=== PATIENT | male | born 1945 | race Caucasian/White ===

== ENCOUNTER 2018-04-17 11:28 | Emergency (ER) | payer OTHER, SELFPAY ==
[2018-04-17] VITALS (62 sets, daily range): BP systolic 112–191; BP diastolic 68–130; PULSE 59–84; RESP 7–25; TEMP 36.6; O2SAT 95–98
--- NOTE | 2018-04-17 11:45 | DI.RAD_ITS ---
SYMPTOMS/DIAGNOSIS: ANTERIOR CHEST PAIN AND SHORTNESS OF BREATH CHEST X-RAY, FRONTAL AND LATERAL VIEWS: Comparison is 05/24/17. The heart size and pulmonary vasculature are within normal limits. The lungs appear hyperinflated consistent with underlying COPD. There is a small infiltrate seen in the right costophrenic angle, not present on a prior examination. The lungs are otherwise clear. No effusions or pneumothoraces are present. Degenerative changes are seen in the spine. IMPRESSION: Right basilar infiltrate. This may represent atelectasis or pneumonia.
--- NOTE | 2018-04-17 11:48 | ED.GENADUL_ITS ---
Discharge Plan Disposition Patient Disposition: HOME Condition: Improving Discharge Details Chief Complaint: Chest Pain Clinical Impression: Pneumonia involving right lung Reason For Visit: CHEST PAINS Primary Care Provider: Tyler Brown ED Provider: Aguila Wei Home Meds and New Rx's Prescriptions: New cefdinir 300 mg capsule 300 mg PO Q12H 10 Days Qty: 20 RF: 0 Continued multivitamin [Daily Multi-Vitamin] 1 EACH tablet 2 ea PO DAILY RF: 0 cholecalciferol (vitamin D3) [Vitamin D3] 1,000 UNIT capsule 1,000 unit PO DAILY Qty: 100 RF: 6 loratadine 10 MG tablet 10 mg PO DAILY PRNQty: 30 RF: 1 atorvastatin 80 MG tablet 1 tab PO HS Qty: 90 RF: 3 pantoprazole [Protonix] 20 MG tablet,delayed release (DR/EC) 20 mg PO BID Qty: 90 RF: 3 loperamide 2 MG tablet 2 mg PO PRN MDD 6 mg PRNQty: 20 RF: 1 ferrous sulfate 325 MG tablet 325 mg PO BID 90 Days Qty: 180 RF: 3 aspirin [Aspir-81] 81 MG tablet,delayed release (DR/EC) 81 mg PO DAILY RF: 0 Discharge Instructions Instructions: Pneumonia (ED) Additional Instructions: Please follow-up with Dr. Brown in clinic. We will ask our care managers to make you a follow-up appointment. Take antibiotics as prescribed, next dose tomorrow morning. Home to rest today. 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 Denies lower extremity pain or swelling. He arrives moderately hypertensive, otherwise unremarkable vital signs and a reassuring exam. Diagnosis includes occult pneumonia, ACS, congestive heart failure, pleurisy. Patient had IV access established, referred for laboratory testing, chest x-ray, EKG. Patient's troponin is negative, BNP less than 1000, white blood cell count 4 with hematocrit of 37. Chemistries otherwise reassuring. Chest x-ray reveals right basilar infiltrate. Patient was given a shelter monitor for 4 hours. Repeat troponin obtained and negative. I do feel would benefit from outpatient follow-up and consideration of stress test if symptoms persist, but given today's findings will treat with a course of antibiotics beginning tomorrow for basilar pneumonia. Discussed with the patient plan for outpatient management as well as return and follow-up precautions Lab Data Lab results reviewed: Yes I reviewed the patient's lab results. Laboratory Results - last 24 hr 04/17/18 04/17/18 04/17/18 11:35 11:35 11:35 WBC 4.88 RBC 4.82 Hgb 11.7 L Hct 37.0 L MCV 76.8 L MCH 24.3 L MCHC 31.6 L RDW 16.3 H Plt Count 178 MPV 8.5 Immature Gran % 0.4 Neutrophils % 77.1 Lymphocytes % 11.3 Monocytes % 8.8 Eosinophils % 2.0 Basophils % 0.4 Absolute Neutrophils 3.76 Absolute Lymphocytes 0.55 L Absolute Monocytes 0.43 Absolute Eosinophils 0.10 Absolute Basophils 0.02 APTT 28.5 Sodium 140 Potassium 4.5 Chloride 104 Carbon Dioxide 24.3 Anion Gap 11.7 H BUN 17 Creatinine 1.29 Estimated GFR/1.73 m2 54.75 Glucose 79 Calcium 9.2 Magnesium 1.8 Total Bilirubin 1.1 H AST 26 ALT 29 Alkaline Phosphatase 102 Troponin I < 0.02 NT-Pro-B Natriuret Pep 854 H Total Protein 7.2 Albumin 3.8 ECG Data Attestation: I personally reviewed and interpreted this ECG (s) as follows: Interpretation: Normal sinus rhythm, rate of 69, the QRS is narrow, there is no ST segment elevation, no history of isolated T wave inversions in aVL lead V2, lead V1 HPI General Mode of arrival: ambulatory . Date/Time Provider Initiated Documentation: 04/17/18 11:32 . Limitations to Documentation: no limitations . Information obtained by: patient . History of Present Illness 72 year old M presents to the emergency department with the chief complaint of CP and SOB with exertion over 3 days time., described as moderate, Quality is described as dull and other (pressure), and is localized to the chest. Patient reports no radiation. Patient started experiencing this minute(s) and it has been intermittent and now resolved. Rest improves symptom(s), Movement worsens symptoms . Patient did receive the following treatments prior to arrival, none Related Data Home Medications Medication Instructions Recorded Confirmed multivitamin [Daily Multi-Vitamin] 2 ea PO DAILY 07/09/12 05/24/17 cholecalciferol (vitamin D3) 1,000 unit PO DAILY #100 tab-cap 01/25/16 [Vitamin D3] loratadine 10 mg PO DAILY PRN #30 tab-cap 09/02/16 atorvastatin 1 tab PO HS #90 tab 04/04/17 pantoprazole [Protonix] 20 mg PO BID #90 tabcr 04/04/17 aspirin [Aspir-81] 81 mg PO DAILY 05/24/17 05/24/17 loperamide 2 mg PO PRN PRN #20 tab MDD 6 mg 10/31/17 ferrous sulfate 325 mg PO BID 90 Days #180 tab-cap 12/04/17 cefdinir 300 mg PO Q12H 10 Days #20 cap 04/17/18 Previous Rx's Medication Instructions Recorded atorvastatin 1 tab PO HS #90 tab 04/04/17 pantoprazole [Protonix] 20 mg PO BID #90 tabcr 04/04/17 ferrous sulfate 325 mg PO BID 90 Days #180 tab-cap 12/04/17 cefdinir 300 mg PO Q12H 10 Days #20 cap 04/17/18 Allergies Allergy/AdvReac Type Severity Reaction Status Date / Time No Known Drug Allergies Allergy Verified 03/27/18 14:35 General Stated Complaint: SOB BRUCE: 2 Review of Systems Review of Systems 8 systems reviewed and otherwise negative FORMERLY [facility], [facility] Surgical History Carotid endarterectomy (04/19/16) Colonoscopy - IV Sedation (03/10/14) EGD - IV Sedation (12/22/15) Extraction of cataract (09/25/14) partial esophagotomy (04/28/00) Family History Mother Congestive heart failure (CHF) Father Myocardial infarction Sister Myocardial infarction Sister Age: 84 No problems noted. Brother Esophageal cancer Social History Smoking/Tobacco Use Status: Former Tobacco Use Exam Narrative Exam Narrative: GEN: awake, alert, oriented 3. Pleasant, well groomed, interact angel. HEAD: Normocephalic, atraumatic ENT: Mucous membranes moist, oropharynx unremarkable, External ear exam unremarkable EYES: PERRL, EOMI NECK: Full ROM, no SARAH, no menigismus CHEST/RESP: Nontender, clear to auscultation bilateral, no wheeze/rhonchi/rales CARDIOVASCULAR: RRR, no murmur, rub liliya. 2+ Rad pulse bilateral ABDOMEN: Soft, nontender, no mass. +Bowel sounds EXT: Full ROM, no edema, no rash Neuro: Grossly normal neurologic exam, conversant, interactive. Psych: Speech fluent, thoughts congruent, affect normal Course Vital Signs Temperature 36.6 C 04/17/18 11:33 Pulse 76 04/17/18 11:33 Respiratory Rate 15 04/17/18 11:33 Blood Pressure 191/78 H 04/17/18 11:33 Temperature 36.6 C 04/17/18 11:33 Temperature Source Temporal Artery Scan 04/17/18 11:33 Pulse 76 04/17/18 11:33 Respiratory Rate 15 04/17/18 11:36 Respiratory Effort 04/17/18 11:36 Respiratory Depth Normal 04/17/18 11:36 Respiratory Pattern Normal 04/17/18 11:36 Blood Pressure 191/78 H 04/17/18 11:33 Blood Pressure Position Supine 04/17/18 11:33 Oxygen Delivery Method Room Air 04/17/18 11:33 Oxygen Flow Rate 0 04/17/18 11:33 Pain Level 2 04/17/18 11:33
[2018-04-17 11:55] LABS: Abs Immature Grans 0.02 k/cumm (0.0-0.09); Absolute Basophil Count 0.02 k/cumm (0.0-0.2); Absolute Lymphocyte Count 0.55 k/cumm (1.2-3.4); Absolute Monocyte Count 0.43 k/cumm (0.11-0.7); Absolute Neutrophil Count 3.76 k/cumm (1.2-6.7); Basophils % 0.4; HGB 11.7 g/dL (13.5-17.5); Immature Grans % 0.4; Lymphocytes % 11.3; Mean Corp. HGB Concentration 31.6 g/dL (32.0-36.0); Mean Corpuscular Hemoglobin 24.3 pg (27.0-33.0); Mean Corpuscular Volume 76.8 fL (80-95); Mean Platelet Volume 8.5 fL (8.0-11.0); Monocytes % 8.8; Neutrophils % 77.1; Platelet Count 178 x1000/uL (130-400); RBC 4.82 m/cumm (4.50-6.00); RBC Distribution Width 16.3 % (11.8-14.1); White Blood Cell Count 4.88 k/cumm (4.4-10.8)
[2018-04-17] MEDS: Normal Saline 1,000 ML 125 ML IV (11:55)
[2018-04-17] MEDS: Normal Saline Flush 10 ML SYR IVP (11:56)
[2018-04-17 12:21] LABS: PTT Activated 28.5 sec (21.0-31.4)
[2018-04-17 12:29] LABS: ALT 29 U/L (12-78); AST 26 U/L (15-37); Albumin 3.8 g/dL (3.4-5.0); Alkaline Phosphatase 102 U/L (46-116); Anion Gap 11.7 mmol/L (3-11); BUN 17 mg/dL (7-18); Bilirubin, Total 1.1 mg/dL (0.2-1.0); CO2 24.3 mmol/L (21.0-32.0); CREATININE 1.29 mg/dL (0.70-1.30); Calcium 9.2 mg/dL (8.5-10.1); Chloride 104 mmol/L (98-107); Estimated GFR 54.75 (mL/min/1.73m2); Glucose 79 mg/dL (70-100); Magnesium 1.8 mg/dL (1.8-2.4); NT-proBNP 854 pg/mL; Potassium 4.5 mmol/L (3.5-5.1); Sodium 140 mmol/L (136-145); Total Protein 7.2 g/dL (6.4-8.2); Troponin I < 0.02 ng/mL (0.00-0.06)
[2018-04-17 15:51] LABS: Troponin I 0.02 ng/mL (0.00-0.06)
--- NOTE | 2018-04-18 09:47 | CMPROGNOTE_ITS ---
Care Management Progress Note 04/18-Dr. Wei requested assistance with a PCP f/u in one week for pneumonia. Dr. Brown PCP. Referral faxed to [facility] this am.
== END 2018-04-17 16:22 | disposition home or self-care (01) ==
PROVIDERS: Emergency Provider Emergency Medicine; PCP Family Medicine
DX: J18.9 Pneumonia, unspecified organism (principal)
CPT/HCPCS: 36415; 80053; 93005; 96361; 96365; 96366; 99285; 71046; 83735; 83880; 84484; 85025; 85730; 93010; 99284; J0696

== ENCOUNTER 2018-05-09 05:11 | Outpatient (CLI) | payer OTHER, SELFPAY ==
--- NOTE | 2018-05-09 06:43 | MERGEMPI_ITS ---
*[facility]* *[facility]* [address] [place] [address] Myocardial Perfusion Imaging - SPECT Werner protocol Date of study: 05/09/2018 *PATIENT PRESENTATION* Height: 175.3cm (69in) Blood Pressure: Weight: 62.7kg (138lb) BSA: 1.74m^2 Referring physician: Frank Lopez Ordering physician: Tyler Brown Impressions: Stress-induced perfusion defect with drop in ejection fraction. Summary: 1. Myocardial perfusion imaging: There is a large sized, partially reversible defect involving the mid anterior and apical anterior, mid inferolateral, mid anterolateral, apical lateral, and apical wall(s). This suggests large myocardial infarction and ischemia in the distribution of left anterior descending and left circumflex coronary artery. Overall ischemia: moderate. 2. The calculated left ventricular ejection fraction after stress: 29%. LV global systolic function is severely reduced. Diffuse left ventricular regional motion abnormalities. There is akinesis involving the apical wall(s) of the left ventricle. There is severe hypokinesis involving the mid anterolateral wall(s) of the left ventricle. 3. Stress ECG conclusions: The stress ECG is positive. 4. Stress: The target heart rate was achieved. The heart rate response to stress is normal. There is a normal resting blood pressure with an appropriate response to stress. The patient experienced no chest pain during stress. Exercise capacity is above normal for age. 5. Baseline ECG: Nonspecific ST and T wave changes. There was an oldanteroseptal myocardial infarction. 6. Treadmill exercise testing was performed using the Werner protocol. The patient exercised for 7 min 20 sec, to protocol stage 3, to a maximal work rate of 9mets. Exercise was terminated due to achievement of target heart rate. Recommendations: Cardiac catheterization should be performed in order to evaluate coronary artery disease. This procedure has been arranged, discussed with the referring physician, and discussed with the patient. Indication: R07.9, Appropriate Use Criteria: A (Appropriate). History: REASON FOR TESTING: PATIENT WAS SEEN IN THE ER ON 04/17/18 FOR PNEUMONIA AND INTERMITTENT EPISODES OF SUBSTERNAL CHEST PRESSURE RATED 5/10. TROPONINS IN ER WERE NEGATIVE. HE REPORTS RECENT CHEST ACHING WITH INCREASED SOB AND SHOULDER ACHING WITH SHOVELING SNOW. HE STATES HE TIRES QUICKLY WITH ACTIVY. HE DENIES CHEST PAIN/PRESSURE UPON ARRIVAL TODAY. SIGNIFICANT PAST MEDICAL HISTORY: TIA, CAROTID DISEASE WITN ENDARTERECTOMY ON 04/26, ATHEROSCLEROSIS OF [place] CORONARY ARTERY OF [place] HEART WITHOUT ANGINA PECTORIS, PARTIAL ESOPHAGOTOMY. SMOKING STATUS: QUIT 1988. SMOKED FOR 29 YEARS 1PPD. EXERCISE ROUTINE:DAILY ADL'S. Risk factors: Family history of coronary artery disease. Dyslipidemia. Cholesterol: 166mg/dl. HDL: 81mg/dl. LDL: 83mg/dl. Triglycerides: 41mg/dl. ALLERGIES: NO KNOWN ALLERGIES. MEDICATIONS: MULTIVITAMIN DAILY, VITAMIN D 1000 UNITS DAILY, LORATADINE 10 MG DAILY, ATORVASTATIN 80 MG HS, PROTONIX 20 MG BID, FERROUS SULFATE 325 MG BID, ASPIRIN 81 MG DAILY. Imaging Technique: Protocol: Werner protocol. Acquisition: Gated SPECT; 1 day - rest/stress. The patient was imaged in the supine position. Attenuation correction used. Isotope administration: - Rest. Tc[99m]-sestamibi. Dose: 10.1mCi. Injection time: 08:45 AM. Injection to stress time: 00:45. - Stress. Tc[99m]-sestamibi. Dose: 30.2mCi. Injection time: 10:30 AM. 1-2 min before end of exercise Baseline ECG: SINUS BRADYCARDIA. HR 57 BPM. INVERTED T-WAVES IN LEADS & V2. Normal sinus rhythm. Nonspecific ST and T wave changes. There was an oldanteroseptal myocardial infarction. Stress protocol: + +---+ + !Stage !HR !BP (mmHg) ! + +---+ + !Baseline supine !57 !128/72 (91) ! + +---+ + !Baseline standing !66 !120/60 (80) ! + +---+ + !Stage I; 1.7mph, 10degrees; 3 min !114!124/64 (84) ! + +---+ + !Stage II; 2.5mph, 12degrees; 3 min!136!130/60 (83) ! + +---+ + !Recovery; 1 min !126!152/78 (103)! + +---+ + !Recovery; 3 min !75 !170/80 (110)! + +---+ + !Recovery; 6 min !77 !150/80 (103)! + +---+ + !Recovery; 12 min !66 !140/78 (99) ! + +---+ + * Stress results: STRESS TEST ENDED IN 7 MINUTES 20 SECONDS DUE TO FATIGUE. NORMAL HEART RATE AND BLOOD PRESSURE RESPONSE TO EXERCISE. MAX HEART RATE: 143 96 % OF TARGET HEART RATE ACHEIVED. MET'S: 9.12. PVC'S DURING EXERCISE AND INCREASING IN PROMINENCE UP UNTILL 6 MINUTES RECOVERY PERIOD T WAVE INVERSION IN AVL, V1 AND V2 AT BASELINE AND THROUGHOUT EXERCISE TEST. ST SEGMENT DEPRESSIONS IN INFERIOR LEADS NOTED DURING STAGE II OF EXERCISE, PERSISITING AND BECOMING DOWNWARD SLOPING IN APPEARANCE INTO [address] SEGMENT ELEVATIONS IN LEADS V1 & V2 NOTED DURING PEAK EXERCISE THROUGH 6 MINUTES RECOVERY PERIOD. NO ANGINA FUNCTIONAL CAPACITY FOR EXERCISE IS ABOVE AVERAGE. Maximal heart rate during stress was 143bpm (97% of maximal predicted heart rate). The maximal predicted heart rate was 148bpm. The target heart rate was achieved. The heart rate response to stress is normal. There is a normal resting blood pressure with an appropriate response to stress. The rate-pressure product for the peak heart rate and blood pressure was 36643se Hg/min. The patient experienced no chest pain during stress. Exercise capacity is above normal for age. Stress ECG: The stress ECG is positive. Stress ECG change: horizontal depression. Severity: 1.0-1.5mm. In lead groups: II, III, and aVF. Melvin treadmill score: 0. This score predicts a moderate risk of cardiac events. Myocardial perfusion: Imaging information: gated. The image quality was good. Left ventricular size is normal. There is a large sized, partially reversible defect involving the mid anterior and apical anterior, mid inferolateral, mid anterolateral, apical lateral, and apical wall(s). This suggests large myocardial infarction and ischemia in the distribution of left anterior descending and left circumflex coronary artery. Overall ischemia: moderate. Ventricular Function (Wall Motion): The calculated left ventricular ejection fraction after stress: 29%. LV global systolic function is severely reduced. Diffuse left ventricular regional motion abnormalities. There is akinesis involving the apical wall(s) of the left ventricle. There is severe hypokinesis involving the mid anterolateral wall(s) of the left ventricle. Study data: Frank Lopez MD supervised and was readily available during the procedure. This study was interpreted by [facility]. Study status: Routine. Consent: The risks, benefits, and alternatives to the procedure were explained to the patient and informed consent was obtained. Procedure: Initial setup. A baseline ECG was recorded. Surface ECG leads and manual cuff blood pressure measurements were monitored. Heart sounds: Normal. Lung sounds: Normal. Treadmill exercise testing was performed using the Werner protocol. The patient exercised for 7 min 20 sec, to protocol stage 3, to a maximal work rate of 9mets. Exercise was terminated due to achievement of target heart rate. Study completion: All catheters inserted during the procedure were removed. The patient tolerated the procedure well and was discharged from the lab. Discharge: The patient left the laboratory in stable condition. Birthdate: Patient birthdate: 1945. Sex: Gender: male. Study date: Study date: 05/09/2018. Study time: 06:43 AM. Signature Documentation: - The imaging portion of this study was interpreted by Nuclear Caustic Pump Operator Frank Lopez MD. - The Stress ECG portion of this study was interpreted by Frank Lopez MD. Electronically signed by Frank Lopez 05/09/2018 15:18
== END 2018-05-09 05:31 ==
PROVIDERS: PCP Family Medicine; Visit Provider Family Medicine
DX: R06.02 Shortness of breath; R93.1 Abnormal findings on diagnostic imaging of heart and coronary circulation; E78.5 Hyperlipidemia, unspecified; G45.9 Transient cerebral ischemic attack, unspecified; I25.10 Atherosclerotic heart disease of native coronary artery without angina pectoris; Z87.891 Personal history of nicotine dependence; I20.9 Angina pectoris, unspecified
CPT/HCPCS: 78452; 93016; 93018; 99205; 99215; 93017

== ENCOUNTER → 2018-06-27 13:45 | Outpatient (BNVA) | payer OTHER, SELFPAY | PROVIDERS: PCP Family Medicine; Visit Provider Student in an Organized Health Care Education/Training Program | DX: I25.10 Atherosclerotic heart disease of native coronary artery without angina pectoris (principal); Z95.818 Presence of other cardiac implants and grafts; I20.8 Other forms of angina pectoris | CPT/HCPCS: 99214; 99213 ==

== ENCOUNTER 2018-09-07 11:54 | Outpatient (RCR) | payer OTHER, SELFPAY | END 2018-09-07 23:59 | disposition home or self-care (01) | LOC: CR 11:54 | PROVIDERS: PCP Family Medicine; Visit Provider Family Medicine | DX: Z95.1 Presence of aortocoronary bypass graft (principal); Z51.89 Encounter for other specified aftercare | CPT/HCPCS: S9472 ==

== ENCOUNTER 2018-09-24 07:00 | Outpatient (RCR) | payer OTHER, SELFPAY | END 2018-10-07 23:59 | disposition home or self-care (01) | LOC: CR 07:00 | PROVIDERS: PCP Family Medicine; Visit Provider Family Medicine | DX: Z95.1 Presence of aortocoronary bypass graft (principal); Z51.89 Encounter for other specified aftercare | CPT/HCPCS: S9472 ==

== ENCOUNTER 2018-11-06 08:15 | Outpatient (CLI) | payer MEDICARE, SELFPAY ==
[2018-11-06 11:02] LABS: Abs Immature Grans 0.01 k/cumm (0.0-0.09); Absolute Basophil Count 0.01 k/cumm (0.0-0.2); Absolute Eosinophil Count 0.19 k/cumm (0.0-0.7); Absolute Lymphocyte Count 0.53 k/cumm (1.2-3.4); Absolute Monocyte Count 0.42 k/cumm (0.11-0.7); Basophils % 0.3; Eosinophils % 4.9; HCT 31.1 % (40.0-50.0); HGB 10.1 g/dL (13.5-17.5); Immature Grans % 0.3; Lymphocytes % 13.6; Mean Corp. HGB Concentration 32.5 g/dL (32.0-36.0); Mean Corpuscular Hemoglobin 23.9 pg (27.0-33.0); Mean Corpuscular Volume 73.7 fL (80-95); Mean Platelet Volume 9.1 fL (8.0-11.0); Monocytes % 10.7; Neutrophils % 70.2; Platelet Count 178 x1000/uL (130-400); RBC 4.22 m/cumm (4.50-6.00); RBC Distribution Width 18.2 % (11.8-14.1); White Blood Cell Count 3.91 k/cumm (4.4-10.8)
[2018-11-06 11:07] LABS: Absolute Neutrophil Count 2.74 k/cumm (1.2-6.7)
[2018-11-06 11:24] LABS: Anisocytosis 1+; Diff Comment RBC Morph Reviewed; Hypochromasia 1+; Microcytosis 2+; Poikilocytes 1+
[2018-11-06 11:45] LABS: ALT 35 U/L (12-78); AST 23 U/L (15-37); Albumin 3.5 g/dL (3.4-5.0); Alkaline Phosphatase 101 U/L (46-116); Bilirubin, Total 0.9 mg/dL (0.2-1.0); Calculated LDL 79 mg/dL; Cholesterol 167 mg/dL (50-200); HDL Cholesterol 76 mg/dL (40-60); Magnesium 1.9 mg/dL (1.8-2.4); Total Protein 6.4 g/dL (6.4-8.2); Triglyceride 62 mg/dL (30-150)
== END 2018-11-06 08:35 ==
PROVIDERS: PCP Family Medicine; Visit Provider Student in an Organized Health Care Education/Training Program
DX: I25.810 Atherosclerosis of coronary artery bypass graft(s) without angina pectoris (principal); E78.5 Hyperlipidemia, unspecified
CPT/HCPCS: 36415; 80061; 80076; 83721; 83735; 85025

== ENCOUNTER → 2019-01-11 09:50 | Outpatient (BNVA) | payer MEDICARE, SELFPAY | PROVIDERS: PCP Family Medicine; Referring Provider Family Medicine; Visit Provider Internal Medicine Cardiovascular Disease | DX: I25.810 Atherosclerosis of coronary artery bypass graft(s) without angina pectoris (principal); I77.9 Disorder of arteries and arterioles, unspecified; E78.00 Pure hypercholesterolemia, unspecified | CPT/HCPCS: 99204; 99215 ==

== ENCOUNTER 2019-01-30 00:29 | Outpatient (CLI) | payer MEDICARE, SELFPAY ==
--- NOTE | 2019-01-30 07:23 | DI.US_ITS ---
APPROVED REPORT Conclusion Left Ventricle : The left ventricle is normal size. The left ventricular ejection fraction is within the normal range. There is normal LV segmental wall motion. LVEF is 50-55%. The left ventricular jimenez tolic function is normal. Right Ventricle : Right ventricle is dilated. Right ventricle is mildly hypokinetic. Atria : Left atrium is dilated. Right atrium is dilated. Aortic Valve : The Aortic valve is sclerotic and probably tricuspid. Mild aortic stenosis. Trace aor tic regurgitation. Mitral Valve : The mitral valve is moderately thickened. AVML has focal thickening. No evidence of m itral valve stenosis. Moderate mitral regurgitation which is posteriorly directed. EROA=0.24 cm??? Tricuspid Valve : The tricuspid valve leaflets are thickened , but open well. Mild to moderate tricus pid regurgitation. RVSP equals 35 mmHg Pericardium : There is no pericardial effusion. Great Vessels : The IVC is dilated but collapses >50% with inspiration. Compared to echocardiogram from [facility] in May 2018: There is now moderate regurgita tion of the mitral valve EXAM: Comprehensive 2D, Doppler, and color-flow Echocardiogram Patient Location: Out-Patient Loss Prevention Auditor: SAMANTHA Cazares (AE) Rhythm: Bradycardia with frequent ectopy Indications: s/p CABG CAD i25.810 Left Ventricle The left ventricle is normal size. The left ventricular ejection fraction is within the normal range. There is normal left ventricular wall thickness. There is normal LV segmental wall motion. The left ventricular diastolic function is normal. LVEF is 50-55%. Right Ventricle Right ventricle is dilated. Right ventricle is mildly hypokinetic. Atria Left atrium is dilated. Right atrium is dilated. Aortic Valve The Aortic valve is sclerotic and probably tricuspid. Mild aortic stenosis. Trace aortic regurgitatio n. Mitral Valve The mitral valve is moderately thickened. AVML has focal thickening. No evidence of mitral valve sten osis. Moderate mitral regurgitation which is posteriorly directed. EROA=0.24 cm??? Tricuspid Valve The tricuspid valve leaflets are thickened , but open well. Mild to moderate tricuspid regurgitation. RVSP equals 35 mmHg Pulmonic Valve Pulmonic valve is not well visualized. Mild pulmonic regurgitation. Great Vessels The aortic root is normal in size. The IVC is dilated but collapses >50% with inspiration. Pericardium There is no pericardial effusion. 2D Dimensions IVSd 0.97 cm M: 0.6-1.2 LV EDV A2C 86.20 mL PWd 0.95 cm M: 0.6 - 1.2 LV EDV A4C 69.20 mL LVDd 4.65 cm M: 4.2 - 5.9 LA Volume Index A2C 40.36 mL/m2 LVDs 3.38 cm M: 2.5 - 4.0 LA Volume Index A4C 46.77 mL/m2 Aortic Root 3.08 cm M: 3.1 - 3.7 LA Volume Index Biplane 44.41 mL/m2 RA Area A4C 21.59 cm2 LA Area A4C 24.34 cm2 LVOT 2.00 cm (M/F) 1.5-2.5 LA Area A2C 22.12 cm2 Ascending Aorta 3.27 cm M: 2.6 - 3.4 EF AP4 56.36 % LVEF (Teich) 53.34 % EF AP2 54.41 % LVEF (Mckay's) 58.26 % M: 52 - 72 EF BP 58.26 % LV Volume 68.70 mL M: 62 - 150 IVC 2.1 cm LV Volume Index 39.25 mL/m2 M: 34 - 74 FS 27.43 % LV Diastology E/A Ratio 1.0 MED E' 0.08 (>0.07 m/s) LV E/e MED 10.03 (<14) LAT E' 0.09 (>0.1 m/s) LV E/e LAT 8.83 (<14) Pulm Vein s 0.63 m/s PV S/D Ratio 1.26 Pulm Vein d 0.50 m/s Pulm Vein a 0.35 m/s A-A Duration 179.57 msec Aortic Valve LVOT Area 3.15 cm2 LVOT Peak [place]. 0.86 m/s LVOT Mean [place]. 0.67 m/s ERLIN Vmax 0.00 m/s LVOT Peak Gr. 2.98 mmHg ERLIN Vmax Index 0.85 cm2/m2 LVOT Mean Gr. 1.93 mmHg ERLIN Mean [place]. 0.00 m/s LVOT VTI 0.22 m ERLIN Mean [place]. Index 0.91 cm2/m2 AoV Peak [place]. 1.83 (0.5-1.3 m/s) AoV Mean [place]. 1.33 m/s AO Peak GR. 13.44 mmHg AO Mean GR. 7.66 (<5 mmHg) AO VTI 0.46 (0.18-0.25 m) ERLIN (VTI) 1.48 (2.5-4.5 cm2) ERLIN (VTI) Index 0.86 cm/m2 Mitral Valve MV E Max [place]. 0.76 (0.4-1.3 m/s) MV A Velocity 0.73 (0.4-1.3 m/s) E/A Ratio 1.04 MV Decel. Time 244.55 (160-240 msec) ERO A 0.24 cm2 MV Regurg Volume 54.00 mL MV PHT 70.92 msec MV RF 44.00 % MVA PHT 3.10 cm2 PISA Radius 0.56 cm Pulmonary Valve PV Peak Velocity 0.80 (0.5-1.5 m/s) Tricuspid Valve TR P. Velocity 2.57 m/s TV Regurg Vmax 2.57 m/s TR P. Gradient 26.52 mmHg
== END 2019-01-30 00:49 ==
PROVIDERS: PCP Family Medicine; Visit Provider Internal Medicine Cardiovascular Disease
DX: I25.810 Atherosclerosis of coronary artery bypass graft(s) without angina pectoris (principal); R00.1 Bradycardia, unspecified; I35.2 Nonrheumatic aortic (valve) stenosis with insufficiency; I10 Essential (primary) hypertension
CPT/HCPCS: 93306

== ENCOUNTER 2019-03-06 12:35 | Outpatient (CLI) | payer MEDICARE, SELFPAY ==
--- NOTE | 2019-03-06 15:08 | DI.MRI_ITS ---
EXAM: MR ANGIO BRAIN WO CLINICAL HISTORY: TRANSIENT VISUAL LOSS, NEEDS [place] OF [place] CHECK, AMAUROSIS FUGAX, G45.3. TECHNIQUE: Multiplanar multisequence MRI was performed. MR angiography was performed according to [facility] usual protocol. COMPARISON: MRI - BRAIN WO CONTRAST from 03/08/2016 FINDINGS: The right posterior cerebral artery is supplied from the posterior communicating artery. Posterior cerebral, middle cerebral, and anterior cerebral arteries are unremarkable in appearance bilaterally with no evidence of aneurysm, stenosis or dissection. Basilar artery and internal carotid arteries appear normal with no evidence of aneurysm, stenosis or dissection. IMPRESSION: Negative MR angiography, [place] of [place] region.
== END 2019-03-06 12:55 ==
PROVIDERS: PCP Family Medicine; Visit Provider Family Medicine
DX: G45.3 Amaurosis fugax (principal); H53.129 Transient visual loss, unspecified eye
CPT/HCPCS: 70544

== ENCOUNTER 2019-03-08 01:50 | Outpatient (CLI) | payer MEDICARE, SELFPAY ==
--- NOTE | 2019-03-08 11:02 | DI.US_ITS ---
EXAM: US CAROTID CLINICAL HISTORY: TRANSIENT VISION LOSS, CHECK FOR PLAQUES, AMAUROSIS FUGAX-G45.3 TECHNIQUE: Ultrasound performed using standard protocol. COMPARISON: US ECHOCARDIOGRAM from 01/30/2019 FINDINGS: Duplex evaluation of the carotid circulation was performed according to the usual protocol. There is reportedly a history of left carotid endarterectomy. There is prominent dense calcified plaque in carotid bifurcation ICA and ECA on the right. Flow [place] and proximal internal carotid artery on the right are 339 cm/second systolic consistent with c ritical stenosis. High velocity flow at 258 cm/second also noted in proximal right ECA. On the left, flow velocities in the carotid bulb are 187 cm/second systolic. Proximal internal carot id artery shows maximal flow velocity 129 cm/second systolic. There is bilateral antegrade vertebral flow observed. IMPRESSION: 1. Suspected critical stenosis proximal right ICA, maximal flow to a velocity 339 cm/second. 2. Flow velocity elevation left carotid bulb, 187 cm/second, 50-69 percent luminal diameter stenosis.
== END 2019-03-08 02:10 ==
PROVIDERS: PCP Family Medicine; Visit Provider Family Medicine
DX: G45.3 Amaurosis fugax (principal); H53.129 Transient visual loss, unspecified eye; I65.23 Occlusion and stenosis of bilateral carotid arteries
CPT/HCPCS: 36415; 80048; 85652; 85025; 86140; 93880

== ENCOUNTER 2019-03-08 07:55 | Outpatient (CLI) | payer MEDICARE, SELFPAY ==
[2019-03-08 11:20] LABS: HCT 33.3 % (40.0-50.0); HGB 10.9 g/dL (13.5-17.5); Mean Corp. HGB Concentration 32.7 g/dL (32.0-36.0); Mean Corpuscular Hemoglobin 25.1 pg (27.0-33.0); Mean Corpuscular Volume 76.6 fL (80-95); Mean Platelet Volume 8.3 fL (8.0-11.0); Platelet Count 184 x1000/uL (130-400); RBC 4.35 m/cumm (4.50-6.00); RBC Distribution Width 20.4 % (11.8-14.1); White Blood Cell Count 4.12 k/cumm (4.4-10.8)
[2019-03-08 11:21] LABS: Absolute Basophil Count 0.01 k/cumm (0.0-0.2); Absolute Eosinophil Count 0.27 k/cumm (0.0-0.7); Absolute Lymphocyte Count 0.38 k/cumm (1.2-3.4); Absolute Monocyte Count 0.39 k/cumm (0.11-0.7); Absolute Neutrophil Count 3.01 k/cumm (1.2-6.7); Basophils % 0.2; Eosinophils % 6.6; Immature Grans % 1.5; Lymphocytes % 9.2; Monocytes % 9.5
[2019-03-08 11:25] LABS: Anisocytosis 2+; Diff Comment RBC Morph Reviewed; Hypochromasia 3+; Microcytosis 3+
[2019-03-08 11:26] LABS: Poikilocytes 2+
[2019-03-08 11:55] LABS: ESR 26 mm/hr (1-20)
[2019-03-08 12:06] LABS: Anion Gap 6.8 mmol/L (3-11); BUN 18 mg/dL (7-18); C-Reactive Protein 0.86 mg/dL (0.0-0.3); CO2 27.2 mmol/L (21.0-32.0); CREATININE 1.19 mg/dL (0.70-1.30); Calcium 8.7 mg/dL (8.5-10.1); Chloride 108 mmol/L (98-107); Estimated GFR 59.92 (mL/min/1.73m2); Glucose 92 mg/dL (74-106); Potassium 4.9 mmol/L (3.5-5.1); Sodium 142 mmol/L (136-145)
== END 2019-03-08 08:15 ==
PROVIDERS: PCP Family Medicine; Visit Provider Family Medicine
DX: G45.3 Amaurosis fugax (principal)
CPT/HCPCS: 36415; 80048; 85652; 85025; 86140

== ENCOUNTER → 2019-10-21 09:42 | Outpatient (BNVA) | payer OTHER, SELFPAY | PROVIDERS: PCP Family Medicine; Referring Provider Family Medicine; Visit Provider Internal Medicine Cardiovascular Disease | DX: I25.10 Atherosclerotic heart disease of native coronary artery without angina pectoris (principal) | CPT/HCPCS: 99213 ==

== ENCOUNTER 2020-01-16 18:05 | Emergency (ER) | payer OTHER, SELFPAY ==
[2020-01-16 18:20] VITALS: BP 124/62; PULSE 93; RESP 16; TEMP 36.7; O2SAT 97
--- NOTE | 2020-01-16 18:47 | ED.GENADUL_ITS ---
Discharge Plan Disposition Patient Disposition: HOME Condition: Improving Discharge Details Clinical Impression: Rhinitis Primary Care Provider: Tyler Brown ED Provider: Aguila Wei Home Meds and New Rx's Prescriptions: New loratadine 10 mg tablet 10 mg PO DAILY Qty: 14 RF: 0 Continued lisinopril 2.5 mg tablet 2.5 mg PO DAILY Qty: 90 RF: 3 metoprolol tartrate 25 mg tablet 25 mg PO BID RF: 0 multivitamin [Daily Multi-Vitamin] 1 EACH tablet 2 ea PO DAILY RF: 0 nitroglycerin [Nitrostat] 0.4 mg tablet, sublingual 0.4 mg SL Q5-15M PRN (Reason: chest pain) Qty: 10 RF: 3 atorvastatin 80 mg tablet 80 mg PO HS Qty: 30 RF: 11 pantoprazole [Protonix] 20 mg tablet,delayed release (DR/EC) 20 mg PO BID Qty: 180 RF: 3 aspirin [Aspir-81] 81 MG tablet,delayed release (DR/EC) 81 mg PO DAILY RF: 0 Discharge Instructions Instructions: Postnasal Drip (DC) Additional Instructions: Flonase 2 times per day for 2 weeks. In the morning please begin a trial of loratadine once daily for 2 weeks. If not improved in 1 week's time, please follow-up with Dr. Asencio for recheck. Return to the ER if you develop fever, worsening cough, or any other acute concerns. Medical Decision Making 74-year-old male presents from home with weeks of intermittent episodes of postnasal drip with cough and production of clear sputum. Somewhat worse after lying in bed all night. He is not developed a fever and he has not had shortne ss of breath. He was seen in clinic where it was thought to be an allergic rhinitis. He states today presents for repeat evaluation but has not noticed any significant interval change since being seen in clinic. He is well-appearing with unremarkable vital signs and normal oxygenation. His exam is essentially within normal limits. Most likely seasonal allergies. Does not seem consistent with fluid overload or acute infectious process. Out of an abundance of caution patient was referred for a COVID-19 test. He is also referred for x-ray. Chest x-ray reveals streaky medial left lower lobe opacity that is similar to prior, favoring chronic subsegmental atelectasis and scarring. No other acute cardiopulmonary finding. Patient is not wheezing, he has not demonstrated no reported signs consistent with bronchitis or pneumonia. I do feel this is seasonal allergies, we will trial Flonase and Claritin. He may follow-up with primary care for recheck. HPI General Mode of arrival: ambulatory . Date/Time Provider Initiated Documentation: 01/16/20 18:14 . Limitations to Documentation: no limitations . Information obtained by: patient . History of Present Illness 74 year old M presents to the emergency department with the chief complaint of Clear sputum and cough intermittently for weeks, described as mild, Quality is described as dull, and is localized to the mouth and chest. Patient reports no radiation. Patient started experiencing this week(s) and it has been intermittent. No relieving factors improve symptom(s), No exacerbating factors reported . Patient notes cough; denies fever/chills, shortness of breath and weakness. Patient did receive the following treatments prior to arrival, none Related Data Home Medications Medication Instructions Recorded Confirmed multivitamin [Daily Multi-Vitamin] 2 ea PO DAILY 07/09/12 01/16/20 aspirin [Aspir-81] 81 mg PO DAILY 05/24/17 01/16/20 nitroglycerin 0.4 mg sublingual 0.4 mg SL Q5-15M PRN #10 tab 05/09/18 01/16/20 tablet metoprolol tartrate 25 mg tablet 25 mg PO BID tab 06/27/18 01/16/20 lisinopril 2.5 mg tablet 2.5 mg PO DAILY #90 tab 01/11/19 01/16/20 atorvastatin 80 mg tablet 80 mg PO HS #30 tab 09/16/19 01/16/20 pantoprazole 20 mg tablet,delayed 20 mg PO BID #180 tab 09/16/19 01/16/20 release loratadine 10 mg PO DAILY #14 tab 01/16/20 Previous Rx's Medication Instructions Recorded nitroglycerin 0.4 mg sublingual 0.4 mg SL Q5-15M PRN #10 tab 05/09/18 tablet lisinopril 2.5 mg tablet 2.5 mg PO DAILY #90 tab 01/11/19 atorvastatin 80 mg tablet 80 mg PO HS #30 tab 09/16/19 pantoprazole 20 mg tablet,delayed 20 mg PO BID #180 tab 09/16/19 release loratadine 10 mg PO DAILY #14 tab 01/16/20 Allergies Allergy/AdvReac Type Severity Reaction Status Date / Time No Known Drug Allergies Allergy Verified 01/16/20 18:24 General Stated Complaint: RespSymp BRUCE: 3 Review of Systems Narrative: No palpitations, no shortness of breath, no fever. He has had intermittent cough with production of clear sputum over weeks time, does seem to be worse after lying flat at night. He has not had abdominal pain, no vomiting. No travel or known sick contacts. 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 (Dr Null [facility] Vascular) Depressive disorder (06/30/11) Elevated prostate specific antigen (PSA) (06/30/11) h/o bx 2009; Dr Tripp 08/2010: consider up to 11 normal for him Gastric ulcer (01/04/16) Gastritis on path: MACARIO test neg; ? add sucralfate; STOP aspirin Iron deficiency anemia (04/17/12) 2005, 2008, 3013; LAST GI W/U 2008 NEG X ADENOMA, TICS, EGD NEG [facility] 04/2013; chronic microcytosis 1999 Personal history of TIA (transient ischemic attack) (02/06/15) R paresthesias; TIA vs Migraine, Drs. Palmer/ Latoya: vasc eval, medical therapy, statin/Plavix; finally L carotid endarterectomy 04/19/16 [facility]; F/U 11/2016 Pure hypercholesterolemia (06/30/11) goal LDL<70 due to CAD (no ischemia but presumed cause of abnl MPI 08/2011) Retinal detachment (03/10/14) R managed by Dr Iraheta at [facility] Urinary retention (04/29/16) Vasomotor rhinitis Surgical History Carotid endarterectomy (04/19/16) Left, [facility], Dr. Null for asymptomatic carotid stenosis Colonoscopy - IV Sedation (03/10/14) [facility] [place]; also EGD EGD - IV Sedation (12/22/15) Extraction of cataract (09/25/14) right eye with lens implant Dr. Truong H/O cardiac catheterization (05/22/18) [facility] Dr Harvey partial esophagotomy (04/28/00) Dr Ibanez; [place] Esophagogastrectomy and feeding jejunostomy S/P CABG x 3 (~06/04/18) S/P carotid endarterectomy Family History Mother , old age at age 92. Congestive heart failure (CHF) age of onset unknown Father , [place], pneumonia at age 78. Myocardial infarction Sister , [place] at age 56. Myocardial infarction Sister Age: 85 No problems noted. Brother , cancer at age 67. Esophageal cancer Social History (Updated 10/28/19 @ 11:38 by Jerri Velasquez LPN) Smoking/Tobacco Use Status: Former Tobacco Use Alcohol Intake: former Year quit: 1987 Drug use: Never Household members: spouse and other Housing: house Number of Children: 4 number of grandchildren: 8 Communication Needs: Hard of Hearing current occupation: Drives for [employer] What is your relationship status?: Panel score (0-1 are the most socially isolated patients): 1 What type of physical activity do you participate in: none Seatbelt use: always Drive intox or ride w/intox chassis driver: No Working smoke detector in home: Yes Fire extinguisher in home: Yes Carbon monox detector in home: Yes Do you feel safe at home: Yes Do you feel safe in your relationship?: Yes Exam Narrative Exam Narrative: GEN: awake, alert, oriented 3. Pleasant, well groomed, interactive. HEAD: Normocephalic, atraumatic ENT: Mucous membranes moist, oropharynx edentulous but otherwise unremarkable, External ear exam unremarkable EYES: PERRL, EOMI NECK: Full ROM, no SARAH, no menigismus CHEST/RESP: Nontender, clear to auscultation bilateral, no wheeze/rhonchi/rales CARDIOVASCULAR: RRR, no murmur, rub liliya. 2+ Rad pulse bilateral ABDOMEN: Soft, nontender, no mass. +Bowel sounds EXT: Full ROM, no edema, no rash Neuro: Grossly normal neurologic exam, conversant, interactive. Psych: Speech fluent, thoughts congruent, affect normal Course Vital Signs Vital signs: Vital Signs Temperature 36.7 C 01/16/20 18:20 Pulse 93 H 01/16/20 18:20 Respiratory Rate 16 01/16/20 18:20 Blood Pressure 124/62 01/16/20 18:20 Pulse Oximetry 97 01/16/20 18:20 Temperature 36.7 C 01/16/20 18:20 Temperature Source Oral 01/16/20 18:20 Pulse 93 H 01/16/20 18:20 Respiratory Rate 16 01/16/20 18:20 Respiratory Effort 01/16/20 18:26 Respiratory Depth Normal 01/16/20 18:26 Blood Pressure 124/62 01/16/20 18:20 Blood Pressure Position Sitting 01/16/20 18:20 Pulse Oximetry 97 01/16/20 18:20 Oxygen Delivery Method Room Air 01/16/20 18:20 Oxygen Flow Rate 0 01/16/20 18:20 Pain Level 0 01/16/20 18:20 Lab/Test Results Lab/Test Results: Laboratory Tests Range/Units 01/16/20 18:25 COVID-19 PCR Cancelled Nasopharyn COVID-19 PCR Cancelled Ref Test Perform Site Cancelled
--- NOTE | 2020-01-16 18:48 | DI.RAD_ITS ---
EXAM: XR PORTABLE CHEST AP CLINICAL HISTORY: cough, clear sputum TECHNIQUE: COMPARISON: CR XR CHEST 2V PA LATERAL from 04/17/2018 FINDINGS: Heart is not enlarged. There are multiple sternal sutures and mediastinal vascular clips consistent with prior CABG surgery. There are changes of COPD and pulmonary scarring. Streaky left basilar rad iodensities probably unchanged from prior study, doubt acute process. No gross pleural effusion on t his frontal film. IMPRESSION: No evidence of acute process. RADIATION DOSE DELIVERED: Total DLP
[2020-01-16 19:37] VITALS: BP 124/62; PULSE 90; RESP 16; TEMP 36.7; O2SAT 97
[2020-01-16] MEDS: Fluticasone NASAL SPRAY 16 GM BTL NS (19:39)
[2020-01-20 09:31] LABS: Patient Race White; SARS-CoV-2 RNA Undetected (Undetected); SARS-CoV-2 Specimen Source Nasopharynx
--- NOTE | 2020-01-20 15:22 | NUR.NOTE ---
Nursing Note: Attempted to call cell phone and home phone. No answer at either. VM left on home phone, non specific to call back [facility]- number provided. Will attempt again tomorrow if no call back.
--- NOTE | 2020-01-20 16:11 | NUR.NOTE ---
Nursing Note: Pt called back at 1611, negative COVID results given over the phone after identity verified.
--- NOTE | 2020-01-23 16:03 | DI.VRAD_ITS ---
PROCEDURE INFORMATION: Exam: XR Chest, 1 View Exam date and time: 01/16/2020 6:49 PM Age: 74 years old Clinical indication: Cough; Prior surgery; Additional info: Cough, clear sputum TECHNIQUE: Imaging protocol: XR of the chest Views: 1 view. COMPARISON: CR XR CHEST 2V PA LATERAL 04/17/2018 11:59 AM FINDINGS: Lungs: Lungs are symmetrically hyperinflated with coarsening of the perihilar and bibasilar airspace opacities. There is diffuse emphysematous change. There is streaky retrocardiac opacity within the medial left lower lobe, similar to comparison. Otherwise no focal consolidation or pulmonary edema. Pleural space: No pleural effusion. No pneumothorax. Heart/Mediastinum: Cardiomediastinal contours within normal limits. Vasculature: Vascular calcifications of the aortic arch. Bones/joints: Median sternotomy wires are in place. No acute osseous finding. IMPRESSION: 1. Streaky medial left lower lobe retrocardiac opacity is similar to prior, favor chronic subsegmental atelectasis and scarring. Otherwise no acute cardiopulmonary finding. 2. Radiographic sequela suggestive for COPD. Correlate clinically. Dictated and Authenticated by: Isidro Sanchez MD. Ordering:BENITA Sheehan MD
== END 2020-01-16 19:36 | disposition home or self-care (01) ==
PROVIDERS: Emergency Provider Emergency Medicine; PCP Family Medicine
DX: J31.0 Chronic rhinitis (principal); R05 Cough; Z03.818 Encounter for observation for suspected exposure to other biological agents ruled out
CPT/HCPCS: 99283; U0003; 71045

== ENCOUNTER 2020-03-19 05:10 | Outpatient (CLI) | payer OTHER, SELFPAY ==
[2020-03-19 14:05] LABS: Abs Immature Grans 0.02 10^3/uL (0.0-0.06); Absolute Basophil Count 0.02 10^3/uL (0.0-0.2); Absolute Eosinophil Count 0.15 10^3/uL (0.0-0.7); Absolute Lymphocyte Count 0.45 10^3/uL (1.2-3.4); Absolute Monocyte Count 0.26 10^3/uL (0.1-0.8); Absolute Neutrophil Count 3.93 10^3/uL (1.2-6.7); Basophils % 0.4; Eosinophils % 3.1; HCT 32.8 % (40.0-50.0); HGB 9.4 g/dL (13.5-17.5); Immature Grans % 0.4; Lymphocytes % 9.3; MCH 20.1 pg (27.0-33.0); MCHC 28.7 % (32.0-36.0); MCV 70.2 fL (80-95); MPV 8.5 fL (8.0-11.0); Monocytes % 5.4; Neutrophils % 81.4; Nucleated RBC 0 %; Platelet Count 255 10^3/uL (130-400); RBC 4.67 10^6/uL (4.36-5.78); RDW 19.1 % (11.8-14.1); RDW-SD 47.7 fL; WBC 4.83 10^3/uL (4.4-10.8)
[2020-03-19 15:31] LABS: ALT 16 U/L (16-63); AST 14 U/L (15-37); Albumin 3.4 g/dL (3.4-5.0); Alkaline Phosphatase 87 U/L (46-116); Anion Gap 10.8 mmol/L (3-11); BUN 21 mg/dL (7-18); Bilirubin, Total 0.5 mg/dL (0.2-1.0); CO2 23.2 mmol/L (21.0-32.0); CREATININE 1.41 mg/dL (0.70-1.30); Calcium 8.2 mg/dL (8.5-10.1); Chloride 105 mmol/L (98-107); Estimated GFR 49.13 (mL/min/1.73m2); Glucose 191 mg/dL (74-106); Potassium 4.8 mmol/L (3.5-5.1); Sodium 139 mmol/L (136-145); TSH (W/Ref FT4) 0.78 uIU/mL (0.36-3.74); Total Protein 6.7 g/dL (6.4-8.2)
[2020-03-20 11:34] LABS: IgA 244 mg/dL (85-499)
[2020-03-20 21:18] LABS: Tissue Transglutaminase Ab IgA <1.2 U/mL
== END 2020-03-19 05:30 ==
PROVIDERS: PCP Family Medicine; Visit Provider Physician Assistant Medical
DX: R19.4 Change in bowel habit (principal)
CPT/HCPCS: 36415; 80053; 82784; 83516; 84443; 85025

== ENCOUNTER 2020-03-20 17:59 | Outpatient (REF) | payer OTHER, SELFPAY ==
[2020-03-24 17:16] LABS: Calprotectin 42.5 mcg/g
== END 2020-03-20 18:19 ==
LOC: LBN 17:59
PROVIDERS: PCP Family Medicine; Visit Provider Physician Assistant Medical
DX: R19.4 Change in bowel habit (principal)
CPT/HCPCS: 83993

== ENCOUNTER → 2020-05-01 09:50 | Outpatient (BNVA) | payer OTHER, SELFPAY | PROVIDERS: PCP Family Medicine; Visit Provider Internal Medicine Cardiovascular Disease | DX: I25.810 Atherosclerosis of coronary artery bypass graft(s) without angina pectoris (principal); I35.0 Nonrheumatic aortic (valve) stenosis | CPT/HCPCS: 99213 ==

== ENCOUNTER 2020-05-05 18:15 | Emergency (ER) | payer OTHER, SELFPAY ==
[2020-05-05 18:23] VITALS: BP 167/83; PULSE 113; RESP 18; TEMP 37.3; O2SAT 96
--- NOTE | 2020-05-05 18:45 | DI.RAD_ITS ---
EXAM: XR PORTABLE CHEST AP CLINICAL HISTORY: shortness of breath TECHNIQUE: 2D digital imaging was performed. COMPARISON: CR CHEST 2 VIEWS PA,LAT from 05/24/2017 CR,XR XR PORTABLE CHEST AP from 01/16/2020 FINDINGS: The patient is again noted be status post CABG. Lungs are mildly hyperinflated. There are mild fibr otic changes. No superimposed infiltrate, effusion or pulmonary edema is seen. There is no evidence of pneumothorax. IMPRESSION: Chronic pulmonary changes. No acute findings. DATA REPOSITORY: RADIATION DOSE DELIVERED:
[2020-05-05] MEDS: Acetaminophen 500 MG TAB 1000 MG PO (19:16)
--- NOTE | 2020-05-05 19:41 | W.ED.GENAD ---
Discharge Plan Disposition Patient Disposition: HOME Discharge Details Clinical Impression: Fever Primary Care Provider: Tyler Brown ED Provider: Alicia Gannon Home Meds and New Rx's Prescriptions: No Action lisinopril 2.5 mg tablet 2.5 mg PO DAILY Qty: 90 RF: 3 guar gum Packet 1 tbsp PO DAILY RF: 0 ferrous sulfate 325 mg (65 mg iron) tablet 325 mg PO DAILY Qty: 90 RF: 0 metoprolol tartrate 25 mg tablet 25 mg PO BID RF: 0 nitroglycerin [Nitrostat] 0.4 mg tablet, sublingual 0.4 mg SL Q5-15M PRN (Reason: chest pain) Qty: 10 RF: 3 atorvastatin 80 mg tablet 80 mg PO HS Qty: 30 RF: 11 pantoprazole [Protonix] 20 mg tablet,delayed release (DR/EC) 20 mg PO BID Qty: 180 RF: 3 multivitamin [Daily Multi-Vitamin] Tablet 1 tab PO DAILY RF: 0 aspirin [Aspir-81] 81 MG tablet,delayed release (DR/EC) 81 mg PO DAILY RF: 0 loratadine 10 mg tablet 10 mg PO DAILY Qty: 14 RF: 0 Discharge Instructions Instructions: Fever in Adults (ED) Additional Instructions: isolate until covid test returns, wash hands frequently, stay in home, wear a mask tylenol for fever control 650 mg every 6 h for fever and chills stay hydrated return with shortness of breath, weakness, or with any new or worsening complaints Stand Alone Forms: PENDING COVID-19 TESTING, Work Release Discharge Data Discharge Date/Time-TO BE ENTERED AT DEPARTURE: 05/05/20 20:56 Medical Decision Making Hemoglobin 9.8, -33.9, labs consistent with iron deficiency anemia No leukocytosis, initially heart rate 113, decreased 90, temp of 100.7, nontoxic in appearance, symptomatic nuclear stress Tylenol No weakness Suspect viral etiology of symptoms Chest x-ray negative, urine and labs do not show significant acute abnormality 24-hour recheck recommended Covid testing pending, isolation discussed Work note applied No evidence of pneumonia on chest x-ray Denies chest pain or shortness of breath therefore no EKG was ordered Given low threshold to return with new or worsening complaints Differential Diagnosis Differential Diagnosis: Pneumonia, urinary tract infection, COVID-19, influenza Lab Data Lab results reviewed: Yes I reviewed the patient's lab results. HPI This 74-year-old male presents with fever and chills. Patient states symptoms started approximately 4 hours prior to arrival. He actually worked all day and slept fine. He denies cough, chest pain, shortness of breath, dizziness. He denies known sick contact and lives with an elderly adult and his partner. He denies any urinary symptoms. Has not taken any antipyretics prior to arrival. He denies nausea, vomiting, or diarrhea. General Date/Time Provider Initiated Documentation: 05/05/20 18:49. Related Data Home Medications Medication Instructions Recorded Confirmed aspirin [Aspir-81] 81 mg PO DAILY 05/24/17 05/05/20 nitroglycerin 0.4 mg sublingual 0.4 mg SL Q5-15M PRN #10 tab 05/09/18 05/05/20 tablet metoprolol tartrate 25 mg tablet 25 mg PO BID tab 06/27/18 05/05/20 lisinopril 2.5 mg tablet 2.5 mg PO DAILY #90 tab 01/11/19 05/05/20 atorvastatin 80 mg tablet 80 mg PO HS #30 tab 09/16/19 05/05/20 pantoprazole 20 mg tablet,delayed 20 mg PO BID #180 tab 09/16/19 05/05/20 release loratadine 10 mg PO DAILY #14 tab 01/16/20 05/05/20 ferrous sulfate 325 mg (65 mg 325 mg PO DAILY #90 tab 04/27/20 05/05/20 iron) tablet guar gum 1 tbsp PO DAILY 04/27/20 05/05/20 multivitamin 1 tab PO DAILY tab 04/27/20 05/05/20 Previous Rx's Medication Instructions Recorded nitroglycerin 0.4 mg sublingual 0.4 mg SL Q5-15M PRN #10 tab 05/09/18 tablet lisinopril 2.5 mg tablet 2.5 mg PO DAILY #90 tab 01/11/19 atorvastatin 80 mg tablet 80 mg PO HS #30 tab 09/16/19 pantoprazole 20 mg tablet,delayed 20 mg PO BID #180 tab 09/16/19 release loratadine 10 mg PO DAILY #14 tab 01/16/20 ferrous sulfate 325 mg (65 mg 325 mg PO DAILY #90 tab 04/27/20 iron) tablet Allergies Allergy/AdvReac Type Severity Reaction Status Date / Time No Known Drug Allergies Allergy Verified 04/27/20 11:08 General Stated Complaint: Fever BRUCE: 4 Review of Systems Narrative: Review of systems negative x7 aside from where indicated in HPI All systems reviewed & are unremarkable except as noted in HPI and below [facility] Medical History (Updated 05/05/20 @ 20:48 by DENISE Doe) Aortic stenosis Arm pain, right (03/20/15) Atherosclerosis of [place] coronary artery of [place] heart without angina pectoris (04/10/06) silent ant [place] by MPI 2006; ECHO 06/2007: EF 63%, NO WMA; MPI 08/2011 NEG ISCHEMIA, EF 50%; ANTSEPT HYPOKIN; ASA & beta hood started 2006; aspirin stopped 01/2016 due to gastric ulcer 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 (Dr Null [facility] Vascular) Chronic diarrhea Depressive disorder (06/30/11) Elevated prostate specific antigen (PSA) (06/30/11) h/o bx 2009; Dr Tripp 08/2010: consider up to 11 normal for him Gastric ulcer (01/04/16) Gastritis on path: MACARIO test neg; ? add sucralfate; STOP aspirin Iron deficiency anemia (04/17/12) 2005, 2008, 3013; LAST GI W/U 2008 NEG X ADENOMA, TICS, EGD NEG [facility] 04/2013; chronic microcytosis 1999 Personal history of TIA (transient ischemic attack) (02/06/15) R paresthesias; TIA vs Migraine, Drs. Palmer/ Latoya: vasc eval, medical therapy, statin/Plavix; finally L carotid endarterectomy 04/19/16 [facility]; F/U 11/2016 Pure hypercholesterolemia (06/30/11) goal LDL<70 due to CAD (no ischemia but presumed cause of abnl MPI 08/2011) Retinal detachment (03/10/14) R managed by Dr Iraheta at [facility] Urinary retention (04/29/16) Vasomotor rhinitis Surgical History Carotid endarterectomy (04/19/16) Left, [facility], Dr. Null for asymptomatic carotid stenosis Colonoscopy - IV Sedation (03/10/14[place] [facility] [place] EGD - IV Sedation (12/22/15) Extraction of cataract (09/25/14) right eye with lens implant Dr. Truong H/O cardiac catheterization (05/22/18) [facility] Dr Harvey partial esophagotomy (04/28/00) Dr Ibanez; [facility] Esophagogastrectomy and feeding jejunostomy S/P CABG x 3 (~06/04/18) S/P carotid endarterectomy Family History Mother , old age at age 92. Congestive heart failure (CHF) age of onset unknown Father , [place], pneumonia at age 78. Myocardial infarction Sister , [place] at age 56. Myocardial infarction Sister Age: 86 No problems noted. Brother , cancer at age 67. Esophageal cancer Social History (Updated 10/28/19 @ 11:38 by Jerri Velasquez LPN) Smoking/Tobacco Use Status: Former Tobacco Use Smoking risk assessment performed?: Yes Alcohol Intake: former Year quit: 1987 Drug use: Never Substance use type: does not use Household members: spouse and other Housing: house Number of Children: 4 number of grandchildren: 8 Communication Needs: Hard of Hearing current occupation: Drives for [employer] Current gender identity: male What is your relationship status?: Panel score (0-1 are the most socially isolated patients): 1 What type of physical activity do you participate in: none Seatbelt use: always Drive intox or ride w/intox driver starting gate: No Working smoke detector in home: Yes Fire extinguisher in home: Yes Carbon monox detector in home: Yes Do you feel safe at home: Yes Do you feel safe in your relationship?: Yes Additional Social history: clear lungs noted, no loss of taste or smell, pt denies ear pain or sore throat Exam Const General: cooperative and healthy appearing Orientation: oriented x3 Eyes Pupils: PERRL Neck Other: No meningismus Chest Chest: normal inspection of the chest Resp Effort & Inspection: normal respiratory effort Cardio Rate: regular rate Rhythm: regular rhythm GI Inspection: normal to inspection Other: Nontender Skin General skin exam: no rashes or lesions noted Neuro General: patient alert and patient oriented x3 Course Vital Signs Vital signs: Vital Signs Temperature 37.3 C 05/05/20 18:23 Pulse 113 H 05/05/20 18:23 Respiratory Rate 18 05/05/20 18:23 Blood Pressure 167/83 H 05/05/20 18:23 Pulse Oximetry 96 05/05/20 18:23 Temperature 37.3 C 05/05/20 18:23 Temperature Source Temporal Artery Scan 05/05/20 18:23 Pulse 113 H 05/05/20 18:23 Respiratory Rate 18 05/05/20 18:23 Respiratory Effort 05/05/20 18:32 Blood Pressure 167/83 H 05/05/20 18:23 Blood Pressure Position Sitting 05/05/20 18:23 Pulse Oximetry 96 05/05/20 18:23 Oxygen Delivery Method Room Air 05/05/20 18:23 Oxygen Flow Rate 0 05/05/20 18:23 Pain Level 0 05/05/20 18:23 Lab/Test Results Lab/Test Results: Laboratory Tests Range/Units 05/05/20 05/05/20 18:49 18:49 WBC Cancelled RBC Cancelled Hgb Cancelled Hct Cancelled MCV Cancelled MCH Cancelled MCHC Cancelled RDW Cancelled Plt Count Cancelled MPV Cancelled COVID-19 Source Cancelled SARS-CoV-2 (PCR) Cancelled Influenza Type A (PCR) Cancelled Influenza Type B (PCR) Cancelled RSV (PCR) Cancelled
--- NOTE | 2020-05-05 19:46 | DI.VRAD_ITS ---
PROCEDURE INFORMATION: Exam: XR Chest, 1 View Exam date and time: 05/05/2020 7:28 PM Age: 74 years old Clinical indication: Other: Shortness of breath; Additional info: Shortness of breath, fever TECHNIQUE: Imaging protocol: XR of the chest Views: 1 view. COMPARISON: CR XR PORTABLE CHEST AP 01/16/2020 6:40 PM FINDINGS: Lungs: There is hyperinflation bilaterally consistent with underlying COPD. Some areas of bilateral lung scarring are noted. There are no areas of acute infiltrate or edema. No suspicious nodules or focal lung lesions. Pleural space: Unremarkable. No pleural effusion. No pneumothorax. Heart/Mediastinum: Previous open-heart surgery. No acute cardiomegaly. Bones/joints: Unremarkable. IMPRESSION: 1. Hyperinflation consistent with COPD. Scattered areas of linear scarring. No focal consolidation or infiltrates. No edema. No significant change since 01/16/2020. 2. Previous open-heart surgery. 3. No pleural effusions. Dictated and Authenticated by: Gopi Driver MD. Ordering:BINA Vargas MD
[2020-05-05 19:50] LABS: ALT 21 U/L (16-63); AST 17 U/L (15-37); Albumin 3.7 g/dL (3.4-5.0); Alkaline Phosphatase 96 U/L (46-116); BUN 22 mg/dL (7-18); Bilirubin, Total 0.9 mg/dL (0.2-1.0); CREATININE 1.26 mg/dL (0.70-1.30); Calcium 8.8 mg/dL (8.5-10.1); Chloride 103 mmol/L (98-107); Estimated GFR 55.94 (mL/min/1.73m2); Glucose 108 mg/dL (74-106); Potassium 4.3 mmol/L (3.5-5.1); Sodium 136 mmol/L (136-145); Total Protein 7.5 g/dL (6.4-8.2)
[2020-05-05 19:59] LABS: Abs Immature Grans 0.04 10^3/uL (0.0-0.06); Absolute Basophil Count 0.02 10^3/uL (0.0-0.2); Absolute Eosinophil Count 0.07 10^3/uL (0.0-0.7); Absolute Lymphocyte Count 0.39 10^3/uL (1.2-3.4); Absolute Monocyte Count 0.74 10^3/uL (0.1-0.8); Absolute Neutrophil Count 7.33 10^3/uL (1.2-6.7); Basophils % 0.2; Eosinophils % 0.8; HCT 33.9 % (40.0-50.0); HGB 9.8 g/dL (13.5-17.5); Immature Grans % 0.5; Lymphocytes % 4.5; MCH 20.2 pg (27.0-33.0); MCHC 28.9 % (32.0-36.0); MCV 69.8 fL (80-95); MPV 8.9 fL (8.0-11.0); Monocytes % 8.6; Neutrophils % 85.4; Nucleated RBC 0 %; Platelet Count 212 10^3/uL (130-400); RBC 4.86 10^6/uL (4.36-5.78); RDW 18.9 % (11.8-14.1); RDW-SD 45.9 fL; WBC 8.59 10^3/uL (4.4-10.8)
[2020-05-05 20:03] LABS: Bilirubin Negative (Negative); Blood Negative (Negative); Clarity Clear (Clear); Glucose Negative (Negative); Ketones Negative (Negative); Leukocyte Esterase Negative (Negative); Nitrite Negative (Negative); Specific Gravity 1.025 (1.005-1.025)
[2020-05-05 20:14] LABS: Bacteria Negative HPF (Negative); C & S Indicated? No; Casts Negative LPF (Negative); Crystals Negative HPF (Negative); Epithelial Cells Negative HPF (Negative); Mucus Trace (Negative); Other Cells Negative (Negative); RBC Negative HPF (0-2); WBC 0-2 HPF (0-5)
[2020-05-05 20:15] LABS: Microcytosis 1+; Polychromasia Present
[2020-05-05 20:49] VITALS: BP 158/72; PULSE 90; RESP 18; TEMP 37.1; O2SAT 96
[2020-05-06 20:23] LABS: COVID-19 RT-PCR UVMMC Result Negative (Negative)
== END 2020-05-05 20:56 | disposition home or self-care (01) ==
PROVIDERS: Emergency Provider Physician Assistant; PCP Family Medicine
DX: R50.9 Fever, unspecified (principal); Z03.818 Encounter for observation for suspected exposure to other biological agents ruled out
CPT/HCPCS: 36415; 80053; 85027; 99284; U0003; 71045; 81003; 81015; 85025

== ENCOUNTER 2020-05-25 09:33 | Inpatient (IN) | payer OTHER, SELFPAY ==
[2020-05-25] VITALS (51 sets, daily range): BP systolic 107–157; BP diastolic 63–86; PULSE 77–115; RESP 17–24; TEMP 36.8–38; O2SAT 91–97
--- NOTE | 2020-05-25 09:30 | RT.EKG_ITS ---
APPROVED REPORT Exam: Resting ECG Patient Location: E HR:114 bpm ECG Measurements Heart Rate 114 AXIS AL 160 P 51 QRSd 94 QRS -29 QT 316 T 92 QTc 437 Conclusion Sinus tachycardia...rate> 99 Anteroseptal infarct, age indeterminate...Q >35mS, T neg, V1-V2 sinus tachycardia at 114, normal axis, nonspecific ST changes, no STEMI, nondiagnostic EKG Abnormal T, consider ischemia, lateral leads...T <-0.20mV, I aVL V5 V6
--- NOTE | 2020-05-25 10:13 | W.ED.GENAD ---
Discharge Plan Discharge Details Chief Complaint: Fever Clinical Impression: Hematuria Admit Date/Time: 05/25/20 13:04 Admit Provider: Jeff Lugo Attending Provider: Jeff Lugo Primary Care Provider: Tyler Brown ED Provider: Ariane Richardson Medical Decision Making oBni Combs is a 75-year-old man with history of coronary artery disease status post CABG, anemia, esophageal cancer in remission, hyperlipidemia who presented to the emergency department with oral temp of 99.5 at home in setting of cough over the past 2 months worsening today, now productive of yellow sputum. On exam patient is well and nontoxic-appearing. Lungs are clear to auscultation bilaterally. There is no lower extremity edema or posterior calf tenderness palpation. Patient is tachycardic 105-115. Concern for pneumonia, Covid, pulmonary embolism, UTI, other. Doubt acute coronary syndrome. Exam/history is not consistent with acute emergent intra-abdominal process, acute aortic pathology. EKG shows sinus tachycardia and ST changes, no STEMI. Plan for screening labs, CTA chest, IV placement, telemetry, IV fluid hydration. Will monitor and reassess. Labs reviewed, hemoglobin 10.1, D-dimer 1925, lactate normal. CTA chest shows no pulmonary embolism, lower lobe infiltrate concerning for aspiration pneumonia, also groundglass infiltrates concerning for possible Covid, fluid in esophagus as per radiology over the phone. Concern for aspiration pneumonia related to history of esophagectomy. Covid testing pending, plan for Zosyn for aspiration pneumonia. I called [facility] transfer center given patient with esophagectomy performed at [facility] in the past and now complications likely relating to that past procedure, who said that there were no beds available to accept the patient at this time. I discussed the patient with Dr. Jacinto, hospitalist, who accepts patient for admission. No acute emergent process requiring higher level of care at tertiary facility at this time. Clinical impression: Pneumonia Disposition: [facility] patient Medical Records Medical records reviewed: Yes I reviewed the patient's medical records. Imaging Data Radiologic Study: Attestation: I personally reviewed and interpreted this imaging study as follows: Radiologist's impression: EXAM: CT CHEST PE CTA CLINICAL HISTORY: cough, fever. TECHNIQUE: Imaging Protocol: CT angiography of the chest was performed using pulmonary embolus protocol. Multi planar reconstructions were performed. CONTRAST MATERIAL: Intravenous: Omnipaque 350 Contrast volume: 100 cc COMPARISON: CT CTA BRAIN AND NECK from 12/31/2014 CR,XR XR PORTABLE CHEST AP from 05/05/2020 FINDINGS: CHEST: PULMONARY ARTERIES: There are no intraluminal filling defects to suggest acute pulmonary emboli. LUNGS: In this patient who has had gastric pull-up surgery there is infiltrate in the left lower lobe involving superior and basal segments without a pleural effusion. There is sparing of the left upper lobe. In the opposite-right lung there are mild ground-glass infiltrates in the upper lobe as well as right middle lobe. Confluent bullae noted in the anterior basal segment of the right lower lobe. No pleural effusion.. There are no pleural effusions. MEDIASTINUM: There is no hilar nor mediastinal adenopathy. Visualized thyroid unremarkable.Gastric pull up surgery noted. No obvious leak. No evidence of mediastinitis. CARDIAC: Heart size is normal. Sternotomy wires noted there is no pericardial effusion.Caliber of the thoracic aorta is within normal limits. Coronary artery calcification is noted. There is no shift of the interventricular septum. PARTIALLY VISUALIZED UPPERMOST ABDOMEN: No obvious findings OSSEOUS: No significant osseous lesions.. IMPRESSION: 1. No evidence of acute pulmonary emboli. No evidence of pulmonary infarction.No pleural effusions. 2. However, there is significant infiltrate in the left lower lobe. Also ground-glass infiltrate in the right upper lobe and right middle lobe. Both aspiration pneumonia and other etiologies including Covid are considerations. Please note this patient has a gastric pull-up surgery. Lab Data Lab results reviewed: Yes I reviewed the patient's lab results. Labs: Laboratory Tests Range/Units 05/25/20 05/25/20 05/25/20 10:20 10:20 10:20 WBC (4.4-10.8) 10^3/uL 7.90 RBC (4.36-5.78) 10^6/uL 4.88 Hgb (13.5-17.5) g/dL 10.1 L Hct (40.0-50.0) % 34.8 L MCV (80-95) fL 71.3 L MCH (27.0-33.0) pg 20.7 L MCHC (32.0-36.0) % 29.0 L RDW (11.8-14.1) % 20.8 H Plt Count (130-400) 10^3/uL 189 MPV (8.0-11.0) fL 8.4 Immature Gran % 0.6 Neutrophils % 89.6 Lymphocytes % 2.4 Monocytes % 6.8 Eosinophils % 0.5 Basophils % 0.1 Nucleated RBC % % 0 Absolute Neutrophils (1.2-6.7) 10^3/uL 7.07 H Absolute Lymphocytes (1.2-3.4) 10^3/uL 0.19 L Absolute Monocytes (0.1-0.8) 10^3/uL 0.54 Absolute Eosinophils (0.0-0.7) 10^3/uL 0.04 Absolute Basophils (0.0-0.2) 10^3/uL 0.01 RBC Morphology See below Polychromasia Present Hypochromasia 1+ Poikilocytosis 2+ Anisocytosis 2+ Microcytosis 2+ D-Dimer (<500) ng/mlFEU VBG Lactate (0.6-1.4) mmol/L 0.9 Sodium (136-145) mmol/L 138 Potassium (3.5-5.1) mmol/L 4.2 Chloride (98-107) mmol/L 105 Carbon Dioxide (21.0-32.0) mmol/L 24.1 Anion Gap (3-11) mmol/L 8.9 BUN (7-18) mg/dL 15 Creatinine (0.70-1.30) mg/dL 1.1 Estimated GFR/1.73 m2 (mL/min/1.73m2) >= 60.00 Glucose (74-106) mg/dL 113 H Calcium (8.5-10.1) mg/dL 8.7 Total Bilirubin (0.2-1.0) mg/dL 0.8 AST (15-37) U/L 18 ALT (16-63) U/L 21 Alkaline Phosphatase (46-116) U/L 84 Troponin I (<0.06) ng/mL < 0.05 Total Protein (6.4-8.2) g/dL 7.1 Albumin (3.4-5.0) g/dL 3.2 L Procalcitonin ng/mL Urine Color (Yellow) Urine Clarity (Clear) Urine pH (5-8) Ur Specific Balsam (1.005-1.025) Urine Protein (Negative) mg/dL Urine Ketones (Negative) mg/dL Urine Blood (Negative) Urine Nitrite (Negative) Urine Bilirubin (Negative) Urine Urobilinogen (Up TO 0.2) EU/dL Ur Leukocyte Esterase (Negative) Urine RBC (0-2) HPF Urine WBC (0-5) HPF Ur Epithelial Cells (Negative) HPF Urine Crystals (Negative) HPF Urine Bacteria (Negative) HPF Urine Casts (Negative) LPF Urine Mucus (Negative) Ur Culture Indicated? Urine Glucose (Negative) mg/dL SARS-CoV-2 (PCR) Nasopharyn COVID-19 PCR Ref Test Perform Site Range/Units 05/25/20 05/25/20 05/25/20 10:20 10:26 10:28 WBC (4.4-10.8) 10^3/uL RBC (4.36-5.78) 10^6/uL Hgb (13.5-17.5) g/dL Hct (40.0-50.0) % MCV (80-95) fL MCH (27.0-33.0) pg MCHC (32.0-36.0) % RDW (11.8-14.1) % Plt Count (130-400) 10^3/uL MPV (8.0-11.0) fL Immature Gran % Neutrophils % Lymphocytes % Monocytes % Eosinophils % Basophils % Nucleated RBC % % Absolute Neutrophils (1.2-6.7) 10^3/uL Absolute Lymphocytes (1.2-3.4) 10^3/uL Absolute Monocytes (0.1-0.8) 10^3/uL Absolute Eosinophils (0.0-0.7) 10^3/uL Absolute Basophils (0.0-0.2) 10^3/uL RBC Morphology Polychromasia Hypochromasia Poikilocytosis Anisocytosis Microcytosis D-Dimer (<500) ng/mlFEU 1925 H VBG Lactate (0.6-1.4) mmol/L Sodium (136-145) mmol/L Potassium (3.5-5.1) mmol/L Chloride (98-107) mmol/L Carbon Dioxide (21.0-32.0) mmol/L Anion Gap (3-11) mmol/L BUN (7-18) mg/dL Creatinine (0.70-1.30) mg/dL Estimated GFR/1.73 m2 (mL/min/1.73m2) Glucose (74-106) mg/dL Calcium (8.5-10.1) mg/dL Total Bilirubin (0.2-1.0) mg/dL AST (15-37) U/L ALT (16-63) U/L Alkaline Phosphatase (46-116) U/L Troponin I (<0.06) ng/mL Total Protein (6.4-8.2) g/dL Albumin (3.4-5.0) g/dL Procalcitonin ng/mL < 0.1 Urine Color (Yellow) Urine Clarity (Clear) Urine pH (5-8) Ur Specific Balsam (1.005-1.025) Urine Protein (Negative) mg/dL Urine Ketones (Negative) mg/dL Urine Blood (Negative) Urine Nitrite (Negative) Urine Bilirubin (Negative) Urine Urobilinogen (Up TO 0.2) EU/dL Ur Leukocyte Esterase (Negative) Urine RBC (0-2) HPF Urine WBC (0-5) HPF Ur Epithelial Cells (Negative) HPF Urine Crystals (Negative) HPF Urine Bacteria (Negative) HPF Urine Casts (Negative) LPF Urine Mucus (Negative) Ur Culture Indicated? Urine Glucose (Negative) mg/dL SARS-CoV-2 (PCR) Cancelled Nasopharyn COVID-19 PCR Cancelled Ref Test Perform Site Cancelled Range/Units 05/25/20 10:29 WBC (4.4-10.8) 10^3/uL RBC (4.36-5.78) 10^6/uL Hgb (13.5-17.5) g/dL Hct (40.0-50.0) % MCV (80-95) fL MCH (27.0-33.0) pg MCHC (32.0-36.0) % RDW (11.8-14.1) % Plt Count (130-400) 10^3/uL MPV (8.0-11.0) fL Immature Gran % Neutrophils % Lymphocytes % Monocytes % Eosinophils % Basophils % Nucleated RBC % % Absolute Neutrophils (1.2-6.7) 10^3/uL Absolute Lymphocytes (1.2-3.4) 10^3/uL Absolute Monocytes (0.1-0.8) 10^3/uL Absolute Eosinophils (0.0-0.7) 10^3/uL Absolute Basophils (0.0-0.2) 10^3/uL RBC Morphology Polychromasia Hypochromasia Poikilocytosis Anisocytosis Microcytosis D-Dimer (<500) ng/mlFEU VBG Lactate (0.6-1.4) mmol/L Sodium (136-145) mmol/L Potassium (3.5-5.1) mmol/L Chloride (98-107) mmol/L Carbon Dioxide (21.0-32.0) mmol/L Anion Gap (3-11) mmol/L BUN (7-18) mg/dL Creatinine (0.70-1.30) mg/dL Estimated GFR/1.73 m2 (mL/min/1.73m2) Glucose (74-106) mg/dL Calcium (8.5-10.1) mg/dL Total Bilirubin (0.2-1.0) mg/dL AST (15-37) U/L ALT (16-63) U/L Alkaline Phosphatase (46-116) U/L Troponin I (<0.06) ng/mL Total Protein (6.4-8.2) g/dL Albumin (3.4-5.0) g/dL Procalcitonin ng/mL Urine Color (Yellow) Yellow Urine Clarity (Clear) Clear Urine pH (5-8) 5.5 Ur Specific Balsam (1.005-1.025) >= 1.030 H Urine Protein (Negative) mg/dL 100 H Urine Ketones (Negative) mg/dL Negative Urine Blood (Negative) Trace-intact H Urine Nitrite (Negative) Negative Urine Bilirubin (Negative) Negative Urine Urobilinogen (Up TO 0.2) EU/dL 0.2 Ur Leukocyte Esterase (Negative) Negative Urine RBC (0-2) HPF 3-5 H Urine WBC (0-5) HPF 0-2 Ur Epithelial Cells (Negative) HPF Rare Urine Crystals (Negative) HPF Negative Urine Bacteria (Negative) HPF Negative Urine Casts (Negative) LPF 0-2 hyaline Urine Mucus (Negative) Trace Ur Culture Indicated? No Urine Glucose (Negative) mg/dL Negative SARS-CoV-2 (PCR) Nasopharyn COVID-19 PCR Ref Test Perform Site ECG Data Attestation: I personally reviewed and interpreted this ECG (s) as follows: Interpretation: EKG shows sinus tachycardia at 114, normal axis, nonspecific ST changes, no STEMI, nondiagnostic EKG EKG shows sinus rhythm at 92, normal axis, nonspecific ST changes with no major change from prior, no STEMI, nondiagnostic EKG HPI General Mode of arrival: ambulatory. Date/Time Provider Initiated Documentation: 05/25/20 09:37. Limitations to Documentation: no limitations. Information obtained by: patient, RN notes reviewed and old records reviewed. HPI Narrative: Boni Combs is a 75-year-old man with history of aortic stenosis, CABG, hyperlipidemia, history of esophageal cancer in remission since 2000 presenting to emergency department with fever, cough. Patient reports that he has had nasal congestion, runny nose, postnasal drip for the past year. Patient reports that he has been on intranasal steroids and allergy medication in the past with no change in symptoms, but he stopped taking his medications. Patient reports that over the past 2 months he has had a cough that he attributes to post nasal drip. Per patient and record review he was seen here 05/05/2020 for fever, had negative chest x-ray, found to be anemic, discharged home. Patient reports that his cough has seemed to be worsening somewhat since that visit, and he has had frequent cough productive of yellow sputum since 2:00 this morning. Patient reports that he had a fever of 99.5 orally at home, and in combination with worsening cough decided to come to the emergency department. No other fevers. He denies any pain, shortness of breath, vomiting, numbness, weakness, rash, lower extremity swelling. Patient reports that he has had diarrhea over the past few months but he is being worked up for that as an outpatient and it has been improving. Patient reports he has been taking iron for anemia as prescribed. No appetite changes, has been eating and drinking as usual. Related Data Home Medications Medication Instructions Recorded Confirmed aspirin [Aspir-81] 81 mg PO DAILY 05/24/17 05/25/20 nitroglycerin 0.4 mg sublingual 0.4 mg SL Q5-15M PRN #10 tab 05/09/18 05/25/20 tablet metoprolol tartrate 25 mg tablet 25 mg PO BID tab 06/27/18 05/25/20 lisinopril 2.5 mg tablet 2.5 mg PO DAILY #90 tab 01/11/19 05/25/20 atorvastatin 80 mg tablet 80 mg PO HS #30 tab 09/16/19 05/25/20 pantoprazole 20 mg tablet,delayed 20 mg PO BID #180 tab 09/16/19 05/25/20 release loratadine 10 mg PO DAILY #14 tab 01/16/20 05/25/20 guar gum 1 tbsp PO DAILY 04/27/20 05/25/20 multivitamin 1 tab PO DAILY tab 04/27/20 05/25/20 ferrous sulfate 325 mg PO BID 05/25/20 05/25/20 Previous Rx's Medication Instructions Recorded nitroglycerin 0.4 mg sublingual 0.4 mg SL Q5-15M PRN #10 tab 05/09/18 tablet lisinopril 2.5 mg tablet 2.5 mg PO DAILY #90 tab 01/11/19 atorvastatin 80 mg tablet 80 mg PO HS #30 tab 09/16/19 pantoprazole 20 mg tablet,delayed 20 mg PO BID #180 tab 09/16/19 release loratadine 10 mg PO DAILY #14 tab 01/16/20 Allergies Allergy/AdvReac Type Severity Reaction Status Date / Time No Known Drug Allergies Allergy Verified 05/25/20 09:49 General Stated Complaint: Fever BRUCE: 2 Review of Systems Narrative: Constitutional: Reports oral temp 99.5 this morning Eyes: denies eye pain ENT: denies ear pain, dental pain, sore throat Cardiovascular: denies chest pain, edema Respiratory: denies SOB, reports cough GI: denies abdominal pain, vomiting, diarrhea : denies flank pain MSK: denies back pain, neck pain, arthralgias, myalgias Skin: denies rash Neuro: denies headaches, numbness, weakness [facility] Medical History Aortic stenosis Arm pain, right (03/20/15) Atherosclerosis of [place] coronary artery of [place] heart without angina pectoris (04/10/06) silent ant [place] by MPI 2006; ECHO 06/2007: EF 63%, NO WMA; MPI 08/2011 NEG ISCHEMIA, EF 50%; ANTSEPT HYPOKIN; ASA & beta hood started 2006; aspirin stopped 01/2016 due to gastric ulcer 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 (Dr Null [facility] [place] Vascular) Chronic diarrhea Depressive disorder (06/30/11) Elevated prostate specific antigen (PSA) (06/30/11) h/o bx 2009; Dr Tripp 08/2010: consider up to 11 normal for him Gastric ulcer (01/04/16) Gastritis on path: MACARIO test neg; ? add sucralfate; STOP aspirin Iron deficiency anemia (04/17/12) 2005, 2008, 3012; LAST GI W/U 2008 NEG X ADENOMA, TICS, EGD NEG [facility] [place] 04/2013; chronic microcytosis 1999 Personal history of TIA (transient ischemic attack) (02/06/15) R paresthesias; TIA vs Migraine, Drs. Palmer/ Latoya: vasc eval, medical therapy, statin/Plavix; finally L carotid endarterectomy 04/19/16 [facility] [place]; F/U 11/2016 Pure hypercholesterolemia (06/30/11) goal LDL<70 due to CAD (no ischemia but presumed cause of abnl MPI 08/2011) Retinal detachment (03/10/14) R managed by Dr Iraheta at [facility] Urinary retention (04/29/16) Vasomotor rhinitis Surgical History Carotid endarterectomy (04/19/16) Left, [facility] [place], Dr. Null for asymptomatic carotid stenosis Colonoscopy - IV Sedation (03/10/14) [facility] [place]; also EGD EGD - IV Sedation (12/22/15) Extraction of cataract (09/25/14) right eye with lens implant Dr. Truong H/O cardiac catheterization (05/22/18) [facility] [place] Dr Harvey partial esophagotomy (04/28/00) Dr Ibanez; [place] Esophagogastrectomy and feeding jejunostomy S/P CABG x 3 (~06/04/18) S/P carotid endarterectomy Family History Mother , old age at age 92. Congestive heart failure (CHF) age of onset unknown Father , [place], pneumonia at age 78. Myocardial infarction Sister , [place] at age 56. Myocardial infarction Sister Age: 86 No problems noted. Brother , cancer at age 67. 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 gender identity: male What is your relationship status?: Panel score (0-1 are the most socially isolated patients): 1 What type of physical activity do you participate in: none Seatbelt use: always Drive intox or ride w/intox fleet driver: No Working smoke detector in home: Yes Fire extinguisher in home: Yes Carbon monox detector in home: Yes Do you feel safe at home: Yes Do you feel safe in your relationship?: Yes Exam Narrative Exam Narrative: Constitutional: well and [id number], pleasant, conversing normally HENT: head atraumatic/normocephalic/normal inspection, mucous membranes moist Eyes: conjunctiva normal, sclera normal, pupils 3mm b/l Neck: no stridor, normal ROM, trachea midline Chest: normal inspection Resp: normal work of breathing, LCTAB Cardio: normal rate, normal rhythm, no murmur appreciated Back: normal inspection, no rash Skin: warm, dry, normal color, no rash Neuro: alert, not altered, grossly non-focal, normal tone Ext: no edema, no posterior calf tenderness to palpation Psych: normal mood, normal affect, normal behavior Course Vital Signs Vital signs: Vital Signs Temperature 37.5 C 05/25/20 09:42 Pulse 112 H 05/25/20 09:42 Respiratory Rate 20 05/25/20 09:42 Blood Pressure 154/78 H 05/25/20 09:42 Pulse Oximetry 95 05/25/20 09:42 Temperature 37.5 C 05/25/20 09:42 Temperature Source Temporal Artery Scan 05/25/20 09:42 Pulse 108 H 05/25/20 09:46 Pulse 112 H 05/25/20 09:50 Respiratory Rate 19 05/25/20 09:50 Respiratory Effort Non-Labored 05/25/20 09:47 Blood Pressure 157/75 H 05/25/20 09:46 Blood Pressure Mean 89 05/25/20 09:46 Blood Pressure Position Supine 05/25/20 09:42 Pulse Oximetry 94 05/25/20 09:50 Oxygen Delivery Method Room Air 05/25/20 09:42 Oxygen Flow Rate 0 05/25/20 09:42 Pain Level 0 05/25/20 09:42
[2020-05-25 10:30] LABS: Lactate 0.9 mmol/L (0.6-1.4)
[2020-05-25 10:32] LABS: Abs Immature Grans 0.05 10^3/uL (0.0-0.06); Absolute Basophil Count 0.01 10^3/uL (0.0-0.2); Absolute Eosinophil Count 0.04 10^3/uL (0.0-0.7); Absolute Lymphocyte Count 0.19 10^3/uL (1.2-3.4); Absolute Monocyte Count 0.54 10^3/uL (0.1-0.8); Absolute Neutrophil Count 7.07 10^3/uL (1.2-6.7); Basophils % 0.1; Eosinophils % 0.5; HCT 34.8 % (40.0-50.0); HGB 10.1 g/dL (13.5-17.5); Immature Grans % 0.6; Lymphocytes % 2.4; MCH 20.7 pg (27.0-33.0); MCV 71.3 fL (80-95); MPV 8.4 fL (8.0-11.0); Monocytes % 6.8; Neutrophils % 89.6; Nucleated RBC 0 %; Platelet Count 189 10^3/uL (130-400); RBC 4.88 10^6/uL (4.36-5.78); RDW 20.8 % (11.8-14.1); RDW-SD 52.3 fL
[2020-05-25 10:39] LABS: Bilirubin Negative (Negative); Blood Trace-intact (Negative); Clarity Clear (Clear); Glucose Negative (Negative); Ketones Negative (Negative); Leukocyte Esterase Negative (Negative); Nitrite Negative (Negative); Specific Gravity >= 1.030 (1.005-1.025); Urobilinogen 0.2 EU/dL (Up TO 0.2); pH 5.5 (5-8)
--- NOTE | 2020-05-25 10:45 | DI.CT_ITS ---
EXAM: CT CHEST PE CTA CLINICAL HISTORY: cough, fever. TECHNIQUE: Imaging Protocol: CT angiography of the chest was performed using pulmonary embolus adams col. Multi planar reconstructions were performed. CONTRAST MATERIAL: Intravenous: Omnipaque 350 Contrast volume: 100 cc COMPARISON: CT CTA BRAIN AND NECK from 12/31/2014 CR,XR XR PORTABLE CHEST AP from 05/05/2020 FINDINGS: CHEST: PULMONARY ARTERIES: There are no intraluminal filling defects to suggest acute pulmonary emboli. LUNGS: In this patient who has had gastric pull-up surgery there is infiltrate in the left lower lobe involving superior and basal segments without a pleural effusion. There is sparing of the left uppe r lobe. In the opposite-right lung there are mild ground-glass infiltrates in the upper lobe as well as right middle lobe. Confluent bullae noted in the anterior basal segment of the right lower lobe. No pleural effusion.. There are no pleural effusions. MEDIASTINUM: There is no hilar nor mediastinal adenopathy. Visualized thyroid unremarkable.Gastric pu ll up surgery noted. No obvious leak. No evidence of mediastinitis. CARDIAC: Heart size is normal. Sternotomy wires noted there is no pericardial effusion.Caliber of th e thoracic aorta is within normal limits. Coronary artery calcification is noted. There is no shift of the interventricular septum. PARTIALLY VISUALIZED UPPERMOST ABDOMEN: No obvious findings OSSEOUS: No significant osseous lesions.. IMPRESSION: 1. No evidence of acute pulmonary emboli. No evidence of pulmonary infarction.No pleural effusions. 2. However, there is significant infiltrate in the left lower lobe. Also ground-glass infiltrate in the right upper lobe and right middle lobe. Both aspiration pneumonia and other etiologies including Covid are considerations. Please note this patient has a gastric pull-up surgery. 3. Sternotomy. CABG. No pleural effusions. RADIATION DOSE DELIVERED: LINK-TO-SR Total DLP DATA REPOSITORY: All CT scans at this facility are submitted to the National Radiology Data Registry (NRDR) Dose Index Registry (DIR) with the [employer] [place] [employer] (ACR). RADIATION OPTIMIZATION: All CT scans at this facility use at least one of these dose optimization te chniques: automated exposure control; mA and/or kV adjustment per patient size (includes targeted exa ms where dose is matched to clinical indication); or iterative reconstruction.
[2020-05-25 10:49] LABS: ALT 21 U/L (16-63); AST 18 U/L (15-37); Albumin 3.2 g/dL (3.4-5.0); Alkaline Phosphatase 84 U/L (46-116); Anion Gap 8.9 mmol/L (3-11); BUN 15 mg/dL (7-18); Bilirubin, Total 0.8 mg/dL (0.2-1.0); CO2 24.1 mmol/L (21.0-32.0); CREATININE 1.1 mg/dL (0.70-1.30); Calcium 8.7 mg/dL (8.5-10.1); Chloride 105 mmol/L (98-107); Glucose 113 mg/dL (74-106); Potassium 4.2 mmol/L (3.5-5.1); Sodium 138 mmol/L (136-145); Total Protein 7.1 g/dL (6.4-8.2); Troponin I < 0.05 ng/mL (<0.06)
[2020-05-25 10:55] LABS: Anisocytosis 2+; Diff Comment RBC Morph Reviewed; Hypochromasia 1+; Microcytosis 2+; Polychromasia Present
[2020-05-25 10:56] LABS: Poikilocytes 2+
[2020-05-25 10:57] LABS: WBC 0-2 HPF (0-5)
[2020-05-25 10:58] LABS: Bacteria Negative HPF (Negative); C & S Indicated? No; Casts 0-2 Hyaline LPF (Negative); Crystals Negative HPF (Negative); Epithelial Cells Rare HPF (Negative); Mucus Trace (Negative)
[2020-05-25 11:01] LABS: D-Dimer 1925 ng/mlFEU (<500)
[2020-05-25] MEDS: Omnipaque 350 MG/ML 100 ML BTL IV (11:13)
[2020-05-25] MEDS: Normal Saline - Diluent 50 ML VIAL IV (11:14)
[2020-05-25] MEDS: Normal Saline Flush 10 ML SYR IVP ×2 (11:15→15:38)
[2020-05-25] MEDS: PIPERACILLIN/TAZO 4.5 GM in Normal Saline 100 ML IVPB (12:45)
[2020-05-25 12:53] LABS: Source Nasopharynx
[2020-05-25 12:56] LABS: Procalcitonin < 0.1 ng/mL
--- NOTE | 2020-05-25 13:15 | RT.EKG_ITS ---
APPROVED REPORT Exam: Resting ECG Patient Location: E HR:92 bpm ECG Measurements Heart Rate 92 AXIS NV 160 P 80 QRSd 98 QRS -13 QT 348 T 93 QTc 430 Conclusion Sinus rhythm...normal P axis, V-rate 60- 99 Probable left atrial enlargement...P >50mS, <-0.10mV V1 Nonspecific T abnrm, anterolateral leads...T <-0.10mV, I aVL V2-V6 sinus rhythm at 92, normal axis, nonspecific ST changes with no major change from prior, no STEMI, no ndiagnostic EKG
[2020-05-25 13:36] LABS: COVID-19 PCR Negative (Negative); Influenza A PCR Negative (Negative); Influenza B PCR Negative (Negative); RSV PCR Negative (Negative)
[2020-05-25 13:51] LABS: Troponin I < 0.05 ng/mL (<0.06)
--- NOTE | 2020-05-25 14:30 | W.PM.HP.N ---
Date of service: 05/25/20 Time of Service: 16:00 Assessment and Plan Assessment and plan (1) Aspiration pneumonia: Status: Acute Assessment and plan: In the setting of esophagectomy preformed at [facility]. ED attending contacted [facility] for possible transfer, however, no beds are available at this time. No leukocytosis. CT chest shows: significant infiltrate in the left lower lobe and ground-glass infiltrate in the right upper lobe and right middle lobe concerning for aspiraiton pneumonia. Temp 37.9 in ED. COVID-19 testing negative. Continue Zosyn, day #1. Repeat CBC tomorrow morning. He will remain NPO with IV fluids. He will need swallow evaluation. Speech therapy consulted. He already has an appointment scheduled with [facility] Gastroenterology on 06/04/20. (2) Aortic stenosis: Status: Chronic Assessment and plan: Mild on echocardiogram in 2019. (3) Coronary artery disease involving coronary bypass graft of [place] heart: Status: Chronic Assessment and plan: Hold PO medications. Speech therapy consulted for swallow evaluation. Resume when he can take PO. (4) Personal history of TIA (transient ischemic attack): Status: Chronic Assessment and plan: S/p endarterectomy. (5) DVT prophylaxis: Status: Acute Assessment and plan: Subcutaneous Lovenox for DVT ppx. History of Present Illness History of Present Illness Chief Complaint: Fever, cough, chills Narrative: Mr. Combs is a 75 year old man with a past medical history significant for coronary artery disease status post CABG (2 years ago), TIA (years ago) with bilateral endarterectomy, anemia, esophageal cancer with esophagectomy (2000), in remission, hyperlipidemia, mild aortic stenosis and moderate mitral valve regurgitation on echo from 2019. He presented to the ED today with reports of temperature of 100.6F, cough x2 months, now productive of yellow sputum. He was found to be tachycardic. His labs showed a D-dimer of 1925, Hgb 10.1, Hct 34.8, normal white count. CT chest shows: significant infiltrate in the left lower lobe and ground-glass infiltrate in the right upper lobe and right middle lobe concerning for aspiration pneumonia in the setting of previous esophagectomy. His COVID-19 testing was negative. The ED attending contacted [facility], where he had the esophagectomy, and this appears to be a complication of same, however, no beds are available at this time. He was given Zosyn in the ED and admitted to the med surg floor for further evaluation and treatment. Boni denies coughing while eating/drinking. He wakes up at night coughing. His PCP recommended loratadine and saline spray. He has been eating and drinking without difficulty, he has not had any weight loss, in fact, he has gained weight. No nausea or vomiting. He denies SOB or wheezing with the cough. He denies CP/pressure, palpitaitons. No edema. He is voiding and having regular BMs. No diarrhea. He denies fatigue, weakness. 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 He discovered that he had a fever when he went to work and had his COVID screening. 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 (Dr Null [facility] Vascular) Chronic diarrhea Depressive disorder (06/30/11) Elevated prostate specific antigen (PSA) (06/30/11) h/o bx 2009; Dr Tripp 08/2010: consider up to 11 normal for him Gastric ulcer (01/04/16) Gastritis on path: MACARIO test neg; ? add sucralfate; STOP aspirin Iron deficiency anemia (04/17/12) 2005, 2008, 3013; LAST GI W/U 2008 NEG X ADENOMA, TICS, EGD NEG [facility] 04/2013; chronic microcytosis 1999 Personal history of TIA (transient ischemic attack) (02/06/15) R paresthesias; TIA vs Migraine, Drs. Palmer/ Latoya: vasc eval, medical therapy, statin/Plavix; finally L carotid endarterectomy 04/19/16 [facility]; F/U 11/2016 Pure hypercholesterolemia (06/30/11) goal LDL<70 due to CAD (no ischemia but presumed cause of abnl MPI 08/2011) Retinal detachment (03/10/14) R managed by Dr Iraheta at [facility] Urinary retention (04/29/16) Vasomotor rhinitis Surgical History Carotid endarterectomy (04/19/16) Left, [facility], Dr. Null for asymptomatic carotid stenosis [place]oscopy [place] [facility] [place] EGD - IV Sedation (12/22/15) Extraction of cataract (09/25/14) right eye with lens implant Dr. Truong H/O cardiac catheterization (05/22/18) [facility] Dr Harvey partial esophagotomy (04/28/00) Dr Ibanez; [place] Esophagogastrectomy and feeding jejunostomy S/P CABG x 3 (~06/04/18) S/P carotid endarterectomy Family History Mother , old age at age 92. Congestive heart failure (CHF) age of onset unknown Father , [place], pneumonia at age 78. Myocardial infarction Sister , [place] at age 56. Myocardial infarction Sister Age: 86 No problems noted. Brother , cancer at age 67. 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 gender identity: male What is your relationship status?: Panel score (0-1 are the most socially isolated patients): 1 What type of physical activity do you participate in: none Seatbelt use: always Drive intox or ride w/intox petrol tanker driver: No Working smoke detector in home: Yes Fire extinguisher in home: Yes Carbon monox detector in home: Yes Do you feel safe at home: Yes Do you feel safe in your relationship?: Yes Meds Home Medications and Allergies Home Medications Medication Instructions Recorded Confirmed Type aspirin [Aspir-81] 81 mg PO DAILY 05/24/17 05/25/20 History nitroglycerin 0.4 mg sublingual 0.4 mg SL Q5-15M PRN #10 tab 05/09/18 05/25/20 Rx tablet metoprolol tartrate 25 mg tablet 25 mg PO BID tab 06/27/18 05/25/20 History lisinopril 2.5 mg tablet 2.5 mg PO DAILY #90 tab 01/11/19 05/25/20 Rx atorvastatin 80 mg tablet 80 mg PO HS #30 tab 09/16/19 05/25/20 Rx pantoprazole 20 mg tablet,delayed 20 mg PO BID #180 tab 09/16/19 05/25/20 Rx release loratadine 10 mg PO DAILY #14 tab 01/16/20 05/25/20 Rx guar gum 1 tbsp PO DAILY 04/27/20 05/25/20 History multivitamin 1 tab PO DAILY tab 04/27/20 05/25/20 History ferrous sulfate 325 mg PO BID 05/25/20 05/25/20 History Allergies Allergy/AdvReac Type Severity Reaction Status Date / Time No Known Drug Allergies Allergy Verified 05/25/20 09:49 Exam Narrative Exam Narrative: General: thin, elderly man, sitting up in bed, in NAD. Alert and oriented, pleasant and talkative. HEENT: normocephalic, atraumatic, pupils equal and round, mucous membranes moist. Neck: supple, no JVD. Cardiovascular: heart sounds regular, nontachycardic. Respiratory: respirations appear even and unlabored, lung sounds with rales to the left base, no wheezing. GI: flat, soft abdomen, +BS, nontender on palpation, nondistended. Extremities: moves all 4 extremities freely, no edema. Results Labs Result diagrams: 05/25/20 10:20 05/25/20 10:20 Labs: Laboratory Results - last 24 hr 05/25/20 05/25/20 05/25/20 10:20 10:20 10:20 WBC 7.90 RBC 4.88 Hgb 10.1 L Hct 34.8 L MCV 71.3 L MCH 20.7 L MCHC 29.0 L RDW 20.8 H Plt Count 189 MPV 8.4 Immature Gran % 0.6 Neutrophils % 89.6 Lymphocytes % 2.4 Monocytes % 6.8 Eosinophils % 0.5 Basophils % 0.1 Nucleated RBC % 0 Absolute Neutrophils 7.07 H Absolute Lymphocytes 0.19 L Absolute Monocytes 0.54 Absolute Eosinophils 0.04 Absolute Basophils 0.01 RBC Morphology See below Polychromasia Present Hypochromasia 1+ Poikilocytosis 2+ Anisocytosis 2+ Microcytosis 2+ D-Dimer VBG Lactate 0.9 Sodium 138 Potassium 4.2 Chloride 105 Carbon Dioxide 24.1 Anion Gap 8.9 BUN 15 Creatinine 1.1 Estimated GFR/1.73 m2 >= 60.00 Glucose 113 H Calcium 8.7 Total Bilirubin 0.8 AST 18 ALT 21 Alkaline Phosphatase 84 Troponin I < 0.05 Total Protein 7.1 Albumin 3.2 L Procalcitonin Urine Color Urine Clarity Urine pH Ur Specific [place] Urine Protein Urine Ketones Urine Blood Urine Nitrite Urine Bilirubin Urine Urobilinogen Ur Leukocyte Esterase Urine RBC Urine WBC Ur Epithelial Cells Urine Crystals Urine Bacteria Urine Casts Urine Mucus Ur Culture Indicated? Urine Glucose COVID-19 Source SARS-CoV-2 (PCR) Nasopharyn COVID-19 PCR Influenza Type A (PCR) Influenza Type B (PCR) RSV (PCR) Ref Test Perform Site 05/25/20 05/25/20 05/25/20 10:20 10:26 10:28 WBC RBC Hgb Hct MCV MCH MCHC RDW Plt Count MPV Immature Gran % Neutrophils % Lymphocytes % Monocytes % Eosinophils % Basophils % Nucleated RBC % Absolute Neutrophils Absolute Lymphocytes Absolute Monocytes Absolute Eosinophils Absolute Basophils RBC Morphology Polychromasia Hypochromasia Poikilocytosis Anisocytosis Microcytosis D-Dimer 1925 H VBG Lactate Sodium Potassium Chloride Carbon Dioxide Anion Gap BUN Creatinine Estimated GFR/1.73 m2 Glucose Calcium Total Bilirubin AST ALT Alkaline Phosphatase Troponin I Total Protein Albumin Procalcitonin < 0.1 Urine Color Urine Clarity Urine pH Ur Specific [place] Urine Protein Urine Ketones Urine Blood Urine Nitrite Urine Bilirubin Urine Urobilinogen Ur Leukocyte Esterase Urine RBC Urine WBC Ur Epithelial Cells Urine Crystals Urine Bacteria Urine Casts Urine Mucus Ur Culture Indicated? Urine Glucose COVID-19 Source SARS-CoV-2 (PCR) Cancelled Nasopharyn COVID-19 PCR Cancelled Influenza Type A (PCR) Influenza Type B (PCR) RSV (PCR) Ref Test Perform Site Cancelled 05/25/20 05/25/20 05/25/20 10:29 12:40 13:20 WBC RBC Hgb Hct MCV MCH MCHC RDW Plt Count MPV Immature Gran % Neutrophils % Lymphocytes % Monocytes % Eosinophils % Basophils % Nucleated RBC % Absolute Neutrophils Absolute Lymphocytes Absolute Monocytes Absolute Eosinophils Absolute Basophils RBC Morphology Polychromasia Hypochromasia Poikilocytosis Anisocytosis Microcytosis D-Dimer VBG Lactate Sodium Potassium Chloride Carbon Dioxide Anion Gap BUN Creatinine Estimated GFR/1.73 m2 Glucose Calcium Total Bilirubin AST ALT Alkaline Phosphatase Troponin I < 0.05 Total Protein Albumin Procalcitonin Urine Color Yellow Urine Clarity Clear Urine pH 5.5 Ur Specific [place] >= 1.030 H Urine Protein 100 H Urine Ketones Negative Urine Blood Trace-intact H Urine Nitrite Negative Urine Bilirubin Negative Urine Urobilinogen 0.2 Ur Leukocyte Esterase Negative Urine RBC 3-5 H Urine WBC 0-2 Ur Epithelial Cells Rare Urine Crystals Negative Urine Bacteria Negative Urine Casts 0-2 hyaline Urine Mucus Trace Ur Culture Indicated? No Urine Glucose Negative COVID-19 Source Nasopharynx SARS-CoV-2 (PCR) Negative Nasopharyn COVID-19 PCR Influenza Type A (PCR) Negative Influenza Type B (PCR) Negative RSV (PCR) Negative Ref Test Perform Site Last Vital Signs Temp 37.5 C 05/25/20 14:04 Pulse 99 H 05/25/20 14:04 Resp 20 05/25/20 14:04 BP 149/75 H 05/25/20 14:04 Pulse Ox 97 05/25/20 14:04 COVID-19 Screening Have you, or household traveled for leisure in last 14 days?: No Had IN PERSON contact w/suspected or confirmed C-19 person: No
[2020-05-25] MEDS: Enoxaparin 40 MG/0.4 ML SYR SC (15:36)
[2020-05-25] MEDS: Acetaminophen 325 MG TAB 650 MG PO (15:36)
[2020-05-25] MEDS: Normal Saline 1,000 ML 100 ML IV (15:37)
--- NOTE | 2020-05-25 17:59 | W.SPSTE ---
Date of service: 05/25/20 Time of Service: 17:59 Objective Objective Clinical (Bedside) Swallow Evaluation Speech Language Pathology Subjective: Patient received AAOx3, agreeable to evaluation, able to communicate wants/needs effectively; able to demonstrate comprehension of recommendations for safe p.o. intake upon discharge once deemed medically stable. Patient endorses history of previous esophageal dilation(s) which he says had been very successful years ago; currently denies pain with swallowing, pharyngeal or esophageal globus, or coughing/wet VQ with PO intake; does endorse frequent post nasal drip and throat clearing outside of PO intake. ASSESSMENT Referring Doctor: Fatoumata Spence NP DIDACTIC INSTRUCTOR Orders: swallow evaluation Precautions: Full Code HPI: Pt is a 75 year old male who presented to the emergency department with oral temp of 99.5 at home in setting of cough over the past 2 months which had been worsening. DIDACTIC INSTRUCTOR consulted, chart reviewed. Patient is NPO upon evaluation; COVID19 test negative. Pmhx significant for [place] esophagogastrectomy and feeding jejunostomy in 2000; pt has appointment scheduled with [facility] Gastroenterology on 06/04/20. Currently taking pantoprazole 20 mg BID and reports he feels his reflux symptoms are generally well managed at this time. Interval History: CT Chest: no pulmonary embolism, significant infiltrate in the left lower lobe and ground-glass infiltrate in the right upper lobe and right middle lobe concerning for aspiration pneumonia, fluid in esophagus as per radiology PMHx: Medical History Aortic stenosis Arm pain, right (03/20/15) Atherosclerosis of [place] coronary artery of [place] heart without angina pectoris (04/10/06) silent ant [place] by MPI 2006; ECHO 06/2007: EF 63%, NO WMA; MPI 08/2011 NEG ISCHEMIA, EF 50%; ANTSEPT HYPOKIN; ASA & beta hood started 2006; aspirin stopped 01/2016 due to gastric ulcer 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 (Dr Null [facility] Vascular) Chronic diarrhea Depressive disorder (06/30/11) Elevated prostate specific antigen (PSA) (06/30/11) h/o bx 2009; Dr Tripp 08/2010: consider up to 11 normal for him Gastric ulcer (01/04/16) Gastritis on path: MACARIO test neg; ? add sucralfate; STOP aspirin Iron deficiency anemia (04/17/12) 2005, 2008, 3013; LAST GI W/U 2008 NEG X ADENOMA, TICS, EGD NEG [facility] 04/2013; chronic microcytosis 1999 Personal history of TIA (transient ischemic attack) (02/06/15) R paresthesias; TIA vs Migraine, Drs. Palmer/ Latoya: vasc eval, medical therapy, statin/Plavix; finally L carotid endarterectomy 04/19/16 [facility]; F/U 11/2016 Pure hypercholesterolemia (06/30/11) goal LDL<70 due to CAD (no ischemia but presumed cause of abnl MPI 08/2011) Retinal detachment (03/10/14) R managed by Dr Iraheta at [facility] Urinary retention (04/29/16) Vasomotor rhinitis Surgical History Carotid endarterectomy (04/19/16) Left, [facility], Dr. Null for asymptomatic carotid stenosis Colonoscopy - [place] Sed[place] (03/10/14[place] [facility] [place] EGD - IV Sedation (12/22/15) Extraction of cataract (09/25/14) right eye with lens implant Dr. Truong H/O cardiac catheterization (05/22/18) [facility] Dr Harvey partial esophagotomy (04/28/00) Dr Ibanez; [place] Esophagogastrectomy and feeding jejunostomy S/P CABG x 3 (~06/04/18) S/P carotid endarterectomy Family History Mother , old age at age 92. Congestive heart failure (CHF) age of onset unknown Father , [place], pneumonia at age 78. Myocardial infarction Sister , [place] at age 56. Myocardial infarction Sister Age: 86 No problems noted. Brother , cancer at age 67. 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 gender identity: male What is your relationship status?: Panel score (0-1 are the most socially isolated patients): 1 What type of physical activity do you participate in: none Seatbelt use: always Drive intox or ride w/intox pedicab driver: No Working smoke detector in home: Yes Fire extinguisher in home: Yes Carbon monox detector in home: Yes Do you feel safe at home: Yes Do you feel safe in your relationship?: Yes OBJECTIVE: Predisposing dysphagia risk factors: Hx partial esophagotomy (04/28/00; [place] Esophagogastrectomy and feeding jejunostomy), CABG x 3 Clinical signs of possible chronic dysphagia: concern for aspiration pna Precipitating dysphagia risk factors / triggering event: concern for aspiration pna Sp02: 95% RR: 19 / room air Cranial nerve exam / Oral Motor: CN V: facial sensation intact to light touch labial protrusion symmetrical labial coordination/ROM WFL Jaw excursion/lateralization intact mastication intact lingual/labial sensation intact suspect superior hyoid movement is intact although cannot rule out at bedside CN VII: lateral sulcus residue absent anterior spillage negative salivation intact CN IX/X: palatal elevation -symmetrical Vocal Quality -WFL taste -WFL onset of swallow -suspect WFL pharyngeal residue - patient denies globus sensation, able to report post nasal drip nasopharyngeal regurgitation - none reported CN XII: Intact b/l Dentition/Oral Structures/Hygiene: upper/lower dentures present, reports these fit well; appropriate oral care regimen per interview Language: verbal expression/fluency, naming, repetition, and auditory comprehension WFL Hearing: Impaired, functional per interview Mental Status: AAOx[3], recall of current events intact Speech: WFL Laryngeal function exam: Secretions: WFL Vocal quality: WFL MPT: 13 secs mildly reduced for sex/age S/Z ratio:DNT Pitch range: WFL Cough: (volitional) perceptually WFL PO intake (-) overt s.s aspiration noted during CSE today IDDSI 0: WFL via cup sip, straw IDDSI 4: WFL via tsp IDDSI 7: WFL Pill/tablet: WFL per RN report [place] Swallow Protocol: Pass IMPRESSIONS: Patient appears to be at moderate risk for recurrent aspiration-related pulmonary complication, given adequate oral hygiene, likely reduced immunocompetence, and hx of ongoing mild difficulties with reflux symptomology per pt report; adherance to risk management as outlined and improvements in both physical mobility/overall pulmonary function likely to further reduce this risk from oropharyngeal standpoint. In the absence of imaging for potential complications related to hx of partial esophagotomy, may consider modified barium swallow study VFSS/MBSS to further assess oropharyngeal and/or partial pharyngoesophageal swallowing function and rule out silent aspiration, however GI consult would take priority given patient's history and in effort to rule out anatomical changes (tracheaesophageal fistula,etc) Provided education to patient, RN re: anatomy/physiology of oropharyngeal swallowing mechanism in context of pt's surgical history, risk management and overt s/sx to monitor for re: potential aspiration of food/liquids, recommendations for improved oral care involving friction with toothbrush on all oral surfaces, relationship between respiratory function changes and deglutition Specialist Referrals: GI Instrumentation: Prioritize imaging per GI consult first, may consider esophagram; may also consider VFSS/MBSS per scheduling availability Diet Texture Recommendations: IDDSI Level(s) 7-Regular Solids 0-Thin Liquids Medication Intake: Whole with 0-Thin Liquids or 4-Puree as tolerated Alter medications only as advised by MD or Pharmacist RISK MANAGEMENT: Oral hygiene q4h/every 4 hours and before/after PO intake using friction with toothbrush on all oral structures HOB upright as tolerated; upright for all PO intake. Encourage physical mobility as tolerated. Level of Assistance/Supervision: Independent Strategies/Adaptations/Assistive Equipment: Small sips and bites when eating, Slow rate of intake, Swallow between bites, Alternate intake of liquids and solids, Small+frequent meals throughout day Posture/Positioning Needs: Maintain upright position at least 30 minutes after meals, Avoid meals/snacks 2-3 hours prior to reclining/sleeping, Sleep with head of bed elevated to reduce likelihood of nocturnal reflux PLAN: DIDACTIC INSTRUCTOR to follow while on unit. Evaluation results communicated to covering DIDACTIC INSTRUCTOR for following day. Please re-consult PRN. Stephani Ortega MA CCC-DIDACTIC INSTRUCTOR [phone] DIDACTIC INSTRUCTOR CPT Code: 78547 Clinical Swallowing Evaluation
[2020-05-26] VITALS (10 sets, daily range): BP systolic 117–147; BP diastolic 63–81; PULSE 71–96; RESP 17–20; TEMP 36.1–37.1; O2SAT 94–96
[2020-05-26] MEDS: Normal Saline 1,000 ML 100 ML IV ×3 (01:05→19:48)
[2020-05-26 07:22] LABS: Abs Immature Grans 0.04 10^3/uL (0.0-0.06); Absolute Basophil Count 0.02 10^3/uL (0.0-0.2); Absolute Eosinophil Count 0.31 10^3/uL (0.0-0.7); Absolute Lymphocyte Count 0.49 10^3/uL (1.2-3.4); Absolute Monocyte Count 0.42 10^3/uL (0.1-0.8); Absolute Neutrophil Count 4.91 10^3/uL (1.2-6.7); Basophils % 0.3; HCT 34.4 % (40.0-50.0); Immature Grans % 0.6; Lymphocytes % 7.9; MCH 20.6 pg (27.0-33.0); MCHC 29.1 % (32.0-36.0); MCV 70.9 fL (80-95); MPV 8.8 fL (8.0-11.0); Monocytes % 6.8; Neutrophils % 79.4; Nucleated RBC 0 %; Platelet Count 189 10^3/uL (130-400); RBC 4.85 10^6/uL (4.36-5.78); RDW 20.9 % (11.8-14.1); RDW-SD 52.6 fL; WBC 6.19 10^3/uL (4.4-10.8)
[2020-05-26 07:35] LABS: Anion Gap 13.3 mmol/L (3-11); BUN 14 mg/dL (7-18); CO2 21.7 mmol/L (21.0-32.0); CREATININE 1.1 mg/dL (0.70-1.30); Calcium 8.9 mg/dL (8.5-10.1); Chloride 107 mmol/L (98-107); Glucose 74 mg/dL (74-106); Magnesium 1.8 mg/dL (1.8-2.4); Potassium 4.3 mmol/L (3.5-5.1); Sodium 142 mmol/L (136-145)
[2020-05-26] MEDS: Pantoprazole 40 MG VIAL IVP (08:55)
[2020-05-26] MEDS: Normal Saline Flush 10 ML SYR IVP (08:55)
[2020-05-26] MEDS: PIPERACILLIN/TAZO 3.375 GM in Normal Saline 50 ML IVPB ×3 (10:47→22:25)
--- NOTE | 2020-05-26 14:35 | W.PM.PROGNOT ---
Date of Service Date of service: 05/26/20 Time of Service: 14:35 Assessment and Plan Assessment and plan (1) Aspiration pneumonia: Start date: 05/26/20 Start time: 14:39 Status: Acute Assessment and plan: In the setting of esophagectomy preformed at [facility]. CT chest shows: significant infiltrate in the left lower lobe and ground-glass infiltrate in the right upper lobe and right middle lobe concerning for aspiraiton pneumonia. Temp 37.9 in ED. COVID-19 testing negative. Continue Zosyn, day #2. CBC continues to show no leukocytosis Speech eval reveals: In the absence of imaging for potential complications related to hx of partial esophagotomy, may consider modified barium swallow study VFSS/MBSS to further assess oropharyngeal and/or partial pharyngoesophageal swallowing function and rule out silent aspiration, however GI consult would take priority given patient's history and in effort to rule out anatomical changes (tracheaesophageal fistula,etc) Diet Texture Recommendations: IDDSI Level(s) 7-Regular Solids 0-Thin Liquids Medication Intake: Whole with 0-Thin Liquids or 4-Puree as tolerated Alter medications only as advised by MD or Pharmacist RISK MANAGEMENT: Oral hygiene q4h/every 4 hours and before/after PO intake using friction with toothbrush on all oral structures HOB upright as tolerated; upright for all PO intake. Spoke with Dr. Rothman regarding possible transfer to [facility] to have testing done sooner and they feel this could be done on appt next this is not urgent. He already has an appointment scheduled with [facility] Gastroenterology on 06/04/20. (2) Aortic stenosis: Start date: 05/26/20 Start time: 14:42 Status: Chronic Assessment and plan: Mild on echocardiogram in 2019. (3) Coronary artery disease involving coronary bypass graft of craig heart: Start date: 05/26/20 Start time: 14:42 Status: Chronic Assessment and plan: Hold PO medications. Speech therapy consulted for swallow evaluation. Resume when he can take PO. (4) Personal history of TIA (transient ischemic attack): Start date: 05/26/20 Start time: 14:42 Status: Chronic Assessment and plan: S/p endarterectomy. (5) DVT prophylaxis: Start date: 05/26/20 Start time: 14:42 Status: Acute Assessment and plan: Subcutaneous Lovenox for DVT ppx. Subjective Subjective Patient reports: no new complaints Interval history since last seen: Sitting up in bed. Doing well lung sounds clear. Spoke [facility]. Dr. Rothman, he wants to the patient to finish course of antibiotics and follow up as outpatient next for EGD, barium swallow, etc. Patient is agreeable to plan. If blood cultures negative could be discharged home on augmentin possibly tomorrow. Exam Narrative Exam Narrative: General: thin, elderly man, sitting up in bed, in NAD. Alert and oriented, pleasant and talkative. HEENT: normocephalic, atraumatic, pupils equal and round, mucous membranes moist. Neck: supple, no JVD. Cardiovascular: heart sounds regular, nontachycardic. Respiratory: respirations appear even and unlabored, lung sounds with rales to the left base, no wheezing. GI: flat, soft abdomen, +BS, nontender on palpation, nondistended. Extremities: moves all 4 extremities freely, no edema. Objective Last Vital Signs Temp 36.7 C 05/26/20 11:13 Pulse 88 05/26/20 11:13 Resp 20 05/26/20 11:13 BP 121/63 05/26/20 11:13 Pulse Ox 95 05/26/20 11:13 Laboratory Results - last 24 hr 05/26/20 05/26/20 06:40 06:40 WBC 6.19 RBC 4.85 Hgb 10.0 L Hct 34.4 L MCV 70.9 L MCH 20.6 L MCHC 29.1 L RDW 20.9 H Plt Count 189 MPV 8.8 Immature Gran % 0.6 Neutrophils % 79.4 Lymphocytes % 7.9 Monocytes % 6.8 Eosinophils % 5.0 Basophils % 0.3 Nucleated RBC % 0 Absolute Neutrophils 4.91 Absolute Lymphocytes 0.49 L Absolute Monocytes 0.42 Absolute Eosinophils 0.31 Absolute Basophils 0.02 Sodium 142 Potassium 4.3 Chloride 107 Carbon Dioxide 21.7 Anion Gap 13.3 H BUN 14 Creatinine 1.1 Estimated GFR/1.73 m2 >= 60.00 Glucose 74 Calcium 8.9 Magnesium 1.8
[2020-05-26] MEDS: Enoxaparin 40 MG/0.4 ML SYR SC (15:58)
--- NOTE | 2020-05-26 18:33 | INITIAL_ITS ---
- If Service Date Differs Date of service: 05/26/20 Time of Service: 18:33 Care Management Initial Assess REASON FOR HOSPITALIZATION:: Pneumonia PAST MEDICAL HISTORY/PAST SURGICAL HISTORY:: Medical History. Aortic stenosis. Arm pain, right (03/20/15). Atherosclerosis of [place] coronary artery of pala heart without angina pectoris (04/10/06). silent ant [place] by MPI 2006; ECHO 06/2007: EF 63%, NO WMA; MPI 08/2011 NEG ISCHEMIA, EF 50%; ANTSEPT HYPOKIN; ASA & beta hood started 2006; aspirin stopped 01/2016 due to gastric ulcer. 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 [place] [facility]; last colonoscopy/EGD 04/[place] [facility]. Carotid disease, bilateral (01/25/16). [facility] 50% L int carotid; Dr Mauro: f/u 1 yr with Duplex [facility]. 09/18/17 Duplex shows a patent L CEA site, but some progressionon RIght, F/U in 6m with plan for duplex both carotoids. (Dr Null [facility]). Chronic diarrhea. Depressive disorder (06/30/11). Elevated prostate specific antigen (PSA) (06/30/11). h/o bx 2009; Dr Tripp 08/2010: consider up to 11 normal for him. Gastric ulcer (01/04/16). Gastritis on path: MACARIO test neg; ? add sucralfate; STOP aspirin. Iron deficiency anemia (04/17/12). 2005, 2008, 3013; LAST GI W/U 2008 NEG X ADENOMA, TICS, EGD NEG [facility] 04/2013; chronic microcytosis 1999. Personal history of TIA (transient ischemic attack) (02/06/15). R paresthesias; TIA vs Migraine, Drs. Palmer/ Latoya: vasc eval, medical therapy, statin/Plavix; finally L carotid endarterectomy 04/19/16 [facility]; F/U 11/2016. Pure hypercholesterolemia (06/30/11). goal LDL<70 due to CAD (no ischemia but presumed cause of abnl MPI 08/2011). Retinal detachment (03/10/14). R managed by Dr Iraheta at [facility]. Urinary retention (04/29/16). Vasomotor rhinitis. Surgical History. Carotid endarterectomy (04/19/16). Left, [facility], Dr. Null for asymptomatic carotid stenosis. Colonoscopy - IV Sedation (03/10/14). [facility] [place]; also EGD. EGD - IV Sedation (12/22/15). Extraction of cataract (09/25/14). right eye with lens implant Dr. Truong. H/O cardiac catheterization (05/22/18). [facility] [place] Harvey. partial esophagotomy (04/28/00). Dr Ibanez; [place] Esophagogastrectomy and feeding jejunostomy. S/P CABG x 3 (~06/04/18). S/P carotid endarterectomy PREVIOUS FUNCTIONAL STATUS/SOCIAL/FAMILY SUPPORTS:: Boni lives in [facility] with his , May. They are home care providers through [facility], and have a 92 year old lady that live with them currently. 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 He is active and independent at baseline. CURRENT FUNCTIONAL STATUS:: Boni was sitting up in bed when CM met with him. He was pleasant and engaged in conversation. He reported that per provider, he was going to be transferred to [facility]. Per report, after speaking with [facility], he will remain at [facility] until medically cleared, and will follow up with [facility] as an outpatient. He has an appointment at [facility] scheduled for 06/04/20, and they believe that he should complete abx treatment, and then go to this appointment. CM will continue to follow. ADVANCE DIRECTIVES:: None on file. CM will offer forms. Has patient been provided with info about the portal/API?: Yes Did the patient sign up for the portal?: Yes (previously) CODE STATUS:: Full Code INSURANCE COVERAGE / FINANCIAL ISSUES:: Commercial MCR replacement- [employer] CURRENT HOME/COMMUNITY SERVICES/EQUIPMENT:: No current services or equipment. PRIMARY CARE PHYSICIAN:: Tyler Brown POTENTIAL DISCHARGE NEEDS:: Follow up appointments. PATIENT/FAMILY EDUCATION NEEDS:: Review discharge instructions regarding activity levels and medications, discussion of self care needs and goals of care. ANTICIPATED BARRIERS TO DISCHARGE:: None identified. TRANSPORTATION:: Via private vehicle by spouse. PLAN:: Anticipate Boni will return home with no additional services. His will drive him home via private vehicle. He will follow up with [facility], his PCP and discharge plan of care. CM will continue to follow.
--- NOTE | 2020-05-26 18:33 | PDOC.CMIN ---
- If Service Date Differs Date of service: 05/26/20 Time of Service: 18:33 Care Management Initial Assess REASON FOR HOSPITALIZATION:: Pneumonia PAST MEDICAL HISTORY/PAST SURGICAL HISTORY:: Medical History. Aortic stenosis. Arm pain, right (03/20/15). Atherosclerosis of [place] coronary artery of [place] heart without angina pectoris (04/10/06). silent ant [place] by MPI 2006; ECHO 06/2007: EF 63%, NO WMA; MPI 08/2011 NEG ISCHEMIA, EF 50%; ANTSEPT HYPOKIN; ASA & beta hood started 2006; aspirin stopped 01/2016 due to gastric ulcer. 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 [place] [facility]GD 04[place] [facility] Carotid disease, bilateral (01/25/16). [facility] 50% L int carotid; Dr Mauro: f/u 1 yr with Duplex [facility]. 09/18/17 Duplex shows a patent L CEA site, but some progressionon RIght, F/U in 6m with plan for duplex both carotoids. (Dr Null [facility]). Chronic diarrhea. Depressive disorder (06/30/11). Elevated prostate specific antigen (PSA) (06/30/11). h/o bx 2009; Dr Tripp 08/2010: consider up to 11 normal for him. Gastric ulcer (01/04/16). Gastritis on path: MACARIO test neg; ? add sucralfate; STOP aspirin. Iron deficiency anemia (04/17/12). 2005, 2008, 3013; LAST GI W/U 2008 NEG X ADENOMA, TICS, EGD NEG [facility] 04/2013; chronic microcytosis 1999. Personal history of TIA (transient ischemic attack) (02/06/15). R paresthesias; TIA vs Migraine, Drs. Palmer/ Latoya: vasc eval, medical therapy, statin/Plavix; finally L carotid endarterectomy 04/19/16 [facility]; F/U 11/2016. Pure hypercholesterolemia (06/30/11). goal LDL<70 due to CAD (no ischemia but presumed cause of abnl MPI 08/2011). Retinal detachment (03/10/14). R managed by Dr Iraheta at [facility]. Urinary retention (04/29/16). Vasomotor rhinitis. Surgical History. Carotid endarterectomy (04/19/16). Left, [facility], [place]. Null for asymptomatic carotid stenosis. Colonoscopy - IV Sedation (03/10/14). [facility] [place]; also EGD. EGD - IV Sedation (12/22/15). Extraction of cataract (09/25/14). right eye with lens implant Dr. Truong. H/O cardiac catheterization (05/22/18). [facility] [place] Harvey. partial esophagotomy (04/28/00). Dr Ibanez; [place] Esophagogastrectomy and feeding jejunostomy. S/P CABG x 3 (~06/04/18). S/P carotid endarterectomy PREVIOUS FUNCTIONAL STATUS/SOCIAL/FAMILY SUPPORTS:: Boni lives in [facility] with his , May. They are home care providers through [facility], and have a 92 year old lady that live with them currently. 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 He is active and independent at baseline. CURRENT FUNCTIONAL STATUS:: Boni was sitting up in bed when CM met with him. He was pleasant and engaged in conversation. He reported that per provider, he was going to be transferred to [facility]. Per report, after speaking with [facility], he will remain at [facility] until medically cleared, and will follow up with [facility] as an outpatient. He has an appointment at [facility] scheduled for 06/04/20, and they believe that he should complete abx treatment, and then go to this appointment. CM will continue to follow. ADVANCE DIRECTIVES:: None on file. CM will offer forms. Has patient been provided with info about the portal/API?: Yes Did the patient sign up for the portal?: Yes (previously) CODE STATUS:: Full Code INSURANCE COVERAGE / FINANCIAL ISSUES:: Commercial MCR replacement- MVP CURRENT HOME/COMMUNITY SERVICES/EQUIPMENT:: No current services or equipment. PRIMARY CARE PHYSICIAN:: Tyler Brown POTENTIAL DISCHARGE NEEDS:: Follow up appointments. PATIENT/FAMILY EDUCATION NEEDS:: Review discharge instructions regarding activity levels and medications, discussion of self care needs and goals of care. ANTICIPATED BARRIERS TO DISCHARGE:: None identified. TRANSPORTATION:: Via private vehicle by spouse. PLAN:: Anticipate Boni will return home with no additional services. His will drive him home via private vehicle. He will follow up with [facility], his PCP and discharge plan of care. CM will continue to follow.
[2020-05-27 00:50] VITALS: BP 129/78; PULSE 83; RESP 18; TEMP 36.4; O2SAT 97
[2020-05-27] MEDS: PIPERACILLIN/TAZO 3.375 GM in Normal Saline 50 ML IVPB ×2 (03:47→09:52)
[2020-05-27 04:15] VITALS: BP 135/83; PULSE 82; RESP 17; TEMP 37; O2SAT 96
[2020-05-27] MEDS: Normal Saline 1,000 ML 100 ML IV (06:12)
[2020-05-27 07:36] VITALS: PULSE 63
[2020-05-27 07:40] VITALS: BP 121/62; PULSE 63; RESP 14; TEMP 36.6; O2SAT 95
[2020-05-27] MEDS: Pantoprazole 40 MG VIAL IVP (08:13)
[2020-05-27] MEDS: Normal Saline Flush 10 ML SYR IVP (08:14)
[2020-05-27 11:24] VITALS: BP 110/57; PULSE 74; RESP 20; TEMP 36.6; O2SAT 96
--- NOTE | 2020-05-27 12:27 | W.PM.DS.N ---
Date of service: 05/27/20 Time of Service: 12:28 DS: Diagnosis Discharge Diagnosis (1) Aspiration pneumonia: Status: Acute (2) Aortic stenosis: Status: Chronic (3) Coronary artery disease involving coronary bypass graft of platinum heart: Status: Chronic (4) Personal history of TIA (transient ischemic attack): Status: Chronic Discharge Plan Disposition Patient Disposition: HOME Condition: Stable Discharge Details Reason For Visit: PNEUMONIA Admit Date/Time: 05/25/20 13:04 Admit Provider: Jeff Lugo Attending Provider: Jeff Lugo Primary Care Provider: Tyler Brown [facility] Course Hospital Course: This is a 75 year old male with past medical history of CAD s/p CABG, TIA with bilateral endarterectomy, esophageal cancer with esophagectomy in remission, who presented to the ED with fever, cough, now productive. work up in the ED concerning for aspiration pneumonia. He was start on zosyn and admitted to med/surg for further evaluation and management. His COVID-19 testing was negative. Speech eval reveals: In the absence of imaging for potential complications related to hx of partial esophagotomy, may consider modified barium swallow study VFSS/MBSS to further assess oropharyngeal and/or partial pharyngoesophageal swallowing function and rule out silent aspiration, however GI consult would take priority given patient's history and in effort to rule out anatomical changes (tracheaesophageal fistula,etc). Diet Texture Recommendations: IDDSI Level(s) 7-Regular Solids 0-Thin Liquids Medication Intake: Whole with 0-Thin Liquids or 4-Puree as tolerated Alter medications only as advised by MD or Pharmacist RISK MANAGEMENT: Oral hygiene q4h/every 4 hours and before/after PO intake using friction with toothbrush on all oral structures HOB upright as tolerated; upright for all PO intake. He is scheduled with GI on June 04. He has been hemodynamically stable and oxygenating well on room air. He is tolerating his diet, and voiding without difficulty. he is stable and ready for discharge to home with no new services. discussed with DR Lugo. Home Meds and New Rx's Prescriptions: New amoxicillin-pot clavulanate 875-125 mg tablet 1 tab PO BID Qty: 10 RF: 0 Continued lisinopril 2.5 mg tablet 2.5 mg PO DAILY Qty: 90 RF: 3 guar gum Packet 1 tbsp PO DAILY RF: 0 metoprolol tartrate 25 mg tablet 25 mg PO BID RF: 0 nitroglycerin [Nitrostat] 0.4 mg tablet, sublingual 0.4 mg SL Q5-15M PRN (Reason: chest pain) Qty: 10 RF: 3 atorvastatin 80 mg tablet 80 mg PO HS Qty: 30 RF: 11 pantoprazole [Protonix] 20 mg tablet,delayed release (DR/EC) 20 mg PO BID Qty: 180 RF: 3 multivitamin [Daily Multi-Vitamin] Tablet 1 tab PO DAILY RF: 0 aspirin [Aspir-81] 81 MG tablet,delayed release (DR/EC) 81 mg PO DAILY RF: 0 ferrous sulfate 325 mg (65 mg iron) tablet 325 mg PO BID RF: 0 loratadine 10 mg tablet 10 mg PO DAILY Qty: 14 RF: 0 Discharge Instructions Instructions: Aspiration Pneumonia (DC) Additional Instructions: take all medications as prescribed. keep all scheduled appointments. Diet Texture Recommendations: IDDSI Level(s) 7-Regular Solids 0-Thin Liquids Medication Intake: Whole with 0-Thin Liquids or 4-Puree as tolerated Alter medications only as advised by MD or Pharmacist RISK MANAGEMENT: Oral hygiene every 4hhours/every 4 hours and before/after oral intake using friction with toothbrush on all oral structures HOB upright as tolerated; upright for all oral intake. Stand Alone Forms: Nursing Discharge Form Referrals: Tyler Brown DO [Primary Care Provider] - 06/11/20 11:15 am Activity:: Activity as Tolerated Equipment/Supplies:: No Equipment Needed Diet:: As Tolerated Discharge Orders Discharge Orders: Discharge Order (Routine); Ordered 05/27/20 Ordered By: Elisa Strickland Discharge Data Discharge Date/Time-TO BE ENTERED AT DEPARTURE: 05/27/20 14:04 DS: Summary Time Spent with Patient providing and/or coordinating discharge services: Less than 30 minutes Status at Discharge Functional status at discharge: independent ambulation Overall status at discharge: patient is progressing back to baseline Mental Status: mental status grossly normal Speech and Movement: speech and movement normal Mood: congruent mood Affect: normal affect Exam Narrative Exam Narrative: General: thin, elderly man, in NAD, pink warm dry and well perfused. Alert and oriented, pleasant and talkative. HEENT: normocephalic, atraumatic, pupils equal and round, mucous membranes moist. Neck: supple, no JVD. Cardiovascular: heart sounds regular, non-tachycardic. Respiratory: respirations are even and unlabored, lung sounds clear, no wheezing. GI: flat, soft abdomen, +BS, non-tender on palpation, non-distended. Extremities: moves all 4 extremities, no edema. Psych Mental Status: mental status grossly normal Speech and Movement: speech and movement normal Mood: congruent mood Affect: normal affect DS: Data Vitals/I&O Vitals and I&O: Vital Signs Temperature 36.6 C 05/27/20 11:24 Temperature Source Tympanic 05/27/20 11:24 Pulse 74 05/27/20 11:24 Pulse Rhythm Regular 05/27/20 07:44 Pulse 93 H 05/25/20 13:40 Respiratory Rate 20 05/27/20 11:24 Respiratory Effort 05/27/20 07:44 Respiratory Depth Normal 05/27/20 07:44 Respiratory Pattern Normal 05/27/20 07:44 Blood Pressure 110/57 L 05/27/20 11:24 Blood Pressure Mean 76 05/25/20 13:55 Blood Pressure Position Supine 05/25/20 09:42 Pulse Oximetry 96 05/27/20 11:24 Oxygen Delivery Method Room Air 05/27/20 11:24 Oxygen Flow Rate 0 05/27/20 11:24 Pain Level 0 05/27/20 11:24 Intake & Output 05/26/20 05/27/20 05/27/20 23:59 11:59 23:59 Intake Total 1771.667 / 4105.001 980 / 980 Output Total 800 / 2050 500 / 500 Balance 971.667 / 2055.001 480 / 480 Weight 59.7 kg Intake: IV 1256.667 / 3230.001 740 / 740 Oral 515 / 875 240 / 240 Output: Urine 800 / 2050 500 / 500 Other: Urine Color Yellow Yellow Urine Appearance Clear Clear Cloudy Cloudy Urine Odor Normal Normal Comment reports voiding without difficulty into toilet independant to bathroom Voiding Methods Toilet Toilet Data Completed and Pending Labs on day of discharge: 05/26/20 20:14 Sputum Sputum Culture - Pending 05/26/20 10:30 Blood Blood Culture - Pending 05/26/20 10:45 Blood Blood Culture - Pending Preliminary micro results at discharge 05/26/20 20:14 Sputum Culture - Pending Sputum 05/26/20 10:30 Blood Culture - Pending Blood 05/26/20 10:45 Blood Culture - Pending Blood [facility] Medical History Aortic stenosis Arm pain, right (03/20/15) Atherosclerosis of platinum coronary artery of platinum heart without angina pectoris (04/10/06) silent ant [place] by MPI 2006; ECHO 06/2007: EF 63%, NO WMA; MPI 08/2011 NEG ISCHEMIA, EF 50%; ANTSEPT HYPOKIN; ASA & beta hood started 2006; aspirin stopped 01/2016 due to gastric ulcer 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 (Dr Null [facility]) Chronic diarrhea Depressive disorder (06/30/11) Elevated prostate specific antigen (PSA) (06/30/11) h/o bx 2009; Dr Tripp 08/2010: consider up to 11 normal for him Gastric ulcer (01/04/16) Gastritis on path: MACARIO test neg; ? add sucralfate; STOP aspirin Iron deficiency anemia (04/17/12) 2005, 2008, 3013; LAST GI W/U 2008 NEG X ADENOMA, TICS, EGD NEG [facility] 04/2013; chronic microcytosis 1999 Personal history of TIA (transient ischemic attack) (02/06/15) R paresthesias; TIA vs Migraine, Drs. Palmer/ Latoya: vasc eval, medical therapy, statin/Plavix; finally L carotid endarterectomy 04/19/16 [facility]; F/U 11/2016 Pure hypercholesterolemia (06/30/11) goal LDL<70 due to CAD (no ischemia but presumed cause of abnl MPI 08/2011) Retinal detachment (03/10/14) R managed by Dr Iraheta at [facility] Urinary retention (04/29/16) Vasomotor rhinitis Surgical History Carotid endarterectomy (04/19/16) Left, [facility], Dr. Null for asymptomatic carotid stenosis [place]oscopy - [place] [facility] [place] EGD - IV Sedation (12/22/15) Extraction of cataract (09/25/14) right eye with lens implant Dr. Truong H/O cardiac catheterization (05/22/18) [facility] Dr Harvey partial esophagotomy (04/28/00) Dr Ibanez; [place] Esophagogastrectomy and feeding jejunostomy S/P CABG x 3 (~06/04/18) S/P carotid endarterectomy Family History Mother , old age at age 92. Congestive heart failure (CHF) age of onset unknown Father , [place], pneumonia at age 78. Myocardial infarction Sister , [place] at age 56. Myocardial infarction Sister Age: 86 No problems noted. Brother , cancer at age 67. 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 gender identity: male What is your relationship status?: Panel score (0-1 are the most socially isolated patients): 1 What type of physical activity do you participate in: none Seatbelt use: always Drive intox or ride w/intox bulk driver: No Working smoke detector in home: Yes Fire extinguisher in home: Yes Carbon monox detector in home: Yes Do you feel safe at home: Yes Do you feel safe in your relationship?: Yes
--- NOTE | 2020-05-27 17:28 | PDOC.CMDIS ---
- If Service Date Differs Date of service: 05/27/20 Time of Service: 17:28 LACE Index Scoring Tool - Questions: Length of Stay (in days): 3 Acuity (Admit via E.D.?): Yes E.D. Visits: 3 - Answers: Total Score: 9 Risk of Readmission: Low Risk Care Management Discharge Reason for Hospitalization: Pneumonia Discharge Plan: Boni will return home today with no new services. His will drive him home via private vehicle. He will follow up with his PCP and discharge plan of care. He is happy to be going home. Patient/Family Education Needs: Review discharge instructions regarding activity and medications, discussion of self care needs.
== END 2020-05-27 14:04 | disposition home or self-care (01) | DRG 178 ==
LOC: ER 11:46 → MS 13:50
PROVIDERS: Nurse Practitioner; Admitting Provider Internal Medicine; Emergency Provider Student in an Organized Health Care Education/Training Program; PCP Family Medicine; Visit Provider Internal Medicine
DX: J69.0 Pneumonitis due to inhalation of food and vomit (principal); I25.810 Atherosclerosis of coronary artery bypass graft(s) without angina pectoris; I35.0 Nonrheumatic aortic (valve) stenosis; Z86.73 Personal history of transient ischemic attack (TIA), and cerebral infarction without residual deficits; Z85.01 Personal history of malignant neoplasm of esophagus; Z20.822 Contact with and (suspected) exposure to COVID-19; K52.9 Noninfective gastroenteritis and colitis, unspecified; F32.9 Major depressive disorder, single episode, unspecified; E78.00 Pure hypercholesterolemia, unspecified; R33.9 Retention of urine, unspecified; Z90.49 Acquired absence of other specified parts of digestive tract; D50.9 Iron deficiency anemia, unspecified; Z93.4 Other artificial openings of gastrointestinal tract status
CPT/HCPCS: 36415; 71275; 80048; 80053; 84145; 87040; 87637; 93005; 96365; 99222; 99233; 99239; 99285; J1650; U0003; 81003; 81015; 83605; 83735; 84484; 85025; 85379; 87070; 87205; 93010; J2543; J3490

== ENCOUNTER 2021-04-08 02:29 | Outpatient (CLI) | payer MEDICARE, SELFPAY ==
--- NOTE | 2021-04-08 10:26 | DI.US_ITS ---
APPROVED REPORT EXAM: Comprehensive 2D, Doppler, and color-flow Echocardiogram Patient Location: Out-Patient Machine Brush Maker: Holley Hill RDCS (AE) Indications: Aortic Stenosis Other Information Study Quality: Adequate Conclusion Normal left ventricular wall thickness and chamber size. Estimated ejection fraction is 60%. Wall m otion is normal Both atria are mildly dilated Normal right ventricular size and systolic function Aortic valve is sclerotic and trileaflet without stenosis or regurgitation Normal mitral valve with trace regurgitation Normal tricuspid valve with mild regurgitation. Estimated right ventricular systolic pressure is 24 mmHg Wall motion Left Ventricle The left ventricle is normal size. The left ventricular systolic function is normal. The left ventric ular ejection fraction is within the normal range. There is normal left ventricular wall thickness. T here is normal LV segmental wall motion. There is no ventricular septal defect visualized. LVEF is 58 %. Right Ventricle The right ventricle is normal size. The right ventricular systolic function is normal. The RVSP is 23 .8 mmHg. Atria Left atrium is mildly dilated. Right atrium is mildly dilated. The interatrial septum is intact with no evidence for an atrial septal defect. Aortic Valve Aortic valve is calcified. Aortic valve is trileaflet. No hemodynamically significant valvular aortic stenosis. No aortic regurgitation is present. Mitral Valve The mitral valve is normal in structure. No evidence of mitral valve stenosis. Trace mitral regurgita tion. Tricuspid Valve The tricuspid valve is normal in structure. There is no tricuspid valve stenosis. Mild tricuspid regu rgitation. Pulmonic Valve The pulmonary valve is normal in structure. There is no pulmonic valvular stenosis. There is no pulmo juan jose valvular regurgitation. Great Vessels The aortic root is normal in size. The ascending aorta is normal in size. Aortic arch is not well vis ualized. IVC is normal in size and collapses >50% with inspiration. Pericardium There is no pericardial effusion. 2D Dimensions IVSD d PLAX 0.72 cm M: 0.6-1.2 LV Vol A2C d MOD 110.9 mL LVPW d PLAX 0.77 cm M: 0.6 - 1.2 LV Vol A4C d MOD 86.2 mL LVID d PLAX 4.48 cm M: 4.2 - 5.8 LA vol/ BSA A2C s A-L 39.2 mL/m2 LVDs 3.00 cm M: 2.5 - 4.0 LA vol/ BSA A4C s A-L 26.6 mL/m2 Ao Root d 2.96 cm M: 3.1 - 3.7 LA Vol/ BSA Biplane s A-L 35.0 mL/m2 RA Area A4C 19.65 cm2 LA Area A4C s MOD 17.01 cm2 RA Vol/ BSA A4C s A-L 35.8 mL/m2 LA Area A2C s MOD 22.36 cm2 Ao Asc Diam d 3.17 cm M: 2.6 - 3.4 LV EF A4C MOD 58.3 % LV EF Teichholz 61.1 % LV EF A2C MOD 58.3 % LVEF (Mckay's) 59.14 % M: 52 - 72 LV EF Biplane MOD 59.1 % LV Volume 80.44 mL M: 62 - 150 SV 60.52 mL LV Volume Index 46.22 mL/m2 M: 34 - 74 SV Index 34.62 mL/m2 LV Vol Biplane MOD 102.3 mL FS 32.60 % M-Mode TAPSE 1.44 cm (M/F) >1.7 LV Diastology MV E' medial 0.084 (>0.07 m/s) E/A Ratio 0.9 LV E/e MED 8.45 (<14) MV E Vmax 0.71 (0.4-1.3 m/s) MV E' lateral 0.090 (>0.1 m/s) MV A Vmax 0.80 (0.4-1.3 m/s) LV E/e LAT 7.90 (<14) MV E/A Ratio 0.85 MV E/E' medial 8.45 MV E/E' lateral 7.90 Aortic Valve LVOT Area 2.40 cm2 AoV Area Vmax 1.37 cm2 LVOT Vmax 1.23 m/s AoV Area/ BSA (Vmax) 0.78 cm2/m2 LVOT Mean Austin. 1.05 m/s ERLIN Mean [place]. 1.65 cm2 LVOT Peak Grad 6.0 mmHg ERLIN Mean [place]. Index 0.94 cm2/m2 LVOT Mean Grad 4.5 mmHg LVOT VTI 0.312 m LVOT Diam s 1.70 cm AoV Vmax 2.15 m/s Velocity Ratio 0.57 AoV Mean [place]. 1.52 m/s AoV Peak Grad 18.5 mmHg LVOT SV 75.03 mL AoV Mean Grad 10.3 mmHg AoV VTI 0.470 m AoV Area VTI 1.60 cm2 AoV Area/ BSA (VTI) 0.91 cm/m2 Mitral Valve MV DT 205 (160-240 msec) MV PHT 59 msec MV Area PHT 3.70 cm2 MV VTI 0.274 m MV Area VTI 2.74 (4.0-6.0 cm2) Pulmonary Valve PV Vmax 0.97 (0.5-1.5 m/s) RVOT Peak Gr. 2.63 mmHg PV Peak Grad 3.7 mmHg RVOT Mean Gr. 1.40 mmHg PV Mean Grad 1.7 mmHg RVOT VTI 0.171 m PV VTI 0.198 m RVOT Vmax 0.81 m/s Tricuspid Valve TR Peak Grad 20.8 mmHg TR Vmax 2.28 m/s RA Pressure 3.00 mmHg RVSP (TR) 23.8 mmHg
== END 2021-04-08 02:49 ==
LOC: DI 02:30
PROVIDERS: PCP Family Medicine; Visit Provider Internal Medicine Cardiovascular Disease
DX: I08.2 Rheumatic disorders of both aortic and tricuspid valves (principal)
CPT/HCPCS: 93306

== ENCOUNTER → 2021-04-19 11:35 | Outpatient (BNVA) | payer MEDICARE, SELFPAY | PROVIDERS: PCP Family Medicine; Referring Provider Family Medicine; Visit Provider Internal Medicine Cardiovascular Disease | DX: I35.0 Nonrheumatic aortic (valve) stenosis (principal); I25.810 Atherosclerosis of coronary artery bypass graft(s) without angina pectoris; Z98.890 Other specified postprocedural states | CPT/HCPCS: 99214; 99213 ==

== ENCOUNTER 2021-05-27 11:11 | Emergency (ER) | payer MEDICARE, SELFPAY ==
[2021-05-27] VITALS (18 sets, daily range): BP systolic 114–130; BP diastolic 63–97; PULSE 77–105; RESP 16–30; TEMP 37; O2SAT 94–97
--- NOTE | 2021-05-27 11:15 | RT.EKG_ITS ---
APPROVED REPORT Exam: Resting ECG Reason for Exam: SOB Patient Location: E HR:86 bpm ECG Measurements Heart Rate 86 AXIS IL 148 P 81 QRSd 93 QRS 29 QT 354 T 89 QTc 423 Conclusion Sinus rhythm...normal P axis Probable left atrial enlargement Abnormal T lateral leads.
--- NOTE | 2021-05-27 11:52 | ED.GENADUL_ITS ---
Discharge Plan Disposition Patient Disposition: HOME Condition: Stable Discharge Details Clinical Impression: Left lower lobe pneumonia Primary Care Provider: Tyler Brown ED Provider: Jackie Trevizo Home Meds and New Rx's Prescriptions: New doxycycline hyclate 100 mg tablet 100 mg PO BID 10 Days Qty: 20 0RF No Action lisinopril 2.5 mg tablet 2.5 mg PO DAILY Qty: 90 3RF metoprolol tartrate 25 mg tablet 25 mg PO BID Qty: 180 3RF pantoprazole [Protonix] 20 mg tablet,delayed release (DR/EC) 20 mg PO BID Qty: 180 3RF Rx Instructions: h/o esophageal cancer sildenafil 50 mg tablet 50 mg PO DAILY PRN (Reason: sexual activity) Qty: 30 6RF Label Comments: does not have rx Rx Instructions: administer 30 minutes to 4 hours before activity montelukast [Singulair] 10 mg tablet 10 mg PO DAILY Qty: 90 2RF Label Comments: not using nitroglycerin [Nitrostat] 0.4 mg tablet, sublingual 0.4 mg SL Q5-15M PRN (Reason: chest pain) Qty: 10 3RF Rx Instructions: until response; do not exceed 3 doses per episode multivitamin [Daily Multi-Vitamin] Tablet 1 tab PO DAILY 0RF atorvastatin 80 mg tablet 80 mg PO HS Qty: 30 11RF Rx Instructions: reduce risk of cardiovascular events, lower cholesterol azelastine 137 mcg (0.1 %) aerosol,spray 1 spray intranasal BID 0RF Rx Instructions: sinus rinse then administer into each nostril per 12/25/20 ov note-LH Discharge Instructions Instructions: Pneumonia (ED) Additional Instructions: X-ray shows a left lower lobe pneumonia. Covid is negative. Cardiac work-up is within normal limits. Take the antibiotics as directed twice daily for 10 days. Eat yogurt or take a probiotic while on the antibiotics. Follow up with primary care provider in 3-5 days. Return to ED sooner if any worsening or concerns. Increase oral fluids. Please return to the ER for any worsening shortness of breath, fever, worsening weakness or any concerns. Please take Tylenol or Ibuprofen with food every 4-6 hours as needed for pain and swelling. Referrals: Tyler Brown DO [Primary Care Provider] - 3 days Discharge Data Discharge Date/Time-TO BE ENTERED AT DEPARTURE: 05/27/21 13:58 Medical Decision Making 76-year-old male presents to the ER with chief complaint of postnasal drip, productive cough with yellow phlegm, and dyspnea. He reports a low-grade fever last night of 99.6. He reports that the postnasal drip has been a chronic issue for him and he does have a history of pneumonia. He is vaccinated for COVID. He has a past medical history for coronary artery disease with a bypass graft, TIA, iron deficiency anemia, bilateral carotid disease, aortic stenosis, depression. He is status post CABG x3 in 2019 and carotid and endarterectomy in 2017 Respiratory work-up ordered including Covid swab, chest x-ray, labs and blood cultures. CBC shows white blood cell count of 13.04 hemoglobin 10.1 hematocrit 34.6, anion gap 12.2 BUN 25 creatinine 1.3 GFR is 53, Covid negative CXR: FINDINGS: MEDIASTINUM: Normal. HEART: Normal. The patient is status post CABG. PULMONARY VASCULATURE: Normal. LUNGS: There are increased lung markings in the left base medially suspicious for pneumonia. The lungs are hyperinflated suggesting underlying COPD. PLEURAL SPACE: No pleural effusion or pneumothorax. BONE:Within normal limits for the patient's age. Sternal wires are in place. OTHER FINDINGS:Normal. IMPRESSION: Left basilar infiltrate suspicious for pneumonia. Discussed results for x-ray with patient, patient given doxycycline here in the department and a prescription was given. Discussed return instructions. Patient hemodynamically stable alert and oriented upon discharge. This text was generated using [employer] dictation system, please disregard any oddities of phrase or misspellings. HPI General Mode of arrival: ambulatory . Date/Time Provider Initiated Documentation: 05/27/21 11:22 . Limitations to Documentation: no limitations . Information obtained by: patient, RN notes reviewed and old records reviewed . HPI Narrative: 76-year-old male presents to the ER with chief complaint of postnasal drip, productive cough with yellow phlegm, and dyspnea. He reports a low-grade fever last night of 99.6. He reports that the postnasal drip has been a chronic issue for him and he does have a history of pneumonia. He is vaccinated for COVID. He has a past medical history for coronary artery disease with a bypass graft, TIA, iron deficiency anemia, bilateral carotid disease, aortic stenosis, depression. He is status post CABG x3 in 2019 and carotid and endarterectomy in 2017 Related Data Home Medications Medication Instructions Recorded Confirmed nitroglycerin 0.4 mg sublingual 0.4 mg SL Q5-15M PRN #10 tab 05/09/18 05/27/21 tablet (Nitrostat) multivitamin (Daily Multi-Vitamin) 1 tab PO DAILY tab 04/27/20 05/27/21 montelukast 10 mg tablet 10 mg PO DAILY #90 tab 07/21/20 04/19/21 (Singulair) atorvastatin 80 mg tablet 80 mg PO HS #30 tab 12/18/20 05/27/21 azelastine 137 mcg (0.1 %) nasal 1 spray INTRANASAL BID 12/25/20 05/27/21 spray aerosol lisinopril 2.5 mg tablet 2.5 mg PO DAILY #90 tab 01/26/21 05/27/21 metoprolol tartrate 25 mg tablet 25 mg PO BID #180 tab 01/26/21 05/27/21 pantoprazole 20 mg tablet,delayed 20 mg PO BID #180 tab 01/26/21 05/27/21 release (Protonix) sildenafil 50 mg tablet 50 mg PO DAILY PRN #30 tab 01/26/21 04/19/21 doxycycline hyclate 100 mg tablet 100 mg PO BID 10 Days #20 tab 05/27/21 Previous Rx's Medication Instructions Recorded nitroglycerin 0.4 mg sublingual 0.4 mg SL Q5-15M PRN #10 tab 05/09/18 tablet (Nitrostat) montelukast 10 mg tablet 10 mg PO DAILY #90 tab 07/21/20 (Singulair) atorvastatin 80 mg tablet 80 mg PO HS #30 tab 12/18/20 lisinopril 2.5 mg tablet 2.5 mg PO DAILY #90 tab 01/26/21 metoprolol tartrate 25 mg tablet 25 mg PO BID #180 tab 01/26/21 pantoprazole 20 mg tablet,delayed 20 mg PO BID #180 tab 01/26/21 release (Protonix) sildenafil 50 mg tablet 50 mg PO DAILY PRN #30 tab 01/26/21 doxycycline hyclate 100 mg tablet 100 mg PO BID 10 Days #20 tab 05/27/21 Allergies Allergy/AdvReac Type Severity Reaction Status Date / Time No Known Drug Allergies Allergy Verified 05/27/21 11:21 General Stated Complaint: RespSymp BRUCE: 3 Review of Systems Narrative: Constitutional: Negative for weight loss, alert and oriented, well groomed, normal body habitus, appears comfortable. Reports fever low-grade of 99.6. HEENT: Denies trauma, headaches, blurry vision, nasal discharge, sore throat, trouble swallowing. Reports postnasal drip. Chest: Denies chest pain, palpitations, irregular rhythm, hypertension. Respiratory: Denies hemoptysis. Positive shortness of breath and productive cough. GI: Denies abdominal pain, nausea, vomiting, diarrhea, constipation. : Denies dysuria, hematuria, flank pain, rectal bleeding. Neuro: Denies dizziness, blurry vision, weakness, syncope, headache or facial numbness. Hematologic: Denies easy bruising, intolerance to heat or cold, hair loss. PFSH All Active Problems (Updated 05/27/21 @ 13:29 by Jackie Trevizo) Left lower lobe pneumonia (Acute) Erectile dysfunction (Acute) Postnasal drip (Acute ~12/2020) Chronic rhinitis (Acute ~12/2020) Esophagitis determined by biopsy (Acute ~06/2020) [facility] [place] GI-endoscopy done Aspiration pneumonia (Acute) Hematuria (Acute) Aortic stenosis (Chronic) Chronic diarrhea (Acute) Depressive disorder (Chronic 06/30/11) Abnormal auditory perception (Acute) Impacted cerumen of both ears (Acute) Sensorineural hearing loss of both ears (Acute) S/P carotid endarterectomy (Acute) Pain of right upper extremity (Acute 03/20/15) Primary malignant neoplasm of esophagus (Acute 04/27/00) Vasomotor rhinitis (Acute) Asymptomatic bilateral carotid artery stenosis (Acute) 09/13/18 [facility] [place] Dr Henry Null, Vascular Surgery Coronary artery disease involving coronary bypass graft of [place] heart (Chronic) Urinary retention (Chronic 04/29/16) Retinal detachment (Chronic 03/10/14) R managed by Dr Iraheta at [facility] Pure hypercholesterolemia (Chronic 06/30/11) goal LDL<70 due to CAD (no ischemia but presumed cause of abnl MPI 08/2011) Personal history of TIA (transient ischemic attack) (Chronic 02/06/15) R paresthesias; TIA vs Migraine, Drs. Palmer/ Latoya: vasc eval, medical therapy, statin/Plavix; finally L carotid endarterectomy 04/19/16 [facility] [place]; F/U 11/2016 Iron deficiency anemia (Chronic 04/17/12) 2006, 2008, 3013; LAST GI W/U 2008 NEG X ADENOMA, TICS, EGD NEG [facility] 04/2013; chronic microcytosis 2000 Elevated prostate specific antigen (PSA) (Chronic 06/30/11) h/o bx 2009; Dr Tripp 08/2010: consider up to 11 normal for him Carotid disease, bilateral (Chronic 01/25/16) [facility] 50% L int carotid; Dr Mauro: f/u [address] [facility] 09/18/17 Duplex shows a patent L CEA site, but some progressionon RIght, F/U in 6m with plan for duplex both carotoids. (Dr Null [facility] Vascular) Atherosclerosis of [place] coronary artery of [place] heart without angina pectoris (Chronic 04/10/06) silent ant MS by MPI 2006; ECHO 06/2007: EF 63%, NO WMA; MPI 08/2011 NEG ISCHEMIA, EF 50%; ANTSEPT HYPOKIN; ASA & beta hood started 2006; aspirin stopped 01/2016 due to gastric ulcer Surgical History Carotid endarterectomy (04/19/16) Left, [facility] [place], Dr. Null for asymptomatic carotid stenosis [place] [facility] [place] EGD - IV Sedation (12/22/15) Extraction of cataract (09/25/14) right eye with lens implant Dr. Truong H/O cardiac catheterization (05/22/18) [facility] [place] Dr Harvey partial esophagotomy (04/28/00) Dr Ibanez; [place] Esophagogastrectomy and feeding jejunostomy S/P CABG x 3 (~06/04/18) Family History Mother , old age at age 92. Congestive heart failure (CHF) age of onset unknown Father , MS, pneumonia at age 78. Myocardial infarction Sister , MS at age 56. Myocardial infarction Sister Age: 87 No problems noted. Brother , cancer at age 67. 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 gender identity: male What is your relationship status?: Panel score (0-1 are the most socially isolated patients): 1 What type of physical activity do you participate in: other Details: active daily Seatbelt use: always 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 Appears stated age. Normal body habitus. Head: Normocephalic, no trauma. Eyes: Pupils PERRL, Red reflex noted, EOM's intact. Eyelids symmetrical without lesions, discharge, or swelling. ENT: Bilateral TM's WNL, External ear normal to inspection, no mastoid TTP, swelling, or erythema, Nasal turbinates WNL, no nasal discharge. Normal dentition, Posterior pharynx WNL, no exudate. Chest: RRR, Normal S1, S2, distal pulses intact. Resp: Lungs clear to auscultation bilaterally, no wheezes, rales, or rhonchi. Speaking in full sentences. Abdomen: Soft, non-distended, Normoactive bowel sounds all 4 quads. Musculoskeletal: Normal gait, 5/5 strength to all four extremities. Skin: No suspicious rashes or lesions. Capillary refill less than 2 sec. Neurologic: Cranial nerves II-XII intact. Alert and oriented x 3. Motor: No deficits noted. Sensory: Intact bilaterally all 4 extremities. Reflexes: DTR's intact bilaterally.. Hematologic/Lymphatic: No ecchymosis, no lymphadenopathy. Course Vital Signs Vital signs: Vital Signs Temperature 37 C 05/27/21 11:16 Pulse 105 H 05/27/21 11:16 Respiratory Rate 16 05/27/21 11:16 Blood Pressure 129/97 H 05/27/21 11:16 Pulse Oximetry 96 05/27/21 11:16 Temperature 37 C 05/27/21 11:16 Temperature Source Skin 05/27/21 11:16 Pulse 105 H 05/27/21 11:16 Respiratory Rate 16 05/27/21 11:16 Respiratory Effort 05/27/21 11:25 Blood Pressure 129/97 H 05/27/21 11:16 Pulse Oximetry 96 05/27/21 11:16 Oxygen Delivery Method Room Air 05/27/21 11:16 Oxygen Flow Rate 0 05/27/21 11:16 Pain Level 0 05/27/21 11:16 Lab/Test Results Lab/Test Results: 05/27/21 11:22 Blood Blood Culture - Pending 05/27/21 11:22 Blood Blood Culture - Pending
[2021-05-27 12:05] LABS: Abs Immature Grans 0.05 10^3/uL (0.0-0.06); Absolute Eosinophil Count 0.05 10^3/uL (0.0-0.7); Absolute Lymphocyte Count 0.34 10^3/uL (1.2-3.4); Absolute Neutrophil Count 11.87 10^3/uL (1.2-6.7); Basophils % 0.2; Eosinophils % 0.4; HCT 34.6 % (40.0-50.0); HGB 10.1 g/dL (13.5-17.5); Immature Grans % 0.4; Lymphocytes % 2.6; MCH 21.7 pg (27.0-33.0); MCHC 29.2 % (32.0-36.0); MCV 74.2 fL (80-95); MPV 8.3 fL (8.0-11.0); Monocytes % 5.4; Nucleated RBC 0 %; Platelet Count 196 10^3/uL (130-400); RBC 4.66 10^6/uL (4.36-5.78); RDW 17.2 % (11.8-14.1); RDW-SD 45.4 fL; WBC 13.04 10^3/uL (4.4-10.8)
[2021-05-27 12:09] LABS: Absolute Basophil Count 0.03 10^3/uL (0.0-0.2)
[2021-05-27 12:16] LABS: Diff Comment RBC Morph Reviewed; Microcytosis 2+
[2021-05-27 12:17] LABS: Poikilocytes 1+
--- NOTE | 2021-05-27 12:18 | DI.RAD_ITS ---
Exam(s) XR PORTABLE CHEST AP EXAM: XR PORTABLE CHEST AP CLINICAL HISTORY: Productive cough,PUI, R/O Pneumonia TECHNIQUE: 2D digital imaging was performed of the chest. One image was obtained. An AP view was ob tained. COMPARISON: CR,XR XR PORTABLE CHEST AP from 05/05/2020 FINDINGS: MEDIASTINUM: Normal. HEART: Normal. The patient is status post CABG. PULMONARY VASCULATURE: Normal. LUNGS: There are increased lung markings in the left base medially suspicious for pneumonia. The kristen gs are hyperinflated suggesting underlying COPD. PLEURAL SPACE: No pleural effusion or pneumothorax. BONE:Within normal limits for the patient's age. Sternal wires are in place. OTHER FINDINGS:Normal. IMPRESSION: Left basilar infiltrate suspicious for pneumonia. DATA REPOSITORY: RADIATION DOSE DELIVERED:
[2021-05-27 12:19] LABS: ALT 23 U/L (16-63); AST 18 U/L (15-37); Albumin 3.7 g/dL (3.4-5.0); Alkaline Phosphatase 94 U/L (46-116); Anion Gap 12.2 mmol/L (3-11); BUN 25 mg/dL (7-18); CO2 23.8 mmol/L (21.0-32.0); CREATININE 1.3 mg/dL (0.70-1.30); Calcium 8.7 mg/dL (8.5-10.1); Chloride 105 mmol/L (98-107); Estimated GFR 53.67 (mL/min/1.73m2); Glucose 105 mg/dL (74-106); Potassium 4.5 mmol/L (3.5-5.1); Sodium 141 mmol/L (136-145); Total Protein 7.4 g/dL (6.4-8.2)
[2021-05-27 13:02] LABS: COVID-19 PCR Negative (Negative)
[2021-05-27 13:12] LABS: Source Nasal/Nares
[2021-05-27] MEDS: Doxycycline Hyclate 100 MG, 2 CAPS/BTL PO (13:45)
[2021-05-27] MEDS: Doxycycline Hyclate 100 MG CAP PO (13:45)
== END 2021-05-27 13:58 | disposition home or self-care (01) ==
PROVIDERS: Emergency Provider Registered Nurse Emergency; PCP Family Medicine
DX: J18.9 Pneumonia, unspecified organism (principal); R06.02 Shortness of breath; Z20.822 Contact with and (suspected) exposure to COVID-19
CPT/HCPCS: 36415; 80053; 87040; 87635; 87637; 93005; 99283; 99284; 71045; 85025; 93010

== ENCOUNTER 2022-01-11 01:18 | Outpatient (CLI) | payer MEDICARE, SELFPAY ==
--- NOTE | 2022-01-11 07:11 | DI.CT_ITS ---
Exam(s) CT ABDOMEN PELVIS W EXAM: CT ABDOMEN PELVIS W CLINICAL HISTORY: Cramping with steaorrhea, r/o pancreatic mass,r10.9. TECHNIQUE: Imaging Protocol: Axial computed tomography images with coronal and sagittal reformatted images were created and reviewed CONTRAST MATERIAL: Intravenous: Omnipaque 100cc Oral: Yes. COMPARISON: CT CT CHEST PE CTA from 05/25/2020 CR XR PORTABLE CHEST AP from 05/27/2021 FINDINGS: VISUALIZED LUNG BASES: No nodules nor pleural effusions evident. ABDOMEN: There is no ascites. Large hiatal hernia is again noted, seen on prior chest CT scan.. LIVER: 2 small benign cysts are again noted in the liver and an even smaller hypodensity is again not ed lower down the right hepatic lobe which is either small cyst or possible hemangioma. GALLBLADDER/BILIARY: No obvious gallbladder pathology. CBD is not dilated. PANCREAS: No evidence of obvious pancreatic mass nor dilatation of the pancreatic duct. SPLEEN: Spleen size upper normal. There is a small hypodensity in the medial aspect of the spleen ag ain noted, measuring approximately 6 millimeters, unchanged. This probably a small cyst or hemangiom a. Splenic and portal veins are patent. ADRENALS: There are no significant adrenal masses. KIDNEYS:No cysts evident. No solid renal masses. No calculi nor hydronephrosis.. ABDOMINAL AORTA: Calcified. Upper normal diameter. Common iliac arteries are also calcified but not aneurysmal. LYMPH NODES:There is no retroperitoneal nor paraaortic adenopathy. ABDOMINAL WALL: No evidence of significant anterior abdominal wall nor inguinal hernia. GI: There is no evidence of bowel obstruction, free air, nor abscess. PELVIS: GI: No evidence of appendicitis.No evidence of sigmoid diverticulitis. LYMPH NODES: There is no intrapelvic nor inguinal adenopathy. REPRODUCTIVE: Enlarged prostate. Measures 5.2 cm wide 4 cm AP. Seminal vesicles unremarkable. URINARY BLADDER: Mild uniform thickening of the bladder wall, probably related to the enlarged prosta te gland. OSSEOUS: No significant osseous lesions. Mild degenerative anterolisthesis L5 upon S1 IMPRESSION: 1. There is a large hiatal hernia noted. There is a possibility of previous gastric pull-up surgery. Correlation with past surgical history recommended. 2. No ominous nodules in the visualized lung bases and no pleural effusions. 3. Benign-appearing unchanged findings in the liver without evidence of obvious metastatic disease in the liver, ascites, omental cake, nor mesenteric adenopathy. 4. There does not appear to be an ominous pancreatic mass. Pancreatic duct diameter is upper normal. No bowel obstruction. No free air. Enlarged prostate gland with mildly uniformly thickened urinary bladder wall. No bladder diverticuli evident. RADIATION DOSE DELIVERED: 650.63mGy.cm Total DLP DATA REPOSITORY: All CT scans at this facility are submitted to the National Radiology Data Registry (NRDR) Dose Index Registry (DIR) with the [employer] (ACR). RADIATION OPTIMIZATION: All CT scans at this facility use at least one of these dose optimization te chniques: automated exposure control; mA and/or kV adjustment per patient size (includes targeted exa ms where dose is matched to clinical indication); or iterative reconstruction.
[2022-01-11 08:36] LABS: CREATININE 1.4 mg/dL (0.70-1.30); Estimated GFR 52.09 (mL/min/1.73m2)
[2022-01-11] MEDS: Barium Sulfate 2% W/V-Berry Smoothie 450 ML BTL PO (09:59)
[2022-01-11] MEDS: Omnipaque 350 MG/ML 500 ML BTL-Imaging package IJ (10:00)
== END 2022-01-11 01:38 ==
PROVIDERS: PCP Family Medicine; Visit Provider Family Medicine
DX: R10.9 Unspecified abdominal pain (principal); K44.9 Diaphragmatic hernia without obstruction or gangrene
CPT/HCPCS: 74177; 82565

== ENCOUNTER 2022-05-09 14:14 | Outpatient (CLI) | payer MEDICARE, SELFPAY | END 2022-05-09 14:15 | disposition home or self-care (01) | LOC: DI.CARD 14:15 | PROVIDERS: PCP Family Medicine; Visit Provider Internal Medicine Cardiovascular Disease | CPT/HCPCS: 93010 ==

== ENCOUNTER 2022-06-02 03:01 | Outpatient (CLI) | payer MEDICARE, SELFPAY ==
[2022-06-02 09:10] LABS: Anion Gap 9.8 mmol/L (3-11); BUN 16 mg/dL (7-18); CO2 25.2 mmol/L (21.0-32.0); CREATININE 1.2 mg/dL (0.70-1.30); Chloride 105 mmol/L (98-107); Estimated GFR 62.29 (mL/min/1.73m2); Glucose 96 mg/dL (74-106); Potassium 4.5 mmol/L (3.5-5.1); Sodium 140 mmol/L (136-145)
== END 2022-06-02 03:02 | disposition home or self-care (01) ==
LOC: LBO 03:01
PROVIDERS: PCP Family Medicine; Visit Provider Family Medicine
DX: E78.00 Pure hypercholesterolemia, unspecified (principal); N18.9 Chronic kidney disease, unspecified; K21.9 Gastro-esophageal reflux disease without esophagitis
CPT/HCPCS: 36415; 80048

== ENCOUNTER 2022-08-08 09:13 | Emergency (ER) | payer MEDICARE, SELFPAY ==
[2022-08-08 09:22] VITALS: BP 111/57; RESP 20; TEMP 37.2; O2SAT 96
--- NOTE | 2022-08-08 10:13 | ED.GENADUL_ITS ---
Discharge Plan Disposition Patient Disposition: Home Condition: Stable Discharge Details Clinical Impression: Right lower lobe pneumonia Primary Care Provider: Tyler Brown ED Provider: Dunia Robledo Home Meds and New Rx's Prescriptions: Continued nitroglycerin [Nitrostat] 0.4 mg tablet, sublingual 0.4 mg SL Q5-15M PRN (Reason: chest pain) Qty: 10 3RF Rx Instructions: until response; do not exceed 3 doses per episode atorvastatin 80 mg tablet 80 mg PO HS Qty: 90 3RF Rx Instructions: reduce risk of cardiovascular events, lower cholesterol multivitamin [Daily Multi-Vitamin] Tablet 1 tab PO DAILY lisinopril 2.5 mg tablet 2.5 mg PO DAILY Qty: 90 3RF pantoprazole [Protonix] 20 mg tablet,delayed release (DR/EC) 20 mg PO BID Qty: 180 3RF Rx Instructions: h/o esophageal cancer metoprolol tartrate 25 mg tablet 25 mg PO BID Qty: 180 3RF aspirin 81 mg tablet,delayed release (DR/EC) 81 mg PO DAILY Discharge Instructions Instructions: Pneumonia (ED) Additional Instructions: Your x-ray is concerning for pneumonia. Please encourage hydration. You may use Tylenol and ibuprofen as needed for discomfort or fevers. Please take the antibiotics as prescribed. Even if symptoms improve, please take the entire course. While on the antibiotics, please take a probiotic or yogurt to help prevent any diarrhea. These antibiotics can make you sensitive to sun so make sure to wear sunscreen or long sleeves if out in the sun. If you develop shortness of breath, difficulty breathing or other new/worsening symptom please seek care urgently once again. Otherwise, please follow-up with primary care in 1 to 2 weeks for reevaluation. Referrals: Tyler Brown DO [Primary Care Provider] - Discharge Data Discharge Date/Time-TO BE ENTERED AT DEPARTURE: 08/08/22 11:16 Medical Decision Making Patient is a pleasant 77-year-old gentleman presenting today with chief complaint of cough. He reports that he has been feeling slightly congested for the past 2 days. Reports that he has had low-grade fever with a Tmax of 99.8 at home. Denies any shortness of breath or chest pain. States that he has had a few loose stools but none thus far today. Denies any nausea or vomiting. Denies any sore throat. Was concerned that he had pneumonia historically diagnosed on chest x-ray. On exam, patient appears nontoxic. He is hemodynamically stable. He has good lung sounds in all palumbo with no wheezes rales or rhonchi appreciated. Normal HEENT exam. Normal cardiac exam. Will obtain x-ray for further evaluation given patient's history but likely viral illness. Discussed plan with patient is in agreement. MEDIASTINUM: There is a hiatal hernia present. ? HEART: Normal. PULMONARY VASCULATURE: Normal. LUNGS: Airspace opacities are seen in the right lower lobe.? The lungs are otherwise clear.? The lungs are hyperinflated suggesting underlying COPD. PLEURAL SPACE: No pleural effusion or pneumothorax. BONE:Within normal limits for the patient's age.? Sternal wires are in place. OTHER FINDINGS:Normal.? IMPRESSION: Airspace opacities in the right lower lobe suspicious for pneumonia.? A chest x- ray following treatment is should be considered to document complete resolution.?? Discussed findings with patient. Encouraged that he f/u with PCP. As above, I am surprised that this shows bacterial pneumona based on timing and severity. I would encourage repeat films as recommended by radiologist. Encouraged hydration. Will start on abx. He was on doxy last and did well with this. Strict return precautions discussed. All of his questions and concerns were addressed, he is in agreement with this plan. HPI General Date/Time Provider Initiated Documentation: 08/08/22 10:13 . Limitations to Documentation: no limitations . Information obtained by: patient, RN notes reviewed and old records reviewed . History of Present Illness 77 year old M presents to the emergency department with the chief complaint of congestion, cough, concern for pneumonia, described as moderate and similar to prior episodes (reports here for pneumonia last year with simliar presentation), Quality is described as other (denies any pain), and is localized to the chest. Patient started experiencing this day(s) and it has been constant. No relieving factors improve symptom(s), No exacerbating factors reported . Patient notes cough, fever/chills and malaise; denies chest pain, headaches, loss of appetite, nausea/vomiting, rash and shortness of breath. Patient did receive the following treatments prior to arrival, none Related Data Home Medications Medication Instructions Recorded Confirmed multivitamin (Daily Multi-Vitamin 1 tab PO DAILY 04/27/20 08/08/22 tablet) lisinopril 2.5 mg tablet 2.5 mg PO DAILY hypertension #90 01/28/22 08/08/22 tabs metoprolol tartrate 25 mg tablet 25 mg PO BID #180 tabs 01/28/22 08/08/22 pantoprazole 20 mg tablet,delayed 20 mg PO BID #180 tabs 01/28/22 08/08/22 release (Protonix) aspirin 81 mg tablet,delayed 81 mg PO DAILY 02/16/22 08/08/22 release atorvastatin 80 mg tablet 80 mg PO HS #90 tabs 05/13/22 08/08/22 nitroglycerin 0.4 mg sublingual 0.4 mg sublingual Q5-15M PRN chest 05/13/22 08/08/22 tablet (Nitrostat) pain #10 tabs Previous Rx's Medication Instructions Recorded lisinopril 2.5 mg tablet 2.5 mg PO DAILY hypertension #90 01/28/22 tabs metoprolol tartrate 25 mg tablet 25 mg PO BID #180 tabs 01/28/22 pantoprazole 20 mg tablet,delayed 20 mg PO BID #180 tabs 01/28/22 release (Protonix) atorvastatin 80 mg tablet 80 mg PO HS #90 tabs 05/13/22 nitroglycerin 0.4 mg sublingual 0.4 mg sublingual Q5-15M PRN chest 05/13/22 tablet (Nitrostat) pain #10 tabs Allergies Allergy/AdvReac Type Severity Reaction Status Date / Time No Known Drug Allergies Allergy Verified 05/13/22 09:58 General Stated Complaint: RespSymp BRUCE: 3 Review of Systems Constitutional Constitutional: Reports as per HPI and Denies headache(s) Eyes Eyes: Reports as per HPI, Denies eye discharge and Denies irritation ENT Ears, Nose, Mouth, and Throat: Reports as per HPI and Denies headache(s) Cardiovascular Cardiovascular: Reports as per HPI, Denies chest pain and Denies dyspnea Respiratory Respiratory: Reports as per HPI and Denies dyspnea Gastrointestinal Gastrointestinal: Reports as per HPI, Denies abdominal pain, Denies change in bowel habits, Denies nausea and Denies vomiting Integumentary/Breasts Skin/Breast: Reports as per HPI and Denies rash Neurologic Neurologic: Reports as per HPI and Denies headache(s) PFSH All Active Problems (Updated 08/08/22 @ 11:02 by DENISE Yonug) Right lower lobe pneumonia (Acute) Chronic kidney disease (Chronic) Erectile dysfunction (Acute) Postnasal drip (Acute ~12/2020) Chronic rhinitis (Acute ~12/2020) Esophagitis determined by biopsy (Acute ~06/2020) [facility] [place] Aspiration pneumonia (Acute) Hematuria (Acute) Aortic stenosis (Chronic) Chronic diarrhea (Acute) Depressive disorder (Chronic 06/30/11) Abnormal auditory perception (Acute) Impacted cerumen of both ears (Acute) Sensorineural hearing loss of both ears (Acute) S/P carotid endarterectomy (Acute) Pain of right upper extremity (Acute 03/20/15) Primary malignant neoplasm of esophagus (Acute 04/27/00) Vasomotor rhinitis (Acute) Asymptomatic bilateral carotid artery stenosis (Acute) 09/13/18 [facility] [place] Null, Vascular Surgery Coronary artery disease involving coronary bypass graft of cahto heart (Chronic) Urinary retention (Chronic 04/29/16) Retinal detachment (Chronic 03/10/14) R managed by Dr Iraheta at [facility] Pure hypercholesterolemia (Chronic 06/30/11) goal LDL<70 due to CAD (no ischemia but presumed cause of abnl MPI 08/2011) Personal history of TIA (transient ischemic attack) (Chronic 02/06/15) R paresthesias; TIA vs Migraine, Drs. Palmer/ Latoya: vasc eval, medical therapy, statin/Plavix; finally L carotid endarterectomy 04/19/16 [facility] [place]2016 Iron deficiency anemia (Chronic 04/17/12) 2005, 2008, 3013; LAST GI W/U 2008 NEG X ADENOMA, TICS, EGD NEG [facility] [place]; chronic microcytosis 1999 Elevated prostate specific antigen (PSA) (Chronic 06/30/11) h/o bx 2009; Dr Tripp 08/2010: consider up to 11 normal for him Carotid disease, bilateral (Chronic 01/25/16) [facility] [place]% [place] int carotid; Dr Mauro: f/u 1 yr with Duplex [facility] [place] Duplex shows a patent L CEA site, but some progressionon RIght, F/U in 6m with plan for duplex both carotoids. (Dr Null [facility] [place] Atherosclerosis of cahto coronary artery of cahto heart without angina pectoris (Chronic 04/10/06) silent ant CO by MPI 2006; ECHO 06/2007: EF 63%, NO WMA; MPI 08/2011 NEG ISCHEMIA, EF 50%; ANTSEPT HYPOKIN; ASA & beta hood started 2006; aspirin stopped 01/2016 due to gastric ulcer Surgical History Carotid endarterectomy (04/19/16) [place], [facility] [place] for asymptomatic carotid stenosis [place] [facility] [place] EGD - IV Sedation (12/22/15) Extraction of cataract (09/25/14) right eye with lens implant Dr. Truong H/O cardiac catheterization (05/22/18) [facility] [place] Harvey partial esophagotomy (04/28/00) Dr Ibanez; [place] Esophagogastrectomy and feeding jejunostomy S/P CABG x 3 (~06/04/18) Family History Mother , old age at age 92. Congestive heart failure (CHF) age of onset unknown Father , [place], pneumonia at age 78. Myocardial infarction Sister , CO at age 56. Myocardial infarction Sister Age: 88 No problems noted. Brother , cancer at age 67. 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 gender identity: male What is your relationship status?: Panel score (0-1 are the most socially isolated patients): 1 What type of physical activity do you participate in: other Details: active daily Seatbelt use: always Drive intox or ride w/intox cdl b driver: No Working smoke detector in home: Yes Fire extinguisher in home: Yes Carbon monox detector in home: Yes Do you feel safe at home: Yes Do you feel safe in your relationship?: Yes Exam Const General: cooperative, healthy appearing, comfortable, no acute distress, well developed and well groomed Nutritional Appearance: average body habitus and well nourished Orientation: alert and awake [facility] Head: normal to inspection, normocephalic and atraumatic Ears: hearing grossly normal bilaterally, external ears normal and TM's normal bilaterally General nose exam: external nose normal and nares normal Face and sinus: normal facial exam, sinuses nontender and face symmetric Mouth: oral mucosae normal, lip normal, tongue normal, oropharynx normal and moist mucous membranes Teeth and gingiva: dentition normal Throat: posterior oropharynx normal, tonsils normal and uvula midline Eyes General: appearance normal, both eyes and all related structures Neck Neck: normal visual inspection, full ROM, no lymphadenopathy and no meningeal signs Resp Effort & Inspection: normal respiratory effort, able to speak in complete sentences and no respiratory distress Auscultation: clear to auscultation bilaterally, no rales, no rhonchi and no wheezes Cardio Rate: regular rate Rhythm: regular rhythm Heart Sounds: S1 normal and S2 normal Skin General skin exam: no rashes or lesions noted Neuro General: patient alert and patient awake Cognition: normal cognition Speech: speech normal Gait: normal gait Psych Appearance: grossly normal and well kempt Mental Status: mental status grossly normal Speech and Movement: speech and movement normal Course Vital Signs Vital signs: Vital Signs Temperature 37.2 C 08/08/22 09:22 Respiratory Rate 20 08/08/22 09:22 Blood Pressure 111/57 L 08/08/22 09:22 Pulse Oximetry 96 08/08/22 09:22 Temperature 37.2 C 08/08/22 09:22 Temperature Source Temporal Artery Scan 08/08/22 09:22 Respiratory Rate 20 08/08/22 09:22 Respiratory Effort Normal, Non-Labored 08/08/22 09:26 Blood Pressure 111/57 L 08/08/22 09:22 Blood Pressure Position Sitting 08/08/22 09:22 Pulse Oximetry 96 08/08/22 09:22 Oxygen Delivery Method Room Air 08/08/22 09:22 Oxygen Flow Rate 0 08/08/22 09:22 Pain Level 0 08/08/22 09:22
--- NOTE | 2022-08-08 10:30 | DI.RAD_ITS ---
Exam(s) XR CHEST 2V PA LATERAL EXAM: XR CHEST 2V PA LATERAL CLINICAL HISTORY: cough TECHNIQUE: 2D digital imaging was performed of the chest. Two images were obtained. PA and lateral views were obtained. COMPARISON: CR XR CHEST 2V PA LATERAL from 04/17/2018 FINDINGS: MEDIASTINUM: There is a hiatal hernia present. HEART: Normal. PULMONARY VASCULATURE: Normal. LUNGS: Airspace opacities are seen in the right lower lobe. The lungs are otherwise clear. The lung s are hyperinflated suggesting underlying COPD. PLEURAL SPACE: No pleural effusion or pneumothorax. BONE:Within normal limits for the patient's age. Sternal wires are in place. OTHER FINDINGS:Normal. IMPRESSION: Airspace opacities in the right lower lobe suspicious for pneumonia. A chest x-ray following treatme nt is should be considered to document complete resolution. Findings were discussed with Dunia brower at 10:55 a.m. on 08/08/2022. DATA REPOSITORY: RADIATION DOSE DELIVERED:
[2022-08-08 11:14] VITALS: BP 111/69; PULSE 97; RESP 18; TEMP 36.7; O2SAT 94
== END 2022-08-08 11:16 | disposition home or self-care (01) ==
PROVIDERS: Emergency Provider Physician Assistant; PCP Family Medicine
DX: J18.1 Lobar pneumonia, unspecified organism (principal); Z20.822 Contact with and (suspected) exposure to COVID-19
CPT/HCPCS: 87426; 99283; 71046

== ENCOUNTER 2022-08-29 01:14 | Outpatient (CLI) | payer MEDICARE, SELFPAY ==
--- NOTE | 2022-08-29 07:45 | DI.RAD_ITS ---
Exam(s) XR CHEST 2V PA LATERAL EXAM: XR CHEST 2V PA LATERAL CLINICAL HISTORY: Checking for resolution/improvement,rll pneumonia, j18.9 TECHNIQUE: 2D digital imaging was performed of the chest. Three images were obtained. PA and later al views were obtained. COMPARISON: CR,XR XR PORTABLE CHEST AP from 05/05/2020 CR XR PORTABLE CHEST AP from 05/27/2021 CR XR CHEST 2V PA LATERAL from 08/08/2022 FINDINGS: MEDIASTINUM: Normal. HEART: Normal. PULMONARY VASCULATURE: Normal. LUNGS: The lungs are hyperinflated consistent with underlying COPD. The right perihilar infiltrate h as resolved completely compared to the prior examination. There are underlying stable changes in the right lung. These are unchanged compared to the chest x-ray from 05/27/2021. PLEURAL SPACE: No pleural effusion or pneumothorax. BONE:Within normal limits for the patient's age. Sternal wires are in place. OTHER FINDINGS:Normal. IMPRESSION: Resolution of the right pneumonia with stable underlying right parenchymal scarring. DATA REPOSITORY: RADIATION DOSE DELIVERED:
== END 2022-08-29 01:34 ==
LOC: DI 01:14
PROVIDERS: PCP Family Medicine; Visit Provider Family Medicine
DX: J18.9 Pneumonia, unspecified organism (principal)
CPT/HCPCS: 71046

== ENCOUNTER 2022-12-21 03:27 | Outpatient (CLI) | payer MEDICARE, SELFPAY ==
[2022-12-21 12:13] LABS: HGB 9.7 g/dL (13.5-17.5); MCH 22.2 pg (27.0-33.0); MCHC 30.3 % (32.0-36.0); MPV 8.5 fL (8.0-11.0); Platelet Count 234 10^3/uL (130-400); RBC 4.37 10^6/uL (4.36-5.78); RDW 18.6 % (11.8-14.1); RDW-SD 46.8 fL; WBC 4.57 10^3/uL (4.4-10.8)
[2022-12-21 12:39] LABS: MCV 73 fL (80-95)
[2022-12-21 12:57] LABS: ALT 18 U/L (16-63); AST 18 U/L (15-37); Albumin 3.5 g/dL (3.4-5.0); Alkaline Phosphatase 96 U/L (46-116); Anion Gap 5.2 mmol/L (3-11); BUN 20 mg/dL (7-18); Bilirubin, Total 0.6 mg/dL (0.2-1.0); CO2 27.8 mmol/L (21.0-32.0); CREATININE 1.2 mg/dL (0.70-1.30); Calcium 8.7 mg/dL (8.5-10.1); Calculated LDL 97 mg/dL (<100); Chloride 105 mmol/L (98-107); Cholesterol 194 mg/dL (<200); Estimated GFR 62.29 (mL/min/1.73m2); Glucose 92 mg/dL (74-106); HDL Cholesterol 88 mg/dL (40-60); Potassium 4.9 mmol/L (3.5-5.1); Sodium 138 mmol/L (136-145); Triglyceride 49 mg/dL (<150)
[2022-12-21 18:23] LABS: PSA, Screening 11.5 ng/mL (<=6.5)
[2022-12-22 12:38] LABS: IgA 255 mg/dL (85-499); Interpretation (See Note); Tissue Transglutaminase IgA <1.2 U/mL (<4.0)
== END 2022-12-21 03:28 | disposition home or self-care (01) ==
LOC: LOS 03:27
PROVIDERS: PCP Nurse Practitioner Family; Visit Provider Nurse Practitioner Family
DX: K52.9 Noninfective gastroenteritis and colitis, unspecified (principal); R97.20 Elevated prostate specific antigen [PSA]; Z12.5 Encounter for screening for malignant neoplasm of prostate; E78.00 Pure hypercholesterolemia, unspecified
CPT/HCPCS: 36415; 80053; 80061; 82784; 83516; 84153; 85027

== ENCOUNTER → 2023-06-06 02:28 | Outpatient (CLI) | payer MEDICARE, SELFPAY ==
--- NOTE | 2023-06-06 07:15 | DI.US_ITS ---
Exam(s) US RENAL EXAM: US RENAL CLINICAL HISTORY: nocturia,pva,R35.1. TECHNIQUE: Babin scale, color and spectral Doppler were used. COMPARISON: CT CT ABDOMEN PELVIS W from 01/11/2022 FINDINGS: Renal size in cm: Right: Left: Echogenicity: Normal Hydronephrosis: No Cyst or mass: No Nephrolithiasis: No Bladder:Normal. Both ureteral jets were visualized. Prevoid vol:180 cc Postvoid vol:27 cc Prostate is enlarged, impressing on the base of the bladder. Volume 68 mL. IMPRESSION: Mildly elevated postvoid residual bladder volume. Enlarged prostate. DATA REPOSITORY:
--- NOTE | 2023-06-06 14:18 | DI.RAD_ITS ---
Exam(s) XR CHEST 2V PA LATERAL EXAM: XR CHEST 2V PA LATERAL CLINICAL HISTORY: continued sx post pneumonia,WHEEZE,R06.2 TECHNIQUE: 2D digital imaging was performed. COMPARISON: CR XR CHEST 2V PA LATERAL from 08/29/2022 FINDINGS: HEART: Normal size. Status post CABG. Aorta: Not dilated. PULMONARY VASCULATURE: Normal. LUNGS: Mild hyperinflation. Mild fibrotic changes. No evidence of infiltrate or pulmonary edema. PLEURAL SPACE: No pleural effusion or pneumothorax. BONE:Unremarkable for age. Sternal wires. Soft tissues: Unremarkable. IMPRESSION: No acute abnormality. DATA REPOSITORY: RADIATION DOSE DELIVERED:
== END ==
PROVIDERS: PCP Nurse Practitioner Family; Visit Provider Nurse Practitioner Family
DX: R06.2 Wheezing (principal); R35.1 Nocturia
CPT/HCPCS: 76770; 71046

== ENCOUNTER → 2023-08-15 12:47 | Outpatient (BNVA) | payer MEDICARE, SELFPAY | PROVIDERS: PCP Nurse Practitioner Family; Referring Provider Nurse Practitioner Family; Visit Provider Nurse Practitioner Gerontology ==

== ENCOUNTER 2023-08-15 14:45 | Outpatient (CLI) | payer MEDICARE, SELFPAY ==
[2023-08-16 14:07] LABS: PSA, Diagnostic 7.1 ng/mL (<=6.5)
== END 2023-08-15 14:46 | disposition home or self-care (01) ==
LOC: LBO 14:47
PROVIDERS: PCP Nurse Practitioner Family; Visit Provider Nurse Practitioner Gerontology
DX: R35.1 Nocturia (principal); R31.9 Hematuria, unspecified; R97.20 Elevated prostate specific antigen [PSA]
CPT/HCPCS: 36415; 81003; 99215; 84153

== ENCOUNTER → 2023-11-28 13:54 | Outpatient (BNVA) | payer MEDICARE, SELFPAY | PROVIDERS: PCP Nurse Practitioner Family; Referring Provider Nurse Practitioner Family; Visit Provider Nurse Practitioner Gerontology | DX: R35.1 Nocturia (principal); R97.20 Elevated prostate specific antigen [PSA] | CPT/HCPCS: 99213 ==

== ENCOUNTER 2024-02-07 13:07 | Emergency (ER) | payer MEDICARE, SELFPAY ==
[2024-02-07 13:19] VITALS: BP 144/73; PULSE 112; RESP 15; TEMP 36.8; O2SAT 93
[2024-02-07 13:23] VITALS: BP 144/73; PULSE 112; RESP 15; TEMP 36.8; O2SAT 93
--- NOTE | 2024-02-07 13:45 | DI.RAD_ITS ---
Exam(s) XR CHEST 2V PA LATERAL EXAM: XR CHEST 2V PA LATERAL CLINICAL HISTORY: shortness of breath, fever TECHNIQUE: 2D digital imaging was performed. Two views. COMPARISON: CT CT ABDOMEN PELVIS W from 01/11/2022 CR XR CHEST 2V PA LATERAL from 06/06/2023 FINDINGS: HEART: Normal size. Status post CABG. Aorta: Not dilated. PULMONARY VASCULATURE: Normal. MEDIASTINUM: Unremarkable. LUNGS: Significant patchy infiltrate in the right lower lobe. Left lung appears clear. Underlying e mphysematous changes. PLEURAL SPACE: No pleural effusion or pneumothorax. BONE:Sternal wires. No thoracic compression fractures. SOFT TISSUES: Unremarkable. IMPRESSION: Right lower lobe pneumonia. DATA REPOSITORY: RADIATION DOSE DELIVERED:
[2024-02-07 14:33] LABS: Abs Immature Grans 0.02 10^3/uL (0.0-0.06); Absolute Basophil Count 0.01 10^3/uL (0.0-0.2); Absolute Eosinophil Count 0.01 10^3/uL (0.0-0.7); Absolute Monocyte Count 0.51 10^3/uL (0.1-0.8); Absolute Neutrophil Count 6.71 10^3/uL (1.2-6.7); Basophils % 0.1 %; Eosinophils % 0.1 %; HCT 31.8 % (40.0-50.0); HGB 9.1 g/dL (13.5-17.5); Immature Grans % 0.3 %; Lymphocytes % 1.4 %; MCHC 28.6 % (32.0-36.0); MCV 70 fL (80-95); MPV 8.9 fL (8.0-11.0); Monocytes % 6.9 %; Neutrophils % 91.2 %; Platelet Count 189 10^3/uL (130-400); RBC 4.54 10^6/uL (4.36-5.78); RDW 18.4 % (11.8-14.1); RDW-SD 45.3 fL; WBC 7.36 10^3/uL (4.4-10.8)
[2024-02-07 14:41] LABS: Lactate 0.91 mmol/L (0.9-1.7)
[2024-02-07 15:04] LABS: ALT 17 U/L (16-63); AST 19 U/L (15-37); Albumin 3.7 g/dL (3.4-5.0); Alkaline Phosphatase 94 U/L (46-116); Anion Gap 7.7 mmol/L (3-11); BUN 22 mg/dL (7-18); Bilirubin, Total 0.94 mg/dL (0.2-1.0); CO2 27.3 mmol/L (21.0-32.0); CREATININE 1.3 mg/dL (0.70-1.30); Calcium 9.3 mg/dL (8.5-10.1); Chloride 107 mmol/L (98-107); Estimated GFR 56.23 (mL/min/1.73m2); Glucose 116 mg/dL (74-106); Potassium 4.5 mmol/L (3.5-5.1); Sodium 142 mmol/L (136-145); Total Protein 7.5 g/dL (6.4-8.2)
[2024-02-07 15:13] LABS: Diff Comment RBC Morph Reviewed; Microcytosis 2+
[2024-02-07 15:18] LABS: COVID-19 PCR Negative (Negative); Influenza A PCR Negative (Negative); Influenza B PCR Negative (Negative); RSV PCR Negative (Negative)
[2024-02-07 15:19] LABS: Source Nasopharynx
--- NOTE | 2024-02-07 15:45 | RT.EKG_ITS ---
APPROVED REPORT Exam: Resting ECG Reason for Exam: shortness of breath Patient Location: E HR:104 bpm ECG Measurements Heart Rate 104 AXIS MA 214 P 106 QRSd 92 QRS -52 QT 331 T 85 QTc 436 Conclusion Sinus tachycardia...rate> 99 Borderline prolonged MA interval...MA >207, V-rate 91-120 LAD, consider left anterior fascicular block...axis(240,-40), S>R II III aVF Narrow complex sinus tachycardia at a rate of 104 ms. Left axis deviation no signs of LVH. First-de gree AV block. QTc within normal limits. Inferior ST segment depressions slightly more pronounced c ompared to prior. Prior dated 2 years ago. Poor R wave progression.
--- NOTE | 2024-02-07 15:47 | W.ED.GENAD ---
Discharge Plan Disposition Patient Disposition: Home Condition: Stable Discharge Details Clinical Impression: Pneumonia Primary Care Provider: Zach White ED Provider: Noel Hernandez Home Meds and New Rx's Prescriptions: New doxycycline hyclate 100 mg tablet 100 mg PO BID Qty: 20 0RF prednisone 20 mg tablet 40 mg PO DAILY Qty: 8 0RF amoxicillin-pot clavulanate 875-125 mg tablet 1 tab PO BID 5 Days Qty: 10 0RF Continued nitroglycerin [Nitrostat] 0.4 mg tablet, sublingual 0.4 mg SL Q5-15M PRN (Reason: chest pain) Qty: 10 3RF Rx Instructions: until response; do not exceed 3 doses per episode atorvastatin 80 mg tablet 80 mg PO HS Qty: 90 3RF Rx Instructions: reduce risk of cardiovascular events, lower cholesterol albuterol sulfate 90 mcg/actuation HFA aerosol inhaler 2 inh inhalation Q6H PRN (Reason: shortness of breath or wheezing) Qty: 18 4RF (DME) Aerochamber MV Spacer See Rx Instructions .Route Qty: 1 0RF Rx Instructions: As directed multivitamin [Daily Multi-Vitamin] Tablet 1 tab PO DAILY lisinopril 2.5 mg tablet 2.5 mg PO DAILY Qty: 90 3RF pantoprazole [Protonix] 20 mg tablet,delayed release (DR/EC) 20 mg PO BID Qty: 180 3RF Rx Instructions: h/o esophageal cancer metoprolol tartrate 25 mg tablet 25 mg PO BID Qty: 180 3RF aspirin 81 mg tablet,delayed release (DR/EC) 81 mg PO DAILY Discharge Instructions Instructions: Amoxicillin and Clavulanate, Doxycycline, Prednisone, Community-Acquired Pneumonia, Adult (DC) Additional Instructions: Take your antibiotic as prescribed Take the prednisone daily as prescribed you received a dose here, take your next dose tomorrow Use your albuterol inhaler with spacer, 2 puffs every 4-6 hours as needed for cough, wheeze, shortness of breath Yogurt daily while on the antibiotic Please return immediately should you develop worsening shortness of breath, any chest discomfort, or should you have any new or concerning symptoms Referrals: Zach White HOME HELP AIDE [Primary Care Provider] - Discharge Data Discharge Date/Time-TO BE ENTERED AT DEPARTURE: 02/07/24 16:49 HPI General Date/Time Provider Initiated Documentation: 02/07/24 13:46. HPI Narrative: This 78-year-old male with history of pneumonia, chronic kidney disease aortic stenosis, carotid endarterectomy, CABG TIA presents with report of cough, shortness of breath over the course of the past several days. He has been sick for about a week. He denies known sick contacts. Denies any calf pain or swelling, recent blood, surgeries, long drives. Denies any hemoptysis. States he feels similarly to a prior episode of pneumonia. He does not smoke tobacco. He uses an inhaler occasionally as needed per patient. Denies any chest discomfort. Related Data Home Medications ?Medication ?Instructions ?Recorded ?Confirmed multivitamin (Daily Multi-Vitamin 1 tab PO DAILY 04/27/20 02/07/24 tablet) lisinopril 2.5 mg tablet 2.5 mg PO DAILY hypertension #90 01/28/22 02/07/24 tabs metoprolol tartrate 25 mg tablet 25 mg PO BID #180 tabs 01/28/22 02/07/24 pantoprazole 20 mg tablet,delayed 20 mg PO BID #180 tabs 01/28/22 02/07/24 release (Protonix) aspirin 81 mg tablet,delayed 81 mg PO DAILY 02/16/22 02/07/24 release atorvastatin 80 mg tablet 80 mg PO HS #90 tabs 05/13/22 02/07/24 nitroglycerin 0.4 mg sublingual 0.4 mg sublingual Q5-15M PRN chest 05/13/22 02/07/24 tablet (Nitrostat) pain #10 tabs albuterol sulfate 90 mcg/actuation 2 inh inhalation Q6H PRN shortness 05/19/23 02/07/24 aerosol inhaler of breath or wheezing #18 grams inhalational spacing device #1 ea 05/19/23 02/07/24 (Aerochamber MV spacer) amoxicillin 875 mg-potassium 1 tab PO BID pneumonia 5 days #10 02/07/24 clavulanate 125 mg tablet tabs doxycycline hyclate 100 mg tablet 100 mg PO BID #20 tabs 02/07/24 prednisone 20 mg tablet 40 mg (2 x 20 mg) PO DAILY #8 tabs 02/07/24 Previous Rx's ?Medication ?Instructions ?Recorded lisinopril 2.5 mg tablet 2.5 mg PO DAILY hypertension #90 01/28/22 tabs metoprolol tartrate 25 mg tablet 25 mg PO BID #180 tabs 01/28/22 pantoprazole 20 mg tablet,delayed 20 mg PO BID #180 tabs 01/28/22 release (Protonix) atorvastatin 80 mg tablet 80 mg PO HS #90 tabs 05/13/22 nitroglycerin 0.4 mg sublingual 0.4 mg sublingual Q5-15M PRN chest 05/13/22 tablet (Nitrostat) pain #10 tabs albuterol sulfate 90 mcg/actuation 2 inh inhalation Q6H PRN shortness 05/19/23 aerosol inhaler of breath or wheezing #18 grams inhalational spacing device #1 ea 05/19/23 (Aerochamber MV spacer) amoxicillin 875 mg-potassium 1 tab PO BID pneumonia 5 days #10 02/07/24 clavulanate 125 mg tablet tabs doxycycline hyclate 100 mg tablet 100 mg PO BID #20 tabs 02/07/24 prednisone 20 mg tablet 40 mg (2 x 20 mg) PO DAILY #8 tabs 02/07/24 Allergies Allergy/AdvReac Type Severity Reaction Status Date / Time tamsulosin (From Flomax) AdvReac Dizziness/L Verified 02/07/24 13:25 ighthead General Stated Complaint: RespSymp BRUCE: 3 Exam Narrative Exam Narrative: Alert and oriented 78-year-old male in no acute distress, no hypoxia, mild tachycardia with murmur, diminished lung sounds mildly, no respiratory distress alert and oriented x 4, no peripheral edema speaking complete sentences Course Vital Signs Vital signs: Vital Signs Temperature 36.8 C 02/07/24 13:19 Pulse 112 H 02/07/24 13:19 Respiratory Rate 15 02/07/24 13:19 Blood Pressure 144/73 H 02/07/24 13:19 Pulse Oximetry 93 02/07/24 13:19 Temperature 36.8 C 02/07/24 13:23 Pulse 112 H 02/07/24 13:23 Respiratory Rate 15 02/07/24 13:23 Respiratory Effort Non-Labored 02/07/24 14:42 Respiratory Depth Normal 02/07/24 14:42 Blood Pressure 144/73 H 02/07/24 13:23 Blood Pressure Position Sitting 02/07/24 13:23 Pulse Oximetry 93 02/07/24 13:23 Oxygen Delivery Method Room Air 02/07/24 13:19 Oxygen Flow Rate 0 02/07/24 13:19 Lab/Test Results Lab/Test Results: 02/07/24 14:20 Blood Blood Culture - Pending 02/07/24 14:10 Blood Blood Culture - Pending Laboratory Tests Range/Units 02/07/24 14:15 WBC (4.4-10.8) 10^3/uL 7.36 RBC (4.36-5.78) 10^6/uL 4.54 Hgb (13.5-17.5) g/dL 9.1 L Hct (40.0-50.0) % 31.8 L MCV (80-95) fL 70 L MCH (27.0-33.0) pg 20.0 L MCHC (32.0-36.0) % 28.6 L RDW (11.8-14.1) % 18.4 H Plt Count (130-400) 10^3/uL 189 MPV (8.0-11.0) fL 8.9 Immature Gran % % 0.3 Neutrophils % % 91.2 Lymphocytes % % 1.4 Monocytes % % 6.9 Eosinophils % % 0.1 Basophils % % 0.1 Nucleated RBC % (0.0-0.3) % 0.0 Absolute Neutrophils (1.2-6.7) 10^3/uL 6.71 H Absolute Lymphocytes (1.2-3.4) 10^3/uL 0.10 L Absolute Monocytes (0.1-0.8) 10^3/uL 0.51 Absolute Eosinophils (0.0-0.7) 10^3/uL 0.01 Absolute Basophils (0.0-0.2) 10^3/uL 0.01 RBC Morphology See Below Microcytosis 2+ VBG Lactate (0.9-1.7) mmol/L 0.91 Sodium (136-145) mmol/L 142 Potassium (3.5-5.1) mmol/L 4.5 Chloride (98-107) mmol/L 107 Carbon Dioxide (21.0-32.0) mmol/L 27.3 Anion Gap (3-11) mmol/L 7.7 BUN (7-18) mg/dL 22 H Creatinine (0.70-1.30) mg/dL 1.3 Est GFR (CKD-EPI 2020) (mL/min/1.73m2) 56.23 Glucose (74-106) mg/dL 116 H Calcium (8.5-10.1) mg/dL 9.3 Total Bilirubin (0.2-1.0) mg/dL 0.94 AST (15-37) U/L 19 ALT (16-63) U/L 17 Alkaline Phosphatase (46-116) U/L 94 Total Protein (6.4-8.2) g/dL 7.5 Albumin (3.4-5.0) g/dL 3.7 COVID-19 Source Nasopharynx SARS-CoV-2 (PCR) (Negative) Negative Influenza Type A (PCR) (Negative) Negative Influenza Type B (PCR) (Negative) Negative RSV (PCR) (Negative) Negative Medical Decision Making 78-year-old male presenting with shortness of breath and cough for 1 week. Chest x-ray shows evidence of right lower lobe infiltrate. No hypoxia, mild tachycardia, fever 100.5. No leukocytosis, lactate within normal limits. Port score risk class III, outpatient or inpatient treatment depending on clinical judgment, patient I think will be stable for disposition home. He will need doxycycline, single dose given in the emergency department and additional the prednisone. There was a delay in administration of patient's medications secondary to high acuity patient in the department. He is being administered these meds at approximately 1600. We will reassess and likely discharge the patient home with doxycycline and prednisone. He does have an inhaler which she will use. He will need recheck in 48 hours with his primary care physician. Flu, COVID, RSV negative. Baseline anemia for patient without significant change remainder of labs within normal limits does not endorse any chest pain Quality:SDOH Health Related Social Needs: Health related social needs inadequate housing(Z59.1) Health related social needs details N/A PFSH All Active Problems (Updated 02/07/24 @ 15:44 by DENISE Doe) Pneumonia (Acute) Nocturia (Acute) Wheeze (Acute) Screening for colon cancer (Acute) Actinic keratoses (Acute) Chronic kidney disease (Chronic) Erectile dysfunction (Acute) Postnasal drip (Acute ~12/2020) Chronic rhinitis (Acute ~12/2020) Esophagitis determined by biopsy (Acute ~06/2020) [facility] [place] Aspiration pneumonia (Acute) Hematuria (Acute) Aortic stenosis (Chronic) Chronic diarrhea (Acute) Abnormal auditory perception (Acute) Impacted cerumen of both ears (Acute) Sensorineural hearing loss of both ears (Acute) S/P carotid endarterectomy (Acute) Depressive disorder (Chronic 06/30/11) Pain of right upper extremity (Acute 03/20/15) Primary malignant neoplasm of esophagus (Acute 04/27/00) Vasomotor rhinitis (Acute) Asymptomatic bilateral carotid artery stenosis (Acute) 09/13/18 [facility] [place] Null, Vascular Surgery Coronary artery disease involving coronary bypass graft of [place] heart (Chronic) Urinary retention (Chronic 04/29/16) Retinal detachment (Chronic 03/10/14) R managed by Dr Iraheta at [facility] Pure hypercholesterolemia (Chronic 06/30/11) goal LDL<70 due to CAD (no ischemia but presumed cause of abnl MPI 08/2011) Personal history of TIA (transient ischemic attack) (Chronic 02/06/15) R paresthesias; TIA vs Migraine, Drs. Palmer/ Latoya: vasc eval, medical therapy, statin/Plavix; finally L carotid endarterectomy 04[place]19/16 [facility] [place]2016 Iron deficiency anemia (Chronic 04/17/12) 2005, 2008, 3013; LAST GI W/U 2008 NEG X ADENOMA, TICS, EGD NEG [facility] [place]; chronic microcytosis 2000 Elevated prostate specific antigen (PSA) (Chronic 06/30/11) h/o bx 2009; Dr Tripp 08/2010: consider up to 11 normal for him Carotid disease, bilateral (Chronic 01/25/16) [facility] [place]% [place] int carotid; Dr Mauro: f/u 1 yr with Duplex [facility] [place] Duplex shows a patent L CEA site, but some progressionon RIght, F/U in 6m with plan for duplex both carotoids. ([place] Nlul [facility] [place] Atherosclerosis of [place] coronary artery of [place] heart without angina pectoris (Chronic 04/10/06) silent ant RI by MPI 2006; ECHO 06/2007: EF 63%, NO WMA; MPI 08/2011 NEG ISCHEMIA, EF 50%; ANTSEPT HYPOKIN; ASA & beta hood started 2006; aspirin stopped 01/2016 due to gastric ulcer Surgical History S/P CABG x 3 (~06/04/18) H/O cardiac catheterization (05/22/18) [facility] [place] partial esophagotomy (04/28/00) Dr Ibanez; [place] Esophagogastrectomy and feeding jejunostomy EGD - IV Sedation (12/22/15) [place] [facility] [place] Extraction of cataract (09/25/14) right eye with lens implant Dr. Truong Carotid endarterectomy (04/19/16) [place], [facility] [place] Null for asymptomatic carotid stenosis Family History Mother , old age at age 92. Congestive heart failure (CHF) age of onset unknown Father , [place], pneumonia at age 78. Myocardial infarction Sister , [place] at age 56. Myocardial infarction Sister Age: 89 No problems noted. Brother , cancer at age 67. Esophageal cancer Social History Smoking/Tobacco Use Status: Former Tobacco Use tobacco type: cigarettes Quit Date: 10/08/88 Pack-years: 20 Tobacco: How many years used: 20 Second Hand Exposure: No Smoking risk assessment performed?: Yes Alcohol Intake: former Year quit: 1987 Drug use: Never Substance use type: does not use Adopted: No Caregiver/Support person: No Household members: spouse and other Details: client Housing: house Number of Children: 4 number of grandchildren: 10 Communication Needs: Hard of Hearing Education Level: high school Do you need help understanding health information?: Rarely current occupation: Drives for [employer] Sexually active: Yes Do you think of yourself as: straight/heterosexual Current gender identity: male What is your relationship status?: How often do you talk on the phone with friends or family?: once per week How often do you get together with friends or relatives?: twice per week Do you belong to any clubs or organized social groups?: no Panel score (0-1 are the most socially isolated patients): 2 What type of physical activity do you participate in: other Details: active daily Masha/Zoroastrian: Sikh Seatbelt use: always Helmet use: Yes Helmet use: always Drive intox or ride w/intox wheelchair driver: No Working smoke detector in home: Yes Fire extinguisher in home: Yes Carbon monox detector in home: Yes Firearms in home: No Do you feel safe at home: Yes Do you feel safe in your relationship?: Yes Victim of physical abuse: No Victim of emotional abuse: No Victim of sexual abuse: No Would you like helpful sources: No Sign Out Sign Out Data: Sign Out Comment: pending meds/ recheck/ dc Last updated by Alicia Gannon PA at 02/07/24 15:48
[2024-02-07] MEDS: Acetaminophen 325 MG TAB 650 MG PO (15:55)
[2024-02-07] MEDS: Albuterol 2.5 MG/3 ML INH SOLN VIAL UPD (15:56)
[2024-02-07] MEDS: predniSONE 20 MG TAB 40 MG PO (15:56)
[2024-02-07] MEDS: Normal Saline 500 ML IV (15:56)
--- NOTE | 2024-02-07 15:59 | ED.PROG_ITS ---
Date of service: 02/07/24 Time of Service: 15:59 Medical Decision Making This dictation utilizes [id number] dictation software and may contain unedited grammatical errors. Patient seen in signout from Alicia Gannon PA-C, please see her complete note. Essentially this 78-year-old male has isolated right lower lobe pneumonia with mild tachycardia likely due to fever, no markers of sepsis on laboratory workup, no leukocytosis or elevated lactate, history of COPD but not currently smoking, awaiting medication administration and a plan for outpatient discharge on dual antibiotic therapy and prednisone. Patients' medical history: History of pneumonia, COPD, CAD, iron deficiency anemia. Family and social history: No current tobacco use. Diagnostic studies of: -Reviewed labs and x-ray, agree with plan. Interventions of: -P.o. doxycycline and Augmentin, p.o. prednisone, outpatient prescription sent. ED Course/Assessment/Plan: 78-year-old male presents with some mild tachycardia and a cough and fever, has no markers of sepsis and an isolated right lower lobe pneumonia on chest x-ray, plan to prescribe him dual antibiotic treatment for pneumonia with significant comorbidities as well as prednisone with his history of COPD, stressed strict return criteria for any worsening shortness of breath. Findings not consistent with sepsis, hypoxic respiratory failure. Disposition of pneumonia. Patient verbalized understanding of the plan and return to ED criteria and engaged in shared decision making. Medical Records Medical records reviewed: Yes I reviewed the patient's medical records. Imaging Data Radiologic Study: Attestation: I personally reviewed and interpreted this imaging study as follows: Imaging: X-Ray Radiologist's impression: EXAM: XR CHEST 2V PA LATERAL CLINICAL HISTORY: shortness of breath, fever TECHNIQUE: 2D digital imaging was performed. Two views. COMPARISON: CT CT ABDOMEN PELVIS W from 01/11/2022 CR XR CHEST 2V PA LATERAL from 06/06/2023 FINDINGS: HEART: Normal size. Status post CABG. Aorta: Not dilated. PULMONARY VASCULATURE: Normal. MEDIASTINUM: Unremarkable. LUNGS: Significant patchy infiltrate in the right lower lobe. Left lung appears clear. Underlying emphysematous changes. PLEURAL SPACE: No pleural effusion or pneumothorax. BONE:Sternal wires. No thoracic compression fractures. SOFT TISSUES: Unremarkable. IMPRESSION: Right lower lobe pneumonia. Lab Data Lab results reviewed: Yes I reviewed the patient's lab results. Labs: 02/07/24 14:20 Blood Blood Culture - Pending 02/07/24 14:10 Blood Blood Culture - Pending Laboratory Tests Range/Units 02/07/24 14:15 WBC (4.4-10.8) 10^3/uL 7.36 RBC (4.36-5.78) 10^6/uL 4.54 Hgb (13.5-17.5) g/dL 9.1 L Hct (40.0-50.0) % 31.8 L MCV (80-95) fL 70 L MCH (27.0-33.0) pg 20.0 L MCHC (32.0-36.0) % 28.6 L RDW (11.8-14.1) % 18.4 H Plt Count (130-400) 10^3/uL 189 MPV (8.0-11.0) fL 8.9 Immature Gran % % 0.3 Neutrophils % % 91.2 Lymphocytes % % 1.4 Monocytes % % 6.9 Eosinophils % % 0.1 Basophils % % 0.1 Nucleated RBC % (0.0-0.3) % 0.0 Absolute Neutrophils (1.2-6.7) 10^3/uL 6.71 H Absolute Lymphocytes (1.2-3.4) 10^3/uL 0.10 L Absolute Monocytes (0.1-0.8) 10^3/uL 0.51 Absolute Eosinophils (0.0-0.7) 10^3/uL 0.01 Absolute Basophils (0.0-0.2) 10^3/uL 0.01 RBC Morphology See Below Microcytosis 2+ VBG Lactate (0.9-1.7) mmol/L 0.91 Sodium (136-145) mmol/L 142 Potassium (3.5-5.1) mmol/L 4.5 Chloride (98-107) mmol/L 107 Carbon Dioxide (21.0-32.0) mmol/L 27.3 Anion Gap (3-11) mmol/L 7.7 BUN (7-18) mg/dL 22 H Creatinine (0.70-1.30) mg/dL 1.3 Est GFR (CKD-EPI 2020) (mL/min/1.73m2) 56.23 Glucose (74-106) mg/dL 116 H Calcium (8.5-10.1) mg/dL 9.3 Total Bilirubin (0.2-1.0) mg/dL 0.94 AST (15-37) U/L 19 ALT (16-63) U/L 17 Alkaline Phosphatase (46-116) U/L 94 Total Protein (6.4-8.2) g/dL 7.5 Albumin (3.4-5.0) g/dL 3.7 COVID-19 Source Nasopharynx SARS-CoV-2 (PCR) (Negative) Negative Influenza Type A (PCR) (Negative) Negative Influenza Type B (PCR) (Negative) Negative RSV (PCR) (Negative) Negative Quality:SDOH Health Related Social Needs: Health related social needs inadequate housing(Z59.1) Health related social needs details N/A Sign Out Sign Out Data: Sign Out Comment: pending meds/ recheck/ dc Last updated by Alicia Gannon PA at 02/07/24 15:48 Discharge Plan Disposition Patient Disposition: Home Condition: Stable Discharge Details Clinical Impression: Pneumonia Primary Care Provider: Zach White ED Provider: Noel Hernandez Home Meds and New Rx's Prescriptions: New doxycycline hyclate 100 mg tablet 100 mg PO BID Qty: 20 0RF prednisone 20 mg tablet 40 mg PO DAILY Qty: 8 0RF amoxicillin-pot clavulanate 875-125 mg tablet 1 tab PO BID 5 Days Qty: 10 0RF Continued nitroglycerin [Nitrostat] 0.4 mg tablet, sublingual 0.4 mg SL Q5-15M PRN (Reason: chest pain) Qty: 10 3RF Rx Instructions: until response; do not exceed 3 doses per episode atorvastatin 80 mg tablet 80 mg PO HS Qty: 90 3RF Rx Instructions: reduce risk of cardiovascular events, lower cholesterol albuterol sulfate 90 mcg/actuation HFA aerosol inhaler 2 inh inhalation Q6H PRN (Reason: shortness of breath or wheezing) Qty: 18 4RF (DME) Aerochamber MV Spacer See Rx Instructions .Route Qty: 1 0RF Rx Instructions: As directed multivitamin [Daily Multi-Vitamin] Tablet 1 tab PO DAILY lisinopril 2.5 mg tablet 2.5 mg PO DAILY Qty: 90 3RF pantoprazole [Protonix] 20 mg tablet,delayed release (DR/EC) 20 mg PO BID Qty: 180 3RF Rx Instructions: h/o esophageal cancer metoprolol tartrate 25 mg tablet 25 mg PO BID Qty: 180 3RF aspirin 81 mg tablet,delayed release (DR/EC) 81 mg PO DAILY Discharge Instructions Instructions: Amoxicillin and Clavulanate, Doxycycline, Prednisone, Community- Acquired Pneumonia, Adult (DC) Additional Instructions: Take your antibiotic as prescribed Take the prednisone daily as prescribed you received a dose here, take your next dose tomorrow Use your albuterol inhaler with spacer, 2 puffs every 4-6 hours as needed for cough, wheeze, shortness of breath Yogurt daily while on the antibiotic Please return immediately should you develop worsening shortness of breath, any chest discomfort, or should you have any new or concerning symptoms Referrals: Zach White NP [Primary Care Provider] - Discharge Data Discharge Date/Time-TO BE ENTERED AT DEPARTURE: 02/07/24 16:49
[2024-02-07] MEDS: Amoxicillin 875/Clav. 125 TAB PO (16:22)
[2024-02-07] MEDS: Doxycycline Hyclate 100 MG CAP PO (16:22)
== END 2024-02-07 16:49 | disposition home or self-care (01) ==
PROVIDERS: Physician Assistant; Emergency Provider Physician Assistant; PCP Nurse Practitioner Family
DX: J18.9 Pneumonia, unspecified organism (principal); R00.1 Bradycardia, unspecified; I25.10 Atherosclerotic heart disease of native coronary artery without angina pectoris; Z86.73 Personal history of transient ischemic attack (TIA), and cerebral infarction without residual deficits; Z95.1 Presence of aortocoronary bypass graft; Z79.82 Long term (current) use of aspirin
CPT/HCPCS: 00123; 80053; 87040; 87637; 93005; 94640; 99285; 71046; 83605; 85025; 93010; 99284; J7512; J7613

== ENCOUNTER 2024-04-16 01:18 | Outpatient (CLI) | payer MEDICARE, SELFPAY ==
--- NOTE | 2024-04-16 13:45 | DI.RAD_ITS ---
Exam(s) XR CHEST 2V PA LATERAL EXAM: XR CHEST 2V PA LATERAL CLINICAL HISTORY: ? resolution of pneumonia, j18.9. TECHNIQUE: 2D digital imaging was performed. COMPARISON: No exams were available for comparison FINDINGS: 2 views: Again noted are sternotomy wires. Heart size is normal. The mediastinum is not widened. COPD emphysematous changes again noted. However, the right lung infiltrate has significantly improve d, approximately 90 percent resolved. There are no new areas of infiltrate. No pleural effusions. No pulmonary edema. No pneumothorax. IMPRESSION: Significant improvement in previously described right lung infiltrate, with approximately 90 percent resolution. There are no pleural effusions DATA REPOSITORY: RADIATION DOSE DELIVERED:
== END 2024-04-16 01:38 ==
PROVIDERS: PCP Nurse Practitioner Family; Visit Provider Nurse Practitioner Family
DX: J18.9 Pneumonia, unspecified organism (principal)
CPT/HCPCS: 71046

== ENCOUNTER 2024-04-23 15:49 | Outpatient (CLI) | payer MEDICARE, SELFPAY ==
[2024-04-23 22:25] LABS: PSA, Diagnostic 5.8 ng/mL (<=6.5)
== END 2024-04-23 15:50 | disposition home or self-care (01) ==
LOC: LBO 15:49
PROVIDERS: Nurse Practitioner Gerontology; PCP Nurse Practitioner Family; Visit Provider Urology
DX: R35.1 Nocturia (principal); R97.20 Elevated prostate specific antigen [PSA]
CPT/HCPCS: 36415; 84153

== ENCOUNTER → 2024-05-01 13:32 | Outpatient (BNVA) | payer MEDICARE, SELFPAY | PROVIDERS: PCP Nurse Practitioner Family; Visit Provider Nurse Practitioner Gerontology | DX: R33.8 Other retention of urine (principal); R35.1 Nocturia; R97.20 Elevated prostate specific antigen [PSA] | CPT/HCPCS: 51798; 99213 ==

== ENCOUNTER 2024-06-01 11:15 | Inpatient (IN) | payer MEDICARE, SELFPAY ==
[2024-06-01] VITALS (20 sets, daily range): BP systolic 98–132; BP diastolic 51–82; PULSE 91–118; RESP 16–30; TEMP 35.5–37.4; O2SAT 22–97
--- NOTE | 2024-06-01 11:00 | RT.EKG_ITS ---
APPROVED REPORT Exam: Resting ECG Reason for Exam: SOB Patient Location: E HR:115 bpm ECG Measurements Heart Rate 115 AXIS NE 150 P 77 QRSd 94 QRS -1 QT 310 T 95 QTc 428 Conclusion Sinus tachycardia...rate> 99 Probable left atrial enlargement...P >50mS, <-0.10mV V1 Anterolateral infarct, age indeterminate...Q >35mS, flat/neg T, V3-V6,I,aVL No STEMI
--- NOTE | 2024-06-01 11:19 | W.ED.GENAD ---
Discharge Plan Disposition Patient Disposition: Admit to [facility] Discharge Details Clinical Impression: Community acquired pneumonia of right lung, Acute hypoxic respiratory failure, Acute lactic acidosis, Microcytic anemia, Acute kidney injury Admit Date/Time: 06/01/24 12:59 Admit Provider: Sixto Borjas Attending Provider: Sixto Borjas Primary Care Provider: Zach White ED Provider: Nazario Dumont Discharge Data Discharge Date/Time-TO BE ENTERED AT DEPARTURE: 06/01/24 14:01 HPI General Date/Time Provider Initiated Documentation: 06/01/24 11:18. HPI Narrative: MDM This is an afebrile but hypoxic and tachycardic 79-year-old full code male with acute respiratory failure with hypoxia for which patient will receive treatment for sepsis and hospitalization. Given right-sided chest pain nonischemic ECG was obtained. Will obtain biomarkers. I considered PE however in the setting of the patient's fever and productive cough I feel that viral or bacterial pneumonia is more likely to I did not obtain a CT angiogram of the patient's chest. No tearing quality to suggest aortic dissection. Equal breath sounds making my suspicion low for pneumothorax. Not hypotensive nor dialysis patient to suggest tamponade. No rash to chest to suggest zoster. Patient has a history of reactive airway disease although he is not markedly wheezing at this point in time to suggest benefit from albuterol. Will treat with doxycycline ceftriaxone and vancomycin. He has recently been on some steroids but is not hypotensive so we will defer stress dose steroids at this point in time. In the event that there is a component of reactive airway disease we will treat with dexamethasone orally. Given a soft nontender abdomen I am not suspicious for C. difficile so I did not send a PCR. Patient has lactic acidosis tachycardia his severe sepsis. He is not septic shock so do not feel that he requires norepinephrine at this point. Will obtain labs and reach out to hospitalist. 12:15 PM Will treat with a total of 1 L of IV fluids. He does have a microcytic anemia but denies black bloody stools anticoagulation use. Was in touch with Dr. Borjas from the hospitalist team who graciously except the patient for hospitalization. Labs notable for SIMONA. Viral swab pending. HPI This is a 79-year-old male right emergency department via EMS in the setting of a productive cough. Patient not on any home oxygen but was found with a room air saturation of 86% for which family activated EMS. He had a pneumonia last month. His symptoms worsened last week. He has chest pain when coughing on the right. He stayed home from work for the past several days as a result of the symptoms. He denies vomiting syncope and abdominal pain. He is intermittently had some diarrhea for the past several weeks. Exam General: Elderly-appearing in no acute distress speaking in complete sentences. Head: Normocephalic, atraumatic. Eye: Extraocular eye movements intact. No conjunctival injection. No scleral icterus. Ear, nose, mouth, throat: Grossly normal inspection. Normal voice, handling secretions normally. Neck: Trachea midline. Cardiovascular: Well-perfused distal extremities. Rapid regular rate. Respiratory: Nonlabored respiration. Right-sided lower rales. Equal breath sounds. Gastrointestinal: Nondistended abdomen. Soft nontender. Musculoskeletal: No significant lower extremity pitting no unintentional weight gain or significant lower extremity pitting edema to suggest acute heart failure. Edema. Moving all 4 extremities spontaneously. Skin: Normal for age and race, grossly normal temperature and turgor. No acute rash. Neurologic: Alert and appropriate, no apparent acute deficits. Psychiatric: Mood and manner are appropriate. Grooming and personal hygiene are appropriate. Related Data Home Medications ?Medication ?Instructions ?Recorded ?Confirmed multivitamin (Daily Multi-Vitamin 1 tab PO DAILY 04/27/20 06/01/24 tablet) lisinopril 2.5 mg tablet 2.5 mg PO DAILY hypertension #90 01/28/22 06/01/24 tabs metoprolol tartrate 25 mg tablet 25 mg PO BID #180 tabs 01/28/22 06/01/24 pantoprazole 20 mg tablet,delayed 20 mg PO BID #180 tabs 01/28/22 06/01/24 release (Protonix) aspirin 81 mg tablet,delayed 81 mg PO DAILY 02/16/22 06/01/24 release atorvastatin 80 mg tablet 80 mg PO HS #90 tabs 05/13/22 06/01/24 nitroglycerin 0.4 mg sublingual 0.4 mg sublingual Q5-15M PRN chest 05/13/22 06/01/24 tablet (Nitrostat) pain #10 tabs inhalational spacing device #1 ea 05/19/23 06/01/24 (Aerochamber MV spacer) doxycycline hyclate 100 mg tablet 100 mg PO BID #20 tabs 02/07/24 06/01/24 prednisone 20 mg tablet 40 mg (2 x 20 mg) PO DAILY #8 tabs 02/07/24 06/01/24 albuterol sulfate 90 mcg/actuation 2 inh inhalation Q6H PRN shortness 02/12/24 06/01/24 aerosol inhaler of breath or wheezing #18 grams Previous Rx's ?Medication ?Instructions ?Recorded lisinopril 2.5 mg tablet 2.5 mg PO DAILY hypertension #90 01/28/22 tabs metoprolol tartrate 25 mg tablet 25 mg PO BID #180 tabs 01/28/22 pantoprazole 20 mg tablet,delayed 20 mg PO BID #180 tabs 01/28/22 release (Protonix) atorvastatin 80 mg tablet 80 mg PO HS #90 tabs 05/13/22 nitroglycerin 0.4 mg sublingual 0.4 mg sublingual Q5-15M PRN chest 05/13/22 tablet (Nitrostat) pain #10 tabs inhalational spacing device #1 ea 05/19/23 (Aerochamber MV spacer) doxycycline hyclate 100 mg tablet 100 mg PO BID #20 tabs 02/07/24 prednisone 20 mg tablet 40 mg (2 x 20 mg) PO DAILY #8 tabs 02/07/24 albuterol sulfate 90 mcg/actuation 2 inh inhalation Q6H PRN shortness 02/12/24 aerosol inhaler of breath or wheezing #18 grams Allergies Allergy/AdvReac Type Severity Reaction Status Date / Time tamsulosin (From Flomax) AdvReac Dizziness/L Verified 06/01/24 11:25 ighthead General BRUCE: 3 Medical Decision Making Quality:SDOH Health Related Social Needs: Health related social needs details N/A PFSH All Active Problems (Updated 06/02/24 @ 14:07 by Elisa Strickland NP) Pleural effusion, right (Acute) Discharge planning issues (Acute) On deep vein thrombosis (DVT) prophylaxis (Acute) Hyperlactatemia (Acute) Acute kidney injury (Acute) Microcytic anemia (Acute) Acute lactic acidosis (Acute) Acute hypoxic respiratory failure (Acute) Community acquired pneumonia of right lung (Acute) Nocturia (Acute) Wheeze (Acute) Screening for colon cancer (Acute) Actinic keratoses (Acute) Chronic kidney disease (Chronic) Erectile dysfunction (Acute) Postnasal drip (Acute ~12/2020) Chronic rhinitis (Acute ~12/2020) Esophagitis determined by biopsy (Acute ~06/2020) [facility] [place] GI-endoscopy done Aspiration pneumonia (Acute) Hematuria (Acute) Aortic stenosis (Chronic) Chronic diarrhea (Acute) Abnormal auditory perception (Acute) Impacted cerumen of both ears (Acute) Sensorineural hearing loss of both ears (Acute) S/P carotid endarterectomy (Acute) Depressive disorder (Chronic 06/30/11) Pain of right upper extremity (Acute 03/20/15) Primary malignant neoplasm of esophagus (Acute 04/27/00) Vasomotor rhinitis (Acute) Asymptomatic bilateral carotid artery stenosis (Acute) 09/13/18 [facility] [place] Dr Henry Null, Vascular Surgery Coronary artery disease involving coronary bypass graft of [place] heart (Chronic) Urinary retention (Chronic 04/29/16) Retinal detachment (Chronic 03/10/14) R managed by Dr Iraheta at [facility] Pure hypercholesterolemia (Chronic 06/30/11) goal LDL<70 due to CAD (no ischemia but presumed cause of abnl MPI 08/2011) Personal history of TIA (transient ischemic attack) (Chronic 02/06/15) R paresthesias; TIA vs Migraine, Drs. Palmer/ Latoya: vasc eval, medical therapy, statin/Plavix; finally L carotid endarterectomy 04/19/16 [facility] [place]; F/U 11/2016 Iron deficiency anemia (Chronic 04/17/12) 2006, 2008, 3013; LAST GI W/U 2008 NEG X ADENOMA, TICS, EGD NEG [facility] [place] 04/2013; chronic microcytosis 1999 Elevated prostate specific antigen (PSA) (Chronic 06/30/11) h/o bx 2009; Dr Tripp 08/2010: consider up to 11 normal for him Carotid disease, bilateral (Chronic 01/25/16) [facility] [place] 50% L int carotid; Dr Mauro: f/u 1 yr with Duplex [facility] [place] 09/18/17 Duplex shows a patent L CEA site, but some progressionon RIght, F/U in 6m with plan for duplex both carotoids. (Dr Null [facility] [place] Vascular) Atherosclerosis of [place] coronary artery of [place] heart without angina pectoris (Chronic 04/10/06) silent ant NM by MPI 2006; ECHO 06/2007: EF 63%, NO WMA; MPI 08/2011 NEG ISCHEMIA, EF 50%; ANTSEPT HYPOKIN; ASA & beta hood started 2006; aspirin stopped 01/2016 due to gastric ulcer Surgical History S/P CABG x 3 (~06/04/18) H/O cardiac catheterization (05/22/18) [facility] [place] Dr Harvey partial esophagotomy (04/28/00) Dr Ibanez; [place] Esophagogastrectomy and feeding jejunostomy EGD - IV Sedation (12/22/15) Colonoscopy - IV Sedation (03/10/14) [facility] [place]; also EGD Extraction of cataract (09/25/14) right eye with lens implant Dr. Truong Carotid endarterectomy (04/19/16) Left, [facility] [place], Dr. Null for asymptomatic carotid stenosis Family History Mother , old age at age 92. Congestive heart failure (CHF) age of onset unknown Father , [place], pneumonia at age 78. Myocardial infarction Sister , [place] at age 56. Myocardial infarction Sister Age: 90 No problems noted. Brother , cancer at age 67. Esophageal cancer Social History Smoking/Tobacco Use Status: Former Tobacco Use tobacco type: cigarettes Quit Date: 10/08/88 Pack-years: 20 Tobacco: How many years used: 20 Second Hand Exposure: No Smoking risk assessment performed?: Yes Alcohol Intake: former Year quit: 1987 Drug use: Never Substance use type: does not use Adopted: No Caregiver/Support person: No Household members: spouse and other Details: client Housing: house Number of Children: 4 number of grandchildren: 10 Communication Needs: Hard of Hearing Education Level: high school Do you need help understanding health information?: Rarely current occupation: Drives for [employer] Sexually active: Yes Do you think of yourself as: straight/heterosexual Current gender identity: male What is your relationship status?: How often do you talk on the phone with friends or family?: once per week How often do you get together with friends or relatives?: twice per week Do you belong to any clubs or organized social groups?: no Panel score (0-1 are the most socially isolated patients): 2 What type of physical activity do you participate in: other Details: active daily Masha/Gnosticism: Scientologist Seatbelt use: always Helmet use: Yes Helmet use: always Drive intox or ride w/intox commercial driver's license driver: No Working smoke detector in home: Yes Fire extinguisher in home: Yes Carbon monox detector in home: Yes Firearms in home: No Do you feel safe at home: Yes Do you feel safe in your relationship?: Yes Victim of physical abuse: No Victim of emotional abuse: No Victim of sexual abuse: No Would you like helpful sources: No POCUS Exam (ED) Limited Cardiac Exam DATE OF EXAM: 06/01/24 TIME OF EXAM: 13:14 PROVIDER THAT PERFORMED THE STUDY: Nazario Dumont IS THIS A REPEAT EXAM DURING THIS ENCOUNTER: no REASON FOR EXAM: Chest pain VISUALIZED STRUCTURES: Four Chambers, Left ventricle and LVOT VIEW OBTAINED: Apical 4-Chamber, Parasternal long-axis and Subxiphoid PERTINENT FINDINGS/IMPRESSION: No pericardial effusion and No RV dilation DIFFERENTIAL DIAGNOSES: Aortic outflow track less than 4 cm, good squeeze, RV less than LV, no significant pericardial effusion. Right-sided B-lines. No left-sided B-lines. Exam complete
[2024-06-01] MEDS: Acetaminophen 500 MG TAB 1000 MG PO ×2 (11:41→20:05)
[2024-06-01] MEDS: Doxycycline Hyclate 100 MG CAP PO (11:41)
[2024-06-01 11:44] LABS: BE (Venous) -1 mmol/L (-2-3); HCO3 (Venous) 25 mmol/L (23-28); O2 Sat (Venous) 30 %; TCO2 (Venous) 24 mmol/L (24-29); pCO2 (Venous) 41 mmHg (41-51); pH (Venous) 7.39 (7.31-7.41); pO2 (Venous) 22 mmHg
[2024-06-01] MEDS: cefTRIAXone 2 GM/50 ML BAG IVPB (11:44)
[2024-06-01 11:45] LABS: Lactate 3.4 mmol/L (<or=2.0)
[2024-06-01 11:48] LABS: Abs Immature Grans 0.09 10^3/uL (0.0-0.06); HCT 30.3 % (40.0-50.0); HGB 8.6 g/dL (13.5-17.5); MCH 19.5 pg (27.0-33.0); MCHC 28.4 % (32.0-36.0); MCV 69 fL (80-95); Platelet Count 178 10^3/uL (130-400); RBC 4.41 10^6/uL (4.36-5.78); RDW 18.3 % (11.8-14.1); RDW-SD 44.8 fL; WBC 9.78 10^3/uL (4.4-10.8)
--- NOTE | 2024-06-01 12:01 | DI.RAD_ITS ---
Exam(s) XR PORTABLE CHEST AP EXAM: XR PORTABLE CHEST AP CLINICAL HISTORY: Shortness of breath TECHNIQUE: 2D digital imaging was performed of the chest. One image was obtained. An AP view was ob tained. COMPARISON: CR XR CHEST 2V PA LATERAL from 04/16/2024 FINDINGS: MEDIASTINUM: Normal. HEART: Normal. Status post CABG. PULMONARY VASCULATURE: Normal. LUNGS: There is a large right infiltrate involving the right perihilar region in the right lung base. There are increased lung markings also noted in the left lung base suspicious for a left-sided pneu monia. PLEURAL SPACE: There has been interval development of a right pleural effusion. BONE:Within normal limits for the patient's age. Sternal wires are in place. OTHER FINDINGS:Normal. IMPRESSION: Interval development of a multifocal pneumonia and a right pleural effusion. DATA REPOSITORY: RADIATION DOSE DELIVERED:
[2024-06-01 12:05] LABS: ALT 37 U/L (16-63); AST 71 U/L (15-37); Albumin 2.1 g/dL (3.4-5.0); Alkaline Phosphatase 88 U/L (46-116); Anion Gap 11.9 mmol/L (3-11); BUN 43 mg/dL (7-18); Bilirubin, Total 0.91 mg/dL (0.2-1.0); CO2 24.1 mmol/L (21.0-32.0); CREATININE 1.9 mg/dL (0.70-1.30); Calcium 9.3 mg/dL (8.5-10.1); Chloride 103 mmol/L (98-107); Estimated GFR 35.44 (mL/min/1.73m2); Glucose 88 mg/dL (74-106); Potassium 4.2 mmol/L (3.5-5.1); Sodium 139 mmol/L (136-145); Total Protein 6.6 g/dL (6.4-8.2); Troponin I 33 ng/L (<or=76)
[2024-06-01 12:08] LABS: Atypical Lymphocytes % 0 %; Bands % 5 %; Metamyelocytes % 0; Myelocytes % 1; Other Cells % 0; Promyelocytes % 0
[2024-06-01 12:09] LABS: Diff Comment Manual Differential; Microcytosis 1+
[2024-06-01 12:11] LABS: NT-proBNP 9736 pg/mL (<300)
[2024-06-01] MEDS: VANCOMYCIN 2,000 MG in Normal Saline 500 ML 333.3333 MG IVPB (12:17)
--- NOTE | 2024-06-01 12:18 | DI.VRAD_ITS ---
PROCEDURE INFORMATION: Exam: XR Chest Exam date and time: 06/01/2024 12:01 PM Age: 79 years old Clinical indication: Shortness of breath TECHNIQUE: Imaging protocol: Radiologic exam of the chest. Views: 1 view. COMPARISON: CR XR CHEST 2V PA LATERAL 04/16/2024 1:35 PM FINDINGS: Lungs: Opacity in the right perihilar region and right base may represent pneumonia.. Pleural spaces: Unremarkable. No pleural effusion. No pneumothorax. Heart/Mediastinum: Stable cardiac silhouette Bones/joints: Median sternotomy IMPRESSION: Opacity in the right perihilar region and right base may represent pneumonia.. There may be mild right pleural effusion.. Dictated and Authenticated by: Garth Hillman MD. Orderin Tim Lange MD
[2024-06-01 12:22] LABS: COVID-19 PCR Negative (Negative); Influenza A PCR Negative (Negative); Influenza B PCR Negative (Negative); RSV PCR Negative (Negative)
[2024-06-01 12:23] LABS: Source Nasopharynx
[2024-06-01 12:27] LABS: Absolute Neutrophil Count 9.49 10^3/uL (1.2-6.7)
--- NOTE | 2024-06-01 12:59 | HPE_ITS ---
Date of service: 06/01/24 Time of Service: 13:00 Assessment and Plan Assessment and plan (1) Severe sepsis: Status: Acute Assessment and plan: Presented with tachycardia with heart rate above 90 and tachypnea with respiratory rate above 20 with probable pulmonary source. Organ dysfunction as per SIMONA with creatinine up to 1.9 with an increase over 0.3 from baseline (2) Community acquired pneumonia of right lung: Status: Acute Assessment and plan: Multifocal but seems greater on the right side as per imaging. Cephalization observed but no diagnostic of COPD patient does report yellow to brown sputum expectoration as well as increased cough supporting the use of steroids. Continue IV antibiotics with doxycycline and ceftriaxone; we will not use vancomycin until MRSA swab results. Previous infection dating from January 2024 which is over 90 days ago and was not an inpatient stay with IV antibiotic recorded ProCal 7.5 Continue oxygen and wean as tolerated for sat 92% and above Mucinex, incentive spirometry , Acapella Dexamethasone IV x 1 evaluate response to pursue daily oral dosing (3) Acute kidney injury: Status: Acute Assessment and plan: 1 L of crystalloid received in the ED creatinine at 1.9 with baseline around 1.1?1.2 Will hold off IVF bolus for now in the setting of findings as per POCUS exam and elevated BNP Proceed with flow slow IV hydration BMP in a.m. (4) Acute hypoxic respiratory failure: Status: Acute Assessment and plan: Hypoxic on arrival with supplementation at 4 L to maintain sat above 90% Wean O2 as tolerated (5) Pleural effusion, right: Status: Acute Assessment and plan: As per imaging in the setting of pneumonia findings could also be infectious pleural fluid in the setting of pneumonia despite elevated BNP and B-lines findings. Will continue to monitor and consider IV furosemide if size of the effusion increases. (6) Hyperlactatemia: Status: Acute Assessment and plan: Lactic at 3.4 on arrival improved status post 1 L IV fluid now down to 2.5 Continue slow IV hydration and recheck lactic acid (7) Microcytic anemia: Status: Acute Assessment and plan: Anemia appears chronic over the years Iron studies ordered CBC in the morning (8) On deep vein thrombosis (DVT) prophylaxis: Status: Acute Assessment and plan: On Lovenox (9) Discharge planning issues: Status: Acute Assessment and plan: CM to follow for further needs Discussed with Dr. Borjas History of Present Illness History of Present Illness Chief Complaint: cough shortness of breath N arrative: This 79 years old male patient with past medical history of triple bypass, carotid endarterectomy, chronic microcytic anemia, esophageal cancer with resection and reanastomosis of the stomach, BPH, frequent pneumonia last listed January 2024 presented to the ED at [facility] for evaluation of increased productive cough and shortness of breath. EMS reporting feeling the patient with saturation at 86 on room air. On arrival to the ED the patient was tachycardic and tachypneic and required 4 L of oxygen by nasal cannula to maintain sat. Workup in the ED was significant for an H&H at 8.6 and 30 lower than his previous value of 9.1 and 31, and 1.9 from baseline 1.1.3, lactate at 3.4 with repeat at 2.5 status post 1 L of IV crystalloid. Chest x-ray was positive for interval development of multifocal pneumonia and right-sided pleural effusion. Upper respiratory viral panel was negative. The patient was admitted to the hospitalist team to the medical surgical floor with telemetry for evaluation and management of severe sepsis in the setting of community acquired pneumonia with hypoxic respiratory failure right-sided pleural effusion and acute kidney injury. In the ED the patient was treated with vancomycin, ceftriaxone, and doxycycline. BNP was over [address] Dumont ED provider completed a POCUS exam with findings of B-lines to the right lung field, aortic outflow track of less than 4 cm, adequate RV to LV ratio without significant pericardial effusion. Pro-David was added and is 7.50. Vancomycin continuation pending MRSA swab result. The patient confirmed his full CODE STATUS.. The patient reported not feeling well for over a month but having developed a fever up to 102 over the past 2 to 3 days. The patient has a history of smoking for 30 years but has stopped over 40 years ago. The patient reporting coughing yellowish to brown sputum without any characteristic, has been having liquid stools 3 times a day without hematochezia. The patient denied lightheadedness, dizziness, change in vision, no cardiac chest pain but has right sided chest pain with cough and deep breathing, no nausea, vomiting, constipation or dysuria. Review of Systems All systems reviewed & are unremarkable except as noted in HPI and below PFSH All Active Problems (Updated 06/01/24 @ 19:31 by Yakelin [place], [employer]) Severe sepsis (Acute) Pleural effusion, right (Acute) Discharge planning issues (Acute) On deep vein thrombosis (DVT) prophylaxis (Acute) Hyperlactatemia (Acute) Acute kidney injury (Acute) Microcytic anemia (Acute) Acute lactic acidosis (Acute) Acute hypoxic respiratory failure (Acute) Community acquired pneumonia of right lung (Acute) Nocturia (Acute) Wheeze (Acute) Screening for colon cancer (Acute) Actinic keratoses (Acute) Chronic kidney disease (Chronic) Erectile dysfunction (Acute) Postnasal drip (Acute ~12/2020) Chronic rhinitis (Acute ~12/2020) Esophagitis determined by biopsy (Acute ~06/2020) [facility] [place] done Aspiration pneumonia (Acute) Hematuria (Acute) Aortic stenosis (Chronic) Chronic diarrhea (Acute) Abnormal auditory perception (Acute) Impacted cerumen of both ears (Acute) Sensorineural hearing loss of both ears (Acute) S/P carotid endarterectomy (Acute) Depressive disorder (Chronic 06/30/11) Pain of right upper extremity (Acute 03/20/15) Primary malignant neoplasm of esophagus (Acute 04/27/00) Vasomotor rhinitis (Acute) Asymptomatic bilateral carotid artery stenosis (Acute) 09/13/18 [facility] Dr Henry Null, Vascular Surgery Coronary artery disease involving coronary bypass graft of [place] heart (Chronic) Urinary retention (Chronic 04/29/16) Retinal detachment (Chronic 03/10/14) R managed by Dr Iraheta at [facility] Pure hypercholesterolemia (Chronic 06/30/11) goal LDL<70 due to CAD (no ischemia but presumed cause of abnl MPI 08/2011) Personal history of TIA (transient ischemic attack) (Chronic 02/06/15) R paresthesias; TIA vs Migraine, Drs. Palmer/ Latoya: vasc eval, medical therapy, statin/Plavix; finally L carotid endarterectomy 04/19/16 [facility]; F/U 11/2016 Iron deficiency anemia (Chronic 04/17/12) 2005, 2008, 301; LAST GI W/U 2008 NEG X ADENOMA, TICS, EGD NEG [facility] 04/2013; chronic microcytosis 1999 Elevated prostate specific antigen (PSA) (Chronic 06/30/11) h/o bx 2009; Dr Tripp 08/2010: consider up to 11 normal for him Carotid disease, bilateral (Chronic 01/25/16) [facility] 50% L int carotid; Dr Mauro: f/u 1 yr with Duplex [facility] 09/18/17 Duplex shows a patent L CEA site, but some progressionon RIght, F/U in 6m with plan for duplex both carotoids. (Dr Null [facility] Vascular) Atherosclerosis of [place] coronary artery of [place] heart without angina pectoris (Chronic 04/10/06) silent ant NV by MPI 2006; ECHO 06/2007: EF 63%, NO WMA; MPI 08/2011 NEG ISCHEMIA, EF 50%; ANTSEPT HYPOKIN; ASA & beta hood started 2006; aspirin stopped 01/2016 due to gastric ulcer Surgical History S/P CABG x 3 (~06/04/18) H/O cardiac catheterization (05/22/18) [facility] Dr Harvey partial esophagotomy (04/28/00) Dr Ibanez; [place] Esophagogastrectomy and feeding jejunostomy EGD - IV Sedation (12/22/15) Colonoscopy - IV Sedation (03/10/14) [facility] [place]; also EGD Extraction of cataract (09/25/14) right eye with lens implant Dr. Truong Carotid endarterectomy (04/19/16) Left, [facility], Dr. Null for asymptomatic carotid stenosis Family History Mother , old age at age 92. Congestive heart failure (CHF) age of onset unknown Father , [place], pneumonia at age 78. Myocardial infarction Sister , [place] at age 56. Myocardial infarction Sister Age: 90 No problems noted. Brother , cancer at age 67. Esophageal cancer Social History Smoking/Tobacco Use Status: Former Tobacco Use tobacco type: cigarettes Quit Date: 10/08/88 Pack-years: 20 Tobacco: How many years used: 20 Second Hand Exposure: No Smoking risk assessment performed?: Yes Alcohol Intake: former Year quit: 1987 Drug use: Never Substance use type: does not use Adopted: No Caregiver/Support person: No Household members: spouse and other Details: client Housing: house Number of Children: 4 number of grandchildren: 10 Communication Needs: Hard of Hearing Education Level: high school Do you need help understanding health information?: Rarely current occupation: Drives for [employer] Sexually active: Yes Do you think of yourself as: straight/heterosexual Current gender identity: male What is your relationship status?: How often do you talk on the phone with friends or family?: once per week How often do you get together with friends or relatives?: twice per week Do you belong to any clubs or organized social groups?: no Panel score (0-1 are the most socially isolated patients): 2 What type of physical activity do you participate in: other Details: active daily Masha/Druze: Scientologist Seatbelt use: always Helmet use: Yes Helmet use: always Drive intox or ride w/intox driver guide: No Working smoke detector in home: Yes Fire extinguisher in home: Yes Carbon monox detector in home: Yes Firearms in home: No Do you feel safe at home: Yes Do you feel safe in your relationship?: Yes Victim of physical abuse: No Victim of emotional abuse: No Victim of sexual abuse: No Would you like helpful sources: No Meds Allergies and Home Medications Allergies Allergy/AdvReac Type Severity Reaction Status Date / Time tamsulosin (From Flomax) AdvReac Dizziness/L Verified 06/01/24 11:25 ighthead Home Medications ?Medication ?Instructions ?Recorded ?Confirmed ?Type multivitamin (Daily Multi-Vitamin 1 tab PO DAILY 04/27/20 06/01/24 History tablet) lisinopril 2.5 mg tablet 2.5 mg PO DAILY hypertension #90 01/28/22 06/01/24 Rx tabs metoprolol tartrate 25 mg tablet 25 mg PO BID #180 tabs 01/28/22 06/01/24 Rx pantoprazole 20 mg tablet,delayed 20 mg PO BID #180 tabs 01/28/22 06/01/24 Rx release (Protonix) aspirin 81 mg tablet,delayed 81 mg PO DAILY 02/16/22 06/01/24 History release atorvastatin 80 mg tablet 80 mg PO HS #90 tabs 05/13/22 06/01/24 Rx nitroglycerin 0.4 mg sublingual 0.4 mg sublingual Q5-15M PRN chest 05/13/22 06/01/24 Rx tablet (Nitrostat) pain #10 tabs inhalational spacing device #1 ea 05/19/23 06/01/24 Rx (Aerochamber MV spacer) doxycycline hyclate 100 mg tablet 100 mg PO BID #20 tabs 02/07/24 06/01/24 Rx prednisone 20 mg tablet 40 mg (2 x 20 mg) PO DAILY #8 tabs 02/07/24 06/01/24 Rx albuterol sulfate 90 mcg/actuation 2 inh inhalation Q6H PRN shortness 02/12/24 06/01/24 Rx aerosol inhaler of breath or wheezing #18 grams Results Labs 06/01/24 11:37 06/01/24 11:37 Labs: Laboratory Results - last 24 hr 06/01/24 06/01/24 11:21 11:37 WBC 9.78 RBC 4.41 Hgb 8.6 L Hct 30.3 L MCV 69 L MCH 19.5 L MCHC 28.4 L RDW 18.3 H Plt Count 178 MPV 9.0 Immature Gran % 0.0 Neutrophils % 92.0 Band Neutrophils % 5 Lymphocytes % 1.0 Atypical Lymphs % 0 Monocytes % 0.0 Eosinophils % 1.0 Basophils % 0.0 Metamyelocytes % 0 Myelocytes % 1 Promyelocytes % 0 Other Cells % 0 Nucleated RBC % 1.0 H Absolute Neutrophils 9.49 H Absolute Lymphocytes 0.10 L Absolute Monocytes 0.00 L Absolute Eosinophils 0.10 Absolute Basophils 0.00 RBC Morphology See Below Microcytosis 1+ VBG pH 7.39 VBG pCO2 41 VBG pO2 22 VBG HCO3 25 VBG Total CO2 24 VBG O2 Saturation 30 VBG Base Excess -1 VBG Lactate 3.4 H* Sodium 139 Potassium 4.2 Chloride 103 Carbon Dioxide 24.1 Anion Gap 11.9 H BUN 43 H Creatinine 1.9 H Est GFR (CKD-EPI 2020) 35.44 Glucose 88 Calcium 9.3 Total Bilirubin 0.91 AST 71 H ALT 37 Alkaline Phosphatase 88 Troponin I 33 NT-Pro-B Natriuret Pep 9736 H Total Protein 6.6 Albumin 2.1 L COVID-19 Source Nasopharynx SARS-CoV-2 (PCR) Negative Influenza Type A (PCR) Negative Influenza Type B (PCR) Negative RSV (PCR) Negative Last Vital Signs Temp 36.1 C L 06/01/24 11:24 Pulse 114 H 02/22/25 12:15 Resp 22 06/01/24 12:15 BP 120/51 L 06/01/24 12:15 Pulse Ox 93 06/01/24 12:15 Time Spent Time spent with Patient: >75 minutes Time was spent: preparing to see the patient(eg.review tests), obtaining and/or reviewing separately otained hiistory, ordering medications,tests, procedures, referring, communicating with other health daycare assistant, indepentently interpreting results, counseling the patient and care coordination
[2024-06-01 13:06] LABS: Lactate 2.5 mmol/L (<or=2.0)
[2024-06-01 13:12] LABS: ESR 73 mm/hr (0-20)
[2024-06-01 13:17] LABS: Troponin I 34 ng/L (<or=76)
[2024-06-01 13:19] LABS: C-Reactive Protein 20.08 mg/dL (<or=0.5)
--- NOTE | 2024-06-01 13:41 | W.PC.ACHO ---
Registration Status: Primary Language: Preferred Language: ED Information & Data Chief Complaint RespSymp 06/01/24 11:27 Chief Complaint RespSymp 06/01/24 11:16 Triage Note Patient complaining of SOB/ 06/01/24 11:16 fever, productive cough. intermittent diarrhea for 2- 3 weeks (Last Reviewed 02/12/24 @ 13:12 by Zach William NP) S/P CABG x 3 (~06/04/18) H/O cardiac catheterization (05/22/18) partial esophagotomy (04/28/00) EGD - IV Sedation (12/22/15) Colonoscopy - IV Sedation (03/10/14) Extraction of cataract (09/25/14) Carotid endarterectomy (04/19/16) Most Recent Vital Signs Temperature 36.1 C L 06/01/24 11:24 Pulse 114 H 06/01/24 13:00 Pulse 113 H 06/01/24 13:00 Respiratory Rate 23 06/01/24 13:00 Respiratory Effort Short of Breath 06/01/24 11:52 Respiratory Depth Shallow 06/01/24 11:52 Blood Pressure 110/61 06/01/24 13:00 Blood Pressure Mean 69 06/01/24 13:00 Pulse Oximetry 94 06/01/24 13:00 Respiratory End-tidal CO2 28 06/01/24 13:00 Oxygen Delivery Method Nasal Cannula 06/01/24 11:55 Oxygen Flow Rate 4 06/01/24 11:55 Comment 4L NC 06/01/24 13:00 Allergies tamsulosin (From Flomax) Adverse Reaction (Verified 06/01/24 11:25) Dizziness/Lighthead Precautions Isolation PUI 06/01/24 11:27 IV IV Catheter Type [Right Saline Lock Forearm] IV Catheter Type [Left Forearm Saline Lock ] IV Catheter Gauge [Right 18 Forearm] IV Catheter Gauge [Left 20 Forearm] Diagnostics 06/01/24 06/01/24 06/01/24 Range/Units 14:21 13:23 12:55 WBC (4.4-10.8) 10^3/uL RBC (4.36-5.78) 10^6/uL Hgb (13.5-17.5) g/dL Hct (40.0-50.0) % MCV (80-95) fL MCH (27.0-33.0) pg MCHC (32.0-36.0) % RDW (11.8-14.1) % Plt Count (130-400) 10^3/uL MPV (8.0-11.0) fL Immature Gran % % Neutrophils % % Band Neutrophils % % Lymphocytes % % Atypical Lymphs % % Monocytes % % Eosinophils % % Basophils % % Metamyelocytes % Myelocytes % Promyelocytes % Other Cells % Nucleated RBC % (0.0-0.3) % Absolute Neutrophils (1.2-6.7) 10^3/uL Absolute Lymphocytes (1.2-3.4) 10^3/uL Absolute Monocytes (0.1-0.8) 10^3/uL Absolute Eosinophils (0.0-0.7) 10^3/uL Absolute Basophils (0.0-0.2) 10^3/uL RBC Morphology Microcytosis ESR VBG pH (7.31-7.41) VBG pCO2 (41-51) mmHg VBG pO2 mmHg VBG HCO3 (23-28) mmol/L VBG Total CO2 (24-29) mmol/L VBG O2 Saturation % VBG Base Excess (-2-3) mmol/L VBG Lactate 2.5 H* (<or=2.0) mmol/L Sodium (136-145) mmol/L Potassium (3.5-5.1) mmol/L Chloride (98-107) mmol/L Carbon Dioxide (21.0-32.0) mmol/L Anion Gap (3-11) mmol/L BUN (7-18) mg/dL Creatinine (0.70-1.30) mg/dL Est GFR (CKD-EPI 2020) (mL/min/1.73m2) Glucose (74-106) mg/dL Calcium (8.5-10.1) mg/dL Total Bilirubin (0.2-1.0) mg/dL AST (15-37) U/L ALT (16-63) U/L Alkaline Phosphatase (46-116) U/L Troponin I Cancelled 34 (<or=76) ng/L C-Reactive Protein (<or=0.5) mg/dL NT-Pro-B Natriuret Pep (<300) pg/mL Total Protein (6.4-8.2) g/dL Albumin (3.4-5.0) g/dL Procalcitonin Urine Color Pending Urine Clarity Pending Urine pH Pending Ur Specific [place] Pending Urine Protein Pending Urine Ketones Pending Urine Blood Pending Urine Nitrite Pending Urine Bilirubin Pending Urine Urobilinogen Pending Ur Leukocyte Esterase Pending Urine Glucose Pending COVID-19 Source SARS-CoV-2 (PCR) (Negative) Influenza Type A (PCR) (Negative) Influenza Type B (PCR) (Negative) RSV (PCR) (Negative) 06/01/24 06/01/24 Range/Units 11:37 11:21 WBC 9.78 (4.4-10.8) 10^3/uL RBC 4.41 (4.36-5.78) 10^6/uL Hgb 8.6 L (13.5-17.5) g/dL Hct 30.3 L (40.0-50.0) % MCV 69 L (80-95) fL MCH 19.5 L (27.0-33.0) pg MCHC 28.4 L (32.0-36.0) % RDW 18.3 H (11.8-14.1) % Plt Count 178 (130-400) 10^3/uL MPV 9.0 (8.0-11.0) fL Immature Gran % 0.0 % Neutrophils % 92.0 % Band Neutrophils % 5 % Lymphocytes % 1.0 % Atypical Lymphs % 0 % Monocytes % 0.0 % Eosinophils % 1.0 % Basophils % 0.0 % Metamyelocytes % 0 Myelocytes % 1 Promyelocytes % 0 Other Cells % 0 Nucleated RBC % 1.0 H (0.0-0.3) % Absolute Neutrophils 9.49 H (1.2-6.7) 10^3/uL Absolute Lymphocytes 0.10 L (1.2-3.4) 10^3/uL Absolute Monocytes 0.00 L (0.1-0.8) 10^3/uL Absolute Eosinophils 0.10 (0.0-0.7) 10^3/uL Absolute Basophils 0.00 (0.0-0.2) 10^3/uL RBC Morphology See Below Microcytosis 1+ ESR Pending VBG pH 7.39 (7.31-7.41) VBG pCO2 41 (41-51) mmHg VBG pO2 22 mmHg VBG HCO3 25 (23-28) mmol/L VBG Total CO2 24 (24-29) mmol/L VBG O2 Saturation 30 % VBG Base Excess -1 (-2-3) mmol/L VBG Lactate 3.4 H* (<or=2.0) mmol/L Sodium 139 (136-145) mmol/L Potassium 4.2 (3.5-5.1) mmol/L Chloride 103 (98-107) mmol/L Carbon Dioxide 24.1 (21.0-32.0) mmol/L Anion Gap 11.9 H (3-11) mmol/L BUN 43 H (7-18) mg/dL Creatinine 1.9 H (0.70-1.30) mg/dL Est GFR (CKD-EPI 2020) 35.44 (mL/min/1.73m2) Glucose 88 (74-106) mg/dL Calcium 9.3 (8.5-10.1) mg/dL Total Bilirubin 0.91 (0.2-1.0) mg/dL AST 71 H (15-37) U/L ALT 37 (16-63) U/L Alkaline Phosphatase 88 (46-116) U/L Troponin I 33 (<or=76) ng/L C-Reactive Protein 20.08 H (<or=0.5) mg/dL NT-Pro-B Natriuret Pep 9736 H (<300) pg/mL Total Protein 6.6 (6.4-8.2) g/dL Albumin 2.1 L (3.4-5.0) g/dL Procalcitonin Pending Urine Color Urine Clarity Urine pH Ur Specific [place] Urine Protein Urine Ketones Urine Blood Urine Nitrite Urine Bilirubin Urine Urobilinogen Ur Leukocyte Esterase Urine Glucose COVID-19 Source Nasopharynx SARS-CoV-2 (PCR) Negative (Negative) Influenza Type A (PCR) Negative (Negative) Influenza Type B (PCR) Negative (Negative) RSV (PCR) Negative (Negative) 06/01/24 12:10 Blood Culture - Pending Blood 06/01/24 11:37 Blood Culture - Pending Blood Intake and Output - 24 Hour Total 06/01/24 11:09 thru 06/01/24 12:24 Intake Total 50 Balance 50 Weight 57.6 kg Intake: IV 50 Falls Risk Assessment History of Falls No History 06/01/24 11:52 Contributing Factors No Factors 06/01/24 11:52 Ambulatory Aids Independent 06/01/24 11:52 Tubes/Lines None 06/01/24 11:52 Gait Evaluation No gait disturbance 06/01/24 11:52 Cognition No cognitive impairment 06/01/24 11:52 Fall Total Score 0 06/01/24 11:52 Level of Risk Standard/Low Risk 06/01/24 11:52 Problems (Last Reviewed 02/12/24 @ 13:12 by Zach William NP) Discharge planning issues (Acute) On deep vein thrombosis (DVT) prophylaxis (Acute) Hyperlactatemia (Acute) Acute kidney injury (Acute) Microcytic anemia (Acute) Acute lactic acidosis (Acute) Acute hypoxic respiratory failure (Acute) Community acquired pneumonia of right lung (Acute) v v v v v v v v v Sending and/or Receiving Nurses: Please use comment section below to note any information pertinent to the patient hand-off not included above. Information / Comments: Report [place] [id number]
[2024-06-01 13:42] LABS: Bilirubin Negative (Negative); Blood Negative (Negative); Clarity Clear (Clear); Glucose Negative (Negative); Ketones Negative (Negative); Leukocyte Esterase Negative (Negative); Nitrite Negative (Negative); Specific Gravity 1.025 (1.005-1.025); Urobilinogen 0.2 mg/dL (Up to 0.2)
[2024-06-01 13:52] LABS: Bacteria Many HPF (Negative); C & S Indicated? No; Casts 0-2 Fine Granular LPF (Negative); Crystals Negative HPF (Negative); Epithelial Cells Few HPF (Negative); Mucus Negative (Negative); Other Cells Negative (Negative); RBC Negative HPF (0-2)
[2024-06-01] MEDS: Enoxaparin 30 MG/0.3 ML SYR SC (15:04)
[2024-06-01] MEDS: Lactated Ringers 1,000 ML 50 ML IV (18:00)
[2024-06-01] MEDS: Dexamethasone 4 MG/ML VIAL 6 MG IVP (18:28)
[2024-06-01 19:30] LABS: MRSA PCR Negative (Negative)
[2024-06-01] MEDS: Lactobacillus Acidophilus CAP 1 CAP PO (20:05)
[2024-06-01] MEDS: Metoprolol 25 MG TAB PO (20:05)
[2024-06-01] MEDS: guaiFENesin 600 MG TABCR PO (20:05)
[2024-06-01] MEDS: Pantoprazole 20 MG TABCR PO (20:06)
[2024-06-01] MEDS: Normal Saline Flush 10 ML SYR (20:06)
[2024-06-01] MEDS: Atorvastatin 40 MG TAB 80 MG PO (20:06)
[2024-06-01] MEDS: DOXYCYCLINE 100 MG in Normal Saline 100 ML IVPB (22:05)
[2024-06-02] VITALS (12 sets, daily range): BP systolic 92–129; BP diastolic 60–82; PULSE 81–97; RESP 14–17; TEMP 36.1–36.9; O2SAT 89–94
[2024-06-02] MEDS: Acetaminophen 500 MG TAB 1000 MG PO ×3 (04:21→19:52)
[2024-06-02 07:10] LABS: Lactate 1.9 mmol/L (<or=2.0)
[2024-06-02 07:26] LABS: Abs Immature Grans 0.23 10^3/uL (0.0-0.06); Absolute Lymphocyte Count 0.21 10^3/uL (1.2-3.4); Absolute Monocyte Count 0.44 10^3/uL (0.1-0.8); Eosinophils % 1.2 %; Immature Grans % 1.6 %; Lymphocytes % 1.4 %; MCH 19.4 pg (27.0-33.0); MCV 67 fL (80-95); MPV 9.9 fL (8.0-11.0); Neutrophils % 92.8 %; Nucleated RBC 0.1 % (0.0-0.3); Platelet Count 236 10^3/uL (130-400); RBC 4.65 10^6/uL (4.36-5.78); RDW 18.6 % (11.8-14.1); RDW-SD 43.3 fL; WBC 14.66 10^3/uL (4.4-10.8)
[2024-06-02 07:27] LABS: Absolute Eosinophil Count 0.18 10^3/uL (0.0-0.7)
[2024-06-02] MEDS: Docusate Sodium 100 MG CAP PO (07:37)
[2024-06-02] MEDS: Pantoprazole 20 MG TABCR PO ×2 (07:37→19:54)
[2024-06-02] MEDS: guaiFENesin 600 MG TABCR PO ×2 (07:37→19:52)
[2024-06-02] MEDS: Lactobacillus Acidophilus CAP 1 CAP PO ×3 (07:37→19:52)
[2024-06-02] MEDS: Aspirin E.C. 81 MG TABEC PO (07:37)
[2024-06-02] MEDS: Multivitamin TAB 1 TAB PO (07:38)
[2024-06-02] MEDS: Metoprolol 25 MG TAB PO ×2 (07:38→19:54)
[2024-06-02] MEDS: cefTRIAXone 2 GM/50 ML BAG IVPB (07:50)
[2024-06-02 07:55] LABS: Iron 5 ug/dL (65-175); Total Iron Binding Capacity 154 ug/dL (250-450); Transferrin Sat 3 % (20-55)
[2024-06-02 08:00] LABS: Diff Comment Agrees w/ Instrument
[2024-06-02 08:01] LABS: Microcytosis 2+
[2024-06-02 08:04] LABS: Folate 2.9 ng/mL (8.6-20.0)
[2024-06-02 08:07] LABS: Anion Gap 9.2 mmol/L (3-11); BUN 52 mg/dL (7-18); CO2 24.8 mmol/L (21.0-32.0); CREATININE 1.6 mg/dL (0.70-1.30); Chloride 104 mmol/L (98-107); Estimated GFR 43.56 (mL/min/1.73m2); Ferritin 279 ng/mL (26-388); Glucose 113 mg/dL (74-106); Potassium 4.8 mmol/L (3.5-5.1); Sodium 138 mmol/L (136-145)
[2024-06-02] MEDS: Benzocaine/Menthol LOZG 15/BOX 1 EACH SUC (08:43)
[2024-06-02 08:56] LABS: Vitamin B12 1770 pg/mL (193-986)
--- NOTE | 2024-06-02 09:48 | INITIAL_ITS ---
Date of service: 06/02/24 Time of Service: 09:48 Care Management Initial Assmt Initial Assessment Reason for Hospitalization: Sepsis and pneumonia Functional Status/Living Situation Patient Presentation: Donnie was sitting up in bed lightly dozing when CM met with him. He was alert and oriented and easily engaged with CM. Donnie was admitted on 06/01/24 with pneumonia and hypoxic respiratory failure. He shared that he had a similar illness about a month ago and really procrastinated getting medical care this time. 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 Donnie lives in a single family home in [place] with his Quiana. He and Quiana are home care providers and have a 97 year old client, Sondra, that has been with them for 7 years. He explained that she is really part of the family. He also reported that her needs are increasing and it is becoming more challenging to provide the care she needs. They have decided that Sondra will be their last client. At ages 79 (Donnie) and 72 (Quiana), they feel it is time to retire. Town of Residence: [place], [place] Resides with: Spouse ( May) Employment Status: Employed ([employer] package delivery driver) Instrumental Activities of Daily Living (ADLs): Independent Medications Medication Management: No Issues/Barriers identified Physical Functioning/Mobility Assistive Device: none Advance Directives Advance Directives: Do you have an Advance Directive: N 01/15/21 09:08 AD On File at [facility]: N 01/15/21 09:08 Date Asked 04/23/24 04/23/24 15:49 AD Date Reviewed COLST On File at [facility] No 01/15/21 09:08 COLST Date Scanned Code Status Resuscitation Status Full Code Insurance Coverage/Financial Issues Insurance: BC/BS Medicare Advantage Care Team Visit Care Team Role Provider Type Elisa Strickland NP NURSE PRACTITIONER Zach William NP Primary Care Provider NURSE PRACTITIONER Lefty Alcala Other Providers OTHER Nazario Dumont MD Emergency Provider [facility] STAFF PHYSICIAN Sixto Borjas MD Admit Provider [facility] STAFF PHYSICIAN Attending Provider Discharge Potential Discharge Needs: PCP F/U Appt Anticipated Barriers to Discharge: None Identified Patient/Family Education Needs: Review discharge instructions, discuss Ask Me Three Transportation: Private vehicle Plan: Anticipate Donnie will be discharged home with no new services when medically cleared. He will follow up with his community providers and plan of care and transport with family. CM will follow and continue to support discharge planning. Social Determinants of Health Screening Social Determinants of Health last assessed: 06/02/24 Will the Patient Participate in the Screening?: Yes Do you worry about having a steady place to live?: no Problems where you live: no known problems In the past 12 months, have you had to go without electric, gas, oil or water in your home?: no Have you or anyone in your house had to go without enough food to eat?: no Has lack of transportation kept you from medical appointments or from doing things needed for daily living?: no Has anyone in your life made you feel unsafe or unsupported?: no How hard is it for you to pay for the very basics like food, housing, medical care, and heating? Would you say it is:: Not hard at all Do you want help finding or keeping work or a job?: I do not need or want help If for any reason you need help with day-to-day activities such as bathing, preparing meals, shopping, managing finances, etc., do you get the help you need?: I get all the help I need How often do you feel lonely or isolated from those around you?: Never Do you speak a language other than Belarusian at home?: No PFSH All Active Problems (Updated 06/02/24 @ 14:07 by Elisa Strickland NP) Pleural effusion, right (Acute) Discharge planning issues (Acute) On deep vein thrombosis (DVT) prophylaxis (Acute) Hyperlactatemia (Acute) Acute kidney injury (Acute) Microcytic anemia (Acute) Acute lactic acidosis (Acute) Acute hypoxic respiratory failure (Acute) Community acquired pneumonia of right lung (Acute) Nocturia (Acute) Wheeze (Acute) Screening for colon cancer (Acute) Actinic keratoses (Acute) Chronic kidney disease (Chronic) Erectile dysfunction (Acute) Postnasal drip (Acute ~12/2020) Chronic rhinitis (Acute ~12/2020) Esophagitis determined by biopsy (Acute ~06/2020) [facility] [place] GI-endoscopy done Aspiration pneumonia (Acute) Hematuria (Acute) Aortic stenosis (Chronic) Chronic diarrhea (Acute) Abnormal auditory perception (Acute) Impacted cerumen of both ears (Acute) Sensorineural hearing loss of both ears (Acute) S/P carotid endarterectomy (Acute) Depressive disorder (Chronic 06/30/11) Pain of right upper extremity (Acute 03/20/15) Primary malignant neoplasm of esophagus (Acute 04/27/00) Vasomotor rhinitis (Acute) Asymptomatic bilateral carotid artery stenosis (Acute) 09/13/18 [facility] [place] Dr Henry Null, Vascular Surgery Coronary artery disease involving coronary bypass graft of [place] heart (Chronic) Urinary retention (Chronic 04/29/16) Retinal detachment (Chronic 03/10/14) R managed by Dr Iraheta at [facility] Pure hypercholesterolemia (Chronic 06/30/11) goal LDL<70 due to CAD (no ischemia but presumed cause of abnl MPI 08/2011) Personal history of TIA (transient ischemic attack) (Chronic 02/06/15) R paresthesias; TIA vs Migraine, Drs. Palmer/ Latoya: vasc eval, medical therapy, statin/Plavix; finally L carotid endarterectomy 04/19/16 [facility]; F/U 11/2016 Iron deficiency anemia (Chronic 04/17/12) 2005, 2008, 301; LAST GI W/U 2008 NEG X ADENOMA, TICS, EGD NEG [facility] 04/2013; chronic microcytosis 2000 Elevated prostate specific antigen (PSA) (Chronic 06/30/11) h/o bx 2009; Dr Tripp 08/2010: consider up to 11 normal for him Carotid disease, bilateral (Chronic 01/25/16) [facility] 50% L int carotid; Dr Mauro: f/u 1 yr with Duplex [facility] 09/18/17 Duplex shows a patent L CEA site, but some progressionon RIght, F/U in 6m with plan for duplex both carotoids. (Dr Null [facility] [place] Vascular) Atherosclerosis of [place] coronary artery of [place] heart without angina pectoris (Chronic 04/10/06) silent ant [place] by MPI 2006; ECHO 06/2007: EF 63%, NO WMA; MPI 08/2011 NEG ISCHEMIA, EF 50%; ANTSEPT HYPOKIN; ASA & beta hood started 2006; aspirin stopped 01/2016 due to gastric ulcer Surgical History S/P CABG x 3 (~06/04/18) H/O cardiac catheterization (05/22/18) [facility] [place] Dr Harvey partial esophagotomy (04/28/00) Dr Ibanez; [place] Esophagogastrectomy and feeding jejunostomy EGD - IV Sedation (12/22/15) Colonoscopy - IV Sedation (03/10/14[place] [facility] [place] Extraction of cataract (09/25/14) right eye with lens implant Dr. Truong Carotid endarterectomy (04/19/16) Left, [facility] [place], Dr. Null for asymptomatic carotid stenosis Family History Mother , old age at age 92. Congestive heart failure (CHF) age of onset unknown Father , MS, pneumonia at age 78. Myocardial infarction Sister , MS at age 56. Myocardial infarction Sister Age: 90 No problems noted. Brother , cancer at age 67. Esophageal cancer Social History Smoking/Tobacco Use Status: Former Tobacco Use tobacco type: cigarettes Quit Date: 10/08/88 Pack-years: 20 Tobacco: How many years used: 20 Second Hand Exposure: No Smoking risk assessment performed?: Yes Alcohol Intake: former Year quit: 1987 Drug use: Never Substance use type: does not use Adopted: No Caregiver/Support person: No Household members: spouse and other Details: client Housing: house Number of Children: 4 number of grandchildren: 10 Communication Needs: Hard of Hearing Education Level: high school Do you need help understanding health information?: Rarely current occupation: Drives for [employer] Sexually active: Yes Do you think of yourself as: straight/heterosexual Current gender identity: male What is your relationship status?: How often do you talk on the phone with friends or family?: once per week How often do you get together with friends or relatives?: twice per week Do you belong to any clubs or organized social groups?: no Panel score (0-1 are the most socially isolated patients): 2 What type of physical activity do you participate in: other Details: active daily Masha/Sabianism: Nondenominational Seatbelt use: always Helmet use: Yes Helmet use: always Drive intox or ride w/intox package delivery driver: No Working smoke detector in home: Yes Fire extinguisher in home: Yes Carbon monox detector in home: Yes Firearms in home: No Do you feel safe at home: Yes Do you feel safe in your relationship?: Yes Victim of physical abuse: No Victim of emotional abuse: No Victim of sexual abuse: No Would you like helpful sources: No
--- NOTE | 2024-06-02 09:53 | PT.INIE ---
Date of service: 06/02/24 Time of Service: 09:30 PT Notes Visit Reasons: Severe sepsis,CAP,hypoxic resp. failure.SIMONA,hyperl Inpatient Physical Therapy Evaluation I certify the need for these services as being medically necessary and skilled as furnished under this plan of treatment while under my care. Please sign and return within 14 days if you agree with the plan of care listed below.? Thank you for this referral! ? Referring Physician? Date Referring Doctor:? Yakelin Maynard PT Orders: PT CONSULT for safety consult for d/c Precautions: O2 sat, balance Patient Profile/Admitting Diagnosis:? The patient is a 79 yo male adm on 06/01/24 for Severe sepsis, Community acquired pneumonia of right lung, Acute kidney injury, Acute hypoxic respiratory failure, Pleural effusion, right, Hyperlactatemia and Microcytic anemia. Past Medical History: All Active Problems (Updated 06/01/24 @ 19:31 by Yakelin Maynard, TEMPLATE STORAGE CLERK) Severe sepsis (Acute) Pleural effusion, right (Acute) Discharge planning issues (Acute) On deep vein thrombosis (DVT) prophylaxis (Acute) Hyperlactatemia (Acute) Acute kidney injury (Acute) Microcytic anemia (Acute) Acute lactic acidosis (Acute) Acute hypoxic respiratory failure (Acute) Community acquired pneumonia of right lung (Acute) Nocturia (Acute) Wheeze (Acute) Screening for colon cancer (Acute) Actinic keratoses (Acute) Chronic kidney disease (Chronic) Erectile dysfunction (Acute) Postnasal drip (Acute ~12/2020) Chronic rhinitis (Acute ~12/2020) Esophagitis determined by biopsy (Acute ~06/2020) [facility] [place] GI-endoscopy doneAspiration pneumonia (Acute) Hematuria (Acute) Aortic stenosis (Chronic) Chronic diarrhea (Acute) Abnormal auditory perception (Acute) Impacted cerumen of both ears (Acute) Sensorineural hearing loss of both ears (Acute) S/P carotid endarterectomy (Acute) Depressive disorder (Chronic 06/30/11) Pain of right upper extremity (Acute 03/20/15) Primary malignant neoplasm of esophagus (Acute 04/27/00) Vasomotor rhinitis (Acute) Asymptomatic bilateral carotid artery stenosis (Acute) 09/13/18 [facility] Dr Henry Null, Vascular SurgeryCoronary artery disease involving coronary bypass graft of [place] heart (Chronic) Urinary retention (Chronic 04/29/16) Retinal detachment (Chronic 03/10/14) R managed by Dr Iraheta at [facility] Pure hypercholesterolemia (Chronic 06/30/11) goal LDL<70 due to CAD (no ischemia but presumed cause of abnl MPI 08/2011) Personal history of TIA (transient ischemic attack) (Chronic 02/06/15) R paresthesias; TIA vs Migraine, Drs. Palmer/ Latoya: vasc eval, medical therapy, statin/Plavix; finally L carotid endarterectomy 04/19/16 [facility]; F/U 11/2016 Iron deficiency anemia (Chronic 04/17/12) 2006, 2008, 301; LAST GI W/U 2008 NEG X ADENOMA, TICS, EGD NEG [facility] 04/2013; chronic microcytosis 2000 Elevated prostate specific antigen (PSA) (Chronic 06/30/11) h/o bx 2009; Dr Tripp 08/2010: consider up to 11 normal for him Carotid disease, bilateral (Chronic 01/25/16) [facility] 50% L int carotid; Dr Mauro: f/u 1 yr with Duplex [facility] 09/18/17 Duplex shows a patent L CEA site, but some progressionon RIght, F/U in 6m with plan for duplex both carotoids. (Dr Null [facility] Vascular) Atherosclerosis of [place] coronary artery of [place] heart without angina pectoris (Chronic 04/10/06) silent ant [place] by MPI 2006; ECHO 06/2007: EF 63%, NO WMA; MPI 08/2011 NEG ISCHEMIA, EF 50%; ANTSEPT HYPOKIN; ASA & beta hood started 2006; aspirin stopped 01/2016 due to gastric ulcer Surgical History S/P CABG x 3 (~06/04/18) H/O cardiac catheterization (05/22/18) [facility] Dr Guillaumespartial esophagotomy (04/28/00) Dr Ibanez; [place] Esophagogastrectomy and feeding jejunostomyEGD - IV Sedation (12/22/15) Colonoscopy - IV Sedation (03/10/14[place] [facility] [place] also EGDExtraction of cataract (09/25/14) right eye with lens implant Dr. AdkinstCarotid endarterectomy (04/19/16) Left, [facility], Dr. Null for asymptomatic carotid stenosis Former Tobacco Use tobacco type: cigarettes Quit Date: 10/08/88 Pack-years: 20 Medications: See chart Social History/Home Situation: normally lives in [facility] [place] [facility] with his and a 97 yo woman for whom they provide care. Their [facility] Normally independent and active. 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 Does not have any equipment at home, stating I never had use for it. Has two pugs at home Subjective: Reports he enjoys driving for [employer] Objective: Upon arrival: 90/57 92% on 1L 90 bpm. Was on 4L/min in the ED upon arrival 90-91% on 1L with bed ther ex 102/62 90 bpm sitting at EOB: 92% on 1L 96/62 89 bpm standing with walker with 02 dropping to 84% and not improving with cuing for breathing so returned to supine. Mental Status: Patient is alert and oriented. Pain: no c/o pain Vital Signs: see above ROM/Strength: Upper extremities: WFL Lower extremities:WFL Sensation: No c/o numbness or tingling Soft tissue/edema: No gross abnormalities observed Bed Mobility: Supine to sit independently. sit to supine independently. Transfers: Sit to/from stand close supervision Gait: not performed secondary to 02 sat drop Balance: fair in standing [facility] AM-PAC 6 clicks Basic Mobility Inpatient Short Form: Raw Score:?13? CMS Score:64.91% Informed Consent/Education:? Patient instructed in purpose of PT consult and plan of care and is agreeable Assessment:? Patient is a? 79 yo male adm on 06/01/24 for Severe sepsis, Community acquired pneumonia of right lung, Acute kidney injury, Acute hypoxic respiratory failure, Pleural effusion, right, Hyperlactatemia and Microcytic anemia.? Patient presents with decreased strength, decreased functional mobility, decreased balance and difficulty with ambulation and is requiring O2. The patient would benefit from skilled inpatient services to improve these impairments to maximize function and safety. Patient is assessed as:? Low 58625?? History: age Examination: see above Presentation: Stable and uncomplicated? Decision Making:? Low (0 history, 1-2 exam, stable/predictable, easy 20) Physical Therapy Goals: 1 week Able to get in/out of bed independently on RA Able to perform sit to/from stand independently on RA Able to walk 200 feet independently on RA Able to go up and down 2-3 steps with 1 rail independently on RA Independent with home exercise program Plan of Care/Treatment Plan: 1-2x/day, 7 days/week x 1 week. Plan of care has been reviewed with the JAVA INTEGRATION DEVELOPER providing the service under Physical Therapy direction. Initiate Physical Therapy intervention for strengthening, bed mobility, transfers, gait, stairs, balance training, use of assistive device. DISCHARGE RECOMMENDATIONS: expect home without services Informed consent Prior to the start and throughout the course of the examination and treatment, patient was made aware of the specifics and purpose of the physical assessment and treatment procedures. Appropriate draping procedures were utilized to protect modesty where applicable. Billing Charges: Treatment Units Time Duration Manual Therapy(38602) Hands-on techniques to modulate pain increase joint range of motion reduce or eliminate soft tissue swelling, inflammation, or restriction facilitate relaxation and improve contractile and non-contractile tissue extensibility ? ? Therapeutic Procedures (96783) Instruction in therapeutic exercises to develop strength and endurance, range of motion and flexibility. HEP instruction and review: Provided skilled instruction in proper exercise performance: Provided skilled manual cues to facilitate proper muscle recruitment and/or movement pattern Neurological Re-Education(61228) To improve balance, coordination, kinesthetic and proprioceptive sensations. ? ? Ultrasound(82467) To promote healing. ? ? Gait Training(84889) ? ? Therapeutic Activity(97748) Instruction in dynamic activities with one on one patient contact by the provider to improve functional performance as follows: 1 ? 12 ? Self Care Training(00569) ? ? E-Stim (Attended)(79721) ? ? Low IE(08258) 1 11 Mod IE(50780) ? ? High IE(99242) ? ? Time Coded Treatment Time ? Total Treatment Time ? 23
[2024-06-02] MEDS: DOXYCYCLINE 100 MG in Normal Saline 100 ML IVPB ×2 (10:15→21:31)
[2024-06-02] MEDS: Normal Saline Flush 10 ML SYR ×2 (11:36→23:13)
[2024-06-02] MEDS: IRON SUCROSE COMPLEX 300 MG in Normal Saline 250 ML 167 MG IVPB (12:18)
--- NOTE | 2024-06-02 14:05 | PGE_ITS ---
Date of Service Date of service: 06/02/24 Time of Service: 14:05 Assessment and Plan Assessment and plan (1) Severe sepsis: Status: Resolved Assessment and plan: Presented with tachycardia with heart rate above 90 and tachypnea with respiratory rate above 20 with probable pulmonary source. Lactic acid normalized with IV resuscitation Organ dysfunction as per SIMONA with creatinine up to 1.9 with an increase over 0.3 from baseline Now hemodynamically stable and responding to treatment (2) Community acquired pneumonia of right lung: Status: Acute Assessment and plan: Continue doxycycline and ceftriaxone day 2 of 5 ProCal 7.5, blood cultures pending Continue oxygen and wean as tolerated for sat 92% and above Mucinex, incentive spirometry , Acapella Received dexamethasone IV x 1 no further steroids at this time (3) Acute kidney injury: Status: Acute Assessment and plan: 1 L of crystalloid received in the ED creatinine at 1.9 with baseline around 1 .1?1.2, now down to 1.6 Avoid nephrotoxic drugs and renally dose as needed Will continue with with gentle IV hydration at 50 cc an hour for 1 more day BMP in a.m. (4) Acute hypoxic respiratory failure: Status: Acute Assessment and plan: Due to pneumonia Was hypoxic on arrival with supplementation at 4 L to maintain sat above 90%, now down to 1 L nasal cannula Wean O2 as tolerated (5) Pleural effusion, right: Status: Acute Assessment and plan: Will continue to monitor and consider IV furosemide if size of the effusion increases. (6) Microcytic anemia: Status: Acute Assessment and plan: Anemia appears chronic over the years, states he was on iron supplementation but that has been discontinued Labs show iron deficiency Started on iron IV supplementation 300 mg IV x 1 and oral 325 mg daily (7) On deep vein thrombosis (DVT) prophylaxis: Status: Acute Assessment and plan: On Lovenox (8) Discharge planning issues: Status: Acute Assessment and plan: CM to follow for further needs Discussed with Dr. Borjas Subjective Subjective Patient reports: no new complaints, tolerating liquids well, tolerating a regular diet, shortness of breath (Still short of breath with activity. Oxygen has been weaning down from 4 L now to 1 L nasal cannula) and afebrile Exam Narrative Exam Narrative: Thin male of stated age in no acute distress sitting up in the Rajani chair neurologic awake alert oriented no focal deficits psychiatric appropriate mood and affect head is atraumatic eyes nonicteric noninjected oral mucosas slightly dry neck full range of motion no JVD no meningeal signs cardiovascular regular rate and rhythm respirations even and unlabored in the bases scattered coarse throughout abdomen soft extremities without edema moves all extremities Objective Last Vital Signs Temp 36.7 C 06/02/24 11:12 Pulse 89 06/02/24 11:12 Resp 14 06/02/24 11:12 BP 92/65 L 06/02/24 11:12 Pulse Ox 93 06/02/24 11:12 Laboratory Results - last 24 hr 06/01/24 06/02/24 06/02/24 18:00 07:00 07:00 WBC 14.66 H RBC 4.65 Hgb 9.0 L Hct 31.0 L MCV 67 L MCH 19.4 L MCHC 29.0 L RDW 18.6 H Plt Count 236 MPV 9.9 Immature Gran % 1.6 Neutrophils % 92.8 Lymphocytes % 1.4 Monocytes % 3.0 Eosinophils % 1.2 Basophils % 0.0 Nucleated RBC % 0.1 Absolute Neutrophils 13.60 H Absolute Lymphocytes 0.21 L Absolute Monocytes 0.44 Absolute Eosinophils 0.18 Absolute Basophils 0.00 RBC Morphology See Below Microcytosis 2+ VBG Lactate 1.9 Sodium 138 Potassium 4.8 Chloride 104 Carbon Dioxide 24.8 Anion Gap 9.2 BUN 52 H Creatinine 1.6 H Est GFR (CKD-EPI 2020) 43.56 Glucose 113 H Calcium 9.0 Iron 5 L TIBC 154 L Transferrin % Sat 3 L Ferritin 279 Vitamin B12 1770 H Cancelled Folate 2.9 L MRSA (TEM-PCR) Negative Time Spent with Patient Time Spent with Patient: 35-49 minutes Time was spent: preparing to see the patient(eg.review tests), obtaining and/or reviewing separately otained hiistory, ordering medications,tests, procedures, indepentently interpreting results and counseling the patient
[2024-06-02] MEDS: Enoxaparin 30 MG/0.3 ML SYR SC (14:15)
[2024-06-02] MEDS: Lactated Ringers 1,000 ML 50 ML IV (16:01)
[2024-06-02] MEDS: Atorvastatin 40 MG TAB 80 MG PO (19:53)
[2024-06-03] VITALS (10 sets, daily range): BP systolic 105–133; BP diastolic 55–88; PULSE 78–107; RESP 3–19; TEMP 36.2–36.8; O2SAT 88–97
[2024-06-03 06:37] LABS: Abs Immature Grans 0.41 10^3/uL (0.0-0.06); Absolute Basophil Count 0.05 10^3/uL (0.0-0.2); Absolute Lymphocyte Count 0.27 10^3/uL (1.2-3.4); Absolute Monocyte Count 0.56 10^3/uL (0.1-0.8); Basophils % 0.3 %; Eosinophils % 0.4 %; HGB 8.5 g/dL (13.5-17.5); Immature Grans % 2.6 %; Lymphocytes % 1.7 %; MCH 19.6 pg (27.0-33.0); MCHC 29.3 % (32.0-36.0); MCV 67 fL (80-95); MPV 9.8 fL (8.0-11.0); Monocytes % 3.6 %; Neutrophils % 91.4 %; Platelet Count 236 10^3/uL (130-400); RBC 4.33 10^6/uL (4.36-5.78); RDW 17.9 % (11.8-14.1); RDW-SD 42.7 fL; WBC 15.67 10^3/uL (4.4-10.8)
[2024-06-03 06:43] LABS: Absolute Eosinophil Count 0.06 10^3/uL (0.0-0.7); Absolute Neutrophil Count 14.32 10^3/uL (1.2-6.7)
[2024-06-03 06:56] LABS: Diff Comment RBC Morph Reviewed; Microcytosis 2+
[2024-06-03 07:01] LABS: Anion Gap 10.8 mmol/L (3-11); BUN 61 mg/dL (7-18); CO2 22.2 mmol/L (21.0-32.0); CREATININE 1.6 mg/dL (0.70-1.30); Calcium 8.4 mg/dL (8.5-10.1); Chloride 102 mmol/L (98-107); Estimated GFR 43.56 (mL/min/1.73m2); Glucose 96 mg/dL (74-106); Sodium 135 mmol/L (136-145)
--- NOTE | 2024-06-03 08:52 | PDOC.CMPRO ---
Date of service: 06/03/24 Time of Service: 08:52 Care Management Progress Note Progress Note Text Progress Note Text: Donnie was sitting up in a chair when CM met with him. When asked how he is feeling, Donnie made a wry face and said his breathing is really bad. He again admitted that he had waited too long to get medical care when he was sick. Earlier in the day he was on 4 L/min of nasal O2 but was able to be weaned down to 1.5 L/min. Unfortunately, before very long, he became short of breath again and RT put him back up to 3.5 L/min. Donnie talked about the fact that he feels that he and his need to slow down a bit. 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 He shared that they have been told that she has been admitted to hospice but they have not been given any additional resources to help support her and her care. CM encouraged Donnie and/or Quiana his to contact her correctional case manager to clarify her status and ask about additional help in the home. CM was unable to address his concerns directly with the agency due to HIPAA laws. Donnie is an [facility] patient currently however his client is not. Discharge Potential Discharge Needs: PCP F/U Appt Anticipated Barriers to Discharge: None Identified Patient/Family Education Needs: Review discharge instructions, discuss Ask Me Three Transportation: Private vehicle Plan: Anticipate Donnie will be discharged home when medically cleared by provider. He will follow up with his PCP and plan of care and transport with family. CM will follow and continue to support discharge planning efforts. Social Determinants of Health Screening Social Determinants of Health last assessed: 06/03/24 Will the Patient Participate in the Screening?: Yes Do you worry about having a steady place to live?: no Problems where you live: no known problems In the past 12 months, have you had to go without electric, gas, oil or water in your home?: no Have you or anyone in your house had to go without enough food to eat?: no Has lack of transportation kept you from medical appointments or from doing things needed for daily living?: no Has anyone in your life made you feel unsafe or unsupported?: no How hard is it for you to pay for the very basics like food, housing, medical care, and heating? Would you say it is:: Not hard at all Do you want help finding or keeping work or a job?: I do not need or want help If for any reason you need help with day-to-day activities such as bathing, preparing meals, shopping, managing finances, etc., do you get the help you need?: I get all the help I need How often do you feel lonely or isolated from those around you?: Never Do you speak a language other than Spanish at home?: No
[2024-06-03] MEDS: Albuterol/Ipratropium 3 ML UPD VIAL UPD (08:57)
[2024-06-03] MEDS: cefTRIAXone 2 GM/50 ML BAG IVPB (09:29)
[2024-06-03] MEDS: Aspirin E.C. 81 MG TABEC PO (09:30)
[2024-06-03] MEDS: guaiFENesin 600 MG TABCR PO ×2 (09:30→20:23)
[2024-06-03] MEDS: Lactobacillus Acidophilus CAP 1 CAP PO ×3 (09:30→20:23)
[2024-06-03] MEDS: Multivitamin TAB 1 TAB PO (09:30)
[2024-06-03] MEDS: Docusate Sodium 100 MG CAP PO (09:30)
[2024-06-03] MEDS: Pantoprazole 20 MG TABCR PO ×2 (09:30→20:23)
[2024-06-03] MEDS: Ferrous Sulfate 325 MG TAB PO (09:30)
[2024-06-03] MEDS: Metoprolol 25 MG TAB PO ×2 (09:30→20:24)
[2024-06-03] MEDS: DOXYCYCLINE 100 MG in Normal Saline 100 ML IVPB ×2 (12:50→21:39)
[2024-06-03] MEDS: Acetaminophen 500 MG TAB 1000 MG PO ×2 (12:50→20:23)
[2024-06-03] MEDS: Normal Saline Flush 10 ML SYR ×2 (12:51→20:24)
--- NOTE | 2024-06-03 15:40 | PTTR_ITS ---
PT Notes Visit Reasons: Severe sepsis,CAP,hypoxic resp. failure.SIMONA,hyperl Inpatient Physical Therapy Treatment Note [facility] Date: 06/03/2024 PRECAUTIONS:continuous oxygen ( currently 3L/Min via NC) SUBJECTIVE: Pt reports he is sick of being a pincushion . He states they have not been able to get an IV working. OBJECTIVE: ? PAIN: denies VITALS: ?1st session:?Pre-Treatment:93% on 3L/Min via NC during amb: 86% on 3L/Min via NC ? Post-Treatment: 93%? on 3L/Min via NC ?2nd session:?Pre-Treatment:93% on 3L/Min via NC during amb: 88% on 3L/Min via NC ? Post-Treatment: 93%? on 3L/Min via NC Therapeutic Activities (22206): Direct one-on-one instruction in dynamic activities to improve functional performance. ?? Provided skilled cues and instruction on performance and technique throughout. Patient education regarding pacing and breathing techniques to maximize activity tolerance ? BED MOBILITY/TRANSFERS? Rolling L/R: Independent Supine-sit: independent ? Sit-supine: independent ? Sit-stand: SBA? Stand-sit: SBA ? Bed-Chair: SBA with FWW cues for tubing management? Chair-bed: SBA with FWW cues for tubing management? Facilitated safe and correct performance of level surface ambulation covering a distance of 25 feet x 2 in 1st session and 30 feet x1 2nd session using use front wheeled walker with contact-guard assist and wheelchair follow for safety. Did not report of any increased pain. Denied headache, chest pain, and lightheadedness throughout activity. Minimal verbal cueing provided for AD management, directional changes, and posture.? ASSESSMENT:? Pt with fair tolerance to session. He notes being frustrated and tired by attempts to get IV access. In the first session pt with very productive cough with ability to expectorate sputum into emisis bag. Pt limited ambulation d/t cough with expectorating. During the 2nd session, session shortened by need for Nurse to attempt IV access. Pt tolerated OOB to chair for 3 hours today. Pt continues to desat with mobility despite 3 L/Min via NC. Pt with poor pacing breath control during functional tasks/ambulation. PLAN: 1-2x/day, 7 days/week x 1 week. Plan of care has been reviewed with the GRAIN DRIER OPERATOR providing the service under Physical Therapy direction. Initiate Physical Therapy intervention for strengthening, bed mobility, transfers, gait, stairs, balance training, use of assistive device. TREATMENT CODE/TIME: 1st session: 41500 /[id number] 2nd Session: 17899/ [id number] DISCHARGE RECOMMENDATION: [facility]PT with [facility] vs SNF
[2024-06-03] MEDS: Enoxaparin 30 MG/0.3 ML SYR SC (15:44)
[2024-06-03] MEDS: Lactated Ringers 1,000 ML 50 ML IV (19:42)
--- NOTE | 2024-06-03 19:42 | PGE_ITS ---
Date of Service Date of service: 06/03/24 Time of Service: 13:00 Assessment and Plan Assessment and plan (1) Severe sepsis: Status: Resolved Assessment and plan: Presented with tachycardia with heart rate above 90 and tachypnea with respiratory rate above 20 with probable pulmonary source. Lactic acid normalized with IV resuscitation Cr back to baseline 1.6 Continues to be hemodynamically stable and responding to treatment Lost IV access - midline placed (2) Community acquired pneumonia of right lung: Status: Acute Assessment and plan: Continue doxycycline and ceftriaxone day 3 of 5 ProCal 7.5, blood cultures gr neg cocco bacillus ( no change in abx ) sens itivity pending Continue oxygen and wean as tolerated for sat 92% and above Mucinex, incentive spirometry , Acapella Solu medrol 60 mg q8h (3) Acute kidney injury: Status: Acute Assessment and plan: Down to 1.6 Avoid nephrotoxic drugs and renally dose as needed Will continue with with gentle IV hydration at 50 cc an hour BMP in a.m. (4) Acute hypoxic respiratory failure: Status: Acute Assessment and plan: Due to pneumonia Was hypoxic on arrival with supplementation at 4 L to maintain sat above 90%, now down to 1 L nasal cannula Wean O2 as tolerated (5) Pleural effusion, right: Status: Acute Assessment and plan: Will continue to monitor and consider IV furosemide if size of the effusion increases. (6) Microcytic anemia: Status: Acute Assessment and plan: Anemia appears chronic over the years, states he was on iron supplementation but that has been discontinued Labs show iron deficiency Started on iron IV supplementation 300 mg IV x 1 and oral 325 mg daily (7) On deep vein thrombosis (DVT) prophylaxis: Status: Acute Assessment and plan: On Lovenox (8) Discharge planning issues: Status: Acute Assessment and plan: CM to follow for further needs Discussed with Dr. Holloway Subjective Subjective Patient reports: no new complaints, tolerating liquids well, tolerating a regular diet, voiding w/o difficulty, bowel movement and afebrile; denies flatus, diarrhea, nausea or vomiting Interval history since last seen: Boni reports poor appetite, states he is feeling poorly, but better than yesterday. Daughter in the room visiting. Exam Narrative Exam Narrative: * General: Elderly male of stated age, no acute distress. * Head: Atraumatic. * Eyes: Non-icteric, non-injected. * Oral Mucosa: Moist. * Neck: Supple, full range of motion, no jugular venous distention . * Respiratory: Even and unlabored respirations, no rales, no wheezing. * Cardiovascular: Regular rate and rhythm. * Abdomen: Benign. * Extremities: No edema, moves all extremities. * Neurologic: Awake, alert, oriented, no focal deficits. * Psychiatric: Appropriate mood and affect. * Skin: No rashes or lesions. Objective Last Vital Signs Temp 36.6 C 06/03/24 19:37 Pulse 95 H 06/03/24 19:37 Resp 19 06/03/24 19:37 BP 112/88 06/03/24 19:37 Pulse Ox 92 06/03/24 19:37 Laboratory Results - last 24 hr 06/03/24 06:25 WBC 15.67 H RBC 4.33 L Hgb 8.5 L Hct 29.0 L MCV 67 L MCH 19.6 L MCHC 29.3 L RDW 17.9 H Plt Count 236 MPV 9.8 Immature Gran % 2.6 Neutrophils % 91.4 Lymphocytes % 1.7 Monocytes % 3.6 Eosinophils % 0.4 Basophils % 0.3 Nucleated RBC % 0.0 Absolute Neutrophils 14.32 H Absolute Lymphocytes 0.27 L Absolute Monocytes 0.56 Absolute Eosinophils 0.06 Absolute Basophils 0.05 RBC Morphology See Below Microcytosis 2+ Sodium 135 L Potassium 4.0 Chloride 102 Carbon Dioxide 22.2 Anion Gap 10.8 BUN 61 H Creatinine 1.6 H Est GFR (CKD-EPI 2020) 43.56 Glucose 96 Calcium 8.4 L Time Spent with Patient Time Spent with Patient: 25-34 minutes Time was spent: preparing to see the patient(eg.review tests), ordering medications,tests, procedures, referring, communicating with other health assisted living care manager, indepentently interpreting results, counseling the patient and care coordination
[2024-06-03] MEDS: methylPREDNISolone SUCC 125 MG VIAL 60 MG IVP (20:22)
[2024-06-03] MEDS: Atorvastatin 40 MG TAB 80 MG PO (20:24)
[2024-06-04] MEDS: methylPREDNISolone SUCC 125 MG VIAL 60 MG IVP ×2 (02:18→11:06)
[2024-06-04 03:29] VITALS: BP 125/69; PULSE 82; RESP 19; TEMP 36.2; O2SAT 97
[2024-06-04 07:05] LABS: Abs Immature Grans 0.33 10^3/uL (0.0-0.06); Absolute Basophil Count 0.02 10^3/uL (0.0-0.2); Absolute Lymphocyte Count 0.13 10^3/uL (1.2-3.4); Absolute Monocyte Count 0.16 10^3/uL (0.1-0.8); Absolute Neutrophil Count 7.46 10^3/uL (1.2-6.7); Basophils % 0.2 %; HCT 23.8 % (40.0-50.0); HGB 7.1 g/dL (13.5-17.5); Immature Grans % 4.1 %; Lymphocytes % 1.6 %; MCH 19.8 pg (27.0-33.0); MCHC 29.8 % (32.0-36.0); MCV 66 fL (80-95); MPV 9.3 fL (8.0-11.0); Neutrophils % 92.1 %; Platelet Count 189 10^3/uL (130-400); RBC 3.59 10^6/uL (4.36-5.78); RDW 18.4 % (11.8-14.1); RDW-SD 43.4 fL
[2024-06-04 07:35] LABS: BUN 43 mg/dL (7-18); C-Reactive Protein 12.29 mg/dL (<or=0.5); CREATININE 1.3 mg/dL (0.70-1.30); Calcium 8.5 mg/dL (8.5-10.1); Chloride 107 mmol/L (98-107); Estimated GFR 55.88 (mL/min/1.73m2); Glucose 116 mg/dL (74-106); Magnesium 2.4 mg/dL (1.8-2.4); Potassium 4.1 mmol/L (3.5-5.1); Sodium 139 mmol/L (136-145)
[2024-06-04 07:39] LABS: Diff Comment RBC Morph Reviewed
[2024-06-04 07:40] LABS: Microcytosis 1+
[2024-06-04] MEDS: Normal Saline Flush 10 ML SYR ×3 (09:36→14:02)
[2024-06-04] MEDS: Metoprolol 25 MG TAB PO ×2 (09:37→19:44)
[2024-06-04] MEDS: Lactobacillus Acidophilus CAP 1 CAP PO ×3 (09:37→19:45)
[2024-06-04] MEDS: Pantoprazole 20 MG TABCR PO ×2 (09:37→19:45)
[2024-06-04] MEDS: Aspirin E.C. 81 MG TABEC PO (09:37)
[2024-06-04] MEDS: Docusate Sodium 100 MG CAP PO (09:37)
[2024-06-04] MEDS: guaiFENesin 600 MG TABCR PO ×2 (09:37→19:45)
[2024-06-04] MEDS: cefTRIAXone 2 GM/50 ML BAG IVPB (09:37)
[2024-06-04] MEDS: Ferrous Sulfate 325 MG TAB PO (09:38)
[2024-06-04] MEDS: Multivitamin TAB 1 TAB PO (09:38)
[2024-06-04 09:49] VITALS: O2SAT 95
--- NOTE | 2024-06-04 09:50 | CMPROGNOTE_ITS ---
Date of service: 06/04/24 Time of Service: 09:50 Care Management Progress Note Progress Note Text Progress Note Text: Boni was sitting up in bed when CM met with him; he is pleasant and easily engages in conversation after he puts his hearing aids in. He is admitted for acute hypoxia with respiratory failure and on supplemental O2, IV ABX, Steroids and nebulizer treatments. Per pt, he's been coughing and hacking since April and feels he waited to far too long to be seen by a doctor. Boni denies concerns and feels he is getting wonderful care. Discharge Potential Discharge Needs: PCP F/U Appt Anticipated Barriers to Discharge: None Identified Patient/Family Education Needs: Review discharge instructions, discuss Ask Me Three Transportation: Private vehicle Plan: Anticipate Donnie will be discharged home when medically cleared by provider. He is agreeable to new [facility]. He will follow up with his PCP and plan of care and transport with family. CM will follow and continue to support discharge planning efforts. Social Determinants of Health Screening Social Determinants of Health last assessed: 06/04/24 Will the Patient Participate in the Screening?: Yes Do you worry about having a steady place to live?: no Problems where you live: no known problems In the past 12 months, have you had to go without electric, gas, oil or water in your home?: no Have you or anyone in your house had to go without enough food to eat?: no Has lack of transportation kept you from medical appointments or from doing things needed for daily living?: no Has anyone in your life made you feel unsafe or unsupported?: no How hard is it for you to pay for the very basics like food, housing, medical care, and heating? Would you say it is:: Not hard at all Do you want help finding or keeping work or a job?: I do not need or want help If for any reason you need help with day-to-day activities such as bathing, preparing meals, shopping, managing finances, etc., do you get the help you need?: I get all the help I need How often do you feel lonely or isolated from those around you?: Never Do you speak a language other than Swedish at home?: No
[2024-06-04 10:58] LABS: Transferrin 129 mg/dL (201-352)
[2024-06-04 11:01] LABS: HCT 23.9 % (40.0-50.0); HGB 7.1 g/dL (13.5-17.5)
[2024-06-04] MEDS: DOXYCYCLINE 100 MG in Normal Saline 100 ML IVPB ×2 (11:07→21:57)
[2024-06-04 11:30] VITALS: BP 134/84; PULSE 81; RESP 18; TEMP 36.8; O2SAT 93
[2024-06-04] MEDS: Acetaminophen 500 MG TAB 1000 MG PO ×2 (11:43→19:45)
--- NOTE | 2024-06-04 12:45 | PTTR_ITS ---
PT Notes Visit Reasons: Severe sepsis,CAP,hypoxic resp. failure.SIMONA,hyperl Inpatient Physical Therapy Treatment Note [facility] Date: 06/04/2024 PRECAUTIONS:continuous oxygen ( currently 3L/Min via NC) SUBJECTIVE:Pt reports he is feeling much better today and is looking forward to walking. OBJECTIVE: Pt presented upright in bed with central line/IV access Right upper arm. Pt on 3.5 L/min reduced to 2 L/min by Nurse at start of session.?IV ABx infusing PM: pt placed back on 3L/min by Nurse ? PAIN: denies VITALS: ?1st session:?Pre-Treatment:98% on 3.5L/Min via NC during amb: 91% on 2L/Min via NC ? Post-Treatment: 94%? on 2L/Min via NC ?2nd session:?Pre-Treatment:97% on 3L/Min via NC during amb: 95% on 3L/Min via NC ? Post-Treatment: 97%? on 3L/Min via NC Therapeutic Activities (47881): Direct one-on-one instruction in dynamic activities to improve functional performance. ?? Provided skilled cues and instruction on performance and technique throughout. Patient education regarding pacing and breathing techniques to maximize activity tolerance ? BED MOBILITY/TRANSFERS?(am/pm) ? Rolling L/R: Independent Supine-sit: independent ? Sit-supine: independent ? Sit-stand: SBA? Stand-sit: SBA ? Bed-Chair: SBA with FWW cues for tubing management? Chair-bed: SBA with FWW cues for tubing management? (am)Facilitated safe and correct performance of level surface ambulation covering a distance of 125 feet x 2 in using use front wheeled walker withSBA and wheelchair follow for safety. Did not report of any increased pain. Denied headache, chest pain, and lightheadedness throughout activity. Minimal verbal cueing provided for AD management, directional changes, and posture.? (pm) Facilitated safe and correct performance of level surface ambulation covering a distance of 25 feet x 2 in room using use front wheeled walker with SBA . Did not report of any increased pain. Denied headache, chest pain, and lightheadedness throughout activity. Minimal verbal cueing provided for AD management, directional changes, and posture.? ASSESSMENT:? Pt with fair tolerance to session. Initially upon sitting at EOB pt with copious amounts of expectorating whittish yellow secretions/sputum while coughing. Pt tolerated reduction in oxygen from 3.5 to 2L/min well with ability to sustain saturation >91% . He was able to perform ambulation with FWW to as sist in pacing and breath control to increase functional activity tolerance. Pt noted he was tired after walking that far for the first time. Pt with poor pacing breath control during functional tasks/ambulation Pt resistant to take standing rests for pacing. (pm) pt declined to perform ambulation outside his room he reported being tired. and had just returned to bed from using bathroom. Pt returned to 3L/Min oxygen and sustained sats 95% or greater PLAN: 1-2x/day, 7 days/week x 1 week. Plan of care has been reviewed with the PROVIDER RELATIONS COORDINATOR providing the service under Physical Therapy direction. Initiate Physical Therapy intervention for strengthening, bed mobility, transfers, gait, stairs, balance training, use of assistive device. TREATMENT CODE/TIME: 1st session: 02813 /[id number] 2nd Session: 16006/ [id number] DISCHARGE RECOMMENDATION: [facility]PT with [facility]
[2024-06-04] MEDS: IRON SUCROSE COMPLEX 300 MG in Normal Saline 250 ML 167 MG IVPB (14:02)
[2024-06-04 14:44] VITALS: BP 129/76; PULSE 82; RESP 18; TEMP 36.8; O2SAT 95
--- NOTE | 2024-06-04 14:46 | PGE_ITS ---
Date of Service Date of service: 06/04/24 Time of Service: 14:46 Assessment and Plan Assessment and plan (1) Severe sepsis: Status: Resolved Assessment and plan: Cr 1.3 Continues to be hemodynamically stable and responding to treatment Midline in place (2) Community acquired pneumonia of right lung: Status: Acute Assessment and plan: Continue doxycycline and ceftriaxone day 4 of 5 ProCal 7.5, blood cultures gr neg cocco bacillus ( no change in abx ) sensitivit y pending Continue oxygen and wean as tolerated for sat 92% and above Mucinex, incentive spirometry , Acapella Oral prednisone (3) Acute kidney injury: Status: Resolved Assessment and plan: Down to 1.3 Avoid nephrotoxic drugs and renally dose as needed Will continue with with gentle IV hydration at 50 cc an hour BMP in a.m. (4) Acute hypoxic respiratory failure: Status: Acute Assessment and plan: Due to pneumonia Was hypoxic on arrival with supplementation at 4 L to maintain sat above 90%, now down to 1 L nasal cannula Wean O2 as tolerated (5) Pleural effusion, right: Status: Resolved (6) Microcytic anemia: Status: Acute Assessment and plan: Anemia appears chronic over the years, states he was on iron supplementation but that has been discontinued Labs show iron deficiency Started on iron IV supplementation 300 mg IV x 1, will repeat venofer tomorrow hgb 7.1 and continue oral 325 mg daily (7) On deep vein thrombosis (DVT) prophylaxis: Status: Acute Assessment and plan: On Lovenox (8) Discharge planning issues: Status: Acute Assessment and plan: CM to follow for further needs Discussed with Dr. Holloway Subjective Subjective Patient reports: no new complaints, tolerating liquids well, tolerating a regular diet, voiding w/o difficulty, bowel movement and afebrile; denies flatus, diarrhea, nausea or vomiting Interval history since last seen: Boni states that he is feeling better today and has no complaints. Exam Narrative Exam Narrative: * General: Elderly male of stated age, no acute distress. * Head: Atraumatic. * Eyes: Non-icteric, non-injected. * Oral Mucosa: Moist. * Neck: Supple, full range of motion, no jugular venous distention . * Respiratory: Even and unlabored respirations, no rales, no wheezing. * Cardiovascular: Regular rate and rhythm. * Abdomen: Benign. * Extremities: No edema, moves all extremities. * Neurologic: Awake, alert, oriented, no focal deficits. * Psychiatric: Appropriate mood and affect. * Skin: No rashes or lesions. Objective Last Vital Signs Temp 36.8 C 06/04/24 14:44 Pulse 82 06/04/24 14:44 Resp 18 06/04/24 14:44 BP 129/76 06/04/24 14:44 Pulse Ox 95 06/04/24 14:44 Laboratory Results - last 24 hr 06/02/24 06/04/24 06/04/24 07:00 06:20 10:40 WBC 8.10 RBC 3.59 L Hgb 7.1 L 7.1 L Hct 23.8 L 23.9 L MCV 66 L MCH 19.8 L MCHC 29.8 L RDW 18.4 H Plt Count 189 MPV 9.3 Immature Gran % 4.1 Neutrophils % 92.1 Lymphocytes % 1.6 Monocytes % 2.0 Eosinophils % 0.0 Basophils % 0.2 Nucleated RBC % 0.0 Absolute Neutrophils 7.46 H Absolute Lymphocytes 0.13 L Absolute Monocytes 0.16 Absolute Eosinophils 0.00 Absolute Basophils 0.02 RBC Morphology See Below Microcytosis 1+ Sodium 139 Potassium 4.1 Chloride 107 Carbon Dioxide 24.0 Anion Gap 8.0 BUN 43 H Creatinine 1.3 Est GFR (CKD-EPI 2020) 55.88 Glucose 116 H Calcium 8.5 Magnesium 2.4 Transferrin 129 L C-Reactive Protein 12.29 H Time Spent with Patient Time Spent with Patient: 35-49 minutes Time was spent: preparing to see the patient(eg.review tests), ordering medications,tests, procedures, referring, communicating with other health social worker palliative care, indepentently interpreting results, counseling the patient and care coordination
--- NOTE | 2024-06-04 15:27 | CHAPLAIN ---
Boni was sitting up in bed when I visited. He said he is feeling much better than when he first arrived three days ago and said he has received good care. He told me that he was born in [facility], and now lives in [facility] with his . I explained my role and offered support.
[2024-06-04] MEDS: Lactated Ringers 1,000 ML 50 ML IV (19:43)
[2024-06-04] MEDS: Atorvastatin 40 MG TAB 80 MG PO (19:45)
[2024-06-04 20:21] VITALS: BP 127/68; PULSE 86; RESP 19; TEMP 36.6; O2SAT 95
[2024-06-04 23:02] VITALS: BP 133/67; PULSE 80; RESP 20; TEMP 37.4; O2SAT 97
[2024-06-05] VITALS (15 sets, daily range): BP systolic 120–159; BP diastolic 67–84; PULSE 77–91; RESP 14–18; TEMP 36.3–37.7; O2SAT 90–95
[2024-06-05 07:06] LABS: Abs Immature Grans 0.53 10^3/uL (0.0-0.06); Absolute Basophil Count 0.02 10^3/uL (0.0-0.2); Absolute Monocyte Count 0.76 10^3/uL (0.1-0.8); Basophils % 0.2 %; HCT 22.6 % (40.0-50.0); Immature Grans % 4.3 %; Lymphocytes % 2.4 %; MCH 19.6 pg (27.0-33.0); MCHC 29.2 % (32.0-36.0); MCV 67 fL (80-95); MPV 9.5 fL (8.0-11.0); Monocytes % 6.2 %; Neutrophils % 86.9 %; Platelet Count 205 10^3/uL (130-400); RBC 3.36 10^6/uL (4.36-5.78); RDW 18.6 % (11.8-14.1); RDW-SD 44.5 fL; WBC 12.31 10^3/uL (4.4-10.8)
[2024-06-05 07:18] LABS: HGB 6.6 g/dL (13.5-17.5)
[2024-06-05 07:20] LABS: Anion Gap 9.2 mmol/L (3-11); BUN 36 mg/dL (7-18); CO2 24.8 mmol/L (21.0-32.0); CREATININE 1.3 mg/dL (0.70-1.30); Calcium 8.5 mg/dL (8.5-10.1); Chloride 107 mmol/L (98-107); Estimated GFR 55.88 (mL/min/1.73m2); Glucose 97 mg/dL (74-106); Magnesium 2.3 mg/dL (1.8-2.4); Sodium 141 mmol/L (136-145)
[2024-06-05 07:30] LABS: Diff Comment RBC Morph Reviewed; Microcytosis 1+
[2024-06-05 07:31] LABS: Poikilocytes 1+
[2024-06-05] MEDS: predniSONE 20 MG TAB 40 MG PO (07:49)
[2024-06-05] MEDS: Multivitamin TAB 1 TAB PO (07:49)
[2024-06-05] MEDS: Lactobacillus Acidophilus CAP 1 CAP PO ×3 (07:49→19:36)
[2024-06-05] MEDS: guaiFENesin 600 MG TABCR PO ×2 (07:49→19:36)
[2024-06-05] MEDS: cefTRIAXone 2 GM/50 ML BAG IVPB (07:49)
[2024-06-05] MEDS: Pantoprazole 20 MG TABCR PO ×2 (07:50→19:36)
[2024-06-05] MEDS: Docusate Sodium 100 MG CAP PO (07:50)
[2024-06-05] MEDS: Metoprolol 25 MG TAB PO ×2 (07:50→19:37)
[2024-06-05] MEDS: Ferrous Sulfate 325 MG TAB PO (07:50)
[2024-06-05] MEDS: DOXYCYCLINE 100 MG in Normal Saline 100 ML IVPB (10:18)
--- NOTE | 2024-06-05 10:30 | PDOC.CMPRO ---
Date of service: 06/05/24 Time of Service: 10:30 Care Management Progress Note Progress Note Text Progress Note Text: Boni is being closely monitored and treated. His respiratory status is better and he is back on room air. He is pleasant and talkative per his usual. Unfortunately, his hgb is 6.6 and he requires transfusions of blood and iron, and is agreeable. Source of bleeding is unknown at this time. Discharge plans remain the same. CM will follow. Discharge Anticipated Barriers to Discharge: Medical Status Patient/Family Education Needs: Review discharge instructions, discuss Ask Me Three Transportation: Private vehicle Plan: Anticipate Donnie will be discharged home when medically cleared by provider. He is agreeable to new [facility]. He will follow up with his PCP and plan of care and transport with family. CM will follow and continue to support discharge planning efforts. Social Determinants of Health Screening Social Determinants of Health last assessed: 06/05/24 Will the Patient Participate in the Screening?: Yes Do you worry about having a steady place to live?: no Problems where you live: no known problems In the past 12 months, have you had to go without electric, gas, oil or water in your home?: no Have you or anyone in your house had to go without enough food to eat?: no Has lack of transportation kept you from medical appointments or from doing things needed for daily living?: no Has anyone in your life made you feel unsafe or unsupported?: no How hard is it for you to pay for the very basics like food, housing, medical care, and heating? Would you say it is:: Not hard at all Do you want help finding or keeping work or a job?: I do not need or want help If for any reason you need help with day-to-day activities such as bathing, preparing meals, shopping, managing finances, etc., do you get the help you need?: I get all the help I need How often do you feel lonely or isolated from those around you?: Never Do you speak a language other than Vietnamese at home?: No
[2024-06-05] MEDS: Acetaminophen 500 MG TAB 1000 MG PO ×2 (13:49→19:36)
--- NOTE | 2024-06-05 15:07 | PTTR_ITS ---
PT Notes Visit Reasons: Severe sepsis,CAP,hypoxic resp. failure.SIMONA,hyperl Inpatient Physical Therapy Treatment Note [facility] Date: 06/05/2024 PRECAUTIONS:central line RUE, currently on RA SUBJECTIVE:Pt reports he is feeling much better but now he needs a blood trans fusion. OBJECTIVE: Pt presented upright in bed with central line/IV access Right upper arm. Pt on RA maintaining sats 93% ? PAIN: denies VITALS: ?1st session:?Pre-Treatment:93% on RA during amb: 91% onRA ? Post-Treatment: 94%? on RA Therapeutic Activities (23359): Direct one-on-one instruction in dynamic activities to improve functional performance. ?? Provided skilled cues and instruction on performance and technique throughout. Patient education regarding pacing and breathing techniques to maximize activity tolerance ? BED MOBILITY/TRANSFERS?(am/pm) ? Rolling L/R: Independent Supine-sit: independent ? Sit-supine: independent ? Sit-stand: SBA? Stand-sit: SBA ? Bed-Chair: SBA with FWW ? Chair-bed: SBA with FWW ? (am)Facilitated safe and correct performance of level surface ambulation covering a distance of 40 feet x 2 in using use front wheeled walker with SBA . Did not report of any increased pain. Denied headache, chest pain, and lightheadedness throughout activity. Minimal verbal cueing provided for AD management, directional changes, and posture.? ASSESSMENT:? Pt tolerated session well . He declined ambulation out of his room staing he just wants to focus on getting his transfusion not walking around the hospital. Pt with mild MITCHELL on RA but able to maintain sat at 91 % for short distance PLAN: 1-2x/day, 7 days/week x 1 week. Plan of care has been reviewed with the AUCTIONEER AUTOMOBILE providing the service under Physical Therapy direction. Initiate Physical Therapy intervention for strengthening, bed mobility, transfers, gait, stairs, balance training, use of assistive device. TREATMENT CODE/TIME: 1st session: 90071 /[id number] 2nd Session: pt receiving transfusion he declined to participate DISCHARGE RECOMMENDATION: [facility] with [facility]
[2024-06-05 18:04] LABS: HCT 29.8 % (40.0-50.0); HGB 8.9 g/dL (13.5-17.5)
--- NOTE | 2024-06-05 19:34 | PGE_ITS ---
Date of Service Date of service: 06/05/24 Time of Service: 19:34 Assessment and Plan Assessment and plan (1) Severe sepsis: Status: Resolved Assessment and plan: Cr 1.3 Continues to be hemodynamically stable and responding to treatment Midline in place (2) Community acquired pneumonia of right lung: Status: Acute Assessment and plan: Continue doxycycline and ceftriaxone day 5 of 5 - BC positive for haemophilus influenzae ProCal 7.5, BC from 06/03 neg x 48h Continue oxygen and wean as tolerated for sat 92% and above Mucinex, incentive spirometry , Acapella Continue oral prednisone (3) Acute kidney injury: Status: Resolved Assessment and plan: Down to 1.3 Avoid nephrotoxic drugs and renally dose as needed Will continue with with gentle lactated ringers IV hydration at 50 cc an hour BMP in a.m. (4) Acute hypoxic respiratory failure: Status: Acute Assessment and plan: Due to pneumonia Wean O2 as tolerated (5) Pleural effusion, right: Status: Resolved (6) Microcytic anemia: Status: Acute Assessment and plan: Anemia appears chronic over the years, states he was on iron supplementation but that has been discontinued Labs show iron deficiency - venofer 300 mg x 2 Hgb 6.6 one unit PRBCs with increase Hgb to 8.9 trend Venofer 300 mg ordered again for tomorrow. (7) On deep vein thrombosis (DVT) prophylaxis: Status: Acute Assessment and plan: On Lovenox (8) Discharge planning issues: Status: Acute Assessment and plan: CM to follow for further needs Discussed with Dr. Holloway Subjective Subjective Patient reports: no new complaints, pain is less, tolerating liquids well, tolerating a regular diet, voiding w/o difficulty, bowel movement and afebrile; denies flatus, diarrhea, nausea, vomiting or shortness of breath Interval history since last seen: Boni reports feeling better today and is less tired despite his hemoglobin of 6.6. Exam Narrative Exam Narrative: * General: Elderly male of stated age, no acute distress. * Head: Atraumatic. * Eyes: Non-icteric, non-injected. * Oral Mucosa: Moist. * Neck: Supple, full range of motion, no jugular venous distention . * Respiratory: Even and unlabored respirations, no rales, no wheezing. * Cardiovascular: Regular rate and rhythm. * Abdomen: Benign. * Extremities: No edema, moves all extremities. * Neurologic: Awake, alert, oriented, no focal deficits. * Psychiatric: Appropriate mood and affect. * Skin: No rashes or lesions. Objective Last Vital Signs Temp 36.8 C 06/05/24 19:30 Pulse 81 06/05/24 19:30 Resp 18 06/05/24 19:30 BP 148/83 H 06/05/24 19:30 Pulse Ox 95 06/05/24 19:30 Laboratory Results - last 24 hr 06/05/24 06/05/24 06/05/24 05:15 08:23 17:42 WBC 12.31 H RBC 3.36 L Hgb 6.6 L* 8.9 L D Hct 22.6 L 29.8 L MCV 67 L MCH 19.6 L MCHC 29.2 L RDW 18.6 H Plt Count 205 MPV 9.5 Immature Gran % 4.3 Neutrophils % 86.9 Lymphocytes % 2.4 Monocytes % 6.2 Eosinophils % 0.0 Basophils % 0.2 Nucleated RBC % 0.0 Absolute Neutrophils 10.70 H Absolute Lymphocytes 0.30 L Absolute Monocytes 0.76 Absolute Eosinophils 0.00 Absolute Basophils 0.02 RBC Morphology See Below Poikilocytosis 1+ Microcytosis 1+ Sodium 141 Potassium 4.0 Chloride 107 Carbon Dioxide 24.8 Anion Gap 9.2 BUN 36 H Creatinine 1.3 Est GFR (CKD-EPI 2020) 55.88 Glucose 97 Calcium 8.5 Magnesium 2.3 ABO/Rh O Negative Unit ABO/Rh Cancelled Blood Type Recheck O Negative Antibody Screen NEGATIVE Crossmatch See Detail Time Spent with Patient Time Spent with Patient: 25-34 minutes Time was spent: preparing to see the patient(eg.review tests), ordering medications,tests, procedures, referring, communicating with other health managed care nurse, indepentently interpreting results, counseling the patient and care coordination
[2024-06-05] MEDS: Doxycycline Hyclate 100 MG CAP PO (19:36)
[2024-06-05] MEDS: Atorvastatin 40 MG TAB 80 MG PO (19:36)
[2024-06-05] MEDS: Normal Saline Flush 10 ML SYR (19:37)
[2024-06-06] VITALS (8 sets, daily range): BP systolic 138–162; BP diastolic 69–92; PULSE 76–85; RESP 15–19; TEMP 36.3–37; O2SAT 92–95
[2024-06-06] MEDS: IRON SUCROSE COMPLEX 300 MG in Normal Saline 250 ML 167 MG IVPB (01:22)
[2024-06-06] MEDS: Normal Saline Flush 10 ML SYR IVP (01:23)
[2024-06-06] MEDS: Acetaminophen 500 MG TAB 1000 MG PO ×3 (03:35→20:23)
[2024-06-06 06:50] LABS: HCT 30.6 % (40.0-50.0); HGB 9.3 g/dL (13.5-17.5); MCH 21.2 pg (27.0-33.0); MCHC 30.4 % (32.0-36.0); MCV 70 fL (80-95); MPV 8.9 fL (8.0-11.0); Platelet Count 254 10^3/uL (130-400); RBC 4.39 10^6/uL (4.36-5.78); RDW 20.7 % (11.8-14.1); RDW-SD 50.4 fL; WBC 12.33 10^3/uL (4.4-10.8)
[2024-06-06 07:10] LABS: Anion Gap 6.7 mmol/L (3-11); BUN 32 mg/dL (7-18); CO2 25.3 mmol/L (21.0-32.0); CREATININE 1.3 mg/dL (0.70-1.30); Calcium 8.8 mg/dL (8.5-10.1); Chloride 108 mmol/L (98-107); Estimated GFR 55.88 (mL/min/1.73m2); Glucose 83 mg/dL (74-106); Sodium 140 mmol/L (136-145)
[2024-06-06 07:36] LABS: Absolute Lymphocyte Count 0.62 10^3/uL (1.2-3.4); Absolute Monocyte Count 0.62 10^3/uL (0.1-0.8); Absolute Neutrophil Count 10.73 10^3/uL (1.2-6.7); Atypical Lymphocytes % 0 %; Metamyelocytes % 0; Myelocytes % 1
[2024-06-06 07:37] LABS: Anisocytosis 2+; Diff Comment Manual Differential; Microcytosis 1+; Poikilocytes 1+; Polychromasia Present; Promyelocytes % 2
--- NOTE | 2024-06-06 08:24 | CMPROGNOTE_ITS ---
Date of service: 06/06/24 Time of Service: 08:24 Care Management Progress Note Progress Note Text Progress Note Text: Boni was awake and lying in bed when CM met with him. He is talkative and pleasant. He is being closely monitored and treated with IV ABX and Steroids. His Hbg is being closely monitored and was 9.3 today. He required blood and iron infusions yesterday. His O2 sat is 93% on 1 L NC, none at baseline. Boni will likely discharge home with New [facility] PT if medically clear after successful titration. Discharge Anticipated Barriers to Discharge: Medical Status Patient/Family Education Needs: Review discharge instructions, discuss Ask Me Three Transportation: Private vehicle Plan: Anticipate Donnie will be discharged home when medically cleared by provider. He is agreeable to new [facility] PT and [facility]. He will follow up with his PCP and plan of care and transport with family. CM will follow and continue to support discharge planning efforts. Social Determinants of Health Screening Social Determinants of Health last assessed: 06/06/24 Will the Patient Participate in the Screening?: Yes Do you worry about having a steady place to live?: no Problems where you live: no known problems In the past 12 months, have you had to go without electric, gas, oil or water in your home?: no Have you or anyone in your house had to go without enough food to eat?: no Has lack of transportation kept you from medical appointments or from doing things needed for daily living?: no Has anyone in your life made you feel unsafe or unsupported?: no How hard is it for you to pay for the very basics like food, housing, medical c are, and heating? Would you say it is:: Not hard at all Do you want help finding or keeping work or a job?: I do not need or want help If for any reason you need help with day-to-day activities such as bathing, preparing meals, shopping, managing finances, etc., do you get the help you need?: I get all the help I need How often do you feel lonely or isolated from those around you?: Never Do you speak a language other than Estonian at home?: No
[2024-06-06] MEDS: cefTRIAXone 2 GM/50 ML BAG IVPB (08:56)
[2024-06-06] MEDS: Pantoprazole 20 MG TABCR PO ×2 (08:57→20:23)
[2024-06-06] MEDS: Lactobacillus Acidophilus CAP 1 CAP PO ×3 (08:57→20:23)
[2024-06-06] MEDS: Multivitamin TAB 1 TAB PO (08:57)
[2024-06-06] MEDS: guaiFENesin 600 MG TABCR PO ×2 (08:57→20:23)
[2024-06-06] MEDS: Doxycycline Hyclate 100 MG CAP PO ×2 (08:57→20:23)
[2024-06-06] MEDS: Metoprolol 25 MG TAB PO ×2 (08:57→20:23)
[2024-06-06] MEDS: Docusate Sodium 100 MG CAP PO (08:57)
[2024-06-06] MEDS: predniSONE 20 MG TAB 40 MG PO (08:58)
[2024-06-06] MEDS: Aspirin E.C. 81 MG TABEC PO (08:58)
[2024-06-06] MEDS: Ferrous Sulfate 325 MG TAB PO (08:58)
--- NOTE | 2024-06-06 10:32 | W.PM.PROGNOT ---
Date of Service Date of service: 06/06/24 Time of Service: 09:30 Assessment and Plan Assessment and plan (1) Severe sepsis: Assessment and plan: Criteria met on admission with tachycardia above 90 and tachypnea of about 20 with pneumonia source and SIMONA Now Cr 1.3 stable Continues to be hemodynamically stable and responding to treatment Midline in place (2) Community acquired pneumonia of right lung: Status: Acute Assessment and plan: Continue ceftriaxone day 5 of 5 - BC positive for haemophilus influenzae Will consult ID at [facility] to determine if longer treatment with cefpodoxime would be adequate ProCal 7.5, on admission trending Repeated blood culture negative at 72 hours Continue oxygen and wean as tolerated for sat 92% and above Might need oxygen at discharge so monitor Continue Mucinex, incentive spirometry , Acapella On oral prednisone (3) Acute kidney injury: Status: Resolved Assessment and plan: Back to baseline Avoid nephrotoxic drugs and renally dose as needed Will discontinue IV hydration BMP in a.m. (4) Acute hypoxic respiratory failure: Status: Resolved Assessment and plan: In the setting of pneumonia still requires oxygen supplementation Wean O2 as tolerated (5) Pleural effusion, right: Assessment and plan: As per imaging on admission (6) Microcytic anemia: Status: Acute Assessment and plan: Chronic microcytic anemia over the years patient not aware that he was anemic, stated he was on iron supplementation but that has been discontinued Iron studies showed iron deficiency and Venofer given PRBC 1 unit transfused for Hgb 6.6 and H&H remained stable Might benefit from surgical consult outpatient for anemia but might need to go to [facility] due to his complicated GI history (7) On deep vein thrombosis (DVT) prophylaxis: Status: Deleted Assessment and plan: Discontinue Lovenox and initiate teds, (8) Discharge planning issues: Status: Deleted Assessment and plan: CM to follow for further needs Discussed with Dr. Holloway Subjective Subjective Patient reports: no new complaints, feels better, tolerating liquids well, tolerating a regular diet, voiding w/o difficulty, flatus, bowel movement and shortness of breath (w activity); denies diarrhea, vomiting or fever Exam Narrative Exam Narrative: Alert and oriented x 4, nonfocal, clear breath sounds to upper lobes field, diminished lower lobes with left base fine crackles, S1-S2 regular no murmur, abdomen is nondistended soft nontender, no CVA tenderness, moves all 4 EXTR Objective Last Vital Signs Temp 36.3 C L 06/06/24 07:27 Pulse 82 06/06/24 07:27 Resp 19 06/06/24 07:27 BP 138/73 06/06/24 07:27 Pulse Ox 93 06/06/24 07:27 Laboratory Results - last 24 hr 06/05/24 06/05/24 06/05/24 05:15 08:23 17:42 WBC RBC Hgb 8.9 L D Hct 29.8 L MCV MCH MCHC RDW Plt Count MPV Immature Gran % Neutrophils % Lymphocytes % Atypical Lymphs % Monocytes % Eosinophils % Basophils % Metamyelocytes % Myelocytes % Promyelocytes % Nucleated RBC % Absolute Neutrophils Absolute Lymphocytes Absolute Monocytes Absolute Eosinophils Absolute Basophils RBC Morphology Polychromasia Poikilocytosis Anisocytosis Microcytosis Sodium Potassium Chloride Carbon Dioxide Anion Gap BUN Creatinine Est GFR (CKD-EPI 2020) Glucose Calcium Magnesium ABO/Rh O Negative Unit ABO/Rh Cancelled Blood Type Recheck O Negative Antibody Screen NEGATIVE Crossmatch See Detail 06/06/24 06:20 WBC 12.33 H RBC 4.39 Hgb 9.3 L Hct 30.6 L MCV 70 L MCH 21.2 L MCHC 30.4 L RDW 20.7 H Plt Count 254 MPV 8.9 Immature Gran % See Differential Neutrophils % 87.0 Lymphocytes % 5.0 Atypical Lymphs % 0 Monocytes % 5.0 Eosinophils % 0.0 Basophils % 0.0 Metamyelocytes % 0 Myelocytes % 1 Promyelocytes % 2 Nucleated RBC % 0.0 Absolute Neutrophils 10.73 H Absolute Lymphocytes 0.62 L Absolute Monocytes 0.62 Absolute Eosinophils 0.00 Absolute Basophils 0.00 RBC Morphology See Below Polychromasia Present Poikilocytosis 1+ Anisocytosis 2+ Microcytosis 1+ Sodium 140 Potassium 4.0 Chloride 108 H Carbon Dioxide 25.3 Anion Gap 6.7 BUN 32 H Creatinine 1.3 Est GFR (CKD-EPI 2020) 55.88 Glucose 83 Calcium 8.8 Magnesium 2.0 ABO/Rh Unit ABO/Rh Blood Type Recheck Antibody Screen Crossmatch Time Spent with Patient Time Spent with Patient: <25 minutes Time was spent: referring, communicating with other health healthcare economics consultant, indepentently interpreting results, counseling the patient and care coordination
[2024-06-06] MEDS: Enoxaparin 30 MG/0.3 ML SYR SC (12:26)
--- NOTE | 2024-06-06 14:37 | PT.INTREAT ---
PT Notes Visit Reasons: Severe sepsis,CAP,hypoxic resp. failure.SIMONA,hyperl Inpatient Physical Therapy Treatment Note [facility] Date: 06/06/2024 PRECAUTIONS:central line RUE, currently on RA SUBJECTIVE:Pt reports he is feeling much better but now he needs a blood transfusion. OBJECTIVE: Pt presented upright in bed with central line/IV access Right upper arm. Pt on 1L/Min maintaining sats >97% ? PAIN: denies VITALS: ?1st session:?Pre-Treatment:98% on 1L/Min during amb: 89% on 1L/min ? Post-Treatment(2min rest): 94%? on 1 L/Min Therapeutic Activities (67316): Direct one-on-one instruction in dynamic activities to improve functional performance. ?? Provided skilled cues and instruction on performance and technique throughout. Patient education regarding pacing and breathing techniques to maximize activity tolerance ? BED MOBILITY/TRANSFERS?(am) ? Rolling L/R: Independent Supine-sit: independent ? Sit-supine: independent ? Sit-stand: Independent? Stand-sit: independent? Bed-Chair: SBA with FWW ? Chair-bed: SBA with FWW ? (am)Facilitated safe and correct performance of level surface ambulation covering a distance of 300 feet x 1 in using use front wheeled walker with SBA with 1 sit rest and 1 stand rest . Did not report of any increased pain. Denied headache, chest pain, and lightheadedness throughout activity. Minimal verbal cueing provided to reduce speed, for AD management, directional changes, and posture.? stairs: pt declined to perform stating he has a stair lift at home he can use.? ASSESSMENT:? Pt tolerated session well . He was agreeable to perform ambulation in the hallway. Pt requires cues for pacing and to reduce speed. Pt prefers to complete the distances of walking then recover vs pacing slowly to perform distance and maintain his saturation and improve functional activity tolerance in standing. PLAN: 1-2x/day, 7 days/week x 1 week. Plan of care has been reviewed with the AUTOMATION/CONTROLS MANAGER providing the service under Physical Therapy direction. Initiate Physical Therapy intervention for strengthening, bed mobility, transfers, gait, stairs, balance training, use of assistive device. TREATMENT CODE/TIME: 1st session: 34114 /[id number] DISCHARGE RECOMMENDATION: HHPT with [facility]
[2024-06-06] MEDS: Atorvastatin 40 MG TAB 80 MG PO (20:23)
[2024-06-07 00:56] VITALS: BP 150/80; PULSE 81; RESP 18; TEMP 36.7; O2SAT 96
[2024-06-07 03:53] VITALS: BP 160/77; PULSE 80; RESP 17; TEMP 37.1; O2SAT 93
[2024-06-07 07:08] VITALS: BP 149/82; PULSE 92; RESP 16; TEMP 37.1; O2SAT 93
[2024-06-07] MEDS: Pantoprazole 20 MG TABCR PO (07:32)
[2024-06-07] MEDS: predniSONE 20 MG TAB 40 MG PO (07:32)
[2024-06-07] MEDS: Metoprolol 25 MG TAB PO (07:32)
[2024-06-07] MEDS: Lactobacillus Acidophilus CAP 1 CAP PO ×2 (07:32→13:39)
[2024-06-07] MEDS: Doxycycline Hyclate 100 MG CAP PO (07:32)
[2024-06-07] MEDS: guaiFENesin 600 MG TABCR PO (07:33)
[2024-06-07] MEDS: Docusate Sodium 100 MG CAP PO (07:33)
[2024-06-07] MEDS: Multivitamin TAB 1 TAB PO (07:33)
[2024-06-07] MEDS: Aspirin E.C. 81 MG TABEC PO (07:33)
[2024-06-07] MEDS: Ferrous Sulfate 325 MG TAB PO (07:33)
[2024-06-07] MEDS: Benzocaine/Menthol LOZG 15/BOX 1 EACH SUC ×3 (07:36→12:06)
[2024-06-07 09:00] VITALS: PULSE 94; RESP 16; O2SAT 90
[2024-06-07] MEDS: cefTRIAXone 2 GM/50 ML BAG IVPB (09:03)
[2024-06-07] MEDS: Normal Saline Flush 10 ML SYR IVP (09:08)
--- NOTE | 2024-06-07 10:58 | PTTR_ITS ---
PT Notes Visit Reasons: Severe sepsis,CAP,hypoxic resp. failure.SIMONA,hyperl Inpatient Physical Therapy Treatment Note [facility] Date: 06/07/2024 PRECAUTIONS:central line RUE, currently on RA SUBJECTIVE:Pt reports he is feeling much better and is supposed to be going home today although he is unsure if it is too soon. OBJECTIVE: Pt presented upright in bed with central line/IV access Right upper arm. Pt on RA maintaining sats >97% ? PAIN: denies VITALS: ?1st session:?Pre-Treatment:94% on RA during amb: 89% on RA ? Post-amb(): 92%? on RA Therapeutic Activities (22814): Direct one-on-one instruction in dynamic activities to improve functional performance. ?? Provided skilled cues and instruction on performance and technique throughout. Patient education regarding pacing and breathing techniques to maximize activity tolerance ? BED MOBILITY/TRANSFERS?(am) ? Rolling L/R: Independent Supine-sit: independent ? Sit-supine: independent ? Sit-stand: Independent? Stand-sit: independent? Bed-Chair: SBA with FWW and without ? Chair-bed: SBA with FWW and without ? (am)Facilitated safe and correct performance of level surface ambulation covering a distance of 150 feet x 2 using use front wheeled walker with SBA with 1 sit rest . Did not report of any increased pain. Denied headache, chest pain, and lightheadedness throughout activity. Minimal verbal cueing provided to reduce speed, for AD management, directional changes, and posture.? Pt amb without AD 30 feet x 3 with SBA without LOB with reduced speed. stairs: pt declined to perform stating he has a stair lift at home he can use.? ASSESSMENT:? Pt tolerated session well . He was agreeable to perform ambulation in the hallway. Pt continues to require cues for pacing and to reduce speed of ambulation when using FWW. . Pt prefers to complete the distances of walking then recover vs pacing slowly to perform distance and maintain his saturation and improve functional activity tolerance in standing. Pt may benefit from Pulmonary Rehab program / [facility] PLAN: 1-2x/day, 7 days/week x 1 week. Plan of care has been reviewed with the RAIL TECHNICIAN providing the service under Physical Therapy direction. Initiate Physical Therapy intervention for strengthening, bed mobility, transfers, gait, stairs, balance training, use of assistive device. TREATMENT CODE/TIME: 1st session: 29070 /[id number] DISCHARGE RECOMMENDATION: HHPT with [facility]
[2024-06-07 11:30] VITALS: BP 135/87; PULSE 82; RESP 20; TEMP 36.6; O2SAT 92
--- NOTE | 2024-06-07 11:31 | DSE_ITS ---
Date of service: 06/07/24 Time of Service: 16:05 DS: Diagnosis Discharge Diagnosis (1) Severe sepsis: Status: Resolved (2) Community acquired pneumonia of right lung: Status: Acute (3) Acute kidney injury: Status: Resolved (4) Acute hypoxic respiratory failure: Status: Acute (5) Pleural effusion, right: Status: Resolved (6) Microcytic anemia: Status: Acute (7) On deep vein thrombosis (DVT) prophylaxis: Status: Acute (8) Discharge planning issues: Status: Acute Discharge Plan Disposition Patient Disposition: Home W/Home Health Services Condition: Improving Discharge Details Reason For Visit: Severe sepsis,CAP,hypoxic resp. failure.SIMONA,hyperl Admit Date/Time: 06/01/24 12:59 Admit Provider: Sixto Borjas Attending Provider: Sixto Borjas Primary Care Provider: Zach White Hospital Course Hospital Course: This 79 years old male patient with past medical history of triple bypass, carotid endarterectomy, chronic microcytic anemia, esophageal cancer with resection and reanastomosis of the stomach, BPH, frequent pneumonia last listed January 2024 presented to the ED at [facility] for evaluation of increased productive cough and shortness of breath. EMS reporting feeling the patient with saturation at 86% on room air. On arrival to the ED the patient was tachycardic and tachypneic and required 4 L of oxygen by nasal cannula to maintain sat. Workup in the ED was significant for an H&H at 8.6 and 30 lower than his previous value of 9.1 and 31, and 1.9 from baseline 1.1.3, lactate at 3.4 with repeat at 2.5 status post 1 L of IV crystalloid. Chest x-ray was positive for interval development of multifocal pneumonia and right-sided pleural effusion. Upper respiratory viral panel was negative. The patient was admitted to the hospitalist team to the medical surgical floor with telemetry for evaluation and management of severe sepsis in the setting of community acquired pneumonia with hypoxic respiratory failure right-sided pleural effusion and acute kidney injury. In the ED the patient was treated with vancomycin, ceftriaxone, and doxycycline. BNP was over [address] Dumont ED provider completed a POCUS exam with findings of B-lines to the right lung field, aortic outflow track of l ess than 4 cm, adequate RV to LV ratio without significant pericardial effusion. Pro-David was added and is 7.50. Vancomycin continuation pending MRSA swab result. Blood cultures were positive for haemophilus influenza and the patient was transitioned to ceftriaxone. Repeated blood cultures were negative. [facility] [place] ID was consulted and recommended discharge on Augmentin to complete a total of 10 d ays of treatment status post negative blood cultures. Exercise oximetry was completed and patient no longer required oxygen supplementation. The patient will be discharged home with home health physical therapy for better breathing. During the stay hemoglobin fell below 7 and the patient received 1 unit of PRBC with follow-up hemoglobin levels remaining stable. The patient will need an outpatient follow-up with surgery for anemia workup. The patient will need to follow-up with his primary practitioner within 7 days of discharge. Discussed with Dr. Holloway Home Meds and New Rx's Prescriptions: New Bio-K plus 50 billion cell capsule,delayed release(DR/EC) 1 cap PO DAILY Qty: 7 0RF amoxicillin-pot clavulanate 875-125 mg tablet 1 tab PO BID Qty: 12 0RF No Action nitroglycerin [Nitrostat] 0.4 mg tablet, sublingual 0.4 mg SL Q5-15M PRN (Reason: chest pain) Qty: 10 3RF Rx Instructions: until response; do not exceed 3 doses per episode atorvastatin 80 mg tablet 80 mg PO HS Qty: 90 3RF Rx Instructions: reduce risk of cardiovascular events, lower cholesterol albuterol sulfate 90 mcg/actuation HFA aerosol inhaler 2 inh inhalation Q6H PRN (Reason: shortness of breath or wheezing) Qty: 18 4RF (DME) Aerochamber MV Spacer See Rx Instructions .Route Qty: 1 0RF Rx Instructions: As directed multivitamin [Daily Multi-Vitamin] Tablet 1 tab PO DAILY lisinopril 2.5 mg tablet 2.5 mg PO DAILY Qty: 90 3RF pantoprazole [Protonix] 20 mg tablet,delayed release (DR/EC) 20 mg PO BID Qty: 180 3RF Rx Instructions: h/o esophageal cancer metoprolol tartrate 25 mg tablet 25 mg PO BID Qty: 180 3RF aspirin 81 mg tablet,delayed release (DR/EC) 81 mg PO DAILY doxycycline hyclate 100 mg tablet 100 mg PO BID Qty: 20 0RF prednisone 20 mg tablet 40 mg PO DAILY Qty: 8 0RF Discharge Instructions Referrals: [facility] [OTHER] - (History of esophageal cancer with the surgery - referred for anemia workup 1 to 2 weeks of discharge.) Zach White, DELINQUENT NOTICE MACHINE OPERATOR [Primary Care Provider] - (Follow-up within 7 days of discharge please) Activity:: Activity as Tolerated Equipment/Supplies:: No Equipment Needed Diet:: heart healthy Discharge Orders Discharge Orders: Discharge Order (Routine); Ordered 06/07/24 Ordered By: Yakelin Maynard DS: Summary Time Spent with Patient providing and/or coordinating discharge services: Greater than 30 minutes Status at Discharge Functional status at discharge: independent ambulation Overall status at discharge: patient is progressing back to baseline Mental Status: mental status grossly normal Speech and Movement: speech and movement normal Mood: congruent mood Affect: normal affect Quality:SDOH Health Related Social Needs: Health related social needs details N/A Exam Psych Mental Status: mental status grossly normal Speech and Movement: speech and movement normal Mood: congruent mood Affect: normal affect DS: Data Vitals/I&O Vitals and I&O: Vital Signs Temperature 37.1 C 06/07/24 07:08 Temperature Source Temporal Artery Scan 06/07/24 07:08 Pulse 94 H 06/07/24 09:00 Pulse Rhythm Regular 06/01/24 14:06 Pulse 114 H 06/01/24 13:46 Respiratory Rate 16 06/07/24 09:00 Respiratory Effort Short of Breath 06/01/24 14:06 Respiratory Depth Shallow 06/01/24 14:06 Respiratory Pattern Tachypnea 06/01/24 14:06 Blood Pressure 149/82 H 06/07/24 07:08 Blood Pressure Mean 85 06/01/24 13:46 Pulse Oximetry 90 L 06/07/24 09:00 Respiratory End-tidal CO2 22 06/01/24 13:46 Oxygen Delivery Method Room Air 06/07/24 09:00 Oxygen Flow Rate 0 06/07/24 09:00 Pain Level 5 06/07/24 09:00 Comment pt map is 107 nurse notified 06/05/24 22:17 Comment 4L NC 06/01/24 13:46 Intake & Output 06/06/24 06/06/24 06/07/24 11:59 23:59 11:59 Intake Total 315 / 315 300 / 300 Output Total 550 / 675 125 / 675 400 / 400 Balance -235 / -360 -125 / -360 -100 / -100 Weight 58.9 kg Intake: IV 315 / 315 60 / 60 Oral 240 / 240 Output: Urine 550 / 675 125 / 675 400 / 400 Other: Urine Color Brown Brown Yellow Urine Appearance Cloudy Cloudy Urine Odor Normal Comment Patient voids independently all day Stool Size Small Stool Characteristics Soft Data Completed and Pending Labs on day of discharge: Preliminary micro results at discharge 06/03/24 06:25 Blood Culture - Preliminary Blood NO GROWTH 96 HOURS 06/03/24 06:20 Blood Culture - Preliminary Blood NO GROWTH 96 HOURS PFSH All Active Problems (Updated 06/04/24 @ 18:44 by Vicky Mao NP) Discharge planning issues (Acute) On deep vein thrombosis (DVT) prophylaxis (Acute) Hyperlactatemia (Acute) Microcytic anemia (Acute) Acute lactic acidosis (Acute) Acute hypoxic respiratory failure (Acute) Community acquired pneumonia of right lung (Acute) Nocturia (Acute) Wheeze (Acute) Screening for colon cancer (Acute) Actinic keratoses (Acute) Chronic kidney disease (Chronic) Erectile dysfunction (Acute) Postnasal drip (Acute ~12/2020) Chronic rhinitis (Acute ~12/2020) Esophagitis determined by biopsy (Acute ~06/2020) [facility] [place] GI-endoscopy done Aspiration pneumonia (Acute) Hematuria (Acute) Aortic stenosis (Chronic) Chronic diarrhea (Acute) Abnormal auditory perception (Acute) Impacted cerumen of both ears (Acute) Sensorineural hearing loss of both ears (Acute) S/P carotid endarterectomy (Acute) Depressive disorder (Chronic 06/30/11) Pain of right upper extremity (Acute 03/20/15) Primary malignant neoplasm of esophagus (Acute 04/27/00) Vasomotor rhinitis (Acute) Asymptomatic bilateral carotid artery stenosis (Acute) 09/13/18 [facility] [place] Dr Henry Null, Vascular Surgery Coronary artery disease involving coronary bypass graft of [place] heart (Chronic) Urinary retention (Chronic 04/29/16) Retinal detachment (Chronic 03/10/14) R managed by Dr Iraheta at [facility] Pure hypercholesterolemia (Chronic 06/30/11) goal LDL<70 due to CAD (no ischemia but presumed cause of abnl MPI 08/2011) Personal history of TIA (transient ischemic attack) (Chronic 02/06/15) R paresthesias; TIA vs Migraine, Drs. Palmer/ Latoya: vasc eval, medical therapy, statin/Plavix; finally L carotid endarterectomy 04/19/16 [facility] [place]; F/U 11/2016 Iron deficiency anemia (Chronic 04/17/12) 2005, 2008, 3013; LAST GI W/U 2008 NEG X ADENOMA, TICS, EGD NEG [facility] [place] 04/2013; chronic microcytosis 2000 Elevated prostate specific antigen (PSA) (Chronic 06/30/11) h/o bx 2009; Dr Tripp 08/2010: consider up to 11 normal for him Carotid disease, bilateral (Chronic 01/25/16) [facility] [place] [facility] 50% L int carotid; Dr Mauro: f/u 1 yr with Duplex [facility] [place] 09/18/17 Duplex shows a patent L CEA site, but some progressionon RIght, F/U in 6m with plan for duplex both carotoids. (Dr Null [facility] [place] Vascular) Atherosclerosis of [place] coronary artery of [place] heart without angina pectoris (Chronic 04/10/06) silent ant [place] by MPI 2006; ECHO 06/2007: EF 63%, NO WMA; MPI 08/2011 NEG ISCHEMIA, EF 50%; ANTSEPT HYPOKIN; ASA & beta hood started 2006; aspirin stopped 01/2016 due to gastric ulcer Surgical History S/P CABG x 3 (~06/04/18) H/O cardiac catheterization (05/22/18) [facility] [place] Dr Harvey partial esophagotomy (04/28/00) Dr Ibanez; [place] Esophagogastrectomy and feeding jejunostomy EGD - IV Sedation (12/22/15) Colonoscopy - IV Sedation (03/10/14) [facility] [place]; also EGD Extraction of cataract (09/25/14) right eye with lens implant Dr. Truong Carotid endarterectomy (04/19/16) Left, [facility] [place], Dr. Null for asymptomatic carotid stenosis Family History Mother , old age at age 92. Congestive heart failure (CHF) age of onset unknown Father , [place], pneumonia at age 78. Myocardial infarction Sister , [place] at age 56. Myocardial infarction Sister Age: 90 No problems noted. Brother , cancer at age 67. Esophageal cancer Social History Smoking/Tobacco Use Status: Former Tobacco Use tobacco type: cigarettes Quit Date: 10/08/88 Pack-years: 20 Tobacco: How many years used: 20 Second Hand Exposure: No Smoking risk assessment performed?: Yes Alcohol Intake: former Year quit: 1987 Drug use: Never Substance use type: does not use Adopted: No Caregiver/Support person: No Household members: spouse and other Details: client Housing: house Number of Children: 4 number of grandchildren: 10 Communication Needs: Hard of Hearing Education Level: high school Do you need help understanding health information?: Rarely current occupation: Drives for [employer] Sexually active: Yes Do you think of yourself as: straight/heterosexual Current gender identity: male What is your relationship status?: How often do you talk on the phone with friends or family?: once per week How often do you get together with friends or relatives?: twice per week Do you belong to any clubs or organized social groups?: no Panel score (0-1 are the most socially isolated patients): 2 What type of physical activity do you participate in: other Details: active daily Masha/Shinto: Confucianist Seatbelt use: always Helmet use: Yes Helmet use: always Drive intox or ride w/intox cross country truck driver: No Working smoke detector in home: Yes Fire extinguisher in home: Yes Carbon monox detector in home: Yes Firearms in home: No Do you feel safe at home: Yes Do you feel safe in your relationship?: Yes Victim of physical abuse: No Victim of emotional abuse: No Victim of sexual abuse: No Would you like helpful sources: No Time Spent with Patient Time Spent with Patient: 70-84 minutes4 Time was spent: preparing to see the patient(eg.review tests), obtaining and/or reviewing separately otained hiistory, ordering medications,tests, procedures, referring, communicating with other health foster care case manager, indepentently interpreting results, counseling the patient and care coordination
--- NOTE | 2024-06-07 11:46 | PDOC.CMDIS ---
Date of service: 06/07/24 Time of Service: 11:46 LACE Index Scoring Tool Questions: Length of Stay (in days): 4 - 6 Was the patient admitted via the E.D.?: Yes Comorbidities: Liver or Renal Disease and Metastatic Solid Tumor (esophageal neoplasm) E.D. Visits: 2 Answers: Total Score: 14 Risk of Readmission: High Risk Care Management Discharge Plan Reason for Hospitalization: Respiratory Failure, SIMONA, Anemia Discharge Plan: Discharge home with [facility] and Better Breathing Program. Follow up with PCP and discharge plan of care as directed. Family will transport. Patient/Family Education Needs: Review discharge instructions, limitations, medications and plan to follow up after discharge. Discuss ask me three. Services Needed at Discharge: Home Health Care Services ([facility]) SDOH Health Related Social Needs: Health related social needs details N/A
[2024-06-07 11:51] VITALS: PULSE 85; PULSE 89; O2SAT 91; O2SAT 92
[2024-06-07] MEDS: Enoxaparin 30 MG/0.3 ML SYR SC (13:39)
[2024-06-07] MEDS: Acetaminophen 500 MG TAB 1000 MG PO (13:39)
--- NOTE | 2024-06-07 16:37 | PDOC.HHF2F ---
Home Health Referral Home Health Orders Clinical synopsis of why skilled professionals are needed: PleaseThis 79 years old male patient with past medical history of triple bypass, carotid endarterectomy, chronic microcytic anemia, esophageal cancer with resection and reanastomosis of the stomach, BPH, frequent pneumonia last listed January 2024 presented to the ED at [facility] for evaluation of increased productive cough and shortness of breath. EMS reporting feeling the patient with saturation at 86% on room air. On arrival to the ED the patient was tachycardic and tachypneic and required 4 L of oxygen by nasal cannula to maintain sat. Workup in the ED was significant for an H&H at 8.6 and 30 lower than his previous value of 9.1 and 31, and 1.9 from baseline 1.1.3, lactate at 3.4 with repeat at 2.5 status post 1 L of IV crystalloid. Chest x-ray was positive for interval development of multifocal pneumonia and right-sided pleural effusion. Upper respiratory viral panel was negative. The patient was admitted to the hospitalist team to the medical surgical floor with telemetry for evaluation and management of severe sepsis in the setting of community acquired pneumonia with hypoxic respiratory failure right-sided pleural effusion and acute kidney injury. In the ED the patient was treated with vancomycin, ceftriaxone, and doxycycline. BNP was over [address] Dumont ED provider completed a POCUS exam with findings of B-lines to the right lung field, aortic outflow track of less than 4 cm, adequate RV to LV ratio without significant pericardial effusion. Pro-David was added and is 7.50. Vancomycin continuation pending MRSA swab result. Blood cultures were positive for haemophilus influenza and the patient was transitioned to ceftriaxone. Repeated blood cultures were negative. [facility] [place] [place] and recommended discharge on Augmentin to complete a total of 10 days of treatment status post negative blood cultures. Exercise oximetry was completed and patient no longer required oxygen supplementation. The patient will be discharged home with home health physical therapy for better breathing. During the stay hemoglobin fell below 7 and the patient received 1 unit of PRBC with follow-up hemoglobin levels remaining stable. The patient will need an outpatient follow-up with surgery for anemia workup. The patient will need to follow-up with his primary practitioner within 7 days of discharge Physical Therapist: Check all that apply Increase strength & endurance for safe mobility at home: Ordered Better Breathing Program: Ordered Encounter Date and Reason: I certify that a FTF encounter for this patient was performed on June 07, 2024 and that such encounter was related to the primary reason the patient requires home health services. The encounter was conducted in the following manner: By me as the certifying physician, WATCH INSPECTOR FINAL MOVEMENT, PA or By an inpatient physician, WATCH INSPECTOR FINAL MOVEMENT or PA during an inpatient stay who communicated findings to me, Certification And Authentication I certify that I composed the above information based on my clinical judgment relating to this patient's medical condition and, if applicable, clinical findings communicated to me by the NPP or inpatient physician who performed the FTF encounter. Name of Provider that will be monitoring home health services: Zach William
== END 2024-06-07 17:19 | disposition home health service (06) | DRG 871 ==
LOC: ER 12:38 → MS 13:55
PROVIDERS: Nurse Practitioner Acute Care; Nurse Practitioner Family; Admitting Provider Family Medicine; Emergency Provider Emergency Medicine; PCP Nurse Practitioner Family; Responsible Provider Nurse Practitioner Acute Care; Visit Provider Family Medicine
DX: A41.3 Sepsis due to Hemophilus influenzae (principal); J14 Pneumonia due to Hemophilus influenzae; J96.01 Acute respiratory failure with hypoxia; N17.9 Acute kidney failure, unspecified; E87.20 Acidosis, unspecified; J91.8 Pleural effusion in other conditions classified elsewhere; E87.21 Acute metabolic acidosis; R65.20 Severe sepsis without septic shock; D50.9 Iron deficiency anemia, unspecified; N40.1 Benign prostatic hyperplasia with lower urinary tract symptoms; Z79.899 Other long term (current) drug therapy; Z95.1 Presence of aortocoronary bypass graft; Z85.01 Personal history of malignant neoplasm of esophagus; N18.9 Chronic kidney disease, unspecified; I35.0 Nonrheumatic aortic (valve) stenosis; K52.9 Noninfective gastroenteritis and colitis, unspecified; I25.2 Old myocardial infarction; I25.10 Atherosclerotic heart disease of native coronary artery without angina pectoris; Z86.73 Personal history of transient ischemic attack (TIA), and cerebral infarction without residual deficits; E78.00 Pure hypercholesterolemia, unspecified; F32.A Depression, unspecified; R33.9 Retention of urine, unspecified
CPT/HCPCS: 36410; 00123; 36415; 36430; 80048; 80053; 82805; 84145; 85652; 86850; 86900; 86901; 86920; 87040; 87077; 87637; 87641; 93005; 93308; 94618; 96365; 96366; 96367; 97161; 97530; 99285; 71045; 81003; 81015; 82607; 82728; 82746; 83540; 83550; 83605; 83735; 83880; 84466; 84484; 85014; 85018; 85025; 86140; 93010; 94640; 94667; 94668; 94760; 99223; 99232; 99233; 99239; J0696; J1100; J1650; J1756; J2919; J3370; J7512; J7620; P9016

== ENCOUNTER 2024-06-19 14:22 | Outpatient (CLI) | payer MEDICARE, SELFPAY ==
[2024-06-19 15:07] LABS: Abs Immature Grans 0.03 10^3/uL (0.0-0.06); Absolute Basophil Count 0.01 10^3/uL (0.0-0.2); Absolute Eosinophil Count 0.02 10^3/uL (0.0-0.7); Absolute Lymphocyte Count 0.29 10^3/uL (1.2-3.4); Absolute Monocyte Count 0.38 10^3/uL (0.1-0.8); Absolute Neutrophil Count 3.76 10^3/uL (1.2-6.7); Basophils % 0.2 %; Eosinophils % 0.4 %; HCT 34.8 % (40.0-50.0); HGB 10.5 g/dL (13.5-17.5); Immature Grans % 0.7 %; Lymphocytes % 6.5 %; MCHC 30.2 % (32.0-36.0); MCV 73 fL (80-95); MPV 8.3 fL (8.0-11.0); Monocytes % 8.5 %; Neutrophils % 83.7 %; Platelet Count 212 10^3/uL (130-400); RBC 4.78 10^6/uL (4.36-5.78); RDW 25.2 % (11.8-14.1); RDW-SD 61.1 fL; WBC 4.49 10^3/uL (4.4-10.8)
[2024-06-19 15:17] LABS: Anisocytosis 2+; Diff Comment RBC Morph Reviewed
[2024-06-19 15:18] LABS: Microcytosis 1+
[2024-06-19 16:43] LABS: Anion Gap 10.1 mmol/L (3-11); BUN 15 mg/dL (7-18); CO2 25.9 mmol/L (21.0-32.0); Calcium 8.6 mg/dL (8.5-10.1); Chloride 103 mmol/L (98-107); Estimated GFR 76.56 (mL/min/1.73m2); Glucose 95 mg/dL (74-106); Potassium 4.1 mmol/L (3.5-5.1); Sodium 139 mmol/L (136-145)
[2024-06-19 16:47] LABS: Ferritin 1484 ng/mL (26-388)
[2024-06-19 16:58] LABS: Iron 30 ug/dL (65-175); Total Iron Binding Capacity 149 ug/dL (250-450)
[2024-06-20 10:28] LABS: Transferrin 130 mg/dL (201-352)
== END 2024-06-19 14:23 | disposition home or self-care (01) ==
LOC: LBO 14:23
PROVIDERS: PCP Nurse Practitioner Family; Visit Provider Nurse Practitioner Family
DX: D50.9 Iron deficiency anemia, unspecified (principal); N18.9 Chronic kidney disease, unspecified
CPT/HCPCS: 36415; 80048; 82728; 83540; 83550; 84466; 85025

== ENCOUNTER 2024-07-04 21:29 | Outpatient (REF) | payer MEDICARE, SELFPAY ==
[2024-07-04 22:10] LABS: HCT 31.7 % (40.0-50.0); HGB 10.2 g/dL (13.5-17.5); MCH 25.8 pg (27.0-33.0); MCHC 32.2 % (32.0-36.0); MCV 80 fL (80-95); MPV 8.7 fL (8.0-11.0); Platelet Count 225 10^3/uL (130-400); RBC 3.95 10^6/uL (4.36-5.78); RDW-SD 76.7 fL; WBC 4.19 10^3/uL (4.4-10.8)
[2024-07-04 22:19] LABS: Iron 29 ug/dL (65-175); Total Iron Binding Capacity 160 ug/dL (250-450)
[2024-07-04 22:33] LABS: Ferritin 528 ng/mL (26-388)
[2024-07-05 22:19] LABS: PSA, Diagnostic 10.1 ng/mL (<=6.5)
== END 2024-07-04 21:30 | disposition home or self-care (01) ==
LOC: LBN 21:29
PROVIDERS: PCP Nurse Practitioner Family; Visit Provider Nurse Practitioner Gerontology
DX: D50.9 Iron deficiency anemia, unspecified (principal); R35.1 Nocturia; R33.9 Retention of urine, unspecified; R97.20 Elevated prostate specific antigen [PSA]
CPT/HCPCS: 85027; 82728; 83540; 83550; 84153

== ENCOUNTER 2024-07-22 13:03 | Emergency (ER) | payer MEDICARE, SELFPAY ==
[2024-07-22 13:10] VITALS: BP 142/91; PULSE 104; RESP 20; TEMP 36.4; O2SAT 94
[2024-07-22 14:01] LABS: Abs Immature Grans 0.03 10^3/uL (0.0-0.06); Absolute Basophil Count 0.03 10^3/uL (0.0-0.2); Absolute Eosinophil Count 0.07 10^3/uL (0.0-0.7); Absolute Lymphocyte Count 0.26 10^3/uL (1.2-3.4); Absolute Monocyte Count 0.55 10^3/uL (0.1-0.8); Absolute Neutrophil Count 7.55 10^3/uL (1.2-6.7); Basophils % 0.4 %; Eosinophils % 0.8 %; HCT 38.7 % (40.0-50.0); HGB 11.5 g/dL (13.5-17.5); Immature Grans % 0.4 %; Lymphocytes % 3.1 %; MCH 24.5 pg (27.0-33.0); MCHC 29.7 % (32.0-36.0); MCV 83 fL (80-95); MPV 8.2 fL (8.0-11.0); Monocytes % 6.5 %; Neutrophils % 88.8 %; Platelet Count 177 10^3/uL (130-400); RBC 4.69 10^6/uL (4.36-5.78); WBC 8.49 10^3/uL (4.4-10.8)
[2024-07-22 14:12] LABS: Bilirubin Negative (Negative); Blood Negative (Negative); Clarity Clear (Clear); Glucose Negative (Negative); Ketones Negative (Negative); Leukocyte Esterase Negative (Negative); Nitrite Negative (Negative); Specific Gravity 1.025 (1.005-1.025); Urobilinogen 0.2 mg/dL (Up to 0.2); pH 5.5 (5-8)
[2024-07-22 14:14] LABS: Anisocytosis 2+; Diff Comment RBC Morph Reviewed
[2024-07-22 14:18] LABS: ALT 16 U/L (16-63); AST 15 U/L (15-37); Albumin 3.2 g/dL (3.4-5.0); Alkaline Phosphatase 83 U/L (46-116); Anion Gap 6.7 mmol/L (3-11); BUN 15 mg/dL (7-18); Bilirubin, Total 0.6 mg/dL (0.2-1.0); CO2 27.3 mmol/L (21.0-32.0); Calcium 9.2 mg/dL (8.5-10.1); Chloride 105 mmol/L (98-107); Estimated GFR 76.56 (mL/min/1.73m2); Glucose 115 mg/dL (74-106); Lipase 51 U/L (<78); Potassium 4.4 mmol/L (3.5-5.1); Sodium 139 mmol/L (136-145)
--- NOTE | 2024-07-22 14:34 | DI.CT_ITS ---
Exam(s) CT CHEST/ABD/PEL W EXAM: CT CHEST/ABD/PEL W CLINICAL HISTORY: recent pna, fever, RUQ pain. TECHNIQUE: Imaging Protocol: Axial computed tomography images with coronal and sagittal reformatted images were created and reviewed. Computer aided detection (CAD) was utilized. CONTRAST MATERIAL: Intravenous: Omnipaque 350 Contrast volume:75 ml Oral: no COMPARISON: CT CT ABDOMEN PELVIS W from 01/11/2022 CR,XR XR PORTABLE CHEST AP from 06/01/2024 FINDINGS: CHEST: Pulmonary parenchyma: Multifocal areas of consolidation are noted in the right lower lobe. Mild infi ltrates seen in the posterior right upper lobe adjacent to the fissure. Mild patchy infiltrates in t he left lower lobe. There appears to be some improvement when compared with previous chest x-ray. N o dominant measurable mass. Some atelectasis of the right middle lobe. Tracheobronchial tree: No bronchiectasis. No mucous plugging.No bronchial wall thickening. Pleura: No effusion or pneumothorax. Mediastinum: there is a large hiatal hernia and 2 gastric pull-through surgery. There is fluid in th e stomach and esophagus. Pulmonary arteries: No visible emboli. Cardiovascular: The heart is mildly enlarged. There are severe coronary artery calcifications. No p ericardial effusion. Thoracic aorta non-dilated. Atherosclerotic changes. Bones: Sternal wires. Spine is unremarkable for age. No lytic or blastic lesions.No compression fra ctures. Soft tissues: Unremarkable. ABDOMEN and PELVIS: Liver: Normal density. Stable tiny cysts. No suspicious mass. Gallbladder and biliary tract: No evidence of stones or wall thickening. No biliary dilatation. Pancreas: Normal density, no abnormal calcifications or inflammatory process. Spleen: Normal size. Stable small areas of low density in lower pole. Kidneys: Normal size, contour and axis. No radiodense stones. No obstructive uropathy. No suspicious masses seen. Adrenal glands: No masses seen. Aorta: Abdominal portion non-dilated. Heavily calcified. No stenosis. The common iliac arteries a re heavily calcified and show mild bilateral stenosis. Lymph nodes: Within normal limits. Soft tissues: Unremarkable. Bladder: Unremarkable. Bowel: Suboptimal evaluation without oral contrast and lack of intra-abdominal fat. No obstruction o r bowel wall thickening. Normal quantity of stool. Peritoneal cavity: No ascites. No focal collection. No mesenteric inflammatory response. No free ai r. Bones: Unremarkable for age. Reproductive organs: The prostate is enlarged. IMPRESSION: Right lower lobe pneumonia. The findings appear somewhat improved from prior chest x-ray. Mild infi ltrates noted in the posterior right upper lobe as well as left lower lobe. No acute abnormality in the abdomen or pelvis. RADIATION DOSE DELIVERED: Total DLP DATA REPOSITORY: All CT scans at this facility are submitted to the National Radiology Data Registry (NRDR) Dose Index Registry (DIR) with the [employer] (ACR). RADIATION OPTIMIZATION: All CT scans at this facility use at least one of these dose optimization te chniques: automated exposure control; mA and/or kV adjustment per patient size (includes targeted exa ms where dose is matched to clinical indication); or iterative reconstruction.
[2024-07-22] MEDS: Omnipaque 350 MG/ML 100 ML BTL IJ (15:09)
[2024-07-22] MEDS: Normal Saline - Diluent 50 ML VIAL IJ (15:10)
--- NOTE | 2024-07-22 15:15 | RT.EKG_ITS ---
APPROVED REPORT Exam: Resting ECG Reason for Exam: ruq pain Patient Location: E HR:84 bpm ECG Measurements Heart Rate 84 AXIS MO 162 P 72 QRSd 96 QRS -59 QT 378 T 89 QTc 448 Conclusion Sinus rhythm. 84 TWI V4,5,6 no stemi
--- NOTE | 2024-07-22 15:50 | ED.GENADUL_ITS ---
Discharge Plan Discharge Details Chief Complaint: Abd Prob Primary Care Provider: Zach White ED Provider: Alicia Gannon Home Meds and New Rx's Prescriptions: No Action nitroglycerin [Nitrostat] 0.4 mg tablet, sublingual 0.4 mg SL Q5-15M PRN (Reason: chest pain) Qty: 10 3RF Rx Instructions: until response; do not exceed 3 doses per episode atorvastatin 80 mg tablet 80 mg PO HS Qty: 90 3RF Rx Instructions: reduce risk of cardiovascular events, lower cholesterol albuterol sulfate 90 mcg/actuation HFA aerosol inhaler 2 inh inhalation Q6H PRN (Reason: shortness of breath or wheezing) Qty: 18 4RF pantoprazole [Protonix] 20 mg tablet,delayed release (DR/EC) 20 mg PO BID Qty: 180 3RF Rx Instructions: h/o esophageal cancer (DME) Aerochamber MV Spacer See Rx Instructions .Route Qty: 1 0RF Rx Instructions: As directed multivitamin [Daily Multi-Vitamin] Tablet 1 tab PO DAILY lisinopril 2.5 mg tablet 2.5 mg PO DAILY Qty: 90 3RF metoprolol tartrate 25 mg tablet 25 mg PO BID Qty: 180 3RF aspirin 81 mg tablet,delayed release (DR/EC) 81 mg PO DAILY ferrous sulfate 325 mg (65 mg iron) tablet 325 mg PO DAILY Qty: 90 3RF Bio-K plus 50 billion cell capsule,delayed release(DR/EC) 1 cap PO DAILY Qty: 7 0RF HPI General Date/Time Provider Initiated Documentation: 07/22/24 13:39 . HPI Narrative: 79-year-old male with microcytic anemia, CAD post-CABG, carotid endarterectomy, and TIA. Presents with worsening right upper quadrant pain for 3 weeks, worst today. No chest pain, SOB, or similar past symptoms. Had pneumonia with sepsis in May 2024, current symptoms different. No fever, chills, calf pain, or swelling. Pain intensifies with walking or movement, not with inhalation. Related Data Home Medications ?Medication ?Instructions ?Recorded ?Confirmed multivitamin (Daily Multi-Vitamin 1 tab PO DAILY 04/27/20 07/22/24 tablet) lisinopril 2.5 mg tablet 2.5 mg PO DAILY hypertension #90 01/28/22 07/22/24 tabs metoprolol tartrate 25 mg tablet 25 mg PO BID #180 tabs 01/28/22 07/22/24 aspirin 81 mg tablet,delayed 81 mg PO DAILY 02/16/22 07/22/24 release atorvastatin 80 mg tablet 80 mg PO HS #90 tabs 05/13/22 07/22/24 nitroglycerin 0.4 mg sublingual 0.4 mg sublingual Q5-15M PRN chest 05/13/22 07/22/24 tablet (Nitrostat) pain #10 tabs inhalational spacing device #1 ea 05/19/23 07/22/24 (Aerochamber MV spacer) albuterol sulfate 90 mcg/actuation 2 inh inhalation Q6H PRN shortness 02/12/24 07/22/24 aerosol inhaler of breath or wheezing #18 grams L. acidophilus,casei,rhamnosus 50 1 cap PO DAILY #7 caps 06/07/24 07/22/24 billion cell capsule,delayed release (Bio-K plus) ferrous sulfate 325 mg (65 mg 325 mg PO DAILY #90 tabs 06/20/24 07/22/24 iron) tablet pantoprazole 20 mg tablet,delayed 20 mg PO BID #180 tabs 07/04/24 07/22/24 release (Protonix) Previous Rx's ?Medication ?Instructions ?Recorded lisinopril 2.5 mg tablet 2.5 mg PO DAILY hypertension #90 01/28/22 tabs metoprolol tartrate 25 mg tablet 25 mg PO BID #180 tabs 01/28/22 atorvastatin 80 mg tablet 80 mg PO HS #90 tabs 05/13/22 nitroglycerin 0.4 mg sublingual 0.4 mg sublingual Q5-15M PRN chest 05/13/22 tablet (Nitrostat) pain #10 tabs inhalational spacing device #1 ea 05/19/23 (Aerochamber MV spacer) albuterol sulfate 90 mcg/actuation 2 inh inhalation Q6H PRN shortness 02/12/24 aerosol inhaler of breath or wheezing #18 grams L. acidophilus,casei,rhamnosus 50 1 cap PO DAILY #7 caps 06/07/24 billion cell capsule,delayed release (Bio-K plus) ferrous sulfate 325 mg (65 mg 325 mg PO DAILY #90 tabs 06/20/24 iron) tablet pantoprazole 20 mg tablet,delayed 20 mg PO BID #180 tabs 07/04/24 release (Protonix) Allergies Allergy/AdvReac Type Severity Reaction Status Date / Time tamsulosin (From Flomax) AdvReac Dizziness/L Verified 07/22/24 13:13 ighthead General Stated Complaint: Abd Prob BRUCE: 3 Exam Narrative Exam Narrative: General Appearance: Alert, oriented, no acute distress. Vital signs: Within normal limits. HEENT: Within normal limits. Respiratory: Lungs clear. Gastrointestinal: Reproducible tenderness in RUQ abdomen, no lower abdomen tenderness, rebound, or guarding. Extremities: No peripheral edema, calf swelling, or tenderness. Skin: Warm and dry, no rash. Neurological: Normal. Course Vital Signs Vital signs: Vital Signs Temperature 36.4 C L 07/22/24 13:10 Pulse 104 H 07/22/24 13:10 Respiratory Rate 20 07/22/24 13:10 Blood Pressure 142/91 H 07/22/24 13:10 Pulse Oximetry 94 07/22/24 13:10 Temperature 36.4 C L 07/22/24 13:10 Pulse 104 H 07/22/24 13:10 Respiratory Rate 20 07/22/24 13:10 Blood Pressure 142/91 H 07/22/24 13:10 Blood Pressure Position Sitting 07/22/24 13:10 Pulse Oximetry 94 07/22/24 13:10 Oxygen Delivery Method Room Air 07/22/24 13:10 Oxygen Flow Rate 0 07/22/24 13:10 Lab/Test Results Lab/Test Results: 07/22/24 15:00 Blood Blood Culture - Pending 07/22/24 14:34 Blood Blood Culture - Pending Laboratory Tests Range/Units 07/22/24 13:54 WBC (4.4-10.8) 10^3/uL 8.49 RBC (4.36-5.78) 10^6/uL 4.69 Hgb (13.5-17.5) g/dL 11.5 L Hct (40.0-50.0) % 38.7 L MCV (80-95) fL 83 MCH (27.0-33.0) pg 24.5 L MCHC (32.0-36.0) % 29.7 L RDW (11.8-14.1) % Plt Count (130-400) 10^3/uL 177 MPV (8.0-11.0) fL 8.2 Immature Gran % % 0.4 Neutrophils % % 88.8 Lymphocytes % % 3.1 Monocytes % % 6.5 Eosinophils % % 0.8 Basophils % % 0.4 Nucleated RBC % (0.0-0.3) % 0.0 Absolute Neutrophils (1.2-6.7) 10^3/uL 7.55 H Absolute Lymphocytes (1.2-3.4) 10^3/uL 0.26 L Absolute Monocytes (0.1-0.8) 10^3/uL 0.55 Absolute Eosinophils (0.0-0.7) 10^3/uL 0.07 Absolute Basophils (0.0-0.2) 10^3/uL 0.03 RBC Morphology See Below Anisocytosis 2+ Sodium (136-145) mmol/L 139 Potassium (3.5-5.1) mmol/L 4.4 Chloride (98-107) mmol/L 105 Carbon Dioxide (21.0-32.0) mmol/L 27.3 Anion Gap (3-11) mmol/L 6.7 BUN (7-18) mg/dL 15 Creatinine (0.70-1.30) mg/dL 1.0 Est GFR (CKD-EPI 2020) (mL/min/1.73m2) 76.56 Glucose (74-106) mg/dL 115 H Calcium (8.5-10.1) mg/dL 9.2 Total Bilirubin (0.2-1.0) mg/dL 0.6 AST (15-37) U/L 15 ALT (16-63) U/L 16 Alkaline Phosphatase (46-116) U/L 83 Total Protein (6.4-8.2) g/dL 7.0 Albumin (3.4-5.0) g/dL 3.2 L Lipase (<78) U/L 51 Urine Color (Yellow) Yellow Urine Clarity (Clear) Clear Urine pH (5-8) 5.5 Ur Specific [place] (1.005-1.025) 1.025 Urine Protein (Neg-Trace) mg/dL Trace Urine Ketones (Negative) mg/dL Negative Urine Blood (Negative) Negative Urine Nitrite (Negative) Negative Urine Bilirubin (Negative) Negative Urine Urobilinogen (Up to 0.2) mg/dL 0.2 Ur Leukocyte Esterase (Negative) Negative Urine Glucose (Negative) mg/dL Negative Medical Decision Making Initial Assessment: 79-year-old gentleman with past medical history of microc ytic anemia, coronary artery disease status post CABG, carotid endarterectomy, TIA, presenting with right upper quadrant pain worsening over the past 3 weeks, worst today. Denies similar past symptoms, chest pain, shortness of breath, or upper respiratory symptoms. Pain worsens with movement. ED Course: - Ordered troponin test. - Patient alert and oriented, no acute distress. - Reproducible right upper quadrant tenderness. - Lungs clear to auscultation. - No peripheral edema, calf swelling or tenderness, lower abdominal tenderness, rebound, or guarding. signed out pending CT CAB and reassessment Final Assessment: Patient with worsening right upper quadrant pain over 3 weeks, worst today. No similar past symptoms, chest pain, shortness of breath, or upper respiratory symptoms. Pain worsens with movement. Troponin test ordered. Physical exam findings include reproducible right upper quadrant tenderness, clear lungs, and no signs of peripheral edema or abdominal issues. Clinical Impression: - Right upper quadrant pain MDM Components Evaluation: - Number of Differential Diagnoses or Management Options: Right upper quadrant pain - Amount and Complexity of Data Reviewed: Troponin test ordered - Risk of Complication and Morbidity or Mortality: Moderate risk due to patient's age and past medical history including coronary artery disease and TIA. Quality:[facility] Health Related Social Needs: Health related social needs details N/A PFSH All Active Problems (Updated 06/08/24 @ 00:01 by YVETTE CHOI) Microcytic anemia (Acute) Community acquired pneumonia of right lung (Acute) Nocturia (Acute) Wheeze (Acute) Screening for colon cancer (Acute) Actinic keratoses (Acute) Chronic kidney disease (Chronic) Erectile dysfunction (Acute) Postnasal drip (Acute ~12/2020) Chronic rhinitis (Acute ~12/2020) Esophagitis determined by biopsy (Acute ~06/2020) [facility] [facility] [place] Aspiration pneumonia (Acute) Hematuria (Acute) Aortic stenosis (Chronic) Chronic diarrhea (Acute) Abnormal auditory perception (Acute) Impacted cerumen of both ears (Acute) Sensorineural hearing loss of both ears (Acute) S/P carotid endarterectomy (Acute) Depressive disorder (Chronic 06/30/11) Pain of right upper extremity (Acute 03/20/15) Primary malignant neoplasm of esophagus (Acute 04/27/00) Vasomotor rhinitis (Acute) Asymptomatic bilateral carotid artery stenosis (Acute) 09/13/18 [facility] [place] Henry Null, Vascular Surgery Coronary artery disease involving coronary bypass graft of [place] heart (Chronic) Urinary retention (Chronic 04/29/16) Retinal detachment (Chronic 03/10/14) R managed by Dr Iraheta at [facility] Pure hypercholesterolemia (Chronic 06/30/11) goal LDL<70 due to CAD (no ischemia but presumed cause of abnl MPI 08/2011) Personal history of TIA (transient ischemic attack) (Chronic 02/06/15) R paresthesias; TIA vs Migraine, Drs. Palmer/ Latoya: vasc eval, medical therapy, statin/Plavix; finally L carotid endarterectomy 04/19/16 [facility] [place]; F/U 11/2016 Iron deficiency anemia (Chronic 04/17/12) 2005, 2008, 301; LAST GI W/U 2008 NEG X ADENOMA, TICS, EGD NEG [facility] [place] 04/2013; chronic microcytosis 2000 Elevated prostate specific antigen (PSA) (Chronic 06/30/11) h/o bx 2009; Dr Tripp 08/2010: consider up to 11 normal for him Carotid disease, bilateral (Chronic 01/25/16) [facility] [place] 50% L int carotid; Dr Mauro: f/u 1 yr with Duplex [facility] [place] 09/18/17 Duplex shows a patent L CEA site, but some progressionon RIght, F/U in 6m with plan for duplex both carotoids. (Dr Null [facility] [place] Vascular) Atherosclerosis of [place] coronary artery of [place] heart without angina pectoris (Chronic 04/10/06) silent ant [place] by MPI 2006; ECHO 06/2007: EF 63%, NO WMA; MPI 08/2011 NEG ISCHEMIA, EF 50%; ANTSEPT HYPOKIN; ASA & beta hood started 2006; aspirin stopped 01/2016 due to gastric ulcer Medical History (Updated 06/08/24 @ 00:01 by YEVTTE CHOI) Severe sepsis Pleural effusion, right Surgical History S/P CABG x 3 (~06/04/18) H/O cardiac catheterization (05/22/18) [facility] [place] Harvey partial esophagotomy (04/28/00) Dr Ibanez; [place] Esophagogastrectomy and feeding jejunostomy EGD - IV Sedation (12/22/15) Colonoscopy - IV Sedation (03/10/14) [facility] [place]; also EGD Extraction of cataract (09/25/14) right eye with lens implant Dr. Truong Carotid endarterectomy (04/19/16) Left, [facility] [place], Dr. Null for asymptomatic carotid stenosis Family History Mother , old age at age 92. Congestive heart failure (CHF) age of onset unknown Father , [place], pneumonia at age 78. Myocardial infarction Sister , [place] at age 56. Myocardial infarction Sister Age: 90 No problems noted. Brother , cancer at age 67. Esophageal cancer Social History Smoking/Tobacco Use Status: Former Tobacco Use tobacco type: cigarettes Quit Date: 10/08/88 Pack-years: 20 Tobacco: How many years used: 20 Second Hand Exposure: No Smoking risk assessment performed?: Yes Alcohol Intake: former Year quit: 1987 Drug use: Never Substance use type: does not use Adopted: No Caregiver/Support person: No Household members: spouse and other Details: client Housing: house Number of Children: 4 number of grandchildren: 10 Communication Needs: Hard of Hearing Education Level: high school Do you need help understanding health information?: Rarely current occupation: Drives for [employer] Sexually active: Yes Do you think of yourself as: straight/heterosexual Current gender identity: male What is your relationship status?: How often do you talk on the phone with friends or family?: once per week How often do you get together with friends or relatives?: twice per week Do you belong to any clubs or organized social groups?: no Panel score (0-1 are the most socially isolated patients): 2 What type of physical activity do you participate in: other Details: active daily Masha/Sabianist: Sabianist Seatbelt use: always Helmet use: Yes Helmet use: always Drive intox or ride w/intox lokie driver: No Working smoke detector in home: Yes Fire extinguisher in home: Yes Carbon monox detector in home: Yes Firearms in home: No Do you feel safe at home: Yes Do you feel safe in your relationship?: Yes Victim of physical abuse: No Victim of emotional abuse: No Victim of sexual abuse: No Would you like helpful sources: No
[2024-07-22 16:02] LABS: Lactate 1.1 mmol/L (<or=2.0)
[2024-07-22 16:04] LABS: Troponin I 10 ng/L (<or=76)
[2024-07-22 16:09] VITALS: TEMP 37.1
--- NOTE | 2024-07-22 16:13 | W.ED.GENAD ---
Discharge Plan Discharge Details Chief Complaint: Abd Prob Primary Care Provider: Zach White ED Provider: Noel Hernandez Home Meds and New Rx's Prescriptions: No Action nitroglycerin [Nitrostat] 0.4 mg tablet, sublingual 0.4 mg SL Q5-15M PRN (Reason: chest pain) Qty: 10 3RF Rx Instructions: until response; do not exceed 3 doses per episode atorvastatin 80 mg tablet 80 mg PO HS Qty: 90 3RF Rx Instructions: reduce risk of cardiovascular events, lower cholesterol albuterol sulfate 90 mcg/actuation HFA aerosol inhaler 2 inh inhalation Q6H PRN (Reason: shortness of breath or wheezing) Qty: 18 4RF pantoprazole [Protonix] 20 mg tablet,delayed release (DR/EC) 20 mg PO BID Qty: 180 3RF Rx Instructions: h/o esophageal cancer (DME) Aerochamber MV Spacer See Rx Instructions .Route Qty: 1 0RF Rx Instructions: As directed multivitamin [Daily Multi-Vitamin] Tablet 1 tab PO DAILY lisinopril 2.5 mg tablet 2.5 mg PO DAILY Qty: 90 3RF metoprolol tartrate 25 mg tablet 25 mg PO BID Qty: 180 3RF aspirin 81 mg tablet,delayed release (DR/EC) 81 mg PO DAILY ferrous sulfate 325 mg (65 mg iron) tablet 325 mg PO DAILY Qty: 90 3RF Bio-K plus 50 billion cell capsule,delayed release(DR/EC) 1 cap PO DAILY Qty: 7 0RF HPI General Date/Time Provider Initiated Documentation: 07/22/24 13:39. HPI Narrative: [ ] year-old [ ] presents to ED today by [ ] with a chief complaint of [ ] with onset [ ]. Quality described as [ ], [ ] radiation to [ ]. Severity is described as [ ]/10. Palliating factors include [ ]. Provoking factors include [ ]. Events leading up to the incident/Associated Symptoms: [ ]. Patient [ ] anticoagulated. Related Data Home Medications ?Medication ?Instructions ?Recorded ?Confirmed multivitamin (Daily Multi-Vitamin 1 tab PO DAILY 04/27/20 07/22/24 tablet) lisinopril 2.5 mg tablet 2.5 mg PO DAILY hypertension #90 01/28/22 07/22/24 tabs metoprolol tartrate 25 mg tablet 25 mg PO BID #180 tabs 01/28/22 07/22/24 aspirin 81 mg tablet,delayed 81 mg PO DAILY 02/16/22 07/22/24 release atorvastatin 80 mg tablet 80 mg PO HS #90 tabs 05/13/22 07/22/24 nitroglycerin 0.4 mg sublingual 0.4 mg sublingual Q5-15M PRN chest 05/13/22 07/22/24 tablet (Nitrostat) pain #10 tabs inhalational spacing device #1 ea 05/19/23 07/22/24 (Aerochamber MV spacer) albuterol sulfate 90 mcg/actuation 2 inh inhalation Q6H PRN shortness 02/12/24 07/22/24 aerosol inhaler of breath or wheezing #18 grams L. acidophilus,casei,rhamnosus 50 1 cap PO DAILY #7 caps 06/07/24 07/22/24 billion cell capsule,delayed release (Bio-K plus) ferrous sulfate 325 mg (65 mg 325 mg PO DAILY #90 tabs 06/20/24 07/22/24 iron) tablet pantoprazole 20 mg tablet,delayed 20 mg PO BID #180 tabs 07/04/24 07/22/24 release (Protonix) Previous Rx's ?Medication ?Instructions ?Recorded lisinopril 2.5 mg tablet 2.5 mg PO DAILY hypertension #90 01/28/22 tabs metoprolol tartrate 25 mg tablet 25 mg PO BID #180 tabs 01/28/22 atorvastatin 80 mg tablet 80 mg PO HS #90 tabs 05/13/22 nitroglycerin 0.4 mg sublingual 0.4 mg sublingual Q5-15M PRN chest 05/13/22 tablet (Nitrostat) pain #10 tabs inhalational spacing device #1 ea 05/19/23 (Aerochamber MV spacer) albuterol sulfate 90 mcg/actuation 2 inh inhalation Q6H PRN shortness 02/12/24 aerosol inhaler of breath or wheezing #18 grams L. acidophilus,casei,rhamnosus 50 1 cap PO DAILY #7 caps 06/07/24 billion cell capsule,delayed release (Bio-K plus) ferrous sulfate 325 mg (65 mg 325 mg PO DAILY #90 tabs 06/20/24 iron) tablet pantoprazole 20 mg tablet,delayed 20 mg PO BID #180 tabs 07/04/24 release (Protonix) Allergies Allergy/AdvReac Type Severity Reaction Status Date / Time tamsulosin (From Flomax) AdvReac Dizziness/L Verified 07/22/24 13:13 ighthead General Stated Complaint: Abd Prob BRUCE: 3 Review of Systems All systems reviewed & are unremarkable except as noted in HPI and below Exam Narrative Exam Narrative: GENERAL APPEARANCE: Well-nourished, non-toxic, awake and alert, atraumatic, no acute distress. SKIN: Warm, pink, dry, intact, without rashes/lesions/ulcerations. HEAD: Normocephalic, atraumatic, normal hair distribution for gender/age. EYES: Normal conjunctiva, no exudates on lids/lashes. ENT: Nares patent, no circumoral cyanosis, no facial swelling NECK: Supple, trachea midline, painless cervical ROM. LUNGS/CHEST: Lungs CTA bilaterally, non-labored respirations, normal A/P diameter, symmetrical expansion, no chest wall deformity HEART (CV/PV): Regular rate and rhythm without murmur, no peripheral edema, no JVD. ABDOMEN: Soft, non-distended, no guarding. MSK: Normal ROM, no swelling/deformity to bilateral UEs or LEs, moving all extremities without weakness, no cyanosis, spine midline without tenderness, normal curvature. NEURO: Mental Status AAOx4 - alert to person, place, time, events No facial droop, no forehead involvement. Motor: No focal weakness - strength 5/5 in bilateral UEs and LEs, proximal and distal, symmetric. Sensory: sensation intact to light touch globally. Gait normal: patient ambulated without ataxia into ED room. PSYCH: euthymic, cooperative, pleasant, appropriate speech Course Vital Signs Vital signs: Vital Signs Temperature 36.4 C L 07/22/24 13:10 Pulse 104 H 07/22/24 13:10 Respiratory Rate 20 07/22/24 13:10 Blood Pressure 142/91 H 07/22/24 13:10 Pulse Oximetry 94 07/22/24 13:10 Temperature 37.1 C 07/22/24 16:09 Temperature Source Oral 07/22/24 16:09 Pulse 104 H 07/22/24 13:10 Respiratory Rate 20 07/22/24 13:10 Blood Pressure 142/91 H 07/22/24 13:10 Blood Pressure Position Sitting 07/22/24 13:10 Pulse Oximetry 94 07/22/24 13:10 Oxygen Delivery Method Room Air 07/22/24 13:10 Oxygen Flow Rate 0 07/22/24 13:10 Lab/Test Results Lab/Test Results: 07/22/24 15:56 Blood Blood Culture - Pending 07/22/24 15:00 Blood Blood Culture - Pending Laboratory Tests Range/Units 07/22/24 07/22/24 13:54 15:56 WBC (4.4-10.8) 10^3/uL 8.49 RBC (4.36-5.78) 10^6/uL 4.69 Hgb (13.5-17.5) g/dL 11.5 L Hct (40.0-50.0) % 38.7 L MCV (80-95) fL 83 MCH (27.0-33.0) pg 24.5 L MCHC (32.0-36.0) % 29.7 L RDW (11.8-14.1) % Plt Count (130-400) 10^3/uL 177 MPV (8.0-11.0) fL 8.2 Immature Gran % % 0.4 Neutrophils % % 88.8 Lymphocytes % % 3.1 Monocytes % % 6.5 Eosinophils % % 0.8 Basophils % % 0.4 Nucleated RBC % (0.0-0.3) % 0.0 Absolute Neutrophils (1.2-6.7) 10^3/uL 7.55 H Absolute Lymphocytes (1.2-3.4) 10^3/uL 0.26 L Absolute Monocytes (0.1-0.8) 10^3/uL 0.55 Absolute Eosinophils (0.0-0.7) 10^3/uL 0.07 Absolute Basophils (0.0-0.2) 10^3/uL 0.03 RBC Morphology See Below Anisocytosis 2+ VBG Lactate (<or=2.0) mmol/L 1.1 Sodium (136-145) mmol/L 139 Potassium (3.5-5.1) mmol/L 4.4 Chloride (98-107) mmol/L 105 Carbon Dioxide (21.0-32.0) mmol/L 27.3 Anion Gap (3-11) mmol/L 6.7 BUN (7-18) mg/dL 15 Creatinine (0.70-1.30) mg/dL 1.0 Est GFR (CKD-EPI 2020) (mL/min/1.73m2) 76.56 Glucose (74-106) mg/dL 115 H Calcium (8.5-10.1) mg/dL 9.2 Total Bilirubin (0.2-1.0) mg/dL 0.6 AST (15-37) U/L 15 ALT (16-63) U/L 16 Alkaline Phosphatase (46-116) U/L 83 Troponin I (<or=76) ng/L 10 Total Protein (6.4-8.2) g/dL 7.0 Albumin (3.4-5.0) g/dL 3.2 L Lipase (<78) U/L 51 Urine Color (Yellow) Yellow Urine Clarity (Clear) Clear Urine pH (5-8) 5.5 Ur Specific Butler (1.005-1.025) 1.025 Urine Protein (Neg-Trace) mg/dL Trace Urine Ketones (Negative) mg/dL Negative Urine Blood (Negative) Negative Urine Nitrite (Negative) Negative Urine Bilirubin (Negative) Negative Urine Urobilinogen (Up to 0.2) mg/dL 0.2 Ur Leukocyte Esterase (Negative) Negative Urine Glucose (Negative) mg/dL Negative Medical Decision Making This dictation utilizes [id number] dictation software and may contain unedited grammatical errors. [ ]. Patients' medical history: [ ]. Family and social history: [ ]. Pertinent exam findings / vital signs include [ ]. Differential / pathologies of concern include [ ]. Diagnostic studies of: -[ ]. Interventions of: -[ ]. ED Course/Assessment/Plan: [ ]. Findings not consistent with [ ]. Disposition of [ ]. Patient verbalized understanding of the plan and return to ED criteria and engaged in shared decision making. Medical Records Medical records reviewed: Yes I reviewed the patient's medical records. Imaging Data Radiologic Study: Attestation: I personally reviewed and interpreted this imaging study as follows: Imaging: CT Scan Radiologist's impression: EXAM: CT CHEST/ABD/PEL W CLINICAL HISTORY: recent pna, fever, RUQ pain. TECHNIQUE: Imaging Protocol: Axial computed tomography images with coronal and sagittal reformatted images were created and reviewed. Computer aided detection (CAD) was utilized. CONTRAST MATERIAL: Intravenous: Omnipaque 350 Contrast volume:75 ml Oral: no COMPARISON: CT CT ABDOMEN PELVIS W from 01/11/2022 CR,XR XR PORTABLE CHEST AP from 06/01/2024 FINDINGS: CHEST: Pulmonary parenchyma: Multifocal areas of consolidation are noted in the right lower lobe. Mild infiltrates seen in the posterior right upper lobe adjacent to the fissure. Mild patchy infiltrates in the left lower lobe. There appears to be some improvement when compared with previous chest x-ray. No dominant measurable mass. Some atelectasis of the right middle lobe. Tracheobronchial tree: No bronchiectasis. No mucous plugging.No bronchial wall thickening. Pleura: No effusion or pneumothorax. Mediastinum: there is a large hiatal hernia and 2 gastric pull-through surgery. There is fluid in the stomach and esophagus. Pulmonary arteries: No visible emboli. Cardiovascular: The heart is mildly enlarged. There are severe coronary artery calcifications. No pericardial effusion. Thoracic aorta non-dilated. Atherosclerotic changes. Bones: Sternal wires. Spine is unremarkable for age. No lytic or blastic lesions.No compression fractures. Soft tissues: Unremarkable. ABDOMEN and PELVIS: Liver: Normal density. Stable tiny cysts. No suspicious mass. Gallbladder and biliary tract: No evidence of stones or wall thickening. No biliary dilatation. Pancreas: Normal density, no abnormal calcifications or inflammatory process. Spleen: Normal size. Stable small areas of low density in lower pole. Kidneys: Normal size, contour and axis. No radiodense stones. No obstructive uropathy. No suspicious masses seen. Adrenal glands: No masses seen. Aorta: Abdominal portion non-dilated. Heavily calcified. No stenosis. The common iliac arteries are heavily calcified and show mild bilateral stenosis. Lymph nodes: Within normal limits. Soft tissues: Unremarkable. Bladder: Unremarkable. Bowel: Suboptimal evaluation without oral contrast and lack of intra-abdominal fat. No obstruction or bowel wall thickening. Normal quantity of stool. Peritoneal cavity: No ascites. No focal collection. No mesenteric inflammatory response. No free air. Bones: Unremarkable for age. Reproductive organs: The prostate is enlarged. IMPRESSION: Right lower lobe pneumonia. The findings appear somewhat improved from prior chest x-ray. Mild infiltrates noted in the posterior right upper lobe as well as left lower lobe. No acute abnormality in the abdomen or pelvis. Lab Data Lab results reviewed: Yes I reviewed the patient's lab results. Quality:SDOH Health Related Social Needs: Health related social needs details N/A PFSH All Active Problems (Updated 06/08/24 @ 00:01 by YVETTE CHOI) Microcytic anemia (Acute) Community acquired pneumonia of right lung (Acute) Nocturia (Acute) Wheeze (Acute) Screening for colon cancer (Acute) Actinic keratoses (Acute) Chronic kidney disease (Chronic) Erectile dysfunction (Acute) Postnasal drip (Acute ~12/2020) Chronic rhinitis (Acute ~12/2020) Esophagitis determined by biopsy (Acute ~06/2020) [facility] [place] Aspiration pneumonia (Acute) Hematuria (Acute) Aortic stenosis (Chronic) Chronic diarrhea (Acute) Abnormal auditory perception (Acute) Impacted cerumen of both ears (Acute) Sensorineural hearing loss of both ears (Acute) S/P carotid endarterectomy (Acute) Depressive disorder (Chronic 06/30/11) Pain of right upper extremity (Acute 03/20/15) Primary malignant neoplasm of esophagus (Acute 04/27/00) Vasomotor rhinitis (Acute) Asymptomatic bilateral carotid artery stenosis (Acute) 09/13/18 [facility] [place] Henry Null, Vascular Surgery 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 Palmer/ Latoya: vasc eval, medical therapy, statin/Plavix; finally L carotid endarterectomy 04/19/16 [facility] [place]; F/U 11/2016 Iron deficiency anemia (Chronic 04/17/12) 2005, 2008, 301; LAST GI W/U 2008 NEG X ADENOMA, TICS, EGD NEG [facility] [place] 04/2013; chronic microcytosis 1999 Elevated prostate specific antigen (PSA) (Chronic 06/30/11) h/o bx 2009; Dr Tripp 08/2010: consider up to 11 normal for him Carotid disease, bilateral (Chronic 01/25/16) [facility] [place] 50% L int carotid; Dr Mauro: f/u 1 yr with Duplex [facility] [place]/18/17 Duplex shows a patent L CEA site, but some progressionon RIght, F/U in 6m with plan for duplex both carotoids. (Dr Null [facility] [place]ascular) Atherosclerosis of [place] coronary artery of [place] heart without angina pectoris (Chronic 04/10/06) silent ant [place] by MPI 2006; ECHO 06/2007: EF 63%, NO WMA; MPI 08/2011 NEG ISCHEMIA, EF 50%; ANTSEPT HYPOKIN; ASA & beta hood started 2006; aspirin stopped 01/2016 due to gastric ulcer Medical History (Updated 06/08/24 @ 00:01 by YVETTE CHOI) Severe sepsis Pleural effusion, right Surgical History S/P CABG x 3 (~06/04/18) H/O cardiac catheterization (05/22/18) [facility] [place] Harvey partial esophagotomy (04/28/00) Dr Ibanez; [facility] Esophagogastrectomy and feeding jejunostomy EGD - IV Sedation (12/22/15) Colonoscopy - IV Sedation (03/10/14[place] [facility] [place]GD Extraction of cataract (09/25/14) right eye with lens implant Dr. Truong Carotid endarterectomy (04/19/16) Left, [facility] [place], Dr. Null for asymptomatic carotid stenosis Family History Mother , old age at age 92. Congestive heart failure (CHF) age of onset unknown Father , [place], pneumonia at age 78. Myocardial infarction Sister , [place] at age 56. Myocardial infarction Sister Age: 90 No problems noted. Brother , cancer at age 67. Esophageal cancer Social History Smoking/Tobacco Use Status: Former Tobacco Use tobacco type: cigarettes Quit Date: 10/08/88 Pack-years: 20 Tobacco: How many years used: 20 Second Hand Exposure: No Smoking risk assessment performed?: Yes Alcohol Intake: former Year quit: 1987 Drug use: Never Substance use type: does not use Adopted: No Caregiver/Support person: No Household members: spouse and other Details: client Housing: house Number of Children: 4 number of grandchildren: 10 Communication Needs: Hard of Hearing Education Level: high school Do you need help understanding health information?: Rarely current occupation: Drives for [employer] Sexually active: Yes Do you think of yourself as: straight/heterosexual Current gender identity: male What is your relationship status?: How often do you talk on the phone with friends or family?: once per week How often do you get together with friends or relatives?: twice per week Do you belong to any clubs or organized social groups?: no Panel score (0-1 are the most socially isolated patients): 2 What type of physical activity do you participate in: other Details: active daily Masha/Adventist: Hinduism Seatbelt use: always Helmet use: Yes Helmet use: always Drive intox or ride w/intox moving van driver: No Working smoke detector in home: Yes Fire extinguisher in home: Yes Carbon monox detector in home: Yes Firearms in home: No Do you feel safe at home: Yes Do you feel safe in your relationship?: Yes Victim of physical abuse: No Victim of emotional abuse: No Victim of sexual abuse: No Would you like helpful sources: No
--- NOTE | 2024-07-22 16:24 | W.EDPROG ---
Date of service: 07/22/24 Time of Service: 16:25 Medical Decision Making This dictation utilizes [id number] dictation software and may contain unedited grammatical errors. Patient seen in signout from Alicia Gannon PA-C,please see her complete note. Essentially this 79-year-old male with microcytic anemia, coronary artery disease post CABG, status post carotid endarterectomy and TIA and remote history presents with worsening right upper quadrant abdominal pain for the past 3 weeks, worse today, had pneumonia with sepsis in May 2024 feels his current symptoms are different, question of low-grade fever, pending CTA of the chest abdomen pelvis, question biliary colic versus unlikely renal colic with negative UA, pending troponin. Patients' medical history: CABG X3 2019, carotid endarterectomy 2017, pneumonia 2024 in May, aortic stenosis, history of urinary retention. Family and social history: Noncontributory. Diagnostic studies of: -Reviewed prior labs, awaiting troponin and COVID/flu/RSV PCR swab as well as CT chest abdomen pelvis. -CT only shows a RLL PNA, no other emergent findings -trop neg -EKG benign, NSR without ischemic changes -Covid/Flu/RSV negative Interventions of: - Rx for levofloxacin possibly had incomplete coverage for his pneumonia with prior antibiotics. ED Course/Assessment/Plan: 79-year-old male presents with right upper quadrant pain, had a bout of pneumonia, CTA does show residual pneumonia, he was treated with cephalosporins and doxycycline and then IV medicines on admit but has failed to resolve his opacity in the right lower lung, I am starting him on levofloxacin, his pain was most focal over the right lower ribs and I discussed this with radiologist on-call Dr. An we did not find any acute abnormality, I counseled him and his daughter that if he should continue to have pain in this region that he may want to talk to his primary care about seeking an MRI of the bones of his rib cage on the right, counseled on following up with his primary care provider and strict return criteria for any respiratory distress, worsening abdominal pain especially fever, tractable nausea or vomiting or any other emergent concerns. Findings not consistent with biliary colic, SBO, respiratory failure, acute emergent abdominal pathology, bone malignancy. Disposition of Right Lower Lobe Pneumonia. Patient verbalized understanding of the plan and return to ED criteria and engaged in shared decision making. Medical Records Medical records reviewed: Yes I reviewed the patient's medical records. Imaging Data Radiologic Study: Attestation: I personally reviewed and interpreted this imaging study as follows: Imaging: CT Scan Radiologist's impression: EXAM: CT CHEST/ABD/PEL W CLINICAL HISTORY: recent pna, fever, RUQ pain. TECHNIQUE: Imaging Protocol: Axial computed tomography images with coronal and sagittal reformatted images were created and reviewed. Computer aided detection (CAD) was utilized. CONTRAST MATERIAL: Intravenous: Omnipaque 350 Contrast volume:75 ml Oral: no COMPARISON: CT CT ABDOMEN PELVIS W from 01/11/2022 CR,XR XR PORTABLE CHEST AP from 06/01/2024 FINDINGS: CHEST: Pulmonary parenchyma: Multifocal areas of consolidation are noted in the right lower lobe. Mild infiltrates seen in the posterior right upper lobe adjacent to the fissure. Mild patchy infiltrates in the left lower lobe. There appears to be some improvement when compared with previous chest x-ray. No dominant measurable mass. Some atelectasis of the right middle lobe. Tracheobronchial tree: No bronchiectasis. No mucous plugging.No bronchial wall thickening. Pleura: No effusion or pneumothorax. Mediastinum: there is a large hiatal hernia and 2 gastric pull-through surgery. There is fluid in the stomach and esophagus. Pulmonary arteries: No visible emboli. Cardiovascular: The heart is mildly enlarged. There are severe coronary artery calcifications. No pericardial effusion. Thoracic aorta non-dilated. Atherosclerotic changes. Bones: Sternal wires. Spine is unremarkable for age. No lytic or blastic lesions.No compression fractures. Soft tissues: Unremarkable. ABDOMEN and PELVIS: Liver: Normal density. Stable tiny cysts. No suspicious mass. Gallbladder and biliary tract: No evidence of stones or wall thickening. No biliary dilatation. Pancreas: Normal density, no abnormal calcifications or inflammatory process. Spleen: Normal size. Stable small areas of low density in lower pole. Kidneys: Normal size, contour and axis. No radiodense stones. No obstructive uropathy. No suspicious masses seen. Adrenal glands: No masses seen. Aorta: Abdominal portion non-dilated. Heavily calcified. No stenosis. The common iliac arteries are heavily calcified and show mild bilateral stenosis. Lymph nodes: Within normal limits. Soft tissues: Unremarkable. Bladder: Unremarkable. Bowel: Suboptimal evaluation without oral contrast and lack of intra-abdominal fat. No obstruction or bowel wall thickening. Normal quantity of stool. Peritoneal cavity: No ascites. No focal collection. No mesenteric inflammatory response. No free air. Bones: Unremarkable for age. Reproductive organs: The prostate is enlarged. IMPRESSION: Right lower lobe pneumonia. The findings appear somewhat improved from prior chest x-ray. Mild infiltrates noted in the posterior right upper lobe as well as left lower lobe. No acute abnormality in the abdomen or pelvis. Lab Data Lab results reviewed: Yes I reviewed the patient's lab results. Labs: 07/22/24 15:56 Blood Blood Culture - Pending 07/22/24 15:00 Blood Blood Culture - Pending Laboratory Tests Range/Units 07/22/24 07/22/24 13:54 15:56 WBC (4.4-10.8) 10^3/uL 8.49 RBC (4.36-5.78) 10^6/uL 4.69 Hgb (13.5-17.5) g/dL 11.5 L Hct (40.0-50.0) % 38.7 L MCV (80-95) fL 83 MCH (27.0-33.0) pg 24.5 L MCHC (32.0-36.0) % 29.7 L RDW (11.8-14.1) % Plt Count (130-400) 10^3/uL 177 MPV (8.0-11.0) fL 8.2 Immature Gran % % 0.4 Neutrophils % % 88.8 Lymphocytes % % 3.1 Monocytes % % 6.5 Eosinophils % % 0.8 Basophils % % 0.4 Nucleated RBC % (0.0-0.3) % 0.0 Absolute Neutrophils (1.2-6.7) 10^3/uL 7.55 H Absolute Lymphocytes (1.2-3.4) 10^3/uL 0.26 L Absolute Monocytes (0.1-0.8) 10^3/uL 0.55 Absolute Eosinophils (0.0-0.7) 10^3/uL 0.07 Absolute Basophils (0.0-0.2) 10^3/uL 0.03 RBC Morphology See Below Anisocytosis 2+ VBG Lactate (<or=2.0) mmol/L 1.1 Sodium (136-145) mmol/L 139 Potassium (3.5-5.1) mmol/L 4.4 Chloride (98-107) mmol/L 105 Carbon Dioxide (21.0-32.0) mmol/L 27.3 Anion Gap (3-11) mmol/L 6.7 BUN (7-18) mg/dL 15 Creatinine (0.70-1.30) mg/dL 1.0 Est GFR (CKD-EPI 2020) (mL/min/1.73m2) 76.56 Glucose (74-106) mg/dL 115 H Calcium (8.5-10.1) mg/dL 9.2 Total Bilirubin (0.2-1.0) mg/dL 0.6 AST (15-37) U/L 15 ALT (16-63) U/L 16 Alkaline Phosphatase (46-116) U/L 83 Troponin I (<or=76) ng/L 10 Total Protein (6.4-8.2) g/dL 7.0 Albumin (3.4-5.0) g/dL 3.2 L Lipase (<78) U/L 51 Urine Color (Yellow) Yellow Urine Clarity (Clear) Clear Urine pH (5-8) 5.5 Ur Specific Eckerman (1.005-1.025) 1.025 Urine Protein (Neg-Trace) mg/dL Trace Urine Ketones (Negative) mg/dL Negative Urine Blood (Negative) Negative Urine Nitrite (Negative) Negative Urine Bilirubin (Negative) Negative Urine Urobilinogen (Up to 0.2) mg/dL 0.2 Ur Leukocyte Esterase (Negative) Negative Urine Glucose (Negative) mg/dL Negative Quality:SDOH Health Related Social Needs: Health related social needs details N/A Discharge Plan Disposition Patient Disposition: Home Condition: Stable Discharge Details Clinical Impression: Right lower lobe pneumonia Primary Care Provider: Zach White ED Provider: Noel Hernandez Home Meds and New Rx's Prescriptions: New levofloxacin 750 mg tablet 750 mg PO DAILY 5 Days Qty: 5 0RF Continued nitroglycerin [Nitrostat] 0.4 mg tablet, sublingual 0.4 mg SL Q5-15M PRN (Reason: chest pain) Qty: 10 3RF Rx Instructions: until response; do not exceed 3 doses per episode atorvastatin 80 mg tablet 80 mg PO HS Qty: 90 3RF Rx Instructions: reduce risk of cardiovascular events, lower cholesterol albuterol sulfate 90 mcg/actuation HFA aerosol inhaler 2 inh inhalation Q6H PRN (Reason: shortness of breath or wheezing) Qty: 18 4RF pantoprazole [Protonix] 20 mg tablet,delayed release (DR/EC) 20 mg PO BID Qty: 180 3RF Rx Instructions: h/o esophageal cancer (DME) Aerochamber MV Spacer See Rx Instructions .Route Qty: 1 0RF Rx Instructions: As directed multivitamin [Daily Multi-Vitamin] Tablet 1 tab PO DAILY lisinopril 2.5 mg tablet 2.5 mg PO DAILY Qty: 90 3RF metoprolol tartrate 25 mg tablet 25 mg PO BID Qty: 180 3RF aspirin 81 mg tablet,delayed release (DR/EC) 81 mg PO DAILY ferrous sulfate 325 mg (65 mg iron) tablet 325 mg PO DAILY Qty: 90 3RF Bio-K plus 50 billion cell capsule,delayed release(DR/EC) 1 cap PO DAILY Qty: 7 0RF Discharge Instructions Instructions: Levofloxacin (Systemic), Pneumonia, Adult ED Additional Instructions: You were seen in the emergency department for your right upper quadrant abdominal/right rib cage pain, you do have a right sided pneumonia still lingering but otherwise her vitals are good and there is no evidence of sepsis or respiratory failure. I am going to trial you on a different antibiotic than the ones you have received prior for this infection called levofloxacin, sent to your pharmacy, please read the patient education materials about this antibiotic as it has some dosing concerns spaced out from food/feeding times. Please take Tylenol and ibuprofen for your pain, if your pain does not improve in your rib cage I think you need an MRI of your ribs ordered by your primary care, please return to the emergency department for any worsening respiratory status, severe increase in pain, abdominal pain with fever, intractable nausea or vomiting, complete constipation or any other emergent concern. Referrals: Zach White NP [Primary Care Provider] - Discharge Data Discharge Date/Time-TO BE ENTERED AT DEPARTURE: 07/22/24 17:32
[2024-07-22 17:16] LABS: COVID-19 PCR Negative (Negative); Influenza A PCR Negative (Negative); Influenza B PCR Negative (Negative); RSV PCR Negative (Negative)
[2024-07-22 17:18] LABS: Source Nasopharynx
[2024-07-22 17:29] VITALS: BP 142/86; PULSE 96; RESP 15; TEMP 36.8; O2SAT 98
== END 2024-07-22 17:32 | disposition home or self-care (01) ==
PROVIDERS: Physician Assistant; Emergency Provider Physician Assistant; PCP Nurse Practitioner Family
DX: J18.9 Pneumonia, unspecified organism (principal); I25.10 Atherosclerotic heart disease of native coronary artery without angina pectoris; Z95.1 Presence of aortocoronary bypass graft; Z86.73 Personal history of transient ischemic attack (TIA), and cerebral infarction without residual deficits; Z79.82 Long term (current) use of aspirin
CPT/HCPCS: 00123; 36415; 74177; 80053; 83690; 87040; 87637; 93005; 99285; 71260; 81003; 83605; 84484; 85025; 93010; 99284; J3490

== ENCOUNTER → 2024-07-29 13:11 | Outpatient (BNVA) | payer MEDICARE, SELFPAY | PROVIDERS: PCP Nurse Practitioner Family; Referring Provider Nurse Practitioner Family; Visit Provider Surgery | DX: D50.9 Iron deficiency anemia, unspecified (principal); Z12.11 Encounter for screening for malignant neoplasm of colon | CPT/HCPCS: 99214 ==

== ENCOUNTER 2024-08-16 08:06 | Day surgery (SDC) | payer MEDICARE, SELFPAY ==
--- NOTE | 2024-08-16 06:58 | W.ANESPRE ---
General Info Date of Service Date Performed: 08/16/24 Height: 5 ft 9 in Weight: 53.184 kg Body Mass Index (BMI): 17.3 Surgical Procedure: Operation Date: 08/16/24 09:35 Proposed Procedure Side Surgeon p Colonoscopy/Gastroscopy Nany RICHARDSON MD Meds Allergies and Home Medications Allergies Allergy/AdvReac Type Severity Reaction Status Date / Time tamsulosin (From Flomax) AdvReac Dizziness/L Verified 08/16/24 08:29 [place] Home Medication ?Medication ?Instructions ?Recorded multivitamin (Daily Multi-Vitamin 1 tab PO DAILY 04/27/20 tablet) lisinopril 2.5 mg tablet 2.5 mg PO DAILY hypertension #90 01/28/22 tabs metoprolol tartrate 25 mg tablet 25 mg PO BID #180 tabs 01/28/22 aspirin 81 mg tablet,delayed 81 mg PO DAILY 02/16/22 release atorvastatin 80 mg tablet 80 mg PO HS #90 tabs 05/13/22 nitroglycerin 0.4 mg sublingual 0.4 mg sublingual Q5-15M PRN chest 05/13/22 tablet (Nitrostat) pain #10 tabs inhalational spacing device #1 ea 05/19/23 (Aerochamber MV spacer) albuterol sulfate 90 mcg/actuation 2 inh inhalation Q6H PRN shortness 02/12/24 aerosol inhaler of breath or wheezing #18 grams L. acidophilus,casei,rhamnosus 50 1 cap PO DAILY #7 caps 06/07/24 billion cell capsule,delayed release (Bio-K plus) ferrous sulfate 325 mg (65 mg 325 mg PO DAILY #90 tabs 06/20/24 iron) tablet pantoprazole 20 mg tablet,delayed 20 mg PO BID #180 tabs 07/04/24 release (Protonix) bisacodyl 5 mg tablet,delayed 5 mg PO ONCE colonscopy bowel prep 07/29/24 release (Dulcolax (bisacodyl)) #4 tabs polyethylene glycol 3350 17 238 g PO ONCE colonoscopy prep 07/29/24 gram/dose oral powder #238 grams Current Visit Medications: Current Medications Generic Name Dose Route Start Last Admin Trade Name Freq PRN Reason Stop Dose Admin Ringer's Solution 1,000 mls @ 80 mls/hr 08/16/24 06:00 IV 08/16/24 23:59 INFUSION DAVID IV Miscellaneous Supplies 1 each 08/16/24 06:00 Iv Access IV 08/16/24 23:59 DIRECTED DAVID Sodium Chloride 0 ml 08/16/24 06:00 Normal Saline Flush 10 Ml Syr IV 08/16/24 23:59 PRN PRN Sodium Chloride 0 ml 08/16/24 06:00 Normal Saline 10 Ml Vial IJ 08/16/24 23:59 DIRECTED PRN Sterile Water 0 ml 08/16/24 06:00 Water,Injection,Sterile 10 Ml Vial IJ 08/16/24 23:59 DIRECTED PRN PFSH Active Problems Active Problems: Problem Status Onset Code Right lower lobe pneumonia Acute J18.9 Microcytic anemia Acute D50.9 Community acquired pneumonia of right lung Acute J18.9 Nocturia Acute R35.1 Wheeze Acute R06.2 Screening for colon cancer Acute Z12.11 Actinic keratoses Acute L57.0 Chronic kidney disease Chronic N18.9 Erectile dysfunction Acute N52.9 Postnasal drip Acute ~12/2020 R09.82 Chronic rhinitis Acute ~12/2020 J31.0 Esophagitis determined by biopsy Acute ~06/2020 K20.90 Aspiration pneumonia Acute J69.0 Hematuria Acute R31.9 Aortic stenosis Chronic I35.0 Chronic diarrhea Acute K52.9 Abnormal auditory perception Acute H93.299 Impacted cerumen of both ears Acute H61.23 Sensorineural hearing loss of both ears Acute H90.3 S/P carotid endarterectomy Acute Z98.890 Depressive disorder Chronic 06/30/11 F32.9 Pain of right upper extremity Acute 03/20/15 M79.601 Primary malignant neoplasm of esophagus Acute 04/27/00 C15.9 Vasomotor rhinitis Acute J30.0 Asymptomatic bilateral carotid artery stenosis Acute I65.23 Coronary artery disease involving coronary bypass graft of [place] heart Chronic I25.810 Urinary retention Chronic 04/29/16 R33.9 Retinal detachment Chronic 03/10/14 H33.20 Pure hypercholesterolemia Chronic 06/30/11 E78.00 Personal history of TIA (transient ischemic attack) Chronic 02/06/15 Z86.73 Iron deficiency anemia Chronic 04/17/12 D50.9 Gastric ulcer Resolved 01/04/16 K25.9 Elevated prostate specific antigen (PSA) Chronic 06/30/11 R97.20 Carotid disease, bilateral Chronic 01/25/16 I77.9 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, unspecified portion Resolved 01/30/09 D3A.029 Atherosclerosis of [place] coronary artery of [place] heart without angina pectoris Chronic 04/10/06 I25.10 Arm pain, right Resolved 03/20/15 M79.601 Medical History Medical History Severe sepsis Pleural effusion, right Surgical History Surgical History S/P CABG x 3 (~06/04/18) H/O cardiac catheterization (05/22/18) [facility] [place] Dr Harvey partial esophagotomy (04/28/00) Dr Ibanez; [place] Esophagogastrectomy and feeding jejunostomy EGD - IV Sedation (12/22/15) Colonoscopy - IV Sedation (03/10/14) [facility] [place]; also EGD Extraction of cataract (09/25/14) right eye with lens implant Dr. Truong Carotid endarterectomy (04/19/16) Left, [facility], Dr. Null for asymptomatic carotid stenosis Tobacco Smoking/Tobacco Use Status: Former Tobacco Use Passive smoking exposure: No Second hand exposure: No Alcohol Alcohol Intake: former Year quit: 1987 Substance Use Substance use: Never Substance use type: does not use Vital Signs and Lab Results Lab Results Blood Type / Crossmatch: No Data to Display Complete Blood Count: White Blood Count 8.49 10^3/uL (4.4-10.8) 07/22/24 13:54 Red Blood Count 4.69 10^6/uL (4.36-5.78) 07/22/24 13:54 Hemoglobin 11.5 g/dL (13.5-17.5) L 07/22/24 13:54 Hematocrit 38.7 % (40.0-50.0) L 07/22/24 13:54 Platelet Count 177 10^3/uL (130-400) 07/22/24 13:54 Venous Blood Lactate 1.1 mmol/L (<or=2.0) 07/22/24 15:56 Complete Metabolic Panel: Sodium 139 mmol/L (136-145) 07/22/24 13:54 Potassium 4.4 mmol/L (3.5-5.1) 07/22/24 13:54 Chloride 105 mmol/L (98-107) 07/22/24 13:54 Carbon Dioxide 27.3 mmol/L (21.0-32.0) 07/22/24 13:54 BUN 15 mg/dL (7-18) 07/22/24 13:54 Creatinine 1.0 mg/dL (0.70-1.30) 07/22/24 13:54 Est GFR (CKD-EPI 2020) 76.56 (mL/min/1.73m2) 07/22/24 13:54 Calcium 9.2 mg/dL (8.5-10.1) 07/22/24 13:54 Albumin 3.2 g/dL (3.4-5.0) L 07/22/24 13:54 Glucose 115 mg/dL (74-106) H 07/22/24 13:54 Liver Function Panel: Alanine Aminotransferase (ALT/SGPT) 16 U/L (16-63) 07/22/24 13:54 Aspartate Amino Transf (AST/SGOT) 15 U/L (15-37) 07/22/24 13:54 Coagulation Panel: No Data to Display Cardiac Panel: Troponin I 10 ng/L (<or=76) 07/22/24 Arterial Blood Gas: No Data to Display Venous Blood Gas: No Data to Display Pancreas Panel: Lipase 51 U/L (<78) 07/22/24 13:54 Thyroid Panel: No Data to Display Infectious Disease: Coronavirus (COVID-19)(PCR) Negative (Negative) 07/22/24 16:33 Coronavirus 2019 Source Nasopharynx 07/22/24 16:33 Influenza Virus Type A (PCR) Negative (Negative) 07/22/24 16:33 Influenza Virus Type B (PCR) Negative (Negative) 07/22/24 16:33 Respiratory Syncytial Virus (PCR) Negative (Negative) 07/22/24 16:33 Blood Cultures: No Data to Display Toxicology Panel: No Data to Display Imaging and Studies Imaging and Studies Study information below may be from another EMR and interpreted by another provider. Please see original notes in EMR for more complete details. EKG Summary: EKG PATIENT NAME: Carroll Combs UNIT #: [id number] ORDERING PROVIDER: Alicia Gannon PRIMARY CARE PROVIDER: Zach Dietrich DNP DATE/TIME OF SERVICE: 07/22/24 1557 : 1945 PERFORMING LOCATION: ER APPROVED REPORT Exam: Resting ECG Reason for Exam: ruq pain Patient Location: E HR:84 bpm ECG Measurements Heart Rate 84 AXIS CA 162 P 72 QRSd 96 QRS -59 QT 378 T89 QTc 448 Conclusion Sinus rhythm. 84 TWI V4,5,6 no stemi <Electronically signed by Chance Pineda M.D. in [place]> E-Sign Date: 07/22/24 E-Sign Time: 1607 ADDENDUM APPROVED REPORT Exam: Resting ECG Reason for Exam: ruq pain Patient Location: E HR:84 bpm ECG Measurements Heart Rate 84 AXIS CA 162 P 72 QRSd 96 QRS -59 QT 378 T89 QTc 448 Conclusion Sinus rhythm. 84 TWI V4,5,6 no stemi I have reviewed and I agree with the emergency room physician's ECG interpretation. Electronically signed by: <Electronically signed by Krystin Alfaro M.D. in OV> 07/23/24 0807 Cosigned by: Stress Test Summary: Patient Name: CARROLL COMBS Unit #: [id number] Loc: DI Ordering Provider: Tyler Brown DO Status: REG CLI Primary Care Provider: Tyler Brown DO Date of Exam: 05/09/18 Sex: M : 1945 Age: 72 Exam(s) a NM:NM MPI rest & stress grp *[facility]* *[facility]* [address] [place] [address] Myocardial Perfusion Imaging - SPECT Werner protocol Date of study: 05/09/2018 *PATIENT PRESENTATION* Height: 175.3cm (69in) Blood Pressure: Weight: 62.7kg (138lb) BSA: 1.74m^2 Referring physician: Frank Lopez Ordering physician: Tyler Brown Impressions: Stress-induced perfusion defect with drop in ejection fraction. Summary: 1. Myocardial perfusion imaging: There is a large sized, partially reversible defect involving the mid anterior and apical anterior, mid inferolateral, mid anterolateral, apical lateral, and apical wall(s). This suggests large myocardial infarction and ischemia in the distribution of left anterior descending and left circumflex coronary artery. Overall ischemia: moderate. 2. The calculated left ventricular ejection fraction after stress: 29%. LV global systolic function is severely reduced. Diffuse left ventricular regional motion abnormalities. There is akinesis involving the apical wall(s) of the left ventricle. There is severe hypokinesis involving the mid anterolateral wall(s) of the left ventricle. 3. Stress ECG conclusions: The stress ECG is positive. 4. Stress: The target heart rate was achieved. The heart rate response to stress is normal. There is a normal resting blood pressure with an appropriate response to stress. The patient experienced no chest pain during stress. Exercise capacity is above normal for age. 5. Baseline ECG: Nonspecific ST and T wave changes. There was an oldanteroseptal myocardial infarction. 6. Treadmill exercise testing was performed using the Werner protocol. The patient exercised for 7 min 20 sec, to protocol stage 3, to a maximal work rate of 9mets. Exercise was terminated due to achievement of target heart rate. Recommendations: Cardiac catheterization should be performed in order to evaluate coronary artery disease. This procedure has been arranged, discussed with the referring physician, and discussed with the patient. Indication: R07.9, Appropriate Use Criteria: A (Appropriate). History: REASON FOR TESTING: PATIENT WAS SEEN IN THE ER ON 04/17/18 FOR PNEUMONIA AND INTERMITTENT EPISODES OF SUBSTERNAL CHEST PRESSURE RATED 5/10. TROPONINS IN ER WERE NEGATIVE. HE REPORTS RECENT CHEST ACHING WITH INCREASED SOB AND SHOULDER ACHING WITH SHOVELING SNOW. HE STATES HE TIRES QUICKLY WITH ACTIVY. HE DENIES CHEST PAIN/PRESSURE UPON ARRIVAL TODAY. SIGNIFICANT PAST MEDICAL HISTORY: TIA, CAROTID DISEASE WITN ENDARTERECTOMY ON 04/26, ATHEROSCLEROSIS OF [place] CORONARY ARTERY OF [place] HEART WITHOUT ANGINA PECTORIS, PARTIAL ESOPHAGOTOMY. SMOKING STATUS: QUIT 1988. SMOKED FOR 29 YEARS 1PPD. EXERCISE ROUTINE:DAILY ADL'S. Risk factors: Family history of coronary artery disease. Dyslipidemia. Cholesterol: 166mg/dl. HDL: 81mg/dl. LDL: 83mg/dl. Triglycerides: 41mg/dl. ALLERGIES: NO KNOWN ALLERGIES. MEDICATIONS: MULTIVITAMIN DAILY, VITAMIN D 1000 UNITS DAILY, LORATADINE 10 MG DAILY, ATORVASTATIN 80 MG HS, PROTONIX 20 MG BID, FERROUS SULFATE 325 MG BID, ASPIRIN 81 MG DAILY. Imaging Technique: Protocol: Werner protocol. Acquisition: Gated SPECT; 1 day - rest/stress. The patient was imaged in the supine position. Attenuation correction used. Isotope administration: - Rest. Tc[99m]-sestamibi. Dose: 10.1mCi. Injection time: 08:45 AM. Injection to stress time: 00:45. - Stress. Tc[99m]-sestamibi. Dose: 30.2mCi. Injection time: 10:30 AM. 1-2 min before end of exercise Baseline ECG: SINUS BRADYCARDIA. HR 57 BPM. INVERTED T-WAVES IN LEADS & V2. Normal sinus rhythm. Nonspecific ST and T wave changes. There was an oldanteroseptal myocardial infarction. Stress protocol: + +---+ + !Stage !HR !BP (mmHg) ! + +---+ + !Baseline supine !57 !128/72 (91) ! + +---+ + !Baseline standing !66 !120/60 (80) ! + +---+ + !Stage I; 1.7mph, 10degrees; 3 min !114!124/64 (84) ! + +---+ + !Stage II; 2.5mph, 12degrees; 3 min!136!130/60 (83) ! + +---+ + !Recovery; 1 min !126!152/78 (103)! + +---+ + !Recovery; 3 min !75 !170/80 (110)! + +---+ + !Recovery; 6 min !77 !150/80 (103)! + +---+ + !Recovery; 12 min !66 !140/78 (99) ! + +---+ + * Stress results: STRESS TEST ENDED IN 7 MINUTES 20 SECONDS DUE TO FATIGUE. NORMAL HEART RATE AND BLOOD PRESSURE RESPONSE TO EXERCISE. MAX HEART RATE: 143 96 % OF TARGET HEART RATE ACHEIVED. MET'S: 9.12. PVC'S DURING EXERCISE AND INCREASING IN PROMINENCE UP UNTILL 6 MINUTES RECOVERY PERIOD T WAVE INVERSION IN AVL, V1 AND V2 AT BASELINE AND THROUGHOUT EXERCISE TEST. ST SEGMENT DEPRESSIONS IN INFERIOR LEADS NOTED DURING STAGE II OF EXERCISE, PERSISITING AND BECOMING DOWNWARD SLOPING IN APPEARANCE INTO [address] SEGMENT ELEVATIONS IN LEADS V1 & V2 NOTED DURING PEAK EXERCISE THROUGH 6 MINUTES RECOVERY PERIOD. NO ANGINA FUNCTIONAL CAPACITY FOR EXERCISE IS ABOVE AVERAGE. Maximal heart rate during stress was 143bpm (97% of maximal predicted heart rate). The maximal predicted heart rate was 148bpm. The target heart rate was achieved. The heart rate response to stress is normal. There is a normal resting blood pressure with an appropriate response to stress. The rate-pressure product for the peak heart rate and blood pressure was 01083qm Hg/min. The patient experienced no chest pain during stress. Exercise capacity is above normal for age. Stress ECG: The stress ECG is positive. Stress ECG change: horizontal depression. Severity: 1.0-1.5mm. In lead groups: II, III, and aVF. Melvin treadmill score: 0. This score predicts a moderate risk of cardiac events. Myocardial perfusion: Imaging information: gated. The image quality was good. Left ventricular size is normal. There is a large sized, partially reversible defect involving the mid anterior and apical anterior, mid inferolateral, mid anterolateral, apical lateral, and apical wall(s). This suggests large myocardial infarction and ischemia in the distribution of left anterior descending and left circumflex coronary artery. Overall ischemia: moderate. Ventricular Function (Wall Motion): The calculated left ventricular ejection fraction after stress: 29%. LV global systolic function is severely reduced. Diffuse left ventricular regional motion abnormalities. There is akinesis involving the apical wall(s) of the left ventricle. There is severe hypokinesis involving the mid anterolateral wall(s) of the left ventricle. Study data: Frank Lopez MD supervised and was readily available during the procedure. This study was interpreted by [facility]. Study status: Routine. Consent: The risks, benefits, and alternatives to the procedure were explained to the patient and informed consent was obtained. Procedure: Initial setup Echocardiogram Summary: Patient Name: Carroll Combs Unit #: [id number] Loc: DI Ordering Provider: Krystin Alfaro M.D. Status: REG CLI Primary Care Provider: Tyler Brown DO Date of Exam: 04/08/21 Sex: M Admission Date: 04/08/21 : 1945 Age: 75 APPROVED REPORT EXAM: Comprehensive 2D, Doppler, and color-flow Echocardiogram Patient Location: Out-Patient Regulatory Affairs Assistant: Holley Hill RDCS (AE) Indications: Aortic Stenosis Other Information Study Quality: Adequate Conclusion Normal left ventricular wall thickness and chamber size. Estimated ejection fraction is 60%. Wall motion is normal Both atria are mildly dilated Normal right ventricular size and systolic function Aortic valve is sclerotic and trileaflet without stenosis or regurgitation Normal mitral valve with trace regurgitation Normal tricuspid valve with mild regurgitation. Estimated right ventricular systolic pressure is 24 mmHg Wall motion Left Ventricle The left ventricle is normal size. The left ventricular systolic function is normal. The left ventricular ejection fraction is within the normal range. There is normal left ventricular wall thickness. There is normal LV segmental wall motion. There is no ventricular septal defect visualized. LVEF is 58%. Right Ventricle The right ventricle is normal size. The right ventricular systolic function is normal. The RVSP is 23.8 mmHg. Atria Left atrium is mildly dilated. Right atrium is mildly dilated. The interatrial septum is intact with no evidence for an atrial septal defect. Aortic Valve Aortic valve is calcified. Aortic valve is trileaflet. No hemodynamically significant valvular aortic stenosis. No aortic regurgitation is present. Mitral Valve The mitral valve is normal in structure. No evidence of mitral valve stenosis. Trace mitral regurgitation. Tricuspid Valve The tricuspid valve is normal in structure. There is no tricuspid valve stenosis. Mild tricuspid regurgitation. Pulmonic Valve The pulmonary valve is normal in structure. There is no pulmonic valvular stenosis. There is no pulmonic valvular regurgitation. Great Vessels The aortic root is normal in size. The ascending aorta is normal in size. Aortic arch is not well visualized. IVC is normal in size and collapses >50% with inspiration. Pericardium There is no pericardial effusion. 2D Dimensions IVSD d PLAX 0.72 cm M: 0.6-1.2LV Vol A2C d MOD 110.9 mL LVPW d PLAX 0.77 cm M: 0.6 - 1.2LV Vol A4C d MOD 86.2 mL LVID d PLAX 4.48 cm M: 4.2 - 5.8LA vol/ BSA A2C s A-L39.2 mL/m2 LVDs 3.00 cm M: 2.5 - 4.0LA vol/ BSA A4C s A-L26.6 mL/m2 Ao Root d 2.96 cm M: 3.1 - 3.7LA Vol/ BSA Biplane s A-L 35.0 mL/m2 RA Area A4C19.65 cm2LA Area A4C s MOD 17.01 cm2 RA Vol/ BSA A4C s A-L 35.8 mL/m2LA Area A2C s MOD 22.36 cm2 Ao Asc Diam d 3.17 cm M: 2.6 - 3.4LV EF A4C MOD 58.3 % LV EF Teichholz 61.1 %LV EF A2C MOD 58.3 % LVEF (Mckay's)59.14 % M: 52 - 72LV EF Biplane MOD 59.1 % LV Teegwh89.44 mL M: 62 - 450YF87.52 mL LV Volume Index46.22 mL/m2 M: 34 - 74SV Index34.62 mL/m2 LV Vol Biplane MOD 102.3 mL FS32.60 % M-Mode TAPSE 1.44 cm (M/F) >1.7 LV Diastology MV E' medial0.084 (>0.07 m/s)E/A Ratio 0.9 LV E/e MED8.45 (<14)MV E Vmax 0.71 (0.4-1.3 m/s) MV E' lateral0.090 (>0.1 m/s)MV A Vmax 0.80 (0.4-1.3 m/s) LV E/e LAT7.90 (<14)MV E/A Ratio 0.85 MV E/E' medial 8.45 MV E/E' lateral7.90 Aortic Valve LVOT Area2.40 cm2AoV Area Vmax1.37 cm2 LVOT Vmax 1.23 m/sAoV Area/ BSA (Vmax)0.78 cm2/m2 LVOT Mean [place].1.05 m/sAVA Mean [place].1.65 cm2 LVOT Peak Grad 6.0 mmHgAVA Mean [place]. Index0.94 cm2/m2 LVOT Mean Grad 4.5 mmHg LVOT VTI0.312 m LVOT Diam s 1.70 cm AoV Vmax2.15 m/s Velocity Ratio 0.57 AoV Mean [place].1.52 m/s AoV Peak Grad18.5 mmHg LVOT SV 75.03 mL AoV Mean Grad10.3 mmHg AoV VTI0.470 m AoV Area VTI1.60 cm2 AoV Area/ BSA (VTI)0.91 cm/m2 Mitral Valve MV DT 205 (160-240 msec) MV PHT59 msec MV Area PHT 3.70 cm2 MV VTI 0.274 m MV Area VTI 2.74 (4.0-6.0 cm2) Pulmonary Valve PV Vmax 0.97 (0.5-1.5 m/s)RVOT Peak Gr.2.63 mmHg PV Peak Grad 3.7 mmHgRVOT Mean Gr.1.40 mmHg PV Mean Grad 1.7 mmHgRVOT VTI0.171 m PV VTI 0.198 mRVOT Vmax 0.81 m/s Tricuspid Valve TR Peak Grad 20.8 mmHgTR Vmax 2.28 m/s RA Pressure 3.00 mmHg RVSP (TR) 23.8 mmHg Ordered By: Krystin Alfaro M.D. CC: Dictated By: Krystin Alfaro M.D. 04/08/21 1222 <Electronically signed by Krystin Alfaro M.D. in OV> 04/08/21 1227 Transcribed By: Krystin Alfaro MD This is privileged, confidential information intended only for the provider named. Any use or distribution by any person other than this provider is strictly prohibited. If you receive this report in error, please notify us immediately at [phone] and return the original report to us at the address above. Thank-you. Carotid Artery Summary:: Patient Name: CARROLL COMBS Unit #: [id number] Loc: DI Ordering Provider: Tyler Brown DO Status: REG CLI Primary Care Provider: Tyler Brown DO Date of Exam: 03/08/19 Sex: M Admission Date: 03/08/19 : 1945 Age: 73 Exam(s) a US:US carotid EXAM: US CAROTID CLINICAL HISTORY: TRANSIENT VISION LOSS, CHECK FOR PLAQUES, AMAUROSIS FUGAX-G45.3 TECHNIQUE: Ultrasound performed using standard protocol. COMPARISON: US ECHOCARDIOGRAM from 01/30/2019 FINDINGS: Duplex evaluation of the carotid circulation was performed according to the usual protocol. There is reportedly a history of left carotid endarterectomy. There is prominent dense calcified plaque in carotid bifurcation ICA and ECA on the right. Flow [place] and proximal internal carotid artery on the right are 339 cm/second systolic consistent with critical stenosis. High velocity flow at 258 cm/second also noted in proximal right ECA. On the left, flow velocities in the carotid bulb are 187 cm/second systolic. Proximal internal carotid artery shows maximal flow velocity 129 cm/second systolic. There is bilateral antegrade vertebral flow observed. IMPRESSION: 1. Suspected critical stenosis proximal right ICA, maximal flow to a velocity 339 cm/second. 2. Flow velocity elevation left carotid bulb, 187 cm/second, 50-69 percent luminal diameter stenosis. Ordered By: Tyler Brown DO CC: TYLER PORRAS MD Dictated By: Aguila Singleton M.D. 03/08/19 1121 <Electronically signed by Aguila Singleton M.D. in OV> 03/08/19 1358 Transcribed By: Aguila Singleton This is privileged, confidential information intended only for the provider named. Any use or distribution by any person other than this provider is strictly prohibited. If you receive this report in error, please notify us immediately at [phone] and return the original report to us at the address above. Thank-you. Anesthesia Assessment and Plan Anesthesia History Personal History: No History of Anesthesia Complications Family History: No Family History of Anesthesia Complications Exercise Tolerance Exercise Tolerance: Metabolic Equivalents>4 Pertinent Negatives Pertinent Negatives: No Symptoms of GERD Cardiac & Pulmonary Exam Cardiac Exam: Normal S1/S2 Heart Sounds Pulmonary Exam: Clear Bilateral Breath Sounds Implantable Cardiac Device Does patient have a Pacemaker or an ICD?: No Airway Exam Known Difficult Airway: No Mallampati Class: 2 Mouth Opening: Normal (> 3cm) Thyromental Distance: Greater than 3 cm Neck Range of Motion: Full ROM Neck Circumference: Normal Teeth Condition: Removable Dentures/Plates Upper, Removable Dentures/Plates Lower and Edentulous ASA Classification ASA Score: ASA 4 Emergency Case?: No NPO Status NPO Status: NPO Clears >2 hours, Solids >8 hours Anesthesia Plan Resuscitation Status: Full Code Anesthesia Technique: General Anesthesia Airway Planned: Natural Airway Monitors Used: Standard Monitors Preoperative Comments:: Has stopped all meds except for protonix 5 days ago. Ordered morning metoprolol for the patient, and has been given.
[2024-08-16 08:24] VITALS: BP 133/80; PULSE 97; RESP 16; TEMP 36.3; O2SAT 97
[2024-08-16] MEDS: Lactated Ringers 1,000 ML 80 ML IV (08:35)
[2024-08-16 08:46] VITALS: BMI 17.3
[2024-08-16] MEDS: Metoprolol 25 MG TAB PO (09:15)
[2024-08-16 10:31] VITALS: BP 92/56; PULSE 75; RESP 18; TEMP 36.1; O2SAT 97
--- NOTE | 2024-08-16 10:31 | ROE_ITS ---
Operative Note Operative Note PRE-OP DIAGNOSIS: Anemia, colon cancer screening POST-OP DIAGNOSIS: other (Gtz's esophagus, Diverticulosis, Hemorrhoids) PROCEDURE: EGD, colonoscopy SURGEON: Nany RICHARDSON ANESTHESIA TYPE: MAC Refer to Anesthesia Record PATHOLOGY: other (Gastric antrum mucosal biopsies, distal esophagus mucosal biopsies) Patient was transported to: PACU Patient's condition: stable Findings: Post esophagectomy anatomy, significant changes and irritation concerning for Gtz's esophagus above the esophageal-gastric anastomosis, mild to moderate diverticular disease Procedure Description: After obtaining informed consent, patient was brought back to the endoscopy suite. He was turned on his left side and connected to the monitors. Timeout was performed. Bite-block was inserted. Propofol was administered by the nurse kiln burner helper. I began by inserting the upper endoscope through the oropharynx and into the esophagus without difficulty. I advanced down the shortened esophagus and into the stomach and all the way into the second portion of the duodenum. The duodenum and duodenal bulb had a normal appearance. I withdrew into the stomach. The pylorus and the antrum had a normal appearance. Much of the stomach was above the diaphragm as expected. The mucosa of the body of the stomach also had a normal appearance. I did not retroflex given the location of the stomach in the mediastinum. The esophageal gastric anastomosis was around 20 cm from the lip. The lining of the esophagus proximal to the anastomosis was circumferentially pink and appears to have undergone Gtz's type changes. There was a good 5 cm of Gtz's type esophagus. I took random mucosal biopsies circumferentially throughout these area of concern. I then decompressed the stomach and withdrew the scope entirely. Patient tolerated well. We turned our attention to the colonoscopy portion of the exam. I began by performing a digital rectal exam. This was fairly unremarkable except for a few small noninflamed external hemorrhoids. I inserted the colonoscope and advanced the length of the colon. I attained the cecum was identified by the appendiceal orifice and the ileocecal valve. I intubated the ileocecal valve to view the terminal ileum. This had a normal appearance. I returned to the cecum. Prep was good. Cecum had a normal appearance. I withdrew along the ascending colon where I noted a few scattered diverticula. I withdrew along the transverse colon, descending colon, and sigmoid colon. No mucosal abnormalities were noted. In the sigmoid colon he had some diverticular disease, mild to moderate in nature. I withdrew into the rectum. No mucosal abnormalities were noted here. I did retroflex. This was remarkable for some combination internal and external hemorrhoids circumferentially. I decompressed the sigmoid and the rectum and withdrew the scope entirely. Patient tolerated well. He went to recovery in stable condition. Disposition: Patient will be discharged home later today. We will call him with the pathology report. He will not be indicated for repeat screening colonoscopy given his age. Date of Procedure: 08/16/24
--- NOTE | 2024-08-16 10:44 | W.ANESPOSTOP ---
Postoperative Evaluation Date, Time and Location Date Performed: 08/16/24 Time Performed: 10:44 Patient Location: Day Surgery Unit Vital Signs Most Recent Imported Vital Signs: Most Recent Vital Signs Temp Pulse Resp BP Pulse Ox 36.1 C L 75 18 92/56 L 97 08/16/24 10:31 08/16/24 10:31 08/16/24 10:31 08/16/24 10:31 08/16/24 10:31 Pain Score Most Recent Pain Score: Most Recent Pain Score Pain Level 0 08/16/24 10:31 Assessment Mental Status: Arousable with meaningful communication Airway and Respiratory Function: Patent airway with normal (patient baseline) respiratory exam Cardiovascular Function: Hemodynamically Stable Hydration Status: Adequately Hydrated Nausea & Vomiting: No Nausea or Vomiting Pain: Pt. Denies Any Pain Peripheral Nerve Block: Patient did not receive a nerve block
[2024-08-16 11:02] VITALS: BP 115/67; PULSE 72; RESP 18; TEMP 36.1; O2SAT 97
== END 2024-08-16 11:22 | disposition home or self-care (01) ==
PROVIDERS: PCP Nurse Practitioner Family; Visit Provider Surgery
PROC: (CPT 43239; principal; 2024-08-16 09:30)
DX: Z12.11 Encounter for screening for malignant neoplasm of colon (principal); K22.70 Barrett's esophagus without dysplasia; D64.9 Anemia, unspecified; K64.4 Residual hemorrhoidal skin tags; K57.30 Diverticulosis of large intestine without perforation or abscess without bleeding; K31.9 Disease of stomach and duodenum, unspecified
CPT/HCPCS: 43239; 45378; 88305; 88312; 88361; J2003; J2371; J2704

== ENCOUNTER 2024-10-22 14:03 | Outpatient (CLI) | payer MEDICARE, SELFPAY ==
--- NOTE | 2024-10-22 13:45 | DI.RAD_ITS ---
Exam(s) XR ABDOMEN FLAT UPRIGHT EXAM: 2D digital imaging was performed. CLINICAL HISTORY: pain, constipation, K59.00. COMPARISON: CT CT CHEST PE CTA from 05/25/[address] ABDOMEN PELVIS W from 01/11/[address] CHEST/ABD/PEL W from 07/22/2024 TECHNIQUE: Supine and upright views of the abdomen was performed. Two images were obtained. FINDINGS: LUNG BASES: There is a small right pleural effusion. BOWEL GAS PATTERN: Nondistended. There is a small amount of stool scattered throughout the colon. FREE AIR: None. CALCIFICATIONS: No radiopaque calcifications. OSSEOUS STRUCTURES: Normal for age. There is a mild right convex lumbar scoliosis. The left ilium appears unchanged. There are degenerative changes seen in the spine. OTHER FINDINGS: None. IMPRESSION: No evidence of an acute abdomen. No evidence to suggest constipation. DATA REPOSITORY: RADIATION DOSE DELIVERED:
--- NOTE | 2024-10-22 14:26 | DI.RAD_ITS ---
Exam(s) XR CHEST 2V PA LATERAL EXAM: XR CHEST 2V PA LATERAL CLINICAL HISTORY: r/o pna, productive cough, R05.8 TECHNIQUE: 2D digital imaging was performed of the chest. Two images were obtained. PA and lateral views were obtained. COMPARISON: CR XR CHEST 2V PA LATERAL from 04/16/2024 CR,XR XR PORTABLE CHEST AP from 06/01/2024 FINDINGS: MEDIASTINUM: There is a hiatal hernia present. HEART: Normal. PULMONARY VASCULATURE: Normal. LUNGS: The lungs are hyperinflated suggesting underlying COPD. The left lung is clear. There is scarring in the right mid lung. No focal consolidating infiltrates are present. The previously noted right pulmonary infiltrates have resolved. PLEURAL SPACE: There is a small right pleural effusion. There is no left pleural effusion. No pneumothorax is present. BONE:Within normal limits for the patient's age. Sternal wires are in place. OTHER FINDINGS:Normal. IMPRESSION: 1. No focal consolidation. 2. Small right pleural effusion. DATA REPOSITORY: RADIATION DOSE DELIVERED:
== END 2024-10-22 14:23 ==
LOC: DI 14:04
PROVIDERS: PCP Nurse Practitioner Family; Visit Provider Nurse Practitioner Family
DX: K59.00 Constipation, unspecified (principal); R05.8 Other specified cough
CPT/HCPCS: 71046; 74019

== ENCOUNTER 2024-10-22 15:02 | Outpatient (CLI) | payer MEDICARE, SELFPAY ==
[2024-10-22 22:30] LABS: PSA, Diagnostic 6.2 ng/mL (<=6.5)
== END 2024-10-22 15:03 | disposition home or self-care (01) ==
LOC: LBO 15:03
PROVIDERS: PCP Nurse Practitioner Family; Visit Provider Nurse Practitioner Gerontology
DX: R35.1 Nocturia (principal); R33.9 Retention of urine, unspecified; R97.20 Elevated prostate specific antigen [PSA]
CPT/HCPCS: 36415; 84153

== ENCOUNTER → 2024-10-30 14:39 | Outpatient (BNVA) | payer MEDICARE, SELFPAY | PROVIDERS: PCP Nurse Practitioner Family; Visit Provider Nurse Practitioner Gerontology | DX: R33.9 Retention of urine, unspecified (principal); R35.1 Nocturia; R97.20 Elevated prostate specific antigen [PSA]; R39.9 Unspecified symptoms and signs involving the genitourinary system | CPT/HCPCS: 99213; 51798 ==

== ENCOUNTER 2025-02-16 09:03 | Emergency (ER) | payer MEDICARE, SELFPAY ==
[2025-02-16] VITALS (17 sets, daily range): BP systolic 160; BP diastolic 83; PULSE 83–104; RESP 15–28; TEMP 37.1; O2SAT 93–98
--- NOTE | 2025-02-16 09:45 | RT.EKG_ITS ---
APPROVED REPORT Exam: Resting ECG Reason for Exam: dyspnea Patient Location: E HR:90 bpm ECG Measurements Heart Rate 90 AXIS NC 156 P 84 QRSd 99 QRS -59 QT 354 T 100 QTc 434 Conclusion Sinus rhythm...normal P axis, V-rate 60- 99 Probable left atrial enlargement...P >50mS, <-0.10mV V1 LAD, consider left anterior fascicular block...axis(240,-40), S>R II III aVF Anterolateral infarct, age indeterminate...Q >35mS, flat/neg T, V3-V6,I,aVL No STEMI
--- NOTE | 2025-02-16 09:45 | DI.RAD_ITS ---
Exam(s) XR CHEST 2V PA LATERAL EXAM: XR CHEST 2V PA LATERAL CLINICAL HISTORY: dyspnea TECHNIQUE: 2D digital imaging was performed of the chest. Two images were obtained. PA and lateral views were obtained. COMPARISON: CR XR CHEST 2V PA LATERAL from 04/16/2024 CR,XR XR PORTABLE CHEST AP from 06/01/2024 CR XR CHEST 2V PA LATERAL from 10/22/2024 FINDINGS: MEDIASTINUM: Normal. HEART: Normal. PULMONARY VASCULATURE: Normal. LUNGS: There is an opacity seen in the left lower lobe which may represent a pneumonia. There is underlying COPD and chronic fibrotic changes in the lungs. PLEURAL SPACE: No pleural effusion or pneumothorax. BONE:Within normal limits for the patient's age. OTHER FINDINGS:Normal. IMPRESSION: Left lower lobe infiltrate suspicious for pneumonia. DATA REPOSITORY: RADIATION DOSE DELIVERED:
[2025-02-16 10:15] LABS: Abs Immature Grans 0.04 10^3/uL (0.0-0.06); HCT 41.2 % (40.0-50.0); HGB 13.4 g/dL (13.5-17.5); Immature Grans % 0.4 %; MCH 28.5 pg (27.0-33.0); MCHC 32.5 % (32.0-36.0); MCV 88 fL (80-95); MPV 8.0 fL (8.0-11.0); Platelet Count 153 10^3/uL (130-400); RBC 4.71 10^6/uL (4.36-5.78); RDW 14.0 % (11.8-14.1); RDW-SD 45.1 fL; WBC 9.02 10^3/uL (4.4-10.8)
[2025-02-16 10:38] LABS: ALT 21 U/L (16-63); AST 18 U/L (15-37); Albumin 3.6 g/dL (3.4-5.0); Alkaline Phosphatase 88 U/L (46-116); Anion Gap 7.7 mmol/L (3-11); BUN 21 mg/dL (7-18); Bilirubin, Total 1.9 mg/dL (0.2-1.0); CO2 27.3 mmol/L (21.0-32.0); Calcium 8.8 mg/dL (8.5-10.1); Chloride 100 mmol/L (98-107); Glucose 97 mg/dL (74-106); Magnesium 1.9 mg/dL (1.8-2.4); Potassium 4.5 mmol/L (3.5-5.1); Sodium 135 mmol/L (136-145); Total Protein 7.2 g/dL (6.4-8.2); Troponin I 13 ng/L (<or=76)
[2025-02-16] MEDS: cefTRIAXone 2 GM/50 ML BAG IVPB (11:26)
[2025-02-16] MEDS: AZITHROMYCIN 500 MG in Normal Saline 250 ML 250 MG IVPB (11:26)
[2025-02-16 11:32] LABS: Troponin I 9 ng/L (<or=76)
--- NOTE | 2025-02-16 14:09 | W.ED.GENAD ---
Discharge Plan Disposition Patient Disposition: Home Discharge Details Clinical Impression: Pneumonia Primary Care Provider: Zach White ED Provider: Jovi Barragan Home Meds and New Rx's Prescriptions: New amoxicillin 500 mg tablet 1,000 mg PO TID Qty: 42 0RF azithromycin 250 mg tablet 250 mg PO DAILY 6 Days Qty: 6 0RF Rx Instructions: start on day 2 of therapy No Action nitroglycerin [Nitrostat] 0.4 mg tablet, sublingual 0.4 mg SL Q5-15M PRN (Reason: chest pain) Qty: 10 3RF Rx Instructions: until response; do not exceed 3 doses per episode atorvastatin 80 mg tablet 80 mg PO HS Qty: 90 3RF Rx Instructions: reduce risk of cardiovascular events, lower cholesterol albuterol sulfate 90 mcg/actuation HFA aerosol inhaler 2 inh inhalation Q6H PRN (Reason: shortness of breath or wheezing) Qty: 18 4RF pantoprazole [Protonix] 20 mg tablet,delayed release (DR/EC) 20 mg PO BID Qty: 180 3RF Rx Instructions: h/o esophageal cancer (DME) Aerochamber MV Spacer See Rx Instructions .Route Qty: 1 0RF Rx Instructions: As directed polyethylene glycol 3350 17 gram/dose powder 238 g PO ONCE Qty: 238 0RF Rx Instructions: take per colonoscopy instructions bisacodyl [Dulcolax (bisacodyl)] 5 mg tablet,delayed release (DR/EC) 5 mg PO ONCE Qty: 4 0RF Rx Instructions: take per colonoscopy instructions multivitamin [Daily Multi-Vitamin] Tablet 1 tab PO DAILY lisinopril 2.5 mg tablet 2.5 mg PO DAILY Qty: 90 3RF metoprolol tartrate 25 mg tablet 25 mg PO BID Qty: 180 3RF aspirin 81 mg tablet,delayed release (DR/EC) 81 mg PO DAILY ferrous sulfate 325 mg (65 mg iron) tablet 325 mg PO DAILY Qty: 90 3RF Bio-K plus 50 billion cell capsule,delayed release(DR/EC) 1 cap PO DAILY Qty: 7 0RF Discharge Instructions Instructions: Community-acquired pneumonia in adults Additional Instructions: As discussed, you are at moderate risk of the worsening pneumonia during your outpatient treatment with antibiotics. As such be sure to complete in entirety your prescription of amoxicillin and azithromycin. If you have any new or worsening symptoms are concerned that you may be getting more ill please return the emergency department further evaluation. Please follow-up with your primary care provider regarding your visit to the emergency department today. Be sure to discuss results of all test performed here today to include radiology, and laboratory testing as well as results for any pending cultures; specifically: Be sure to discuss your elevated BNP and EKG changes noted today as a would recommend having a follow-up echocardiogram. Should your symptoms worsen, or if you develop new concerning symptoms, please return immediately emergency department for further evaluation. Stand Alone Forms: Portal Information HPI General Date/Time Provider Initiated Documentation: 02/16/25 09:51. HPI Narrative: MDM/Narrative: 79-year-old male past medical history of CAD, status post CABG, prior pneumonia, aortic stenosis CKD, presenting for productive cough shortness of breath x 2 days. Vital signs other than hypertension are normal, physical exam is unremarkable. Patient presentation given reported history is concerning for pneumonia, viral syndrome, less likely ACS or heart failure based on lack of peripheral edema and chest pain. Will obtain screening labs occluding troponin, EKG, chest x-ray. ED course: Labs are unremarkable save for significantly elevated BNP. However patient's clinical presentation does not match acute heart failure. Chest x-ray is notable for left lower lobe pneumonia. As such we will treat patient with IV ceftriaxone and azithromycin. Plan of care was discussed with the patient he was offered admission for further management given his advanced age and multiple comorbidities however he refuses to be admitted at this time, states that he prefers to go home to be with his . I explained to him that he is at significant risk of worsening disease. We reviewed that if his symptoms are worsening he should immediately call 911 for further evaluation in the emergency department. He is agreeable with the plan for discharge and will receive a prescription for amoxicillin 1 g 3 times daily x 7 days and Z-Juanjose. Clinical impression: Pneumonia Disposition: Home HPI: 79-year-old male with a past medical history of pneumonia, CAD, status post CABG, presents for 2-day history of significant dyspnea associated with cough. Patient notes he had similar presentation approximately several months ago and was diagnosed with pneumonia and required multiple day hospital stay, this time he decided to not wait for to seek evaluation as long. Denies any associated fever, chills, night sweats, hemoptysis or any other new or concerning symptoms. ROS: Negative besides as mentioned above Exam: Gen: A&O NAD HEENT: NCAT, EOMI, not icteric. External ears normal. No rhinorrhea. Moist mucous membranes. Neck: Supple, full range of motion, no observable masses, No meningeal sign. Lungs: No Respiratory distress. CV: RRR, no edema. Abdomen: Soft, nondistended, No rebound tenderness. MSK: No joint swelling, no redness. Skin: No rashes, petechiae, lesions. Normal color per patient. Neuro: Normal Gait, Grossly intact. Psych: Appropriate for situation. Rhythm: NSR Rate: 90 [place]: Normal axis Intervals: Normal intervals Other findings: T wave inversions in V3 through V6 which are unchanged as compared to prior EKG no other acute EKG changes. Labs: Laboratory Tests Range/Units 02/16/25 02/16/25 10:10 11:05 WBC (4.4-10.8) 10^3/uL 9.02 RBC (4.36-5.78) 10^6/uL 4.71 Hgb (13.5-17.5) g/dL 13.4 L Hct (40.0-50.0) % 41.2 MCV (80-95) fL 88 MCH (27.0-33.0) pg 28.5 MCHC (32.0-36.0) % 32.5 RDW (11.8-14.1) % 14.0 Plt Count (130-400) 10^3/uL 153 MPV (8.0-11.0) fL 8.0 Immature Gran % % 0.4 Neutrophils % % 88.0 Lymphocytes % % 3.1 Monocytes % % 7.8 Eosinophils % % 0.6 Basophils % % 0.1 Nucleated RBC % (0.0-0.3) % 0.0 Absolute Neutrophils (1.2-6.7) 10^3/uL 7.94 H Absolute Lymphocytes (1.2-3.4) 10^3/uL 0.28 L Absolute Monocytes (0.1-0.8) 10^3/uL 0.70 Absolute Eosinophils (0.0-0.7) 10^3/uL 0.05 Absolute Basophils (0.0-0.2) 10^3/uL 0.01 VBG Lactate (<or=2.0) mmol/L 1.2 Sodium (136-145) mmol/L 135 L Potassium (3.5-5.1) mmol/L 4.5 Chloride (98-107) mmol/L 100 Carbon Dioxide (21.0-32.0) mmol/L 27.3 Anion Gap (3-11) mmol/L 7.7 BUN (7-18) mg/dL 21 H Creatinine (0.70-1.30) mg/dL 1.3 Est GFR (CKD-EPI 2020) (mL/min/1.73m2) 55.88 Glucose (74-106) mg/dL 97 Calcium (8.5-10.1) mg/dL 8.8 Magnesium (1.8-2.4) mg/dL 1.9 Total Bilirubin (0.2-1.0) mg/dL 1.9 H AST (15-37) U/L 18 ALT (16-63) U/L 21 Alkaline Phosphatase (46-116) U/L 88 Troponin I (<or=76) ng/L 13 9 NT-Pro-B Natriuret Pep (<300) pg/mL 2207 H Total Protein (6.4-8.2) g/dL 7.2 Albumin (3.4-5.0) g/dL 3.6 Radiology: xam(s) XR CHEST 2V PA LATERAL EXAM: XR CHEST 2V PA LATERAL CLINICAL HISTORY: dyspnea TECHNIQUE: 2D digital imaging was performed of the chest. Two images were obtained. PA and lateral views were obtained. COMPARISON: CR XR CHEST 2V PA LATERAL from 04/16/2024 CR,XR XR PORTABLE CHEST AP from 06/01/2024 CR XR CHEST 2V PA LATERAL from 10/22/2024 FINDINGS: MEDIASTINUM: Normal. HEART: Normal. PULMONARY VASCULATURE: Normal. LUNGS: There is an opacity seen in the left lower lobe which may represent a pneumonia. There is underlying COPD and chronic fibrotic changes in the lungs. PLEURAL SPACE: No pleural effusion or pneumothorax. BONE:Within normal limits for the patient's age. OTHER FINDINGS:Normal. IMPRESSION: Left lower lobe infiltrate suspicious for pneumonia. Related Data Home Medications Medication Instructions Recorded Confirmed multivitamin (Daily Multi-Vitamin 1 tab PO DAILY 04/27/20 02/16/25 tablet) lisinopril 2.5 mg tablet 2.5 mg PO DAILY hypertension #90 01/28/22 02/16/25 tabs metoprolol tartrate 25 mg tablet 25 mg PO BID #180 tabs 01/28/22 02/16/25 aspirin 81 mg tablet,delayed 81 mg PO DAILY 02/16/22 02/16/25 release atorvastatin 80 mg tablet 80 mg PO HS #90 tabs 05/13/22 02/16/25 nitroglycerin 0.4 mg sublingual 0.4 mg sublingual Q5-15M PRN chest 05/13/22 02/16/25 tablet (Nitrostat) pain #10 tabs inhalational spacing device #1 ea 05/19/23 02/16/25 (Aerochamber MV spacer) albuterol sulfate 90 mcg/actuation 2 inh inhalation Q6H PRN shortness 02/12/24 02/16/25 aerosol inhaler of breath or wheezing #18 grams L. acidophilus,casei,rhamnosus 50 1 cap PO DAILY #7 caps 06/07/24 02/16/25 billion cell capsule,delayed release (Bio-K plus) ferrous sulfate 325 mg (65 mg 325 mg PO DAILY #90 tabs 06/20/24 02/16/25 iron) tablet pantoprazole 20 mg tablet,delayed 20 mg PO BID #180 tabs 07/04/24 02/16/25 release (Protonix) bisacodyl 5 mg tablet,delayed 5 mg PO ONCE colonscopy bowel prep 07/29/24 02/16/25 release (Dulcolax (bisacodyl)) #4 tabs polyethylene glycol 3350 17 238 g PO ONCE colonoscopy prep 07/29/24 02/16/25 gram/dose oral powder #238 grams amoxicillin 500 mg tablet 1,000 mg (2 x 500 mg) PO TID #42 02/16/25 tabs azithromycin 250 mg tablet 250 mg PO DAILY 6 days #6 tabs 02/16/25 Previous Rx's Medication Instructions Recorded lisinopril 2.5 mg tablet 2.5 mg PO DAILY hypertension #90 01/28/22 tabs metoprolol tartrate 25 mg tablet 25 mg PO BID #180 tabs 01/28/22 atorvastatin 80 mg tablet 80 mg PO HS #90 tabs 05/13/22 nitroglycerin 0.4 mg sublingual 0.4 mg sublingual Q5-15M PRN chest 05/13/22 tablet (Nitrostat) pain #10 tabs inhalational spacing device #1 ea 05/19/23 (Aerochamber MV spacer) albuterol sulfate 90 mcg/actuation 2 inh inhalation Q6H PRN shortness 02/12/24 aerosol inhaler of breath or wheezing #18 grams L. acidophilus,casei,rhamnosus 50 1 cap PO DAILY #7 caps 06/07/24 billion cell capsule,delayed release (Bio-K plus) ferrous sulfate 325 mg (65 mg 325 mg PO DAILY #90 tabs 06/20/24 iron) tablet pantoprazole 20 mg tablet,delayed 20 mg PO BID #180 tabs 07/04/24 release (Protonix) bisacodyl 5 mg tablet,delayed 5 mg PO ONCE colonscopy bowel prep 07/29/24 release (Dulcolax (bisacodyl)) #4 tabs polyethylene glycol 3350 17 238 g PO ONCE colonoscopy prep 07/29/24 gram/dose oral powder #238 grams amoxicillin 500 mg tablet 1,000 mg (2 x 500 mg) PO TID #42 02/16/25 tabs azithromycin 250 mg tablet 250 mg PO DAILY 6 days #6 tabs 02/16/25 Allergies Allergy/AdvReac Type Severity Reaction Status Date / Time tamsulosin (From Flomax) AdvReac Dizziness/L Verified 02/16/25 09:15 ighthead General Stated Complaint: RespSymp BRUCE: 3 Course Vital Signs Vital signs: Vital Signs Temperature 37.1 C 02/16/25 09:13 Pulse 86 02/16/25 09:13 Respiratory Rate 18 02/16/25 09:13 Blood Pressure 160/83 H 02/16/25 09:13 Pulse Oximetry 95 02/16/25 09:13 Temperature 37.1 C 02/16/25 09:16 Temperature Source Oral 02/16/25 09:16 Pulse 99 H 02/16/25 12:30 Pulse 99 H 02/16/25 12:30 Respiratory Rate 25 H 02/16/25 12:30 Respiratory Effort Short of Breath 02/16/25 11:05 Respiratory Depth Normal 02/16/25 11:05 Blood Pressure 160/83 H 02/16/25 09:16 Pulse Oximetry 95 02/16/25 12:30 Lab/Test Results Lab/Test Results: Laboratory Tests Range/Units 02/16/25 02/16/25 10:10 11:05 WBC (4.4-10.8) 10^3/uL 9.02 RBC (4.36-5.78) 10^6/uL 4.71 Hgb (13.5-17.5) g/dL 13.4 L Hct (40.0-50.0) % 41.2 MCV (80-95) fL 88 MCH (27.0-33.0) pg 28.5 MCHC (32.0-36.0) % 32.5 RDW (11.8-14.1) % 14.0 Plt Count (130-400) 10^3/uL 153 MPV (8.0-11.0) fL 8.0 Immature Gran % % 0.4 Neutrophils % % 88.0 Lymphocytes % % 3.1 Monocytes % % 7.8 Eosinophils % % 0.6 Basophils % % 0.1 Nucleated RBC % (0.0-0.3) % 0.0 Absolute Neutrophils (1.2-6.7) 10^3/uL 7.94 H Absolute Lymphocytes (1.2-3.4) 10^3/uL 0.28 L Absolute Monocytes (0.1-0.8) 10^3/uL 0.70 Absolute Eosinophils (0.0-0.7) 10^3/uL 0.05 Absolute Basophils (0.0-0.2) 10^3/uL 0.01 VBG Lactate (<or=2.0) mmol/L 1.2 Sodium (136-145) mmol/L 135 L Potassium (3.5-5.1) mmol/L 4.5 Chloride (98-107) mmol/L 100 Carbon Dioxide (21.0-32.0) mmol/L 27.3 Anion Gap (3-11) mmol/L 7.7 BUN (7-18) mg/dL 21 H Creatinine (0.70-1.30) mg/dL 1.3 Est GFR (CKD-EPI 2020) (mL/min/1.73m2) 55.88 Glucose (74-106) mg/dL 97 Calcium (8.5-10.1) mg/dL 8.8 Magnesium (1.8-2.4) mg/dL 1.9 Total Bilirubin (0.2-1.0) mg/dL 1.9 H AST (15-37) U/L 18 ALT (16-63) U/L 21 Alkaline Phosphatase (46-116) U/L 88 Troponin I (<or=76) ng/L 13 9 NT-Pro-B Natriuret Pep (<300) pg/mL 2207 H Total Protein (6.4-8.2) g/dL 7.2 Albumin (3.4-5.0) g/dL 3.6 Medical Decision Making Quality:SDOH Health Related Social Needs: Health related social needs details N/A PFSH All Active Problems (Updated 02/16/25 @ 11:18 by Jovi Barragan MD) Pneumonia (Acute) Productive cough (Acute) Microcytic anemia (Acute) Nocturia (Acute) Wheeze (Acute) Screening for colon cancer (Acute) Actinic keratoses (Acute) Chronic kidney disease (Chronic) Erectile dysfunction (Acute) Postnasal drip (Acute ~12/2020) Chronic rhinitis (Acute ~12/2020) Esophagitis determined by biopsy (Acute ~06/2020) [facility] [place]-endoscopy done Aspiration pneumonia (Acute) Hematuria (Acute) Aortic stenosis (Chronic) Chronic diarrhea (Acute) Abnormal auditory perception (Acute) Impacted cerumen of both ears (Acute) Sensorineural hearing loss of both ears (Acute) S/P carotid endarterectomy (Acute) Depressive disorder (Chronic 06/30/11) Pain of right upper extremity (Acute 03/20/15) Primary malignant neoplasm of esophagus (Acute 04/27/00) Vasomotor rhinitis (Acute) Asymptomatic bilateral carotid artery stenosis (Acute) 09/13/18 [facility] [place] Dr Henry Null, Vascular Surgery Coronary artery disease involving coronary bypass graft of [place] heart (Chronic) Urinary retention (Chronic 04/29/16) Retinal detachment (Chronic 03/10/14) R managed by Dr Iraheta at [facility] Pure hypercholesterolemia (Chronic 06/30/11) goal LDL<70 due to CAD (no ischemia but presumed cause of abnl MPI 08/2011) Personal history of TIA (transient ischemic attack) (Chronic 02/06/15) R paresthesias; TIA vs Migraine, Drs. Palmer/ Latoya: vasc eval, medical therapy, statin/Plavix; finally L carotid endarterectomy 04/19/16 [facility]; F/U 11/2016 Iron deficiency anemia (Chronic 04/17/12) 2006, 2008, 3013; LAST GI W/U 2008 NEG X ADENOMA, TICS, EGD NEG [facility] 04/2013; chronic microcytosis 1999 Elevated prostate specific antigen (PSA) (Chronic 06/30/11) h/o bx 2009; Dr Tripp 08/2010: consider up to 11 normal for him Carotid disease, bilateral (Chronic 01/25/16) [facility] 50% L int carotid; Dr Mauro: f/u 1 yr with Duplex [facility] 09/18/17 Duplex shows a patent L CEA site, but some progressionon RIght, F/U in 6m with plan for duplex both carotoids. (Dr Null [facility] Vascular) Atherosclerosis of [place] coronary artery of [place] heart without angina pectoris (Chronic 04/10/06) silent ant MD by MPI 2006; ECHO 06/2007: EF 63%, NO WMA; MPI 08/2011 NEG ISCHEMIA, EF 50%; ANTSEPT HYPOKIN; ASA & beta hood started 2006; aspirin stopped 01/2016 due to gastric ulcer Medical History (Updated 02/16/25 @ 11:18 by Jovi Barragan MD) Constipation Community acquired pneumonia of right lung Severe sepsis Pleural effusion, right Surgical History S/P CABG x 3 (~06/04/18) H/O cardiac catheterization (05/22/18) [facility] [place] Dr Harvey partial esophagotomy (04/28/00) Dr Ibanez; [place] Esophagogastrectomy and feeding jejunostomy EGD - IV Sedation (08/2024) Colonoscopy - IV Sedation (08/2024[place] [facility] [place] Extraction of cataract (09/25/14) right eye with lens implant Dr. Truong Carotid endarterectomy (04/19/16) Left, [facility], Dr. Null for asymptomatic carotid stenosis Family History Mother , old age at age 92. Congestive heart failure (CHF) age of onset unknown Father , MD, pneumonia at age 78. Myocardial infarction Sister , MD at age 56. Myocardial infarction Sister Age: 90 No problems noted. Brother , cancer at age 67. Esophageal cancer Social History Smoking/Tobacco Use Status: Former Tobacco Use tobacco type: cigarettes Quit Date: 10/08/88 Pack-years: 20 Tobacco: How many years used: 20 Second Hand Exposure: No Smoking risk assessment performed?: Yes Alcohol Intake: former Year quit: 1987 Drug use: Never Substance use type: does not use Adopted: No Caregiver/Support person: No Household members: spouse and other Details: client Housing: house Number of Children: 4 number of grandchildren: 10 Communication Needs: Hard of Hearing Education Level: high school Do you need help understanding health information?: Rarely current occupation: Drives for [employer] Sexually active: Yes Do you think of yourself as: straight/heterosexual Current gender identity: male What is your relationship status?: How often do you talk on the phone with friends or family?: once per week How often do you get together with friends or relatives?: twice per week Do you belong to any clubs or organized social groups?: no Panel score (0-1 are the most socially isolated patients): 2 What type of physical activity do you participate in: other Details: active daily Masha/Methodist: Cheondoism Seatbelt use: always Helmet use: Yes Helmet use: always Drive intox or ride w/intox tow driver: No Working smoke detector in home: Yes Fire extinguisher in home: Yes Carbon monox detector in home: Yes Firearms in home: No Victim of physical abuse: No Victim of emotional abuse: No Victim of sexual abuse: No Would you like helpful sources: No Additional Social history: [employer]
== END 2025-02-16 12:34 | disposition home or self-care (01) ==
PROVIDERS: Emergency Provider General Practice; PCP Nurse Practitioner Family
DX: J18.9 Pneumonia, unspecified organism (principal); I10 Essential (primary) hypertension; Z86.79 Personal history of other diseases of the circulatory system
CPT/HCPCS: 36415; 80053; 93005; 96365; 96368; 99284; 71046; 83605; 83735; 83880; 84484; 85025; 93010; J0456; J0696

== ENCOUNTER 2025-03-14 02:37 | Outpatient (CLI) | payer MEDICARE, SELFPAY ==
[2025-03-14] MEDS: Inhaler, Assist Device 1 EACH MC (16:27)
[2025-03-14] MEDS: Levalbuterol HFA 15 GM INH 4 PUFF IH (16:28)
--- NOTE | 2025-03-18 07:59 | W.PFT ---
Date of service: 03/14/25 Time of Service: 15:23 Pulmonary Function Test Result Indications: Possible COPD, hx pneumonia Impression 1. Good patient effort was noted. ATS standards for reproducibility were met. 2. No obstructive lung disease on spirometry 3. Following the administration of a bronchodilator there was not a significant response 4. TLC was at the lower end of normal at 80% predicted. Mild restrictive lung disease is possible. 5. DLCO was reduced at 69% predicted, consistent with a mild defect in alveolar gas exchange. Conclusion: given borderline TLC and reduced DLCO, interstitial lung disease should be considered. Clinical correlation recommended
== END 2025-03-14 02:38 | disposition home or self-care (01) ==
LOC: RT 02:37
PROVIDERS: PCP Nurse Practitioner Family; Visit Provider Nurse Practitioner Family
DX: J44.9 Chronic obstructive pulmonary disease, unspecified (principal); R91.8 Other nonspecific abnormal finding of lung field
CPT/HCPCS: 94060; 94726; 94729

== ENCOUNTER → 2025-03-26 14:30 | Outpatient (BNVA) | payer MEDICARE, SELFPAY | PROVIDERS: PCP Nurse Practitioner Family; Referring Provider Nurse Practitioner Family; Visit Provider Physician Assistant Surgical | DX: R91.8 Other nonspecific abnormal finding of lung field (principal); R94.2 Abnormal results of pulmonary function studies; Z87.891 Personal history of nicotine dependence | CPT/HCPCS: 99215 ==

== ENCOUNTER → 2025-03-28 00:03 | Outpatient (CLI) | payer MEDICARE, SELFPAY ==
--- NOTE | 2025-03-28 13:22 | DI.US_ITS ---
APPROVED REPORT EXAM: Comprehensive 2D, Doppler, and color-flow Echocardiogram Patient Location: Out-Patient Physical Chemistry Teacher: Holley Hill RDCS (AE) Indications: Aortic Stenosis Other Information Study Quality: Adequate Conclusion Normal left ventricular wall thickness and chamber size. Ejection fraction is 55%. There are no segmental wall motion abnormalities Normal right ventricular size and function Both atria are normal in size Aortic valve is calcified. There is mild aortic stenosis. Mean gradient is 12 mmHg. There is no aortic regurgitation Trace to mild mitral and tricuspid regurgitation Estimated right ventricular systolic pressure is 33 mmHg Wall motion Left Ventricle The left ventricle is normal size. The left ventricular systolic function is normal. The left ventricular ejection fraction is within the normal range. There is normal left ventricular wall thickness. There is normal LV segmental wall motion. There is no ventricular septal defect visualized. LVEF is 55%. Right Ventricle The right ventricle is normal size. The right ventricular systolic function is normal. Atria The left atrium size is normal. The right atrium size is normal. The interatrial septum is intact with no evidence for an atrial septal defect. Aortic Valve Aortic valve is calcified. Number of aortic valve leaflets could not be assessed. Mild aortic stenosis. Mean gradient is 12 mmHg No aortic regurgitation is present. Mitral Valve The mitral valve is normal in structure. No evidence of mitral valve stenosis. Trace to mild mitral regurgitation. Tricuspid Valve The tricuspid valve is normal in structure. There is no tricuspid valve stenosis. Trace to mild tricuspid regurgitation. The RVSP is 33.0 mmHg. Pulmonic Valve The pulmonary valve is normal in structure. There is no pulmonic valvular stenosis. There is no pulmonic valvular regurgitation. Great Vessels The aortic root is normal in size. The ascending aorta is normal in size. Aortic arch is not well visualized. IVC is normal in size and collapses >50% with inspiration. Pericardium There is no pericardial effusion. 2D Dimensions IVSD d PLAX 0.85 cm M: 0.6-1.2 Ao Root d 2.86 cm M: 3.1 - 3.7 LVPW d PLAX 0.90 cm M: 0.6 - 1.2 Ao Asc Diam d 3.10 cm M: 2.6 - 3.4 LVID d PLAX 4.34 cm M: 4.2 - 5.8 LVDs 3.11 cm M: 2.5 - 4.0 LV EF Teichholz 55.1 % FS 28.40 % LV EDV (Teich) 85.1 mL LV ESV (Teich) 38.2 mL M-Mode TAPSE 1.38 cm (M/F) >1.7 Auto EF LV EDV A4C 97.5 mL LV EDV A2C 122.1 mL LV EDV BP 108.7 mL LV ESV A4C 49.1 mL LV ESV A2C 60.8 mL LV ESV BP 54.8 mL LVEF(%) A4C 49.6 % LVEF(%) A2C 50.2 % LVEF(%) BP 49.6 % LV SV A4C 48.4 ml LV SV A2C 61.3 ml LV SV BP 53.9 ml LV CO A4C 2.9 L/min LV CO A2C 3.9 L/min LV CO BP 3.4 L/min HR A4C 60.41 BPM HR A2C 63.94 BPM LV EDV Index (BP) LA Volume LA Length A4C 5.9 cm LA Length A2C 5.7 cm LA Area A4C s 19.19 cm2 LA Area A2C s 17.20 cm2 LA Vol A4C A-L 52.88 mL LA Vol A2C A-L 44.25 mL LA Vol Biplane A-L 49.4 mL LA Vol/BSA A4C A-L LA Vol/BSA A2C A-L LA Vol/BSA BP A-L 28.9 mL/m2 LA Vol A4C MOD 49.9 mL LA Vol A2C MOD 41.3 mL LA Vol BP MOD 46.3 mL LV Diastology MV E' medial 0.066 (>0.07 m/s) MV E Vmax 0.73 (0.4-1.3 m/s) MV E/E' MED 11.14 (<14) MV A Vmax 0.80 (0.4-1.3 m/s) MV E' lateral 0.067 (>0.1 m/s) E/A Ratio 0.9 MV E/E' LAT 10.99 (<14) MV E' Average 0.066 m/s MV E/E'(average) 11.07 Aortic Valve AoV Vmax 2.25 m/s LVOT Vmax 1.13 m/s AoV Peak Grad 20.2 mmHg LVOT Peak Grad 5.1 mmHg AoV Area (Vmax) 1.60 cm2 LVOT VTI 0.260 m AoV VTI 0.543 m LVOT Mean Grad 2.8 mmHg AoV Mean [place]. 1.66 m/s LVOT SV 82.66 mL AoV Mean Grad 12.4 mmHg LVOT Diam s 2.00 cm AoV Area (VTI) 1.52 cm2 AV Regurg Peak Gr. 20.18 mmHg Velocity Ratio 0.50 Mitral Valve MV DT 175 (160-240 msec) MV Vmax TIPS 0.80 m/s MV Mean Grad 0.9 (<2mmHg) MV VTI 0.224 m Pulmonary Valve PV Vmax 0.82 (0.5-1.5 m/s) RVOT Vmax 0.69 m/s PV Peak Grad 2.7 mmHg RVOT Peak Gr. 1.9 mmHg PV Mean [place] 0.57 m/s RVOT VTI 0.152 m PV Mean Grad 1.5 mmHg RVOT Mean Gr. 1.1 mmHg Tricuspid Valve RA Pressure 3.00 mmHg TR Vmax 2.74 m/s TV S' 0.10 m/s TR Peak Grad 29.9 mmHg RVSP (TR) 33.0 mmHg
== END ==
LOC: DI 00:03
PROVIDERS: PCP Nurse Practitioner Family; Visit Provider Nurse Practitioner Family
DX: I35.0 Nonrheumatic aortic (valve) stenosis (principal)
CPT/HCPCS: 93306

== ENCOUNTER → 2025-03-28 13:25 | Outpatient (CLI) | payer MEDICARE, SELFPAY ==
--- NOTE | 2025-03-28 13:00 | DI.CT_ITS ---
Exam(s) CT CHEST HIGH RESOLUTION EXAM: CT CHEST HIGH RESOLUTION CLINICAL HISTORY: ILD? R91.8 ABNL FINDINGS. TECHNIQUE: Imaging protocol: Axial computed tomography images were obtained and coronal and sagittal reformatted images were created and reviewed. Computer aided detection (CAD) was utilized. CONTRAST MATERIAL: Noncontrast COMPARISON: CR,XR XR PORTABLE CHEST AP from 05/05/[address] CHEST PE CTA from 05/25/2020 CR,XR XR PORTABLE CHEST AP from 06/01/[address] CHEST/ABD/PEL W from 07/22/2024 CR XR CHEST 2V PA LATERAL from 10/22/2024 CR XR CHEST 2V PA LATERAL from 02/16/2025 FINDINGS: Pulmonary parenchyma: There is a focal infiltrate infiltrate noted in the posterior medial left lower lobe, seen on recent chest x-ray. Milder tree-in-bud opacities in noted more inferiorly in the left lower lobe as well as in the right lower and middle lobes. Interstitial changes: Mild interstitial changes greater in the lower lobes near the lung bases. Emphysema: Mild diffuse emphysematous changes. Small bullae noted at the right lung base. Tracheobronchial tree: Peripheral mucous plugging noted in the bilateral lower lobes. No bronchiectasis . Pleura: Stable right lower lobe pleural thickening which also shows tiny calcifications. No pneumothorax. Heart: The heart is moderately dilated. The coronary arteries show severe calcifications. Aorta: Thoracic aorta non-dilated. Mild to moderate atherosclerotic changes. Lymph nodes: No enlarged lymph nodes. Esophagus: Gastric pull-through procedure again noted. There is food debris and fluid within the esophagus. Bones: Degenerative changes are seen. No evidence of compression fracture. Sternal wires. Upper abdomen: Unremarkable. Soft tissues: Unremarkable. IMPRESSION: Multifocal pneumonitis with small focal area of consolidation in the posterior left lower lobe. Mild underlying emphysematous changes and interstitial changes, greater in the lower lobes. Gastric pull-through procedure. There is fluid and food debris within the esophagus. This may predispose to aspiration. RADIATION DOSE DELIVERED: Total DLP DATA REPOSITORY: All CT scans at this facility are submitted to the National Radiology Data Registry (NRDR) Dose Index Registry (DIR) with the [employer] (ACR). RADIATION OPTIMIZATION: All CT scans at this facility use at least one of these dose optimization techniques: automated exposure control; mA and/or kV adjustment per patient size (includes targeted exams where dose is matched to clinical indication); or iterative reconstruction.
== END ==
LOC: DI 13:27
PROVIDERS: PCP Nurse Practitioner Family; Visit Provider Physician Assistant Surgical
DX: J18.8 Other pneumonia, unspecified organism (principal); J43.8 Other emphysema
CPT/HCPCS: 71250